=== PATIENT | female | born 1975 | race Caucasian/White ===

== ENCOUNTER → 2017-11-10 14:55 | Outpatient (CLI) | payer OTHER, SELFPAY ==
--- NOTE | 2017-11-10 14:58 | BI_ITS ---
MAMMOGRAPHY - BILATERAL SCREENING REASON FOR EXAM: Female, 42 years old. Routine annual screening examination. PERTINENT HISTORY: Mother with breast cancer. Grandmother with breast cancer. Aunt with breast cancer. TECHNIQUE: Digital bilateral breast yolette (3D mammographic acquisition) in the CC and MLO projections. 2-D mediolateral oblique (MLO) and craniocaudad (CC) views of both breasts were obtained. CAD: Full Field Digital Mammography with Computer Added Detection was performed. COMPARISON: Comparison is made with prior study dated November 06, 2016 and November 01, 2014. FINDINGS: Breast Composition: The breasts are extremely dense, which lowers the sensitivity of mammography. There are no dominant masses or suspicious calcifications. No other significant abnormalities are identified. There has been no significant change since the prior study. BI/SCREENING MAMM (CAD), BILAT IMPRESSION: Stable bilateral screening mammogram. Yearly follow-up mammogram recommended. (A) ASSESSMENT CATEGORY: BIRADS Category 1: Negative. A letter regarding these results will be sent to the patient by the facility within 30 days. Approximately 10% of breast cancers are not detected by mammography. A normal mammogram should not delay biopsy of a clinically suspicious abnormality. [id number] Electronically Signed: Ty Voss MD at 8:33 EDT Tel [phone], Service support ,
== END ==
PROVIDERS: Family Provider Internal Medicine; PCP Internal Medicine; Visit Provider Obstetrics & Gynecology
DX: Z12.31 Encounter for screening mammogram for malignant neoplasm of breast (principal)
CPT/HCPCS: 77063; 77067

== ENCOUNTER → 2018-11-17 14:38 | Outpatient (CLI) | payer OTHER, SELFPAY ==
--- NOTE | 2018-11-17 14:41 | BI_ITS ---
MAMMOGRAPHY - BILATERAL SCREENING 3-D TOMOSYNTHESIS REASON FOR EXAM: Female, 43 years old. Bilateral Screening 3-D tomosynthesis PERTINENT HISTORY: No significant family history. TECHNIQUE: 2-D mammograms and 3-D Tomosynthesis of the breast (s) were performed. CAD was performed. COMPARISON: November 10, 2017 FINDINGS: The breast composition is heterogeneously dense that can obscure small breast masses. Scattered benign calcifications are seen. No dense spiculated masses or suspicious microcalcifications are identified. No architectural distortion is identified. There is no skin thickening or retraction. There has been no significant change since the prior study. BI/SCREENING MAMM (CAD), BILAT IMPRESSION: No mammographic signs of malignancy. Routine yearly mammograms recommended. ASSESSMENT CATEGORY: BIRADS Category 1: Negative. A letter regarding these results will be sent to the patient by the facility within 30 days. FOLLOW UP RECOMMENDATION: Yearly follow up mammogram recommended. (A) Approximately 10% of breast cancers are not detected by mammography. A normal mammogram should not delay biopsy of a clinically suspicious abnormality. Electronically Signed: Dominic Juan MD at 16:52 EDT , Service support ,
== END ==
PROVIDERS: Family Provider Family Medicine; PCP Family Medicine; Referring Provider Obstetrics & Gynecology; Visit Provider Obstetrics & Gynecology
DX: Z12.31 Encounter for screening mammogram for malignant neoplasm of breast (principal)
CPT/HCPCS: 77063; 77067

== ENCOUNTER → 2019-11-19 09:54 | Outpatient (CLI) | payer OTHER, SELFPAY ==
--- NOTE | 2019-11-19 09:59 | BI_ITS ---
MAMMOGRAPHY - BILATERAL SCREENING REASON FOR EXAM: Female, 44 years old. Routine annual screening examination. PERTINENT HISTORY: Mother with breast cancer. TECHNIQUE: Digital bilateral breast maykel (3D mammographic acquisition) in the CC and MLO projections. 2-D mediolateral oblique (MLO) and craniocaudad (CC) views of both breasts were obtained. CAD: Full Field Digital Mammography with Computer Added Detection was performed. COMPARISON: Comparison is made with prior examination dated November 17, 2018 and November 10, 2017. FINDINGS: Breast Composition: The breasts are extremely dense, which lowers the sensitivity of mammography. There are no dominant masses or suspicious calcifications. No other significant abnormalities are identified. There has been no significant change since the prior study. BI/SCREEN MAMM (CAD) W/MAYKEL BILAT IMPRESSION: Stable bilateral screening mammogram. Yearly follow-up mammogram recommended. (A) ASSESSMENT CATEGORY: BIRADS Category 1: Negative. A letter regarding these results will be sent to the patient by the facility within 30 days. Approximately 10% of breast cancers are not detected by mammography. A normal mammogram should not delay biopsy of a clinically suspicious abnormality. [id number] Electronically Signed: Ty Voss, at 13:11 EDT , Service support ,
== END ==
PROVIDERS: PCP Family Medicine; Referring Provider Obstetrics & Gynecology; Visit Provider Obstetrics & Gynecology
DX: Z12.31 Encounter for screening mammogram for malignant neoplasm of breast (principal)
CPT/HCPCS: 77063; 77067

== ENCOUNTER → 2019-12-13 12:29 | Outpatient (CLI) | payer SELFPAY ==
--- NOTE | 2019-12-13 13:02 | MRI_ITS ---
STUDY: BILATERAL BREAST MR WITHOUT AND WITH CONTRAST REASON FOR EXAM: Female, 44 years old. dense breasts, family hx -- tenderness rt breast TECHNIQUE: Multi-sequence multi-echo imaging of both breasts was performed with a dedicated breast coil. T1-weighted and T2-weighted images were performed before the administration of contrast. T1-weighted images were also performed after the administration of IV dotarem 14ml without complications. COMPARISON: FINDINGS: RIGHT BREAST: The breast tissue is markedly dense with marked background enhancement which can lower the sensitivity of breast MRI for detection of small masses or small areas of non-mass enhancement. There are no abnormal enhancing masses or areas of non-mass enhancement in the right breast. LEFT BREAST: The breast tissue is markedly dense with marked background enhancement which can lower the sensitivity of breast MRI for detection of small masses or small areas of non-mass enhancement. There are no abnormal enhancing masses or areas of non-mass enhancement in the left breast. There is borderline enlargement of the axillary lymph nodes, the largest measures 1.5 cm in greatest diameter most likely represent an infectious process. There is no abnormality in the visualized regions of the chest or liver. MRI/Breast Bilateral W/O and W IMPRESSION: Unremarkable breast MR examination with contrast. CATEGORY: BIRADS Category 2: Benign. A letter regarding these results will be sent to the patient by the facility within 30 days. Electronically Signed: Kay Sears, at 13:53 EDT Tel , Service support ,
== END ==
PROVIDERS: PCP Family Medicine; Referring Provider Obstetrics & Gynecology; Visit Provider Obstetrics & Gynecology
DX: R92.2 Inconclusive mammogram (principal); N64.89 Other specified disorders of breast
CPT/HCPCS: 77049; A9575; A4216; C8908

== ENCOUNTER → 2019-12-31 10:24 | Outpatient (CLI) | payer OTHER, SELFPAY ==
[2019-12-31 13:57] LABS: Hematocrit 40.9 % (37-47); Hemoglobin 13.6 g/dL (12.0-15.0); Mean Corp Hgb Conc 33.3 g/dL (32-36); Mean Corpuscular Hgb 30.8 pg (27.0-32.0); Mean Corpuscular Volume 92.5 fL (81-99); Mean Platelet Vol. 9.7 fl (6.2-12.0); Platelet Count 359 K/mm3 (150-450); RBC Distribution Width CV 12.1 % (11.6-14.6); RBC Distribution Width SD 40.8 fl (35.1-43.9); Red Blood Count 4.42 M/mm3 (4.2-5.4); White Blood Count 6.7 K/mm3 (4.4-11.0)
[2019-12-31 14:08] LABS: ALB/GLOB Ratio 1.1 RATIO (0.9-2.4); AST(SGOT) 22 U/L (15-37); Alanine Aminotransfer ALT/SGPT 38 U/L (13-56); Alkaline Phosphatase 52 U/L (45-117); Anion Gap 3 (5-15); BUN 19 mg/dL (7-18); BUN/Creat Ratio 22.6 RATIO (10-20); Calcium,Total 9.4 mg/dL (8.5-10.1); Chloride 106 mmol/L (98-107); Cholesterol 244 mg/dL (200); Creatinine, Serum 0.84 mg/dL (0.55-1.02); EST Glomerular Filtration Rate 78 mL/min (>60); Est Glom Filt Rate - Afr Amer 94 mL/min (>60); Globulin 3.6 g/dL (2.2-4.2); Glucose 103 mg/dL (74-106); Potassium 4.3 mmol/L (3.5-5.1); Protein, Total 7.6 g/dL (6.4-8.2); Sodium Level 137 mmol/L (136-145)
[2019-12-31 14:40] LABS: Hemoglobin A1c 5.4 % (3.8-5.6)
== END ==
PROVIDERS: PCP Family Medicine; Visit Provider Obstetrics & Gynecology
DX: Z13.220 Encounter for screening for lipoid disorders (principal); Z13.1 Encounter for screening for diabetes mellitus; R23.2 Flushing; R22.30 Localized swelling, mass and lump, unspecified upper limb
CPT/HCPCS: 36415; 80053; 82465; 83036; 85027

== ENCOUNTER → 2020-02-11 08:53 | Outpatient (CLI) | payer OTHER, SELFPAY ==
[2020-02-11 12:47] LABS: Insulin 7.5 mU/L (2.6-37.6)
[2020-02-11 12:50] LABS: Cholesterol 230 mg/dL (200); Estradiol 121.5 pg/mL; Follicle Stimulating Hormone 2.2 mIU/mL; High Density Lipoprotein 60 mg/dL; T4 Free Direct 0.95 ng/dL (0.76-1.46); Thyroid Stim Hormone (TSH) 1.51 uIU/mL (0.358-3.74); Triglycerides 143 mg/dL; Very Low Density Lipoprotein 29 mg/dL (5-40)
== END ==
PROVIDERS: PCP Family Medicine; Visit Provider Family Medicine
DX: R63.5 Abnormal weight gain (principal); R23.2 Flushing; E78.5 Hyperlipidemia, unspecified; R73.01 Impaired fasting glucose
CPT/HCPCS: 36415; 80061; 82670; 83001; 83525; 84439; 84443

== ENCOUNTER → 2020-03-20 14:39 | Outpatient (CLI) | payer OTHER, SELFPAY ==
[2020-03-20 17:36] LABS: Anion Gap 6 (5-15); BUN 18 mg/dL (7-18); BUN/Creat Ratio 22.1 RATIO (10-20); Calcium,Total 9.5 mg/dL (8.5-10.1); Chloride 108 mmol/L (98-107); Creatinine, Serum 0.82 mg/dL (0.55-1.02); EST Glomerular Filtration Rate 81 mL/min (>60); Est Glom Filt Rate - Afr Amer 98 mL/min (>60); Glucose 127 mg/dL (74-106); Potassium 3.6 mmol/L (3.5-5.1); Sodium Level 138 mmol/L (136-145)
== END ==
PROVIDERS: PCP Family Medicine; Visit Provider Family Medicine
DX: Z51.81 Encounter for therapeutic drug level monitoring (principal)
CPT/HCPCS: 36415; 80048

== ENCOUNTER → 2020-04-14 13:21 | Outpatient (CLI) | payer OTHER, SELFPAY | PROVIDERS: PCP Family Medicine; Referring Provider Family Medicine; Visit Provider Family Medicine | DX: G47.10 Hypersomnia, unspecified (principal); R06.83 Snoring | CPT/HCPCS: 95806 ==

== ENCOUNTER → 2020-05-31 08:52 | Outpatient (CLI) | payer OTHER, SELFPAY ==
[2020-05-31 09:45] LABS: CRP < 2.90 mg/L (0.0-3.0)
[2020-05-31 10:17] LABS: Erythrocyte Sedimentation Rate 3 mm/hr (0-20)
== END ==
PROVIDERS: PCP Family Medicine; Visit Provider Otolaryngology
DX: R51.9 Headache, unspecified (principal)
CPT/HCPCS: 36415; 85652; 86140

== ENCOUNTER → 2020-06-09 12:36 | Outpatient (CLI) | payer OTHER, SELFPAY ==
--- NOTE | 2020-06-09 13:00 | MRI_ITS ---
STUDY: MRI BRAIN WITH AND WITHOUT CONTRAST REASON FOR EXAM: Female, 45 years old. LEFT facial and ear pain, trigeminal neuralgia TECHNIQUE: Standardized multiplanar fat and water weighted pulse sequences were obtained. 13ml Dotarem via IV was administered for the contrast portion of the examination. COMPARISON: None. FINDINGS: Normal size of the ventricles and extra-axial spaces for the patient''s age. Normal white matter tracts of the supratentorial brain. There is no evidence for recent intracranial ischemia or other cause of cytotoxic edema on diffusion weighted imaging (DWI). Normal bilateral basal ganglia. Normal thalami. There is no extra-axial fluid accumulation. Normal flow voids within the major intracranial circulation suggesting patency by spin echo criteria. Normal venous enhancement. There is no enhancing intra-axial or extra-axial abnormality. Normal sella turcica, pituitary gland, infundibular stalk, optic chiasm and hypothalamus. Normal tectal plate and pineal gland. Normal midbrain, dion and medulla. Normal cerebellum. Normal basal cisterns. Normal bilateral temporal bones. Normal bilateral internal auditory canals. No demonstrated orbital abnormality, within the constraints of a routine brain study. Normal visualized paranasal sinuses. Normal calvarium and skull base. Normal visualized soft tissue structures. Normal visualized upper cervical spine. MRI/Brain W/WO Contrast IMPRESSION: Normal unenhanced and enhanced MRI of the brain. Electronically Signed: Moody Babcock MD at 16:18 EST Tel , Service support ,
== END ==
PROVIDERS: PCP Family Medicine; Referring Provider Otolaryngology; Visit Provider Otolaryngology
DX: R51.9 Headache, unspecified (principal)
CPT/HCPCS: 70553; A9575

== ENCOUNTER → 2020-06-27 14:03 | Outpatient (CLI) | payer OTHER, SELFPAY ==
[2020-06-27 16:08] LABS: Absolute Lymphocyte Count 2.18 X10^3/uL (0.83-4.51); Absolute Neutrophil Count 5.6 X10^3/uL (2.0-7.7); Basophil# 0.03 X10^3/uL; Basophil% 0.3 % (0-1); Eosinophil# 0.07 X10^3/uL; Eosinophils% 0.8 % (0-5); Hematocrit 41.4 % (37-47); Hemoglobin 13.8 g/dL (12.0-15.0); Lymphocyte # 2.18 X10^3/ul (4.0); Lymphocyte % 25.4 % (19-41); Mean Corp Hgb Conc 33.3 g/dL (32-36); Mean Corpuscular Hgb 30.6 pg (27.0-32.0); Mean Corpuscular Volume 91.8 fL (81-99); Mean Platelet Vol. 9.6 fl (6.2-12.0); Monocyte# 0.73 X10^3/uL; Monocyte% 8.5 % (0-10); NRBC Flagged by Analyzer 0 % (0-5); Neutrophil # 5.55 X10^3/uL (2.7-7.7); Neutrophil % 64.7 % (47-70); Platelet Count 383 K/mm3 (150-450); RBC Distribution Width CV 12.4 % (11.6-14.6); RBC Distribution Width SD 41.8 fl (35.1-43.9); Red Blood Count 4.51 M/mm3 (4.2-5.4); White Blood Count 8.6 K/mm3 (4.4-11.0)
[2020-06-27 16:31] LABS: ALB/GLOB Ratio 1.1 RATIO (0.9-2.4); AST(SGOT) 29 U/L (15-37); Alanine Aminotransfer ALT/SGPT 54 U/L (13-56); Albumin, Serum 4.2 g/dL (3.2-5.0); Alkaline Phosphatase 70 U/L (45-117); BUN 22 mg/dL (7-18); BUN/Creat Ratio 28.5 RATIO (10-20); Calcium,Total 9.3 mg/dL (8.5-10.1); Chloride 105 mmol/L (98-107); Creatinine, Serum 0.77 mg/dL (0.55-1.02); EST Glomerular Filtration Rate 86 mL/min (>60); Est Glom Filt Rate - Afr Amer 104 mL/min (>60); Globulin 3.8 g/dL (2.2-4.2); Glucose 70 mg/dL (74-106); Potassium 3.2 mmol/L (3.5-5.1); Sodium Level 138 mmol/L (136-145)
[2020-06-27 16:32] LABS: Anion Gap 5 (5-15); Rheumatoid Factor < 10.0 IU/mL (<15)
[2020-06-28 08:44] LABS: Hepatitis B Surface Antibody Reactive; Hepatitis B Surface Antigen Non-Reactive (Nonreactive); Hepatitis C Antibody Non-Reactive (Nonreactive)
[2020-06-29 16:13] LABS: ANTINUCLEAR ANTIBODIES DIRECT Negative (Negative)
[2020-06-30 09:13] LABS: CCP IgG Antibodies 7 units (0-19); Hepatitis B Core AB IgM Negative (Negative)
== END ==
PROVIDERS: PCP Family Medicine; Referring Provider Internal Medicine Rheumatology; Visit Provider Internal Medicine Rheumatology
DX: M06.4 Inflammatory polyarthropathy (principal); G50.1 Atypical facial pain; R51.9 Headache, unspecified; F41.9 Anxiety disorder, unspecified
CPT/HCPCS: 36415; 80053; 85025; 86038; 86200; 86431; 86705; 86706; 86803; 87340

== ENCOUNTER → 2020-07-18 10:20 | Outpatient (CLI) | payer OTHER, SELFPAY ==
[2020-07-18 12:25] LABS: Anion Gap 6 (5-15); BUN 20 mg/dL (7-18); BUN/Creat Ratio 25.5 RATIO (10-20); Calcium,Total 8.7 mg/dL (8.5-10.1); Chloride 102 mmol/L (98-107); Creatinine, Serum 0.78 mg/dL (0.55-1.02); EST Glomerular Filtration Rate 84 mL/min (>60); Est Glom Filt Rate - Afr Amer 102 mL/min (>60); Glucose 101 mg/dL (74-106); Potassium 3.5 mmol/L (3.5-5.1); Sodium Level 136 mmol/L (136-145)
== END ==
PROVIDERS: PCP Family Medicine; Visit Provider Family Medicine
DX: E87.6 Hypokalemia (principal)
CPT/HCPCS: 36415; 80048

== ENCOUNTER → 2020-09-21 14:31 | Outpatient (CLI) | payer OTHER, SELFPAY ==
[2020-09-21 17:32] LABS: Absolute Lymphocyte Count 1.11 X10^3/uL (0.83-4.51); Absolute Neutrophil Count 2.1 X10^3/uL (2.0-7.7); Basophil# 0.03 X10^3/uL; Basophil% 0.8 % (0-1); Eosinophil# 0.04 X10^3/uL; Hematocrit 40.5 % (37-47); Hemoglobin 13.6 g/dL (12.0-15.0); Lymphocyte # 1.11 X10^3/ul (4.0); Lymphocyte % 28.2 % (19-41); Mean Corp Hgb Conc 33.6 g/dL (32-36); Mean Corpuscular Volume 89.4 fL (81-99); Mean Platelet Vol. 9.7 fl (6.2-12.0); Monocyte# 0.63 X10^3/uL; NRBC Flagged by Analyzer 0 % (0-5); Neutrophil # 2.12 X10^3/uL (2.7-7.7); Neutrophil % 53.7 % (47-70); Platelet Count 317 K/mm3 (150-450); Red Blood Count 4.53 M/mm3 (4.2-5.4); White Blood Count 3.9 K/mm3 (4.4-11.0)
[2020-09-21 17:49] LABS: ALB/GLOB Ratio 1.1 RATIO (0.9-2.4); AST(SGOT) 33 U/L (15-37); Alanine Aminotransfer ALT/SGPT 61 U/L (13-56); Alkaline Phosphatase 75 U/L (45-117); Anion Gap 6 (5-15); BUN 15 mg/dL (7-18); BUN/Creat Ratio 17.5 RATIO (10-20); Chloride 103 mmol/L (98-107); Creatinine, Serum 0.86 mg/dL (0.55-1.02); EST Glomerular Filtration Rate 76 mL/min (>60); Est Glom Filt Rate - Afr Amer 92 mL/min (>60); Globulin 3.6 g/dL (2.2-4.2); Glucose 105 mg/dL (74-106); Potassium 3.1 mmol/L (3.5-5.1); Protein, Total 7.6 g/dL (6.4-8.2); Sodium Level 137 mmol/L (136-145)
== END ==
LOC: LAB 14:34 → MTLAB 14:34
PROVIDERS: PCP Family Medicine; Referring Provider Family Medicine; Visit Provider Family Medicine
DX: E87.6 Hypokalemia (principal); M06.4 Inflammatory polyarthropathy; G50.1 Atypical facial pain; R51.9 Headache, unspecified; F41.9 Anxiety disorder, unspecified; Z79.899 Other long term (current) drug therapy
CPT/HCPCS: 36415; 80053; 85025

== ENCOUNTER → 2020-09-28 09:10 | Outpatient (CLI) | payer OTHER, SELFPAY ==
[2020-09-28 08:17] VITALS: BMI 26.4
--- NOTE | 2020-09-28 09:14 | RAD_ITS ---
STUDY: X-RAY - CERVICAL SPINE REASON FOR EXAM: Female, 45 years old. Cervicalgia TECHNIQUE: 3 view(s) of the cervical spine were obtained. COMPARISON: None FINDINGS: Normal anterior atlantoaxial articulation. Normal odontoid process. Normal cervical lordosis. Normal vertebral bodies and endplates. Normal disc space heights. Normal visualized intervertebral neuroforamina. The soft tissue structures are unremarkable. RAD/Cerv Spine 2 or 3 Views IMPRESSION: Normal x-ray examination of the visualized cervical spine. Electronically Signed: Ty Voss MD at 10:11 EST , Service support ,
== END ==
PROVIDERS: PCP Family Medicine; Visit Provider Psychiatry & Neurology Neurology
DX: M54.2 Cervicalgia (principal)
CPT/HCPCS: 72040

== ENCOUNTER → 2020-11-07 07:03 | Outpatient (CLI) | payer OTHER, SELFPAY ==
[2020-09-28 08:17] VITALS: BMI 26.4
--- NOTE | 2020-11-07 07:07 | BI_ITS ---
MAMMOGRAPHY - BILATERAL SCREENING REASON FOR EXAM: Female, 45 years old. Routine annual screening examination. PERTINENT HISTORY: Mother with breast cancer. Grandmother with breast cancer. Chronic inversion of both nipples. TECHNIQUE: Digital bilateral breast maykel (3D mammographic acquisition) in the CC and MLO projections. 2-D mediolateral oblique (MLO) and craniocaudad (CC) views of both breasts were obtained. CAD: Full Field Digital Mammography with Computer Added Detection was performed. COMPARISON: Comparison is made with prior examination dated 11/19/2019 and 11/17/2018. FINDINGS: Breast Composition: The breasts are extremely dense, which lowers the sensitivity of mammography. There are no dominant masses or suspicious calcifications. No other significant abnormalities are identified. There has been no significant change since the prior study. BI/SCRN MAMM (CAD)W/MAYKEL BILAT IMPRESSION: Stable bilateral screening mammogram. Yearly follow-up mammogram recommended. (A) ASSESSMENT CATEGORY: BIRADS Category 1: Negative. A letter regarding these results will be sent to the patient by the facility within 30 days. Approximately 10% of breast cancers are not detected by mammography. A normal mammogram should not delay biopsy of a clinically suspicious abnormality. [id number] Electronically Signed: Ty Voss MD at 9:15 EDT , Service support ,
== END ==
PROVIDERS: PCP Family Medicine; Referring Provider Obstetrics & Gynecology; Visit Provider Obstetrics & Gynecology
DX: Z12.31 Encounter for screening mammogram for malignant neoplasm of breast (principal)
CPT/HCPCS: 77063; 77067

== ENCOUNTER 2021-06-19 08:15 | Outpatient (RCR) | payer OTHER, SELFPAY ==
[2020-09-28 08:17] VITALS: BMI 26.4
--- NOTE | 2020-11-02 18:41 | MASS.EVAL_ITS ---
Massage Therapy Evaluation: Initial Evaluation Date: 11/02/2020 SUBJECTIVE: Dinorah is a 45 year old female who was referred to the [facility] facility for a massotherapy evaluation by Dr. Mina with the diagnosis of impingement syndrome of left shoulder and cervicalgia. She presents today with the symptoms of pain, stiffness and tension in the neck, head, mid back, and low back. Dinorah reports having a past medical history of chronic neck and back pain and complains of five or more headaches a week and radiating pain in her neck and left arm and hand. She reports having minimal improvement with exercise and stretching over the last five months. Dinorah is currently receiving physical therapy for these conditions. OBJECTIVE: Upon observation Dinorah has some posture issues with her head and shoulders forward from the neutral position in sitting and standing. After examination and palpation, I found Dinorah to have high muscle tension with tenderness and myofascial restrictions in her sub occipitals, levator scapulae, trapezius, rhomboids, scalenes, and thoracic paraspinals. Left side worse compared to the right side. Her QL?s, lumbar paraspinals, piriformis, ITB?s, glute medius and minimus all were very tight with fascial restrictions, tender points and trigger points. The first treatment consisted of a one hour massage to her upper body with myofascial release, muscle stripping, trigger point compression techniques, and cervical manual traction. ASSESSMENT: I feel that Dinorah is a good candidate for massotherapy at this time. She had a favorable response to the first treatment with reduction in her muscle aches, pain and tension. She also had improvement in her cervical flexibility and low back flexibility. PLAN: The plan of care was reviewed with the patient. The patient is to be seen on an as needed basis with the recommendation of one- two times per week for two three weeks per the doctor?s order for a one hour treatment.
--- NOTE | 2021-07-17 13:05 | DS.PCM_ITS ---
Massage Therapy Discharge Summary: Discharge Date 07/17/21 Dinorah was seen for a massotherapy evaluation on November 02, 2020, with the diagnosis of cervicalgia and shoulder impingement. The patient was treated with 7 sessions of massage and seemed to respond well. At this time I am discharging the patient from our care at the [facility].
== END 2021-06-19 19:00 | disposition home or self-care (01) ==
LOC: MASS 08:15
PROVIDERS: PCP Family Medicine; Referring Provider Orthopaedic Surgery; Visit Provider Orthopaedic Surgery
DX: M75.42 Impingement syndrome of left shoulder (principal); M54.2 Cervicalgia
CPT/HCPCS: 97124

== ENCOUNTER 2021-11-08 07:03 | Outpatient (CLI) | payer OTHER, SELFPAY ==
--- NOTE | 2021-11-08 07:05 | BI_ITS ---
MAMMOGRAPHY - BILATERAL SCREENING REASON FOR EXAM: Female, 46 years old. Routine annual screening examination. PERTINENT HISTORY: Mother with breast cancer. Grandmother with breast cancer. TECHNIQUE: Digital bilateral breast maykel (3D mammographic acquisition) in the CC and MLO projections. 2-D mediolateral oblique (MLO) and craniocaudad (CC) views of both breasts were obtained. CAD: Full Field Digital Mammography with Computer Added Detection was performed. COMPARISON: Comparison is made with prior examination dated 11/07/2020 and 11/19/2019. FINDINGS: Breast Composition: The breasts are extremely dense, which lowers the sensitivity of mammography. There are no dominant masses or suspicious calcifications. No other significant abnormalities are identified. There has been no significant change since the prior study. BI/SCRN MAMM (CAD)W/MAYKEL BILAT IMPRESSION: Stable bilateral screening mammogram. Yearly follow-up mammogram recommended. (A) ASSESSMENT CATEGORY: BIRADS Category 1: Negative. A letter regarding these results will be sent to the patient by the facility within 30 days. Approximately 10% of breast cancers are not detected by mammography. A normal mammogram should not delay biopsy of a clinically suspicious abnormality. [id number] Electronically Signed: Ty Voss MD at 8:23 EDT ,
== END 2021-11-08 23:59 | disposition home or self-care (01) ==
LOC: OPBI 07:03
PROVIDERS: PCP Family Medicine; Visit Provider Obstetrics & Gynecology
DX: Z12.31 Encounter for screening mammogram for malignant neoplasm of breast (principal)
CPT/HCPCS: 77063; 77067

== ENCOUNTER → 2022-05-17 | Outpatient (CLI) | payer OTHER, SELFPAY ==
[2022-05-17 15:52] LABS: Vitamin D,25 Hydroxy 29.4 ng/mL
[2022-05-20 09:17] LABS: PTHIN 24.2 pg/mL (18.4-80.1)
[2022-05-20 16:51] LABS: Vitamin D 1,25-Dihydroxy 59.3 pg/mL (24.8-81.5)
== END | disposition home or self-care (01) ==
LOC: BFHLAB 11:55
PROVIDERS: PCP Family Medicine; Visit Provider Family Medicine
DX: E83.52 Hypercalcemia (principal)
CPT/HCPCS: 36415; 82306; 82330; 82652; 83970

== ENCOUNTER → 2022-09-12 | Outpatient (CLI) | payer OTHER, SELFPAY ==
[2022-09-12 12:13] LABS: Erythrocyte Sedimentation Rate 6 mm/hr (0-30)
[2022-09-12 12:52] LABS: CRP < 2.90 mg/L (0.0-3.0); Rheumatoid Factor < 10.0 IU/mL (<15)
[2022-09-13 17:19] LABS: CCP IgG Antibodies 5 units (0-19)
[2022-09-13 19:16] LABS: ANTINUCLEAR ANTIBODIES DIRECT Negative (Negative)
== END | disposition home or self-care (01) ==
LOC: BFHLAB 09:30
PROVIDERS: PCP Family Medicine; Visit Provider Family Medicine
DX: M25.50 Pain in unspecified joint (principal)
CPT/HCPCS: 36415; 85652; 86038; 86140; 86200; 86225; 86235; 86431

== ENCOUNTER → 2023-01-07 | Outpatient (CLI) | payer OTHER, SELFPAY ==
--- NOTE | 2023-01-07 07:47 | BI_ITS ---
MAMMOGRAPHY - BILATERAL SCREENING REASON FOR EXAM: Female, 47 years old. Routine annual screening examination. PERTINENT HISTORY: Mother with breast cancer. Grandmother with breast cancer. TECHNIQUE: Digital bilateral breast maykel (3D mammographic acquisition) in the CC and MLO projections. 2-D mediolateral oblique (MLO) and craniocaudad (CC) views of both breasts were obtained. CAD: Full Field Digital Mammography with Computer Added Detection was performed. COMPARISON: Comparison is made with prior study November 08, 2021 and November 07, 2020. FINDINGS: Breast Composition: The breasts are extremely dense, which lowers the sensitivity of mammography. There are no dominant masses or suspicious calcifications. No other significant abnormalities are identified. There has been no significant change since the prior study. BI/SCRN MAMM (CAD)W/MAYKEL BILAT IMPRESSION: Stable bilateral screening mammogram. Yearly follow-up mammogram recommended. (A) ASSESSMENT CATEGORY: BIRADS Category 1: Negative. A letter regarding these results will be sent to the patient by the facility within 30 days. Approximately 10% of breast cancers are not detected by mammography. A normal mammogram should not delay biopsy of a clinically suspicious abnormality. [id number] Electronically Signed: Ty Voss MD at 8:48 EDT ,
[2023-01-07 11:10] LABS: Glucose 75GTT - Fasting 105 mg/dL (70-99)
[2023-01-07 11:12] LABS: Glucose 75GTT - 30 minutes 205 mg/dL (100-160)
[2023-01-07 11:17] LABS: T3 Total - Triiodothyronine 1.48 ng/mL (0.6-1.81)
[2023-01-07 11:18] LABS: Insulin 75GTT - 30 MIN 100.2 mU/L (Not Estab.)
[2023-01-07 11:27] LABS: CRP < 2.90 mg/L (0.0-3.0); Prolactin 6.5 ng/mL; T4 Free Direct 0.97 ng/dL (0.76-1.46); Thyroid Stim Hormone (TSH) 1.86 uIU/mL (0.358-3.74)
[2023-01-07 11:30] LABS: Insulin 75GTT - Fasting 8.6 mU/L (2.6-37.6)
[2023-01-07 11:37] LABS: Glucose 75GTT - 60 minutes 186 mg/dL (100-160)
[2023-01-07 11:41] LABS: Prolactin 5.2 ng/mL
[2023-01-07 11:43] LABS: Insulin 75GTT - 60 min 148.9 mU/L (Not Estab)
[2023-01-07 11:48] LABS: Prolactin 5.1 ng/mL
[2023-01-07 12:57] LABS: Insulin 75GTT - 120 min 64.1 mU/L (Not Estab.)
[2023-01-07 12:59] LABS: Glucose 75GTT - 120 minutes 88 mg/dL (70-140)
== END | disposition home or self-care (01) ==
PROVIDERS: PCP Family Medicine; Referring Provider Obstetrics & Gynecology; Visit Provider Obstetrics & Gynecology
DX: Z12.31 Encounter for screening mammogram for malignant neoplasm of breast (principal); E22.1 Hyperprolactinemia; R63.5 Abnormal weight gain; E03.9 Hypothyroidism, unspecified; R51.9 Headache, unspecified; Z82.49 Family history of ischemic heart disease and other diseases of the circulatory system
CPT/HCPCS: 36415; 77063; 77067; 82533; 82951; 82952; 83525; 84146; 84439; 84443; 84480; 84481; 86140

== ENCOUNTER → 2023-06-06 | Outpatient (CLI) | payer OTHER, SELFPAY ==
[2023-06-06 17:51] LABS: Absolute Lymphocyte Count 2.08 X10^3/uL (0.83-4.51); Absolute Neutrophil Count 3.8 X10^3/uL (2.0-7.7); Basophil# 0.04 X10^3/uL; Basophil% 0.6 % (0-1); Eosinophil# 0.05 X10^3/uL; Eosinophils% 0.8 % (0-5); Hemoglobin 13.4 g/dL (12.0-15.0); Lymphocyte # 2.08 X10^3/ul (0.83-4.51); Mean Corp Hgb Conc 32.7 g/dL (32-36); Mean Corpuscular Hgb 29.6 pg (27.0-32.0); Mean Corpuscular Volume 90.5 fL (81-99); Mean Platelet Vol. 9.5 fl (6.2-12.0); Monocyte% 7.7 % (0-10); NRBC Flagged by Analyzer 0 % (0-5); Neutrophil # 3.83 X10^3/uL (2.7-7.7); Neutrophil % 58.7 % (47-70); Platelet Count 424 K/mm3 (150-450); RBC Distribution Width CV 12.1 % (11.6-14.6); RBC Distribution Width SD 40.1 fl (35.1-43.9); Red Blood Count 4.53 M/mm3 (4.2-5.4); White Blood Count 6.5 K/mm3 (4.4-11.0)
[2023-06-06 18:08] LABS: ALB/GLOB Ratio 1.1 RATIO (0.9-2.4); AST(SGOT) 29 U/L (15-37); Alanine Aminotransfer ALT/SGPT 56 U/L (13-56); Albumin, Serum 4.1 g/dL (3.2-5.0); Alkaline Phosphatase 77 U/L (45-117); Anion Gap 8 (5-15); BUN 12 mg/dL (7-18); BUN/Creat Ratio 13.2 RATIO (10-20); Calcium,Total 9.7 mg/dL (8.5-10.1); Chloride 100 mmol/L (98-107); Cholesterol 254 mg/dL (200); Creatinine, Serum 0.91 mg/dL (0.55-1.02); EST Glomerular Filtration Rate 70 mL/min (>60); Est Glom Filt Rate - Afr Amer 85 mL/min (>60); Globulin 3.8 g/dL (2.2-4.2); Glucose 109 mg/dL (74-106); High Density Lipoprotein 59 mg/dL; Protein, Total 7.9 g/dL (6.4-8.2); Sodium Level 138 mmol/L (136-145); Triglycerides 170 mg/dL; Very Low Density Lipoprotein 34 mg/dL (5-40)
== END | disposition home or self-care (01) ==
LOC: BFHLAB 14:51
PROVIDERS: PCP Nurse Practitioner Family; Referring Provider Nurse Practitioner Family; Visit Provider Nurse Practitioner Family
DX: Z00.01 Encounter for general adult medical examination with abnormal findings (principal)
CPT/HCPCS: 36415; 80053; 80061; 85025

== ENCOUNTER → 2024-02-13 | Outpatient (CLI) | payer OTHER, SELFPAY ==
[2024-02-13 08:35] LABS: Cholesterol 229 mg/dL (200); Estradiol 184.6 pg/mL; Follicle Stimulating Hormone 15.1 mIU/mL; Glucose 122 mg/dL (74-106); High Density Lipoprotein 65 mg/dL; Triglycerides 96 mg/dL; Very Low Density Lipoprotein 19 mg/dL (5-40)
[2024-02-20 09:10] LABS: DHEA Sulfate 61.6 ug/dL (41.2-243.7); Testosterone, % Free 1.77 % (0.50-2.80); Testosterone, Free 0.12 ng/dL (0.10-0.85); Testosterone, Total 7 ng/dL (4-50)
== END | disposition home or self-care (01) ==
LOC: LAB 07:38
PROVIDERS: PCP Family Medicine; Referring Provider Obstetrics & Gynecology; Visit Provider Obstetrics & Gynecology
DX: N95.1 Menopausal and female climacteric states (principal); E28.9 Ovarian dysfunction, unspecified; E78.00 Pure hypercholesterolemia, unspecified; Z13.228 Encounter for screening for other metabolic disorders
CPT/HCPCS: 36415; 80061; 82627; 82670; 82947; 83001; 83525; 84402; 84403; 82626

== ENCOUNTER → 2024-02-18 | Outpatient (CLI) | payer OTHER, SELFPAY ==
--- NOTE | 2024-02-18 07:33 | BI_ITS ---
MAMMOGRAPHY - BILATERAL SCREENING REASON FOR EXAM: Female, 49 years old. Routine annual screening examination. PERTINENT HISTORY: Mother with breast cancer. Grandmother with breast cancer. Bilateral breast reduction surgery. TECHNIQUE: Digital bilateral breast maykel (3D mammographic acquisition) in the CC and MLO projections. 2-D mediolateral oblique (MLO) and craniocaudad (CC) views of both breasts were obtained. CAD: Full Field Digital Mammography with Computer Added Detection was performed. COMPARISON: Comparison is made with prior study dated January 07, 2023 and November 08, 2021. FINDINGS: Breast Composition: The breasts are extremely dense, which lowers the sensitivity of mammography. There are no dominant masses or suspicious calcifications. No other significant abnormalities are identified. There has been no significant change since the prior study. BI/SCRN MAMM (CAD)W/MAYKEL BILAT IMPRESSION: Stable bilateral screening mammogram. Yearly follow-up mammogram recommended. (A) ASSESSMENT CATEGORY: BIRADS Category 1: Negative. A letter regarding these results will be sent to the patient by the facility within 30 days. Approximately 10% of breast cancers are not detected by mammography. A normal mammogram should not delay biopsy of a clinically suspicious abnormality. [id number] Electronically Signed: Ty Voss MD at 8:18 EDT ,
== END | disposition home or self-care (01) ==
PROVIDERS: PCP Family Medicine; Referring Provider Obstetrics & Gynecology; Visit Provider Obstetrics & Gynecology
DX: Z12.31 Encounter for screening mammogram for malignant neoplasm of breast (principal); Z80.3 Family history of malignant neoplasm of breast
CPT/HCPCS: 77063; 77067

== ENCOUNTER → 2024-06-30 | Outpatient (CLI) | payer OTHER, SELFPAY ==
--- NOTE | 2024-06-30 11:14 | RAD_ITS ---
STUDY: X-RAY - LEFT HAND REASON FOR EXAM: Female, 49 years old. POST FALL 2 MONTHS AGO TECHNIQUE: 3 view(s) of the hand. COMPARISON: None. FINDINGS: Normal radiocarpal articulation. Normal distal radioulnar joint. Normal visualized carpal bones. Normal carpal articulations Normal carpometacarpal articulation of the thumb. Normal second through fifth carpometacarpal joints. Normal metacarpi. Normal metacarpophalangeal joint of the thumb. Normal interphalangeal joint of the thumb. Normal proximal and distal phalanges of the thumb. Normal metacarpophalangeal joints of the second through fifth fingers. Normal proximal and distal interphalangeal joints of the second through fifth fingers. Normal phalanges of the second through fifth fingers. The soft tissue structures are unremarkable. There is no acute fracture. RAD/Hand Min 3 Views IMPRESSION: Normal x-ray examination of the hand. Electronically Signed: Issac Bartlett MD at 8:34 EST ,
[2024-06-30 15:22] LABS: Absolute Lymphocyte Count 1.83 X10^3/uL (0.83-4.51); Absolute Neutrophil Count 4.5 X10^3/uL (2.0-7.7); Basophil# 0.05 X10^3/uL; Basophil% 0.7 % (0-1); Eosinophil# 0.09 X10^3/uL; Eosinophils% 1.3 % (0-5); Hematocrit 41.3 % (37-47); Hemoglobin 13.7 g/dL (12.0-15.0); Lymphocyte # 1.83 X10^3/ul (0.83-4.51); Lymphocyte % 25.8 % (19-41); Mean Corp Hgb Conc 33.2 g/dL (32-36); Mean Corpuscular Hgb 29.8 pg (27.0-32.0); Mean Platelet Vol. 9.8 fl (6.2-12.0); Monocyte# 0.64 X10^3/uL; NRBC Flagged by Analyzer 0 % (0-5); Neutrophil # 4.46 X10^3/uL (2.7-7.7); Neutrophil % 62.8 % (47-70); Platelet Count 443 K/mm3 (150-450); RBC Distribution Width CV 12.5 % (11.6-14.6); RBC Distribution Width SD 40.8 fl (35.1-43.9); Red Blood Count 4.59 M/mm3 (4.2-5.4); White Blood Count 7.1 K/mm3 (4.4-11.0)
[2024-06-30 15:51] LABS: ALB/GLOB Ratio 1.1 RATIO (0.9-2.4); AST(SGOT) 46 U/L (15-37); Alanine Aminotransfer ALT/SGPT 81 U/L (13-56); Alkaline Phosphatase 81 U/L (45-117); Anion Gap 9 (5-15); BUN 12 mg/dL (7-18); BUN/Creat Ratio 17.2 RATIO (10-20); Chloride 101 mmol/L (98-107); EST Glomerular Filtration Rate 95 mL/min (>60); Est Glom Filt Rate - Afr Amer 115 mL/min (>60); Globulin 3.8 g/dL (2.2-4.2); Glucose 108 mg/dL (74-106); Potassium 3.9 mmol/L (3.5-5.1); Protein, Total 7.8 g/dL (6.4-8.2); Sodium Level 136 mmol/L (136-145)
== END | disposition home or self-care (01) ==
LOC: MTRAD 11:03
PROVIDERS: PCP Family Medicine; Referring Provider Nurse Practitioner Family; Visit Provider Nurse Practitioner Family
DX: Z00.01 Encounter for general adult medical examination with abnormal findings (principal); M79.642 Pain in left hand
CPT/HCPCS: 36415; 73130; 80053; 85025

== ENCOUNTER → 2024-08-18 | Outpatient (CLI) | payer OTHER, SELFPAY ==
[2024-08-18 12:24] LABS: Hematocrit 38.7 % (37-47); Hemoglobin 12.8 g/dL (12.0-15.0); Mean Corp Hgb Conc 33.1 g/dL (32-36); Mean Corpuscular Hgb 29.6 pg (27.0-32.0); Mean Corpuscular Volume 89.4 fL (81-99); Mean Platelet Vol. 9.1 fl (6.2-12.0); Platelet Count 401 K/mm3 (150-450); RBC Distribution Width SD 38.7 fl (35.1-43.9); Red Blood Count 4.33 M/mm3 (4.2-5.4); White Blood Count 5.8 K/mm3 (4.4-11.0)
[2024-08-18 15:37] LABS: ALB/GLOB Ratio 1.2 RATIO (0.9-2.4); AST(SGOT) 22 U/L (15-37); Alanine Aminotransfer ALT/SGPT 37 U/L (13-56); Alkaline Phosphatase 60 U/L (45-117); Anion Gap 7 (5-15); BUN 11 mg/dL (7-18); BUN/Creat Ratio 13.3 RATIO (10-20); Calcium,Total 9.4 mg/dL (8.5-10.1); Chloride 100 mmol/L (98-107); Cholesterol 218 mg/dL (200); Creatinine, Serum 0.83 mg/dL (0.55-1.02); EST Glomerular Filtration Rate 78 mL/min (>60); Est Glom Filt Rate - Afr Amer 94 mL/min (>60); Globulin 3.4 g/dL (2.2-4.2); Glucose 115 mg/dL (74-106); High Density Lipoprotein 65 mg/dL; Potassium 3.7 mmol/L (3.5-5.1); Protein, Total 7.4 g/dL (6.4-8.2); Sodium Level 134 mmol/L (136-145); Triglycerides 120 mg/dL; Very Low Density Lipoprotein 24 mg/dL (5-40)
[2024-08-18 18:53] LABS: Hemoglobin A1c 5.8 % (3.8-5.6)
[2024-08-18 19:15] LABS: Estradiol 110.1 pg/mL
[2024-08-19 13:07] LABS: CRP, High Sensitivity 1.78 mg/L (0.00-3.00)
[2024-08-20 18:07] LABS: Testosterone, % Free 1.75 % (0.50-2.80); Testosterone, Free <.05 ng/dL (0.10-0.85); Testosterone, Total < 3 ng/dL (4-50)
== END | disposition home or self-care (01) ==
LOC: MTLAB 10:28
PROVIDERS: PCP Family Medicine; Referring Provider Obstetrics & Gynecology; Visit Provider Obstetrics & Gynecology
DX: Z13.228 Encounter for screening for other metabolic disorders (principal); Z13.1 Encounter for screening for diabetes mellitus; Z13.220 Encounter for screening for lipoid disorders; Z82.49 Family history of ischemic heart disease and other diseases of the circulatory system; N95.1 Menopausal and female climacteric states
CPT/HCPCS: 36415; 80053; 80061; 82533; 82670; 83036; 84402; 84403; 85027; 86141

== ENCOUNTER → 2024-10-12 | Outpatient (CLI) | payer OTHER, SELFPAY ==
--- NOTE | 2024-10-12 11:15 | MRI_ITS ---
PROCEDURE: BRAIN W/WO CONTRAST (MRIBRWW), 10/12/2024 REASON FOR EXAM: PHANTOSMIA COMPARISON: 08/09/2019; only the images are available for review, the report is not available at the time of dictation. TECHNIQUE: Multisequence multiplanar MRI brain was performed with and without intravenous contrast. Contrast: 13 mL Clariscan. FINDINGS: Cerebrum: Unremarkable. Cerebellum: Unremarkable. Brainstem: Unremarkable. Ventricles/extra-axial spaces: Unremarkable. Major flow voids: Grossly unremarkable within limits of nondedicated technique. Paranasal sinuses: Unremarkable. Scalp/calvarium: Unremarkable. Orbits: Grossly unremarkable within limits of nondedicated technique. Other: No abnormal enhancement. Unremarkable MR appearance of the olfactory grooves/bulbs. MRI/Brain W/WO Contrast IMPRESSION: 1. No acute abnormality or findings which might explain the patient's symptoms. 2. Additional description as above. Reading Location: [id number]
== END | disposition home or self-care (01) ==
LOC: MRI 11:11
PROVIDERS: PCP Family Medicine; Visit Provider Otolaryngology
DX: R43.1 Parosmia (principal)
CPT/HCPCS: 70553; A9575

== ENCOUNTER → 2024-12-03 | Outpatient (CLI) | payer OTHER, SELFPAY ==
[2024-12-03 08:19] LABS: Absolute Lymphocyte Count 1.87 X10^3/uL (0.83-4.51); Absolute Neutrophil Count 3.6 X10^3/uL (2.0-7.7); Basophil# 0.05 X10^3/uL; Basophil% 0.8 % (0-1); Eosinophils% 1.6 % (0-5); Hematocrit 35.8 % (37-47); Hemoglobin 12.2 g/dL (12.0-15.0); Lymphocyte # 1.87 X10^3/ul (0.83-4.51); Lymphocyte % 30.1 % (19-41); Mean Corp Hgb Conc 34.1 g/dL (32-36); Mean Corpuscular Hgb 30.7 pg (27.0-32.0); Mean Corpuscular Volume 89.9 fL (81-99); Mean Platelet Vol. 9.1 fl (6.2-12.0); Monocyte# 0.57 X10^3/uL; Monocyte% 9.2 % (0-10); NRBC Flagged by Analyzer 0 % (0-5); Neutrophil # 3.59 X10^3/uL (2.7-7.7); Neutrophil % 57.8 % (47-70); Platelet Count 353 K/mm3 (150-450); RBC Distribution Width CV 12.3 % (11.6-14.6); RBC Distribution Width SD 40.3 fl (35.1-43.9); Red Blood Count 3.98 M/mm3 (4.2-5.4); White Blood Count 6.2 K/mm3 (4.4-11.0)
[2024-12-03 08:48] LABS: Estradiol 62.7 pg/mL; Ferritin 44 ng/mL (22-378); Follicle Stimulating Hormone 2.7 mIU/mL; Free T3 3.4 pg/mL (2.18-3.98); Vitamin B12 691 pg/mL (180-914); Vitamin D,25 Hydroxy 39.2 ng/mL (30-100)
[2024-12-03 08:59] LABS: ALB/GLOB Ratio 1.6 RATIO (0.9-2.4); AST(SGOT) 19 U/L (<=31); Alanine Aminotransfer ALT/SGPT 22 U/L (<=34); Albumin, Serum 4.1 g/dL (3.5-5.0); Alkaline Phosphatase 54 U/L (35-104); Anion Gap 9 (5-15); BUN 24 mg/dL (4-19); BUN/Creat Ratio 29.6 RATIO (10-20); Calcium,Total 9.1 mg/dL (7.6-11.0); Chloride 106 mmol/L (98-108); Creatinine, Serum 0.81 mg/dL (0.70-1.20); EST Glomerular Filtration Rate 89 (>60); Globulin 2.5 g/dL (2.2-4.2); Glucose 125 mg/dL (70-99); Protein, Total 6.6 g/dL (5.9-8.4); Sodium Level 139 mmol/L (133-145); Total Bilirubin < 0.15 mg/dL (0.00-1.30)
== END | disposition home or self-care (01) ==
LOC: LAB 07:41
PROVIDERS: PCP Family Medicine
DX: N95.1 Menopausal and female climacteric states (principal); R68.82 Decreased libido; E07.9 Disorder of thyroid, unspecified; R53.83 Other fatigue; Z13.21 Encounter for screening for nutritional disorder
CPT/HCPCS: 36415; 80053; 82306; 82607; 82670; 82728; 83001; 84270; 84402; 84403; 84439; 84443; 84481; 85025; 86376

== ENCOUNTER → 2025-02-21 | Outpatient (CLI) | payer OTHER, SELFPAY ==
--- NOTE | 2025-02-21 13:06 | US_ITS ---
PROCEDURE: BREAST LIMITED UNILATERAL 02/21/2025 REASON FOR EXAM: F, Age recent left breast lump. Not present at this time., LUMP IN ARMPIT COMPARISON: Prior mammogram done earlier in the day.. TECHNIQUE: BREAST LIMITED UNILATERAL. The axillary region of the left breast was examined with ultrasound. FINDINGS: Glandular tissue is seen in the area of interest. Incidental note is made of a 4 mm x 3 mm x 3 mm cyst at the 2 o'clock position of the breast at 5 cm from the nipple. US/Breast Limited Unilateral IMPRESSION: Incidental note is made of a 4 mm x 3 mm x 3 mm cyst at the 2 o'clock position of the breast at 5 cm from the nipple. BI-RADS 2: BENIGN RECOMMENDATION: Routine annual follow-up in 1 Year Reading Location: [id number]
--- NOTE | 2025-02-21 13:06 | BI_ITS ---
EXAM: DIAG MAMM W/CAD, BILAT 02/21/2025 CLINICAL HISTORY: F, Age 50 y/o , LUMP IN ARMPIT. History of mother with breast cancer and grandmother with breast cancer. Status post bilateral breast reductions. TECHNIQUE: DIAG MAMM W/CAD, BILAT. COMPARISON: Prior exam(s) dated February 18, 2024.. FINDINGS: TISSUE DENSITY: The breasts are extremely dense, which lowers the sensitivity of mammography. Bilateral Breast Mammographic Findings: No significant masses, calcifications or other abnormalities are identified. No suspicious masses, areas of developing architectural distortion, or suspicious calcifications. There has been no significant interval change. BI/DIAG MAMM W/CAD, BILAT IMPRESSION: With the patient's history of left lateral breast tenderness, targeted sonograp hic correlation recommend. OVERALL FINAL ASSESSMENT BI-RADS 0: INCOMPLETE - NEED ADDITIONAL IMAGING EVALUATION. RECOMMENDATION: Ultrasound Recommended A letter with findings and recommendations will be mailed to the patient. Reading Location: [facility]
== END | disposition home or self-care (01) ==
LOC: OPBI 13:03
PROVIDERS: PCP Family Medicine; Referring Provider Obstetrics & Gynecology; Visit Provider Obstetrics & Gynecology
DX: R22.30 Localized swelling, mass and lump, unspecified upper limb (principal)
CPT/HCPCS: 76642; 77062; 77066; G0279

== ENCOUNTER → 2025-02-23 | Outpatient (CLI) | payer OTHER, SELFPAY ==
--- OUTSIDE RECORDS SUMMARY | 2025-02-23 07:54 | XMS RPT_ITS | CCD ---
Author Organization [facility] Care Team Providers Care Commercial Hvac Technician Name Role Phone Unavailable Primary Care Provider UnavailSiddhartha Serrano DO Primary Care Provider ANALILIA GUTIERRES Referring Unavailable SIDDHARTHA PEDROZA Primary Care Unavailable SIDDHARTHA WARREN Referring UnavailSIDDHARTHA Duncan Primary Care Unavailable Siddhartha Pedroza DO Primary Care Provider SIDDHARTHA WARREN Admitting SIDDHARTHA Black Attending Dr. Siddhartha Aragon Primary Care Provider Dr. Siddhartha Pedroza Referring Provider MARK Neville Attending Provider [phone] Siddhartha Pedroza DO Primary Care Provider Dr. Siddhartha Pedroza DO Primary Care Provider Emery ADVERTISING ACCOUNT MANAGER-CAnalisa Attending Provider Emery ADVERTISING ACCOUNT MANAGER-CAnalisa Referring Provider Dr. Charmaine Gibbons MD Attending Provider Dr. Charmaine Gibbons MD Referring Provider Dr. Randy Oglesby MD Attending Provider Dr. Siddhartha Pedroza DO Primary Care Provider BEBETO MANSFIELD Attending Provider BEBETO MANSFIELD Referring Provider Randy Oglesby Attending Unavailable Siddhartha Pedroza Primary Care Unavailable Analisa Land Referring Unavailable Siddhartha Pedroza Primary Care Unavailable Analisa Land Attending Unavailable Charmaine Gibbons Attending Unavailable Charmaine Gibbons Referring Unavailable Siddhartha Pedroza Primary Care Unavailable Charmaine Gibbons Attending Unavailable Charmaine Gibbons Referring Unavailable Siddhartha Pedroza Primary Care Unavailable EFE ROLDAN Attending Unavailable EFE ROLDAN Referring Unavailable Siddhartha Pedroza Primary Care Unavailable Allergies Allergy Classification Reported Allergen(s) Allergy Type Date of Onset Reaction(s) Facility (3 sources) Penicillins; Translations: [PENICILLINS] Drug Allergy 11-01-2021 [facility] (5 sources) Penicillins Drug Allergy 11-01-2021 [facility] (5 sources) Penicillins Allergy to substance 03-26-2022 [facility] (1 source) Penicillins Drug allergy (disorder) 03-26-2022 [facility] Repository Medications Current Medications Medication Drug Class(es) Dates Sig (Normalized) Sig (Original) baclofen 10 mg oral tablet (6 sources) gamma-Aminobutyri c Acid-ergic Agonist Start: 09-29-19 21 take 1 tablet by mouth three times daily Baclofen 10 mg tablet Active 10 mg PO THREE TIMES A DAY September 28, 2020 1:00am dexamethasone 6 mg oral tablet (5 sources) Corticosteroid Start: 03-26-20 22 take 1 tablet by mouth once daily Dexamethasone (Decadron) 6 mg tablet Active 6 mg PO DAILY March 26, 2022 12:00am doxycycline hyclate 100 mg oral tablet (6 sources) Tetracycline-clas s Drug Start: 09-29-19 21 take 1 tablet by mouth once daily Doxycycline Hyclate 100 mg tablet Active 100 mg PO DAILY September 28, 2020 1:00am flurbiprofen 100 mg oral tablet (6 sources) Nonsteroidal Anti-inflammatory Drug Start: 09-29-19 21 take 1 tablet by mouth three times daily as needed for pain Flurbiprofen 100 mg tablet Active 100 mg PO THREE TIMES A DAY as needed for pain September 28, 2020 1:00am hydroCHLOROthiazide 25 mg oral tablet (12 sources) Thiazide Diuretic Start: 09-28-19 21 take 1 tablet by mouth once daily Hydrochlorothiazide 25 mg tablet Active 25 mg PO DAILY September 27, 2020 1:00am Comment on above: Take 25 mg by mouth once daily. 24 hr venlafaxine 37.5 mg extended release oral capsule (18 sources) Serotonin and Norepinephrine Reuptake Inhibitor Start: 09-29-19 take 1 capsule by mouth once daily Venlafaxine 37.5 mg capsule,extended release 24hr Active 37.5 mg PO DAILY September 28, 2020 1:00am Start: 09-27-2020 End: 09-28-2020 take 1 capsule by mouth once daily Venlafaxine (Effexor Xr) 150 mg capsule,extended release 24hr Discontinued 50 mg PO DAILY September 27, 2020 1:00am September 28, 2020 9:15am take 37.5 mg by mout h once daily venlafaxine XR (EFFEXOR XR) 37.5 mg tr24 Take 37.5 mg by mouth once daily. 0 Active Comment on above: Take 37.5 mg by mout h once daily. Completed/Discontinued Medications Medication Drug Class(es) Dates Sig (Normalized) Sig (Original) acetaminophen 500 mg oral tablet (4 sources) Start: 04-22-2022 take 2 tablets by mouth every six hours as needed acetaminophen (TYLENOL EXTRA STRENGTH) 500 mg tablet Take 2 tablets by mouth every 6 hours as needed for pain. Two (2) X 500 mg tablets = 1,000 mg 30 tablet 1 04/22/2022 Active Comment on above: Take 2 tablets by [facility] every 6 hours as needed for pain. Two (2) X 500 mg tablets = 1,000 mg docusate sodium 100 mg oral capsule (4 sources) Start: 04-22-2022 take 1 capsule by mouth every twelve hours as needed docusate sodium (COLACE) 100 mg capsule Take 1 capsule by mouth twice daily as needed for constipation. 20 capsule 0 04/22/2022 Active Comment on above: Take 1 capsule by mo [facility] twice daily as needed for constipation. ondansetron 4 mg oral tablet (4 sources) Serotonin-3 Receptor Antagonist Start: 04-22-2022 take 1 tablet by mouth every eight hours as needed ondansetron (ZOFRAN) 4 mg tablet Take 1 tablet by mouth every 8 hours as needed for nausea/vomiting. 20 tablet 0 04/22/2022 Active Comment on above: Take 1 tablet by [facility] every 8 hours as needed for nausea/vomiting. OXcarbazepine 300 mg oral tablet (6 sources) Anti-epileptic Agent Start: 09-27-2020 End: 09-28-2020 take 2 tablets by mouth once daily Oxcarbazepine 300 mg tablet Discontinued 600 mg PO DAILY September 27, 2020 1:00am September 28, 2020 9:15am Start: 09-27-2020 End: 09-28-2020 take 600 mg by mouth once daily Oxcarbazepine Discontinued 600 MG PO DAILY September 27, 2020 12:00am September 28, 2020 8:15am oxyCODONE hydrochloride 5 mg oral tablet (4 sources) Opioid Agonist Start: 04-22-2022 take 1 tablet by mouth every eight hours as needed for pain oxyCODONE IR (ROXICODONE) 5 mg immediate release tablet Indications: Post-op pain Take 1 tablet by mouth every 8 hours as needed for pain. 28 tablet 0 04/22/2022 Active Comment on above: Take 1 tablet by shira th every 8 hours as needed for pain. Problems Active Problems Problem Classification Problem Date Documented Date Episodic/Chronic Allergic reactions (1 source) Dermatitis, unspecified; Translations: [Dermatitis] Onset: 04-22-2022 Episodic Anxiety disorders (11 sources) Anxiety disorder; Translations: [Anxiety disorder, unspecified] Onset: 04-10-2022 04-10-2022 Chronic Headache; including migraine (6 sources) Headache; Translations: [Headache] 09-27-2020 Episodic Menopausal disorders (7 sources) Menopausal flushing; Translations: [Menopausal and female climacteric states] Onset: 04-10-2022 Chronic Other nervous system disorders (1 source) Other acute postprocedural pain; Translations: [Post-op pain] Onset: 04-22-2022 Episodic Other skin disorders (1 source) Localized swelling, mass and lump, unspecified upper limb; Translations: [Localized swelling, mass and lump, unspecified upper limb] Onset: 02-21-2025 Episodic Rheumatoid arthritis and related disease (11 sources) Inflammatory polyarthropathy; Translations: [Inflammatory polyarthropathy] Onset: 04-10-2022 04-10-2022 Chronic Spondylosis; intervertebral disc disorders; other back problems (2 sources) Cervicalgia; Translations: [Pain in thoracic spine] Onset: 04-22-2022 Episodic Viral infection (6 sources) Disease caused by 2019-nCoV; Translations: [COVID-19] Episodic Past or Other Problems Problem Classification Problem Date Documented Da te Episodic/Chronic Nonmalignant breast conditions (9 sources) Hypertrophy of breast; Translations: [Hypertrophy of breast] Onset: 04-10-2022 Episodic Other nervous system disorders (1 source) Parosmia; Translations: [Parosmia] Onset: 10-20-2024 Episodic Other screening for suspected conditions (not mental disorders or infectious disease) (1 source) Encounter for screening for other metabolic disorders; Translations: [Encounter for screening for other metabolic disorders] Onset: 09-06-2024 Episodic Residual codes; unclassified (6 sources) Edema of lower extremity; Translations: [Localized edema] Onset: 04-10-2022 Episodic Results Test Name Value Interpretation Reference Range Facility Breast Limited Unilateralon 02-21-2025 Breast Limited Unilateral [facility] Services [address] [place] [address] Breast Limited Unilateral MR#: [id number] Acct: [id number] Name: DINORAH SIMPSON Rep #: [id number] : 1975 F 50 From: Ty gandhi MD PCP: Dr. Siddhartha Pedroza, Status: REG CLI Study: Breast Limited Unilateral Date of Exam: Exam# [id number] Ordering Dr: Charmaine Gibbons MD PROCEDURE: BREAST LIMITED UNILATERAL 02/21/2025 REASON FOR EXAM: F, Age recent left breast lump. Not present at this time., LUMP IN ARMPIT COMPARISON: Prior mammogram done earlier in the day.. TECHNIQUE: BREAST LIMITED UNILATERAL. The axillary region of the left breast was examined with ultrasound. FINDINGS: Glandular tissue is seen in the area of interest. Incidental note is made of a 4 mm x 3 mm x 3 mm cyst at the 2 o'clock position of the breast at 5 cm from the nipple. US/Breast Limited Unilateral IMPRESSION: Incidental note is made of a 4 mm x 3 mm x 3 mm cyst at the 2 o'clock position of the breast at 5 cm from the nipple. BI-RADS 2: BENIGN RECOMMENDATION: Routine annual follow-up in 1 Year Reading Location: [id number] CC: Dr. Siddhartha Pedroza DO; Dr. Charmaine Montaño MD Ambulatory Nurse: Signed Normal [facility] DIAG MAMM W/CAD, BILATon DIAG MAMM W/CAD, BILAT [facility] Imaging Services [address] [place] [address] DIAG MAMM W/CAD, BILAT MR#: [id number] Acct: [id number] Name: DINORAH SIMPSON Rep #: [id number] : 1975 F 50 From: Ty gandhi MD PCP: Dr. Siddhartha Pedroza DO Status: REG CLI Study: DIAG MAMM W/CAD, BILAT Date of Exam: 02/21/25 Exam# [id number] Ordering Dr: Charmaine Gibbons MD EXAM: DIAG MAMM W/CAD, BILAT 02/21/2025 CLINICAL HISTORY: F, Age 50 y/o , LUMP IN ARMPIT. History of mother with breast cancer and grandmother with breast cancer. Status post bilateral breast reductions. TECHNIQUE: DIAG MAMM W/CAD, BILAT. COMPARISON: Prior exam(s) dated February 18, 2024.. FINDINGS: TISSUE DENSITY: The breasts are extremely dense, which lowers the sensitivity of mammography. Bilateral Breast Mammographic Findings: No significant masses, calcifications or other abnormalities are identified. No suspicious masses, areas of developing architectural distortion, or suspicious calcifications. There has been no significant interval change. BI/DIAG MAMM W/CAD, BILAT IMPRESSION: With the patient's history of left lateral breast tenderness, targeted sonographic correlation recommend. OVERALL FINAL ASSESSMENT BI-RADS 0: INCOMPLETE - NEED ADDITIONAL IMAGING EVALUATION. RECOMMENDATION: Ultrasound Recommended A letter with findings and recommendations will be mailed to the patient. Reading Location: [id number] CC: Dr. Siddhartha Pedroza DO; Dr. Charmaine Montaño MD Ambulatory Nurse: Signed Normal [facility] Sex Hormone-binding Globulin on 12-16-2024 SHBG 45.1 nmol/L Normal 24.6-122.0 [facility] Comment on above: Result Comment: Perf ormed at: [facility] [id number] [employer] Milk Receiver: Simon Ferrer PhD, Phone: [phone] Performed at: - [facility] [id number] [employer] Receiver: Analilia Vaughan MD, Phone: [phone] Performed By: #### L 501.95185, L500.4050, L3100.5060, L503.0106, L506.0400, L3300.1750, L100.0100, L3100.5125, L506.1001, L3100.5310, L503.6550, L501.9520, L3300.6900 #### [facility] [address] [place], [place], [id number] Testosterone, Total / Freeon 12-16-2024 TESTOSTER,FREE 0.10 ng/dL Normal 0.10-0.85 [facility] Comment on above: Order Comment: N Performed By: #### L 501.57494, L500.4050, L3100.5060, L503.0106, L506.0400, L3300.1750, L100.0100, L3100.5125, L506.1001, L3100.5310, L503.6550, L501.9520, L3300.6900 #### [facility] [address] [place], [place], [id number] TESTOSTER,TOTAL 5 ng/dL Normal 4-50 [facility] Comment on above: Order Comment: N Performed By: #### L 501.51311, L500.4050, L3100.5060, L503.0106, L506.0400, L3300.1750, L100.0100, L3100.5125, L506.1001, L3100.5310, L503.6550, L501.9520, L3300.6900 #### [facility] [address] [place], [place], [id number] TESTOSTERONE,%F 1.92 Normal 0.50-2.80 [facility] Comment on above: Order Comment: N Performed By: #### L 501.94743, L500.4050, L3100.5060, L503.0106, L506.0400, L3300.1750, L100.0100, L3100.5125, L506.1001, L3100.5310, L503.6550, L501.9520, L3300.6900 #### [facility] [address] [place], [place], [id number] Thyroid Peroxidase ABon 11-26 THYR PEROX AB < 9 Normal 0-34 [facility] Comment on above: Performed By: #### L 501.20822, L500.4050, L3100.5060, L503.0106, L506.0400, L3300.1750, L100.0100, L3100.5125, L506.1001, L3100.5310, L503.6550, L501.9520, L3300.6900 #### [facility] [address] [place], [place], [id number] Absolute lymphocyte counton 12-03-2024 Lymphocytes Auto (Unsp spec) [#/Vol] 1.87 10*3/uL 0.83-4.51 [facility] Absolute neutrophil counton 12-03-2024 Neutrophils (Bld) [#/Vol] 3.6 10*3/uL 2.0-7.7 [facility] Anion gap in Serum or Plasma on 12-03-2024 Anion gap [Moles/Vol] 9 mmol/L 5-15 [facility] Automated lymphocyte count a s percentage of total leukocyteson 12-03-2024 Lymphocytes/100 WBC Auto (Unsp spec) 30.1 % 19-41 [facility] BUN/creatinine ratioon 12-03 Urea nitrogen/Creatinine [Mass ratio] 29.6 mg/mg High 10-20 [facility] Basophil percentageon 2024 Basophils/100 WBC (Bld) 0.8 % 0-1 [facility] Bilirubin, totalon 12-03- Bilirubin [Mass/Vol] mg/dL 0.00-1.30 [facility] CBC W/Diff, Automatedon Absolute Lymph 1.87 X10 3/uL Normal 0.83-4.51 [facility] Comment on above: Performed By: #### L 501.70166, L500.4050, L3100.5060, L503.0106, L506.0400, L3300.1750, L100.0100, L3100.5125, L506.1001, L3100.5310, L503.6550, L501.9520, L3300.6900 #### [facility] [address] [place], [address] Absolute Neut 3.6 X10 3/uL Normal 2.0-7.7 [facility] Comment on above: Performed By: #### L 501.17052, L500.4050, L3100.5060, L503.0106, L506.0400, L3300.1750, L100.0100, L3100.5125, L506.1001, L3100.5310, L503.6550, L501.9520, L3300.6900 #### [facility] [address] [place], [address] Basophils/100 WBC (Bld) 0.8 % Normal 0-1 [facility] Comment on above: Performed By: #### L 501.46806, L500.4050, L3100.5060, L503.0106, L506.0400, L3300.1750, L100.0100, L3100.5125, L506.1001, L3100.5310, L503.6550, L501.9520, L3300.6900 #### [facility] [address] [place], [address] Eosinophils/100 WBC (Bld) 1.6 % Normal 0-5 [facility] Comment on above: Performed By: #### L 501.77129, L500.4050, L3100.5060, L503.0106, L506.0400, L3300.1750, L100.0100, L3100.5125, L506.1001, L3100.5310, L503.6550, L501.9520, L3300.6900 #### [facility] [address] [place], [place], [phone] ([phone]) Erythrocyte distribution width (RBC) [Ratio] 12.3 % Normal 11.6-14.6 [facility] Comment on above: Performed By: #### L 501.77798, L500.4050, L3100.5060, L503.0106, L506.0400, L3300.1750, L100.0100, L3100.5125, L506.1001, L3100.5310, L503.6550, L501.9520, L3300.6900 #### [facility] [address] [place], [place], [phone] ([phone]) Hematocrit (Bld) [Volume fraction] 35.8 % Low 37-47 [facility] Comment on above: Performed By: #### L 501.47791, L500.4050, L3100.5060, L503.0106, L506.0400, L3300.1750, L100.0100, L3100.5125, L506.1001, L3100.5310, L503.6550, L501.9520, L3300.6900 #### [facility] [address] [place], [place], [phone] ([phone]) Hemoglobin (Bld) [Mass/Vol] 12.2 g/dL Normal 12.0-15.0 [facility] Comment on above: Performed By: #### L 501.95005, L500.4050, L3100.5060, L503.0106, L506.0400, L3300.1750, L100.0100, L3100.5125, L506.1001, L3100.5310, L503.6550, L501.9520, L3300.6900 #### [facility] [address] [place], [address] IG% 0.500 Normal 0.0-0.9 [facility] Comment on above: Result Comment: IG% - Immature Granulocytes (promyelocytes, myelocytes and metamyelocytes) > 1% indicates that a LEFT SHIFT is Present. Performed By: #### L 501.59954, L500.4050, L3100.5060, L503.0106, L506.0400, L3300.1750, L100.0100, L3100.5125, L506.1001, L3100.5310, L503.6550, L501.9520, L3300.6900 #### [facility] [address] [place], [address] Lymphocytes/100 WBC (Bld) 30.1 % Normal 19-41 [facility] Comment on above: Performed By: #### L 501.55203, L500.4050, L3100.5060, L503.0106, L506.0400, L3300.1750, L100.0100, L3100.5125, L506.1001, L3100.5310, L503.6550, L501.9520, L3300.6900 #### [facility] [address] [place], [address] MCH (RBC) [Entitic mass] 30.7 pg Normal 27.0-32.0 [facility] Comment on above: Performed By: #### L 501.89734, L500.4050, L3100.5060, L503.0106, L506.0400, L3300.1750, L100.0100, L3100.5125, L506.1001, L3100.5310, L503.6550, L501.9520, L3300.6900 #### [facility] [address] [place], [address] MCHC (RBC) [Mass/Vol] 34.1 g/dL Normal 32-36 [facility] Comment on above: Performed By: #### L 501.80594, L500.4050, L3100.5060, L503.0106, L506.0400, L3300.1750, L100.0100, L3100.5125, L506.1001, L3100.5310, L503.6550, L501.9520, L3300.6900 #### [facility] [address] [place], [address] MCV (RBC) [Entitic vol] 89.9 fL Normal 81-99 [facility] Comment on above: Performed By: #### L 501.23731, L500.4050, L3100.5060, L503.0106, L506.0400, L3300.1750, L100.0100, L3100.5125, L506.1001, L3100.5310, L503.6550, L501.9520, L3300.6900 #### [facility] [address] [place], [address] Monocytes/100 WBC (Bld) 9.2 % Normal 0-10 [facility] Comment on above: Performed By: #### L 501.50616, L500.4050, L3100.5060, L503.0106, L506.0400, L3300.1750, L100.0100, L3100.5125, L506.1001, L3100.5310, L503.6550, L501.9520, L3300.6900 #### [facility] [address] [place], [address] Neutrophils/100 WBC (Bld) 57.8 % Normal 47-70 [facility] Comment on above: Performed By: #### L 501.25765, L500.4050, L3100.5060, L503.0106, L506.0400, L3300.1750, L100.0100, L3100.5125, L506.1001, L3100.5310, L503.6550, L501.9520, L3300.6900 #### [facility] [address] [place], [address] Nucleated RBC (Bld) [#/Vol] 0 10*3/uL Normal 0-5 [facility] Comment on above: Performed By: #### L 501.21715, L500.4050, L3100.5060, L503.0106, L506.0400, L3300.1750, L100.0100, L3100.5125, L506.1001, L3100.5310, L503.6550, L501.9520, L3300.6900 #### [facility] [address] [place], [address] Platelet mean volume (Bld) [Entitic vol] 9.1 fL Normal 6.2-12.0 [facility] Comment on above: Performed By: #### L 501.23031, L500.4050, L3100.5060, L503.0106, L506.0400, L3300.1750, L100.0100, L3100.5125, L506.1001, L3100.5310, L503.6550, L501.9520, L3300.6900 #### [facility] [address] [place], [address] Platelets (Bld) [#/Vol] 353 10*3/uL Normal 150-450 [facility] Comment on above: Performed By: #### L 501.14296, L500.4050, L3100.5060, L503.0106, L506.0400, L3300.1750, L100.0100, L3100.5125, L506.1001, L3100.5310, L503.6550, L501.9520, L3300.6900 #### [facility] [address] [place], [address] RBC (Bld) [#/Vol] 3.98 10*6/uL Low 4.2-5.4 [facility] Comment on above: Performed By: #### L 501.95940, L500.4050, L3100.5060, L503.0106, L506.0400, L3300.1750, L100.0100, L3100.5125, L506.1001, L3100.5310, L503.6550, L501.9520, L3300.6900 #### [facility] [address] [place], [address] RDW SD 40.3 fl Normal 35.1-43.9 [facility] Comment on above: Performed By: #### L 501.78360, L500.4050, L3100.5060, L503.0106, L506.0400, L3300.1750, L100.0100, L3100.5125, L506.1001, L3100.5310, L503.6550, L501.9520, L3300.6900 #### [facility] [address] [facility] [address] [place], [place], [phone] ([phone]) WBC (Bld) [#/Vol] 6.2 10*3/uL Normal 4.4-11.0 [facility] Comment on above: Performed By: #### L 501.31393, L500.4050, L3100.5060, L503.0106, L506.0400, L3300.1750, L100.0100, L3100.5125, L506.1001, L3100.5310, L503.6550, L501.9520, L3300.6900 #### [facility] [address] [place], [address] Carbon dioxide, total [Moles /volume] in Central venous bloodon 12-03-2024 CO2 [Moles/Vol] 24.0 mmol/L 21.0-32.0 [facility] Chloride assayon 12-03-2024 Chloride [Moles/Vol] 106 mmol/L 98-108 [facility] Comprehensive Metabolic Prof ilon 12-03-2024 Albumin [Mass/Vol] 4.1 g/dL Normal 3.5-5.0 [facility] Comment on above: Performed By: #### L 501.34802, L500.4050, L3100.5060, L503.0106, L506.0400, L3300.1750, L100.0100, L3100.5125, L506.1001, L3100.5310, L503.6550, L501.9520, L3300.6900 #### [facility] [address] [place], [place], [phone] ([phone] Albumin/Globulin [Mass ratio] 1.6 {ratio} Normal 0.9-2.4 [facility] Comment on above: Performed By: #### L 501.13259, L500.4050, L3100.5060, L503.0106, L506.0400, L3300.1750, L100.0100, L3100.5125, L506.1001, L3100.5310, L503.6550, L501.9520, L3300.6900 #### [facility] [address] [place], [place], [id number] ALK PHOS 54 U/L Normal 35-104 [facility] Comment on above: Performed By: #### L 501.44787, L500.4050, L3100.5060, L503.0106, L506.0400, L3300.1750, L100.0100, L3100.5125, L506.1001, L3100.5310, L503.6550, L501.9520, L3300.6900 #### [facility] [address] [place], [place], [id number] ALT [Catalytic activity/Vol] 22 U/L Normal <=34 [facility] Comment on above: Performed By: #### L 501.92857, L500.4050, L3100.5060, L503.0106, L506.0400, L3300.1750, L100.0100, L3100.5125, L506.1001, L3100.5310, L503.6550, L501.9520, L3300.6900 #### [facility] [address] [place], [place], [id number] AST [Catalytic activity/Vol] 19 U/L Normal <=31 [facility] Comment on above: Performed By: #### L 501.29328, L500.4050, L3100.5060, L503.0106, L506.0400, L3300.1750, L100.0100, L3100.5125, L506.1001, L3100.5310, L503.6550, L501.9520, L3300.6900 #### [facility] [address] [place], [place], [id number] BUN/CRE 29.6 RATIO High 10-20 [facility] Comment on above: Performed By: #### L 501.22245, L500.4050, L3100.5060, L503.0106, L506.0400, L3300.1750, L100.0100, L3100.5125, L506.1001, L3100.5310, L503.6550, L501.9520, L3300.6900 #### [facility] [address] [place], [place], [id number] Calcium [Mass/Vol] 9.1 mg/dL Normal 7.6-11.0 [facility] Comment on above: Performed By: #### L 501.98724, L500.4050, L3100.5060, L503.0106, L506.0400, L3300.1750, L100.0100, L3100.5125, L506.1001, L3100.5310, L503.6550, L501.9520, L3300.6900 #### [facility] [address] [place], [address] Chloride [Moles/Vol] 106 mmol/L Normal 98-108 [facility] Comment on above: Performed By: #### L 501.19657, L500.4050, L3100.5060, L503.0106, L506.0400, L3300.1750, L100.0100, L3100.5125, L506.1001, L3100.5310, L503.6550, L501.9520, L3300.6900 #### [facility] Laboratory [address] [place], [place], [phone] (330) CO2 [Moles/Vol] 24.0 mmol/L Normal 21.0-32.0 [facility] Comment on above: Performed By: #### L 501.00033, L500.4050, L3100.5060, L503.0106, L506.0400, L3300.1750, L100.0100, L3100.5125, L506.1001, L3100.5310, L503.6550, L501.9520, L3300.6900 #### [facility] [address] [place], [place], [id number] Creatinine [Mass/Vol] 0.81 mg/dL Normal 0.70-1.20 [facility] Comment on above: Performed By: #### L 501.96710, L500.4050, L3100.5060, L503.0106, L506.0400, L3300.1750, L100.0100, L3100.5125, L506.1001, L3100.5310, L503.6550, L501.9520, L3300.6900 #### [facility] [address] [place], [address] GAP 9 Normal 5-15 [facility] Comment on above: Performed By: #### L 501.76283, L500.4050, L3100.5060, L503.0106, L506.0400, L3300.1750, L100.0100, L3100.5125, L506.1001, L3100.5310, L503.6550, L501.9520, L3300.6900 #### [facility] [address] [place], [place], [id number] (510) GFR/1.73 sq M.predicted among non-blacks MDRD (S/P/Bld) [Vol rate/Area] 89 mL/min/{1.73_m2} Normal >60 [facility] Comment on above: Result Comment: mL/m in/1.73m2 CKD-EPI Creatinine Equation (2020) Performed By: #### L 501.84412, L500.4050, L3100.5060, L503.0106, L506.0400, L3300.1750, L100.0100, L3100.5125, L506.1001, L3100.5310, L503.6550, L501.9520, L3300.6900 #### [facility] [address] [place], [place], [id number] (560) Globulin (S) [Mass/Vol] 2.5 g/dL Normal 2.2-4.2 [facility] Comment on above: Performed By: #### L 501.56763, L500.4050, L3100.5060, L503.0106, L506.0400, L3300.1750, L100.0100, L3100.5125, L506.1001, L3100.5310, L503.6550, L501.9520, L3300.6900 #### [facility] [address] [place], [place], [phone] (821) Glucose [Mass/Vol] 125 mg/dL High 70-99 [facility] Comment on above: Performed By: #### L 501.10644, L500.4050, L3100.5060, L503.0106, L506.0400, L3300.1750, L100.0100, L3100.5125, L506.1001, L3100.5310, L503.6550, L501.9520, L3300.6900 #### [facility] [address] [place], [address] Potassium [Moles/Vol] 4.0 mmol/L Normal 3.3-5.1 [facility] Comment on above: Performed By: #### L 501.53733, L500.4050, L3100.5060, L503.0106, L506.0400, L3300.1750, L100.0100, L3100.5125, L506.1001, L3100.5310, L503.6550, L501.9520, L3300.6900 #### [facility] [address] [place], [address] Sodium [Moles/Vol] 139 mmol/L Normal 133-145 [facility] Comment on above: Performed By: #### L 501.99858, L500.4050, L3100.5060, L503.0106, L506.0400, L3300.1750, L100.0100, L3100.5125, L506.1001, L3100.5310, L503.6550, L501.9520, L3300.6900 #### [facility] [address] [place], [address] T BILI < 0.15 Normal 0.00-1.30 [facility] Comment on above: Performed By: #### L 501.81224, L500.4050, L3100.5060, L503.0106, L506.0400, L3300.1750, L100.0100, L3100.5125, L506.1001, L3100.5310, L503.6550, L501.9520, L3300.6900 #### [facility] [address] [place], [address] T PROT 6.6 g/dL Normal 5.9-8.4 [facility] Comment on above: Performed By: #### L 501.09350, L500.4050, L3100.5060, L503.0106, L506.0400, L3300.1750, L100.0100, L3100.5125, L506.1001, L3100.5310, L503.6550, L501.9520, L3300.6900 #### [facility] [address] [place], [place], [id number] Urea nitrogen [Mass/Vol] 24 mg/dL High 4-19 [facility] Comment on above: Performed By: #### L 501.32824, L500.4050, L3100.5060, L503.0106, L506.0400, L3300.1750, L100.0100, L3100.5125, L506.1001, L3100.5310, L503.6550, L501.9520, L3300.6900 #### [facility] [address] [place], [place], [id number] Eosinophil percentageon 05-0 Eosinophils/100 WBC (Bld) 1.6 % 0-5 [facility] Erythrocyte distribution wid th ratioon 12-03-2024 Erythrocyte distribution width (RBC) [Ratio] 12.3 % 11.6-14.6 [facility] Erythrocyte distribution wid th standard deviationon 12-03-2024 Erythrocyte distribution width (RBC) [Ratio] 40.3 fl 35.1-43.9 [facility] Estradiolon 12-03-2024 ESTRADIOL 62.7 pg/mL Normal [facility] Comment on above: Result Comment: FEMA LES ADULT FEMALE: Premenopausal: 15-350 pg/mL(E2 levels vary widely through the menstrual cycle) Postmenopausal: <10 pg/mL GASTON STAGES MEAN AGE REFERENCE RANGES Stage I(>14 days and prepubertal) 7.1 years Undetectable-20 pg/mLL Stage II 10.5 years Undetectable-24 pg/mL Stage III 11.6 years Undetectable-60 pg/mL Stage IV 12.3 years 15-85 pg/mL Stage V 14.5 years 15-350 pg/mL Puberty onset (transition from Gaston stage I to Gaston stage II) occurs for girls at a median age of 10.5 (/- 2) years. There is evidence that it may occur up to 1 year earlier in obese girls and in girls. Progression through Gaston stages is variable. Gaston stage V (adult) should be reached by age 18. Performed By: #### L 501.48627, L500.4050, L3100.5060, L503.0106, L506.0400, L3300.1750, L100.0100, L3100.5125, L506.1001, L3100.5310, L503.6550, L501.9520, L3300.6900 #### [facility] [address] [place], [place], [id number] Ferritinon 12-03-2024 Ferritin [Mass/Vol] 44 ng/mL Normal 22-378 [facility] Comment on above: Performed By: #### L 501.84898, L500.4050, L3100.5060, L503.0106, L506.0400, L3300.1750, L100.0100, L3100.5125, L506.1001, L3100.5310, L503.6550, L501.9520, L3300.6900 #### [facility] [address] [place], [place], [address] Follicle Stimulating Hormone on 12-03-2024 FSH 2.7 mIU/mL Normal [facility] Comment on above: Result Comment: FEMA LE: Follicular: 1.4 - 18.1 mIU/mL Midcycle: 3.4 - 33.4 mIU/mL Luteal: 1.5 - 9.1 mIU/mL Post Menopause: 23.0 - 116.3 mIU/mL MALE: 1.4 - 18.1 mIU/mL NORMAL REFERENCE RANGES FEMALE FOLLICULAR 2.3 - 12.6 mIU/mL MID-CYCLE PEAK 5.2 - 17.5 mIU/mL LUTEAL 1.7 - 12.9 mIU/mL POST-MENOPAUSAL ON MHT 5.9 - 72.8 mIU/mL NOT ON MHT 12.7 - 132.2 mlU/mL MALE 0.7 - 10.8 mIU/mL Performed By: #### L 501.74259, L500.4050, L3100.5060, L503.0106, L506.0400, L3300.1750, L100.0100, L3100.5125, L506.1001, L3100.5310, L503.6550, L501.9520, L3300.6900 #### [facility] [address] [place], [place], [id number] Free T3on 12-03-2024 Free T3 [Mass/Vol] 3.4 pg/mL Normal 2.18-3.98 [facility] Comment on above: Order Comment: N Performed By: #### L 501.76816, L500.4050, L3100.5060, L503.0106, L506.0400, L3300.1750, L100.0100, L3100.5125, L506.1001, L3100.5310, L503.6550, L501.9520, L3300.6900 #### [facility] [address] [place], [address] Free T3 [Mass/Vol] 3.4 pg/mL 2.18-3.98 [facility] Glomerular filtration rate ( GFR) estimation/1.73 sq m using serum, plasma, or whole bon 12-03-2024 GFR/1.73 sq M.predicted among non-blacks MDRD (S/P/Bld) [Vol rate/Area] 89 mL/min/{1.73_m2} >60 [facility] Comment on above: mL/min/1.73m2 CKD-EP I Creatinine Equation (2020) Hematocrit Auto (Bld) [Volum e fraction]on 12-03-2024 Hematocrit (Bld) [Volume fraction] 35.8 % Low 37-47 [facility] Hemoglobin measurementon Hemoglobin (Bld) [Mass/Vol] 12.2 g/dL 12.0-15.0 [facility] Immature granulocytes/100 WB C Auto (Bld)on 12-03-2024 Immature granulocytes/100 WBC (Bld) 0.500 % 0.0-0.9 [facility] Comment on above: IG% - Immature Granu locytes (promyelocytes, myelocytes and metamyelocytes) > 1% indicates that a LEFT SHIFT is Present. Laboratory - Chemistry and C hemistry - challengeon 12-03-2024 AST [Catalytic activity/Vol] 19 U/L <32 [facility] MCV (mean corpuscular volume ) determinationon 12-03-2024 MCV (RBC) [Entitic vol] 89.9 fL 81-99 [facility] Mean corpuscular hemoglobin (MCH) determinationon 12-03-2024 MCH (RBC) [Entitic mass] 30.7 pg 27.0-32.0 [facility] Mean corpuscular hemoglobin concentration (MCHC) determinationon 12-03-2024 MCHC (RBC) [Mass/Vol] 34.1 g/dL 32-36 [facility] Mean platelet volume determi nationon 12-03-2024 Platelet mean volume (Bld) [Entitic vol] 9.1 fL 6.2-12.0 [facility] Monocyte percentageon 2024 Monocytes/100 WBC (Bld) 9.2 % 0-10 [facility] Neutrophil percentageon 05- Neutrophils/100 WBC (Bld) 57.8 % 47-70 [facility] Nucleated red blood cell per centageon 12-03-2024 Nucleated RBC/100 WBC (Bld) [Ratio] 0 % 0-5 [facility] Platelet counton 12-03-2024 Platelets (Bld) [#/Vol] 353 10*3/uL 150-450 [facility] Potassium measurement (mass/ volume)on 12-03-2024 Potassium (Unsp spec) [Mass/Vol] 4.0 mmol/L 3.3-5.1 [facility] RBC Auto (Bld) [#/Vol]on RBC (Bld) [#/Vol] 3.98 10*6/uL Low 4.2-5.4 [facility] Serum creatinine measurement (mass/volume)on 12-03-2024 Creatinine [Mass/Vol] 0.81 mg/dL 0.70-1.20 [facility] Serum globulin measurementon 12-03-2024 Globulin (S) [Mass/Vol] 2.5 g/dL 2.2-4.2 [facility] Serum glucose measurement (m ass/volume)on 12-03-2024 Glucose [Mass/Vol] 125 mg/dL High 70-99 [facility] Serum or plasma alanine [place] otransferase (ALT) measurementon 12-03-2024 ALT [Catalytic activity/Vol] 22 U/L <35 [facility] Serum or plasma albumin laura urement (mass/volume)on 12-03-2024 Albumin [Mass/Vol] 4.1 g/dL 3.5-5.0 [facility] Serum or plasma albumin/glob ulin mass ratioon 12-03-2024 Albumin/Globulin [Mass ratio] 1.6 {ratio} 0.9-2.4 [facility] Serum or plasma alkaline rosa sphatase measurementon 12-03-2024 ALP [Catalytic activity/Vol] 54 U/L 35-104 [facility] Serum or plasma calcium laura urement (mass/volume)on 12-03-2024 Calcium [Mass/Vol] 9.1 mg/dL 7.6-11.0 [facility] Serum or plasma estradiol me asurement after follitropin dose (mass/volume)on 12-03-2024 E2 post dose follitropin [Mass/Vol] 62.7 pg/mL [facility] Comment on above: FEMALES ADULT FEMALE : Premenopausal: 15-350 pg/mL(E2 levels vary widely through the menstrual cycle) Postmenopausal: <10 pg/mL GASTON STAGES MEAN AGE REFERENCE RANGES Stage I(>14 days and prepubertal) 7.1 years Undetectable-20 pg/mLL Stage II 10.5 years Undetectable-24 pg/mL Stage III 11.6 years Undetectable-60 pg/mL Stage IV 12.3 years 15-85 pg/mL Stage V 14.5 years 15-350 pg/mL Puberty onset (transition from Gaston stage I to Gaston stage II) occurs for girls at a median age of 10.5 (/- 2) years. There is evidence that it may occur up to 1 year earlier in obese girls and in girls.Progression through Gaston stages is variable. Gaston stage V (adult) should be reached by age 18. Serum or plasma ferritin al surement (mass/volume)on 12-03-2024 Ferritin [Mass/Vol] 44 ng/mL 22-378 [facility] Serum or plasma urea nitroge n measurement (mass/volume)on 12-03-2024 Urea nitrogen [Mass/Vol] 24 mg/dL High 4-19 [facility] Sodium levelon 12-03-2024 Sodium [Moles/Vol] 139 mmol/L 133-145 [facility] T4 Free Directon 12-03-2024 T4 FREE DIRECT 1.00 ng/dL Normal 0.76-1.46 [facility] Comment on above: Order Comment: ALBIN Soler ADD T4F TO LABS DONE ON 12-03-24 N Performed By: #### L 501.16481, L500.4050, L3100.5060, L503.0106, L506.0400, L3300.1750, L100.0100, L3100.5125, L506.1001, L3100.5310, L503.6550, L501.9520, L3300.6900 #### [facility] [address] [place], [address] T4 freeon 12-03-2024 Free T4 [Mass/Vol] 1.00 ng/dL 0.76-1.46 [facility] TSH DL <= 0.005 mIU/L Qnon 0 12-03-2024 TSH Qn 1.540 uIU/mL 0.300-4.200 [facility] Thyroid Stim Hormone (TSH)on 12-03-2024 TSH 1.540 uIU/mL Normal 0.300-4.200 [facility] Comment on above: Performed By: #### L 501.04731, L500.4050, L3100.5060, L503.0106, L506.0400, L3300.1750, L100.0100, L3100.5125, L506.1001, L3100.5310, L503.6550, L501.9520, L3300.6900 #### [facility] [address] [place], [address] Total proteinon 12-03-2024 Protein [Mass/Vol] 6.6 g/dL 5.9-8.4 [facility] Vitamin B12on 12-03-2024 Cobalamin (Vitamin B12) [Mass/Vol] 691 pg/mL Normal 180-914 [facility] Comment on above: Performed By: #### L 501.39495, L500.4050, L3100.5060, L503.0106, L506.0400, L3300.1750, L100.0100, L3100.5125, L506.1001, L3100.5310, L503.6550, L501.9520, L3300.6900 #### [facility] [address] [place], [place], [id number] Vitamin B12 ser/plason 12-03 Cobalamin (Vitamin B12) [Mass/Vol] 691 pg/mL 180-914 [facility] Vitamin D,25 Hydroxyon 12-03 Vitamin D 25-OH 39.2 ng/mL Normal 30-100 [facility] Comment on above: Result Comment: Latisha min D Status Deficiency: <20 ng/mL (50nmol/L) Insufficiency: 20-30 ng/mL (50-75 nmol/L) Sufficiency: 30-100 ng/mL (75-250 nmol/L) Toxicity: >100 ng/mL (>250 nmol/L) Performed By: #### L 501.77960, L500.4050, L3100.5060, L503.0106, L506.0400, L3300.1750, L100.0100, L3100.5125, L506.1001, L3100.5310, L503.6550, L501.9520, L3300.6900 #### [facility] [address] [place], [address] White blood cell (WBC) count on 12-03-2024 WBC (Bld) [#/Vol] 6.2 10*3/uL 4.4-11.0 [facility] Brain W/WO Contraston 2024 Brain W/WO Contrast [facility] Imaging Services [address] [place] [address] Brain W/WO Contrast MR#: [id number] Acct: [id number] Name: DINORAH SIMPSON Rep #: [id number] : 1975 F 49 From: Siddhartha Martin MD PCP: Dr. Siddhartha Pedroza DO Status: REG CLI Study: Brain W/WO Contrast Date of Exam: 10/12/24 Exam# [id number] Ordering Dr: Randy Oglesby MD PROCEDURE: BRAIN W/WO CONTRAST (MRIBRWW), 10/12/2024 REASON FOR EXAM: PHANTOSMIA COMPARISON: 08/09/2019; only the images are available for review, the report is not available at the time of dictation. TECHNIQUE: Multisequence multiplanar MRI brain was performed with and without intravenous contrast. Contrast: 13 mL Clariscan. FINDINGS: Cerebrum: Unremarkable. Cerebellum: Unremarkable. Brainstem: Unremarkable. Ventricles/extra-axial spaces: Unremarkable. Major flow voids: Grossly unremarkable within limits of nondedicated technique. Paranasal sinuses: Unremarkable. Scalp/calvarium: Unremarkable. Orbits: Grossly unremarkable within limits of nondedicated technique. Other: No abnormal enhancement. Unremarkable MR appearance of the olfactory grooves/bulbs. MRI/Brain W/WO Contrast IMPRESSION: 1. No acute abnormality or findings which might explain the patient's symptoms. 2. Additional description as above. Reading Location: [facility] CC: Dr. Randy Oglesby MD; Dr. Siddhartha Pedroza DO Ambulatory Nurse: Signed Normal [facility] Magnetic resonance imaging r eportOrdered By: Siddhartha Martin on 10-12-2024 Study report [facility] Imaging Services [address] [place] [address] Brain W/WO Contrast MR#: [id number] Acct: [id number] Name: DINORAH SIMPSON Rep #: [id number] : 1975 F 49 From: Mana Martin MD PCP: Dr. Siddhartha Pedroza DO Status: REG CLI Study:Brain W/WO Contrast Date of Exam: 10/12/24 Exam# [id number] Ordering Dr: Ellen Oglesby MD PROCEDURE: BRAIN W/WO CONTRAST (MRIBRWW), 10/12/2024 REASON FOR EXAM: PHANTOSMIA COMPARISON: 08/09/2019; only the images are available for review, the report is not available at the time of dictation. TECHNIQUE: Multisequence multiplanar MRI brain was performed with and without intravenous contrast. Contrast: 13 mL Clariscan. FINDINGS: Cerebrum: Unremarkable. Cerebellum: Unremarkable. Brainstem: Unremarkable. Ventricles/extra-axial spaces: Unremarkable. Major flow voids: Grossly unremarkable within limits of nondedicated technique. Paranasal sinuses: Unremarkable. Scalp/calvarium: Unremarkable. Orbits: Grossly unremarkable within limits of nondedicated technique. Other: No abnormal enhancement. Unremarkable MR appearance of the olfactory grooves/bulbs. MRI/Brain W/WO Contrast IMPRESSION: 1. No acute abnormality or findings which might explain the patient's symptoms. 2. Additional description as above. Reading Location: [facility] CC: Dr. Randy Oglesby MD; Dr. Siddhartha Pedroza DO ~ Ambulatory Nurse: Signed [facility] Testosterone, Total / Freeon 08-20-2024 TESTOSTER,FREE <.05 Abnormal 0.10-0.85 [facility] Comment on above: Order Comment: N Performed By: #### L 501.07994, L500.4050, L3100.5060, L503.0106, L506.0400, L3300.1750, L100.0100, L3100.5125, L506.1001, L3100.5310, L503.6550, L501.9520, L3300.6900 #### [facility] [address] [place], [place], [id number] TESTOSTER,TOTAL < 3 Low 4-50 [facility] Comment on above: Order Comment: N Performed By: #### L 501.63376, L500.4050, L3100.5060, L503.0106, L506.0400, L3300.1750, L100.0100, L3100.5125, L506.1001, L3100.5310, L503.6550, L501.9520, L3300.6900 #### [facility] [address], [place], [phone] ([phone] TESTOSTERONE,%F 1.75 Normal 0.50-2.80 [facility] Comment on above: Order Comment: N Result Comment: Perf ormed at: [address] [id number] [employer] Receiver: Simon Ferrer PhD, Phone: [phone] Performed at: [address] [id number] [employer]: Analilia Vaughan MD, Phone: [phone] Performed By: #### L 501.45962, L500.4050, L3100.5060, L503.0106, L506.0400, L3300.1750, L100.0100, L3100.5125, L506.1001, L3100.5310, L503.6550, L501.9520, L3300.6900 #### [facility] [address] [place], [place], [id number] CRP, High Sensitivity [id number] on 08-19-2024 CRP, HIGH SENS 1.78 mg/L Normal 0.00-3.00 [facility] Comment on above: Result Comment: Rela tive Risk for Future Cardiovascular Event Low <1.00 Average 1.00 - 3.00 High >3.00 Performed at: [address] [id number] [employer]: Simon Ferrer PhD, Phone: [phone] Performed By: #### L 501.65406, L500.4050, L3100.5060, L503.0106, L506.0400, L3300.1750, L100.0100, L3100.5125, L506.1001, L3100.5310, L503.6550, L501.9520, L3300.6900 #### [facility] [place], [address] Albumin to globulin ratioOrd ered By: Charmaine Montaño on 08-18-2024 Albumin/Globulin [Mass ratio] 1.2 {ratio} 0.9-2.4 [facility] Bilirubin, totalOrdered By: Charmaine Montaño on 08-18-2024 Bilirubin [Mass/Vol] 0.40 mg/dL 0.20-1.00 [facility] Comment on above: For patients on eltr ombopag therapy, use of Dimension [place] TBIL is not recommended. Blood urea nitrogen (BUN)/cr eatinine ratioOrdered By: Charmaine Montaño on 08-18-2024 Urea nitrogen/Creatinine [Mass ratio] 13.3 mg/mg 10-20 [facility] C-reactive protein measureme nt by high sensitivity methodOrdered By: Charmaine Montaño on 08-18-2024 C-Reactive Protein High Sensitivity 1.78 mg/L 0.00-3.00 [facility] Comment on above: Relative Risk for Fu ture Cardiovascular Event Low <1.00 Average 1.00 - 3.00 High >3.00Performed at: [facility] [place] [id number] Director: Simon Ferrer PhD, Phone: [phone] C-reactive protein measurement by high sensitivity method 1.78 mg/L 0.00-3.00 [facility] Comment on above: Relative Risk for Fu ture Cardiovascular Event Low <1.00 Average 1.00 - 3.00 High >3.00Performed at: [id number] [place], [place] [id number] Director: Simon Ferrer PhD, Phone: [phone] CBC-Complete Blood Cnt No Di ffon 08-18-2024 Erythrocyte distribution width (RBC) [Ratio] 12.0 % Normal 11.6-14.6 [facility] Comment on above: Performed By: #### L 501.48989, L500.4050, L3100.5060, L503.0106, L506.0400, L3300.1750, L100.0100, L3100.5125, L506.1001, L3100.5310, L503.6550, L501.9520, L3300.6900 #### [facility] [address] [place], [address] Hematocrit (Bld) [Volume fraction] 38.7 % Normal 37-47 [facility] Comment on above: Performed By: #### L 501.43138, L500.4050, L3100.5060, L503.0106, L506.0400, L3300.1750, L100.0100, L3100.5125, L506.1001, L3100.5310, L503.6550, L501.9520, L3300.6900 #### [facility] [address] [place], [place], [phone] (436) Hemoglobin (Bld) [Mass/Vol] 12.8 g/dL Normal 12.0-15.0 [facility] Comment on above: Performed By: #### L 501.19272, L500.4050, L3100.5060, L503.0106, L506.0400, L3300.1750, L100.0100, L3100.5125, L506.1001, L3100.5310, L503.6550, L501.9520, L3300.6900 #### [facility] [address] [place], [address] MCH (RBC) [Entitic mass] 29.6 pg Normal 27.0-32.0 [facility] Comment on above: Performed By: #### L 501.15603, L500.4050, L3100.5060, L503.0106, L506.0400, L3300.1750, L100.0100, L3100.5125, L506.1001, L3100.5310, L503.6550, L501.9520, L3300.6900 #### [facility] [address] [place], [address] MCHC (RBC) [Mass/Vol] 33.1 g/dL Normal 32-36 [facility] Comment on above: Performed By: #### L 501.86389, L500.4050, L3100.5060, L503.0106, L506.0400, L3300.1750, L100.0100, L3100.5125, L506.1001, L3100.5310, L503.6550, L501.9520, L3300.6900 #### [facility] [address] [place], [address] MCV (RBC) [Entitic vol] 89.4 fL Normal 81-99 [facility] Comment on above: Performed By: #### L 501.37141, L500.4050, L3100.5060, L503.0106, L506.0400, L3300.1750, L100.0100, L3100.5125, L506.1001, L3100.5310, L503.6550, L501.9520, L3300.6900 #### [facility] [address] [place], [address] Platelet mean volume (Bld) [Entitic vol] 9.1 fL Normal 6.2-12.0 [facility] Comment on above: Performed By: #### L 501.45817, L500.4050, L3100.5060, L503.0106, L506.0400, L3300.1750, L100.0100, L3100.5125, L506.1001, L3100.5310, L503.6550, L501.9520, L3300.6900 #### [facility] [address] [place], [address] Platelets (Bld) [#/Vol] 401 10*3/uL Normal 150-450 [facility] Comment on above: Performed By: #### L 501.83047, L500.4050, L3100.5060, L503.0106, L506.0400, L3300.1750, L100.0100, L3100.5125, L506.1001, L3100.5310, L503.6550, L501.9520, L3300.6900 #### [facility] [address] [place], [address] RBC (Bld) [#/Vol] 4.33 10*6/uL Normal 4.2-5.4 [facility] Comment on above: Performed By: #### L 501.27236, L500.4050, L3100.5060, L503.0106, L506.0400, L3300.1750, L100.0100, L3100.5125, L506.1001, L3100.5310, L503.6550, L501.9520, L3300.6900 #### [facility] [address] [place], [address] RDW SD 38.7 fl Normal 35.1-43.9 [facility] Comment on above: Performed By: #### L 501.43356, L500.4050, L3100.5060, L503.0106, L506.0400, L3300.1750, L100.0100, L3100.5125, L506.1001, L3100.5310, L503.6550, L501.9520, L3300.6900 #### [facility] [address] [place], [address] WBC (Bld) [#/Vol] 5.8 10*3/uL Normal 4.4-11.0 [facility] Comment on above: Performed By: #### L 501.64666, L500.4050, L3100.5060, L503.0106, L506.0400, L3300.1750, L100.0100, L3100.5125, L506.1001, L3100.5310, L503.6550, L501.9520, L3300.6900 #### [facility] [address] [place], [place], [id number] ([id number]) CORTISOL SERUMon 08-18-2024 CORTISOL 7.30 ug/dL Normal 3.44-22.45 [facility] Comment on above: Result Comment: Adul t (AM) 5.27 - 22.45 ug/dL Adult (PM) 3.44 - 16.76 ug/dL Performed By: #### L 501.93527, L500.4050, L3100.5060, L503.0106, L506.0400, L3300.1750, L100.0100, L3100.5125, L506.1001, L3100.5310, L503.6550, L501.9520, L3300.6900 #### [facility] [address] [place], [place], [id number] Carbon dioxide measurementOr dered By: Summer Danyel on 08-18-2024 CO2 [Moles/Vol] 27.0 mmol/L 21.0-32.0 [facility] Chloride measurementOrdered By: Summer Danyel on 08-18-2024 Chloride [Moles/Vol] 100 mmol/L 98-107 [facility] Comprehensive Metabolic Prof ilon 08-18-2024 Albumin [Mass/Vol] 4.0 g/dL Normal 3.2-5.0 [facility] Comment on above: Performed By: #### L 501.40410, L500.4050, L3100.5060, L503.0106, L506.0400, L3300.1750, L100.0100, L3100.5125, L506.1001, L3100.5310, L503.6550, L501.9520, L3300.6900 #### [facility] [address] [place], [place], [id number] Albumin/Globulin [Mass ratio] 1.2 {ratio} Normal 0.9-2.4 [facility] Comment on above: Performed By: #### L 501.25511, L500.4050, L3100.5060, L503.0106, L506.0400, L3300.1750, L100.0100, L3100.5125, L506.1001, L3100.5310, L503.6550, L501.9520, L3300.6900 #### [facility] [address] [place], [place], [phone] ALK P 60 U/L Normal 45-117 [facility] Comment on above: Performed By: #### L 501.01899, L500.4050, L3100.5060, L503.0106, L506.0400, L3300.1750, L100.0100, L3100.5125, L506.1001, L3100.5310, L503.6550, L501.9520, L3300.6900 #### [facility] [address] [place], [place], [id number] ALT [Catalytic activity/Vol] 37 U/L Normal 13-56 [facility] Comment on above: Performed By: #### L 501.52635, L500.4050, L3100.5060, L503.0106, L506.0400, L3300.1750, L100.0100, L3100.5125, L506.1001, L3100.5310, L503.6550, L501.9520, L3300.6900 #### [facility] [address] [place], [address] AST [Catalytic activity/Vol] 22 U/L Normal 15-37 [facility] Comment on above: Performed By: #### L 501.16690, L500.4050, L3100.5060, L503.0106, L506.0400, L3300.1750, L100.0100, L3100.5125, L506.1001, L3100.5310, L503.6550, L501.9520, L3300.6900 #### [facility] [address] [place], [place], [phone] (591) Bilirubin [Mass/Vol] 0.40 mg/dL Normal 0.20-1.00 [facility] Comment on above: Result Comment: For patients on eltrombopag therapy, use of Dimension [place] TBIL is not recommended. Performed By: #### L 501.27002, L500.4050, L3100.5060, L503.0106, L506.0400, L3300.1750, L100.0100, L3100.5125, L506.1001, L3100.5310, L503.6550, L501.9520, L3300.6900 #### [facility] [address] [place], [address] (418) BUN/CRE 13.3 RATIO Normal 10-20 [facility] Comment on above: Performed By: #### L 501.82585, L500.4050, L3100.5060, L503.0106, L506.0400, L3300.1750, L100.0100, L3100.5125, L506.1001, L3100.5310, L503.6550, L501.9520, L3300.6900 #### [facility] [address] [place], [place], [phone] (411) CA,Total 9.4 mg/dL Normal 8.5-10.1 [facility] Comment on above: Performed By: #### L 501.22180, L500.4050, L3100.5060, L503.0106, L506.0400, L3300.1750, L100.0100, L3100.5125, L506.1001, L3100.5310, L503.6550, L501.9520, L3300.6900 #### [facility] [address] [place], [address] (401) Chloride [Moles/Vol] 100 mmol/L Normal 98-107 [facility] Comment on above: Performed By: #### L 501.74647, L500.4050, L3100.5060, L503.0106, L506.0400, L3300.1750, L100.0100, L3100.5125, L506.1001, L3100.5310, L503.6550, L501.9520, L3300.6900 #### [facility] [address] [place], [address] CO2 [Moles/Vol] 27.0 mmol/L Normal 21.0-32.0 [facility] Comment on above: Performed By: #### L 501.52079, L500.4050, L3100.5060, L503.0106, L506.0400, L3300.1750, L100.0100, L3100.5125, L506.1001, L3100.5310, L503.6550, L501.9520, L3300.6900 #### [facility] [address] [place], [place], [phone] (091) Creatinine [Mass/Vol] 0.83 mg/dL Normal 0.55-1.02 [facility] Comment on above: Result Comment: The validity of the calculated GFR GFRAA in patients over 70 years has not been determined. Clinical correlation is essential. Performed By: #### L 501.82724, L500.4050, L3100.5060, L503.0106, L506.0400, L3300.1750, L100.0100, L3100.5125, L506.1001, L3100.5310, L503.6550, L501.9520, L3300.6900 #### [facility] [address] [place], [address] EST GFR - AA 94 mL/min Normal >60 [facility] Comment on above: Result Comment: Afri can French GFR Calc Performed By: #### L 501.19150, L500.4050, L3100.5060, L503.0106, L506.0400, L3300.1750, L100.0100, L3100.5125, L506.1001, L3100.5310, L503.6550, L501.9520, L3300.6900 #### [facility] [address] [place], [place], [id number] GAP 7 Normal 5-15 [facility] Comment on above: Performed By: #### L 501.92555, L500.4050, L3100.5060, L503.0106, L506.0400, L3300.1750, L100.0100, L3100.5125, L506.1001, L3100.5310, L503.6550, L501.9520, L3300.6900 #### [facility] [address] [place], [address] GFR/1.73 sq M.predicted among non-blacks MDRD (S/P/Bld) [Vol rate/Area] 78 mL/min/{1.73_m2} Normal >60 [facility] Comment on above: Result Comment: Non- GFR Calc Performed By: #### L 501.32586, L500.4050, L3100.5060, L503.0106, L506.0400, L3300.1750, L100.0100, L3100.5125, L506.1001, L3100.5310, L503.6550, L501.9520, L3300.6900 #### [facility] [address] [place], [place], [id number] Globulin (S) [Mass/Vol] 3.4 g/dL Normal 2.2-4.2 [facility] Comment on above: Performed By: #### L 501.69106, L500.4050, L3100.5060, L503.0106, L506.0400, L3300.1750, L100.0100, L3100.5125, L506.1001, L3100.5310, L503.6550, L501.9520, L3300.6900 #### [facility] [address] [place], [address] Glucose [Mass/Vol] 115 mg/dL High 74-106 [facility] Comment on above: Result Comment: Fast ing Glucose result from 100 to 125 mg/dL suggests IMPAIRED HOMEOSTASIS per A.D.A. criteria. Performed By: #### L 501.16690, L500.4050, L3100.5060, L503.0106, L506.0400, L3300.1750, L100.0100, L3100.5125, L506.1001, L3100.5310, L503.6550, L501.9520, L3300.6900 #### [facility] [address] [place], [address] Potassium [Moles/Vol] 3.7 mmol/L Normal 3.5-5.1 [facility] Comment on above: Performed By: #### L 501.51959, L500.4050, L3100.5060, L503.0106, L506.0400, L3300.1750, L100.0100, L3100.5125, L506.1001, L3100.5310, L503.6550, L501.9520, L3300.6900 #### [facility] [address] [place], [address] Sodium [Moles/Vol] 134 mmol/L Low 136-145 [facility] Comment on above: Performed By: #### L 501.80261, L500.4050, L3100.5060, L503.0106, L506.0400, L3300.1750, L100.0100, L3100.5125, L506.1001, L3100.5310, L503.6550, L501.9520, L3300.6900 #### [facility] [address] [place], [address] T PROT 7.4 g/dL Normal 6.4-8.2 [facility] Comment on above: Performed By: #### L 501.29306, L500.4050, L3100.5060, L503.0106, L506.0400, L3300.1750, L100.0100, L3100.5125, L506.1001, L3100.5310, L503.6550, L501.9520, L3300.6900 #### [facility] [address] [place], [address] Urea nitrogen [Mass/Vol] 11 mg/dL Normal 7-18 [facility] Comment on above: Performed By: #### L 501.51003, L500.4050, L3100.5060, L503.0106, L506.0400, L3300.1750, L100.0100, L3100.5125, L506.1001, L3100.5310, L503.6550, L501.9520, L3300.6900 #### [facility] [address] [place], [address] Cortisol [Mass/Vol]Ordered B y: Charmaine Montaño on 08-18-2024 Cortisol 7.30 ug/dL 3.44-22.45 [facility] Comment on above: Adult (AM) 5.27 - 22 .45 ug/dL Adult (PM) 3.44 - 16.76 ug/dL Erythrocyte distribution wid th ratioOrdered By: Summer Danyel on 08-18-2024 Erythrocyte distribution width (RBC) [Ratio] 12.0 % 11.6-14.6 [facility] Erythrocyte distribution wid th standard deviationOrdered By: Summer Danyel on 08-18-2024 Erythrocyte distribution width (RBC) [Entitic vol] 38.7 fL 35.1-43.9 [facility] Erythrocyte distribution width (RBC) [Ratio] 38.7 fl 35.1-43.9 [facility] Estimated glomerular filtrat ion rate (GFR) AmericanOrdered By: Summer Danyel on 08-18-2024 Estimated GFR (MDRD) Amer 94 mL/min >60 [facility] Comment on above: GFR Calc Estradiolon 08-18-2024 ESTRADIOL 110.1 pg/mL Normal [facility] Comment on above: Result Comment: NORM AL REFERENCE RANGES FEMALE FOLLICULAR 21.4 - 164.8 pg/mL MID-CYCLE PEAK 49.9 - 367.2 pg/mL LUTEAL 40.2 - 259.0 pg/mL POST-MENOPAUSAL ON MHT <11.0 - 462.1 pg/mL NOT ON MHT <11.0 - 58.3 pg/mL MALE <11.0 - 52.5 pg/mL NOTE: [employer] HAS CONFIRMED THE DRUG FULVETRANT (FASLODEX) MAY CAUSE FALSELY ELEVATED ESTRADIOL RESULTS WHEN USING THIS TEST METHOD. IF PATIENT IS TAKING FULVESTRANT AN ALTERNATIVE METHOD SHOULD BE USED TO DETERMINE ESTRADIOL CONCENTRATION. Performed By: #### L 501.70843, L500.4050, L3100.5060, L503.0106, L506.0400, L3300.1750, L100.0100, L3100.5125, L506.1001, L3100.5310, L503.6550, L501.9520, L3300.6900 #### [facility] [address] [place], [place], [phone] Estradiol measurementOrdered By: Charmaine Montaño on 08-18-2024 Estradiol (E2) Level 110.1 pg/mL [facility] Comment on above: NORMAL REFERENCE RAN GES FEMALE FOLLICULAR 21.4 - 164.8 pg/mL MID-CYCLE PEAK 49.9 - 367.2 pg/mL LUTEAL 40.2 - 259.0 pg/mL POST-MENOPAUSAL ON MHT <11.0 - 462.1 pg/mL NOT ON MHT <11.0 - 58.3 pg/mL MALE <11.0 - 52.5 pg/mL NOTE:[employer] HAS CONFIRMED THE DRUG FULVETRANT (FASLODEX) MAY CAUSE FALSELY ELEVATED ESTRADIOL RESULTS WHEN USING THIS TEST METHOD. IF PATIENT IS TAKING FULVESTRANT AN ALTERNATIVE METHOD SHOULD BE USED TO DETERMINE ESTRADIOL CONCENTRATION. Free testosterone percentage Ordered By: Charmaine Montaño on 08-18-2024 Testosterone Free/Testosterone.total [Mass fraction] 1.75 % 0.50-2.80 [facility] Comment on above: Performed at: CB - [facility] [id number] [place], [place] [id number] Director: Simon Ferrer PhD, Phone: [phone] at: - [facility] [address] [id number] Director: Analilia Vaughan MD, Phone: [phone] Glomerular filtration rate ( GFR) estimationOrdered By: Charmaine Montaño on 08-18-2024 Estimated GFR (MDRD) Non-Af Amer 78 mL/min >60 [facility] Comment on above: Non- GFR Calc GFR/1.73 sq M.predicted among non-blacks MDRD (S/P/Bld) [Vol rate/Area] 78 mL/min/{1.73_m2} >60 [facility] Comment on above: Non- GFR Calc Glucose measurementOrdered B y: Charmaine Montaño on 08-18-2024 Glucose [Mass/Vol] 115 mg/dL High 74-106 [facility] Comment on above: Fasting Glucose resu lt from 100 to 125 mg/dL suggests IMPAIRED HOMEOSTASIS per A.D.A. criteria. Hematocrit Auto (Bld) [Volum e fraction]Ordered By: Charmaine Montaño on 08-18-2024 Hematocrit (Bld) [Volume fraction] 38.7 % 37-47 [facility] Hemoglobin A1con 08-18-2024 HbA1c (Bld) [Mass fraction] 5.8 % High 3.8-5.6 [facility] Comment on above: Result Comment: Norm al < 5.7 % Prediabetic 5.7 - 6.4 % Diabetic >or= 6.5 % Please note range changes. Performed By: #### L 501.16404, L500.4050, L3100.5060, L503.0106, L506.0400, L3300.1750, L100.0100, L3100.5125, L506.1001, L3100.5310, L503.6550, L501.9520, L3300.6900 #### [facility] [address] [place], [address] Hemoglobin A1c percentageOrd ered By: Charmaine Montaño on 08-18-2024 HbA1c (Bld) [Mass fraction] 5.8 % High 3.8-5.6 [facility] Comment on above: Normal < 5.7 % Predi abetic 5.7 - 6.4 % Diabetic >or= 6.5 % Please note range changes. Hemoglobin measurementOrdere d By: Charmaine Montaño on 08-18-2024 Hemoglobin (Bld) [Mass/Vol] 12.8 g/dL 12.0-15.0 [facility] High density lipoprotein (HD L) measurementOrdered By: Charmaine Montaño on 08-18-2024 Cholesterol in HDL [Mass/Vol] 65 mg/dL >40 [facility] Comment on above: The drugs N-Acetylcy steine and Metamizole may falsely depress this assay. Reference Range HDL <40 mg/dL Low HDL Cholesterol HDL >or= 60 mg/dL High HDL Cholesterol Laboratory - Chemistry and C hemistry - challengeOrdered By: Charmaine Montaño on 08-18-2024 AST [Catalytic activity/Vol] 22 U/L 15-37 [facility] Lipid Profileon 08-18-2024 Cholesterol [Mass/Vol] 218 mg/dL High 200 [facility] Comment on above: Result Comment: <200 mg/dL Desirable 200-240 mg/dL Borderline >240 mg/dL High Risk Performed By: #### L 501.39910, L500.4050, L3100.5060, L503.0106, L506.0400, L3300.1750, L100.0100, L3100.5125, L506.1001, L3100.5310, L503.6550, L501.9520, L3300.6900 #### [facility] [address] [place], [place], [phone] Cholesterol in HDL [Mass/Vol] 65 mg/dL Normal [facility] Comment on above: Result Comment: The drugs N-Acetylcysteine and Metamizole may falsely depress this assay. Reference Range HDL <40 mg/dL Low HDL Cholesterol HDL >or= 60 mg/dL High HDL Cholesterol Performed By: #### L 501.70370, L500.4050, L3100.5060, L503.0106, L506.0400, L3300.1750, L100.0100, L3100.5125, L506.1001, L3100.5310, L503.6550, L501.9520, L3300.6900 #### [facility] [address] [place], [place], [phone] (203) Cholesterol in LDL [Mass/Vol] 129 mg/dL Normal 0-130 [facility] Comment on above: Performed By: #### L 501.28890, L500.4050, L3100.5060, L503.0106, L506.0400, L3300.1750, L100.0100, L3100.5125, L506.1001, L3100.5310, L503.6550, L501.9520, L3300.6900 #### [facility] [address] [place], [place], [phone] (739) Cholesterol in VLDL [Mass/Vol] 24 mg/dL Normal 5-40 [facility] Comment on above: Performed By: #### L 501.86907, L500.4050, L3100.5060, L503.0106, L506.0400, L3300.1750, L100.0100, L3100.5125, L506.1001, L3100.5310, L503.6550, L501.9520, L3300.6900 #### [facility] [address] [place], [address] Triglyceride [Mass/Vol] 120 mg/dL Normal [facility] Comment on above: Result Comment: The drugs N-Acetylcysteine and Metamizole may falsely depress this assay. Serum Triglycerides Reference Interval Normal <150 mg/dL Borderline high 150 - 199 mg/dL High 200 - 499 mg/dL Very High > or = 500 mg/dL Performed By: #### L 501.43734, L500.4050, L3100.5060, L503.0106, L506.0400, L3300.1750, L100.0100, L3100.5125, L506.1001, L3100.5310, L503.6550, L501.9520, L3300.6900 #### [facility] [place], [address] Low density lipoprotein (LDL ) cholesterol measurementOrdered By: Charmaine Montaño on 08-18-2024 Cholesterol in LDL [Mass/Vol] 129 mg/dL 0-130 [facility] MCV (mean corpuscular volume ) determinationOrdered By: Charmaine Montaño on 08-18-2024 MCV (RBC) [Entitic vol] 89.4 fL 81-99 [facility] Mean corpuscular hemoglobin (MCH) determinationOrdered By: Summer Danyel 08-18-2024 MCH (RBC) [Entitic mass] 29.6 pg 27.0-32.0 [facility] Mean corpuscular hemoglobin concentration (MCHC) determinationOrdered By: Summer Danyel 08-18-2024 MCHC (RBC) [Mass/Vol] 33.1 g/dL 32-36 [facility] Mean platelet volume determi nationOrdered By: Charmaine Montaño 08-18-2024 Platelet mean volume (Bld) [Entitic vol] 9.1 fL 6.2-12.0 [facility] Platelet countOrdered By: Rox Montaño on 08-18-2024 Platelets (Bld) [#/Vol] 401 10*3/uL 150-450 [facility] Potassium measurementOrdered By: Charmaine Montaño 08-18-2024 Potassium [Moles/Vol] 3.7 mmol/L 3.5-5.1 [facility] RBC Auto (Bld) [#/Vol]Ordere d By: Charmaine Montaño 08-18-2024 RBC (Bld) [#/Vol] 4.33 10*6/uL 4.2-5.4 [facility] Serum anion gap measurementO rdered By: Charmaine Montaño 08-18-2024 Anion gap [Moles/Vol] 7 mmol/L 5-15 [facility] Serum globulin measurementOr dered By: Charmaine Montaño 08-18-2024 Globulin (S) [Mass/Vol] 3.4 g/dL 2.2-4.2 [facility] Serum or plasma alanine [place] otransferase (ALT) measurementOrdered By: Charmaine Montaño on 08-18-2024 ALT [Catalytic activity/Vol] 37 U/L 13-56 [facility] Serum or plasma albumin laura urement (mass/volume)Ordered By: Summer Danyel 08-18-2024 Albumin [Mass/Vol] 4.0 g/dL 3.2-5.0 [facility] Serum or plasma alkaline [place] sphatase measurementOrdered By: Summer Danyel 08-18-2024 ALP [Catalytic activity/Vol] 60 U/L 45-117 [facility] Serum or plasma calcium laura urement (mass/volume)Ordered By: Charamine Montaño 08-18-2024 Calcium [Mass/Vol] 9.4 mg/dL 8.5-10.1 [facility] Serum or plasma cholesterol measurement (mass/volume)Ordered By: Charmaine Montaño 08-18-2024 Cholesterol [Mass/Vol] 218 mg/dL High <200 [facility] Comment on above: <200 mg/dL Desirable 200-240 mg/dL Borderline >240 mg/dL High Risk Serum or plasma cortisol al surement (mass/volume)Ordered By: Charmaine Montaño 08-18-2024 Cortisol [Mass/Vol] 7.30 ug/dL 3.44-22.45 [facility] Comment on above: Adult (AM) 5.27 - 22 .45 ug/dL Adult (PM) 3.44 - 16.76 ug/dL Serum or plasma creatinine m easurement (mass/volume)Ordered By: Charmaine Montaño 08-18-2024 Creatinine [Mass/Vol] 0.83 mg/dL 0.55-1.02 [facility] Comment on above: The validity of the calculated GFR & GFRAA in patients over 70 years has not been determined. Clinical correlation is essential. Serum or plasma free testost erone measurement (mass/volume)Ordered By: Charmaine Montaño 08-18-2024 Testosterone Free [Mass/Vol] <.05 ng/dL Low 0.10-0.85 [facility] Serum or plasma urea nitroge n measurement (mass/volume)Ordered By: Charmaine Montaño 08-18-2024 Urea nitrogen [Mass/Vol] 11 mg/dL 7-18 [facility] Sodium levelOrdered By: Trevor Montaño on 08-18-2024 Sodium [Moles/Vol] 134 mmol/L Low 136-145 [facility] Testosterone Free [Mass/Vol] Ordered By: Charmaine Montaño on 08-18-2024 Free Testosterone <.05 ng/dL Low 0.10-0.85 [facility] Testosterone Free/Testostero ne.total [Mass fraction]Ordered By: Charmaine Danyel on 08-18-2024 Percent Free Testosterone 1.75 % 0.50-2.80 [facility] Comment on above: Performed at: [address] [id number] Director: Simon Ferrer PhD, Phone: [phone] at: [facility] [address] [id number] Director: Analilia Vaughan MD, Phone: [phone] Testosterone, totalOrdered B y: Charmaine Grayon on 08-18-2024 Testosterone [Mass/Vol] ng/dL Low 4-50 [facility] Total proteinOrdered By: Oumar néstor Grayon on 08-18-2024 Protein [Mass/Vol] 7.4 g/dL 6.4-8.2 [facility] Triglycerides measurementOrd ered By: Charmaine Grayon on 08-18-2024 Triglyceride [Mass/Vol] 120 mg/dL <199 [facility] Comment on above: The drugs N-Acetylcy steine and Metamizole may falsely depress this assay.Serum Triglycerides Reference Interval Normal <150 mg/dL Borderline high 150 - 199 mg/dL High 200 - 499 mg/dL Very High > or = 500 mg/dL Very low density lipoprotein (VLDL) cholesterol measurementOrdered By: Charmaine Danyel on 08-18-2024 Very low density lipoprotein (VLDL) cholesterol measurement 24 mg/dL 5-40 [facility] VLDL Cholesterol 24 mg/dL 5-40 [facility] White blood cell (WBC) count Ordered By: Charmaine Montaño on 08-18-2024 WBC (Bld) [#/Vol] 5.8 10*3/uL 4.4-11.0 [facility] Absolute neutrophil countOrd ered By: [facility] on 06-30-2024 Neutrophils (Bld) [#/Vol] 4.5 10*3/uL 2.0-7.7 [facility] Albumin to globulin ratioOrd ered By: Analisa Emery on 06-30-2024 Albumin/Globulin [Mass ratio] 1.1 {ratio} 0.9-2.4 [facility] Basophil percentageOrdered B y: [facility] on 06-30-2024 Basophils/100 WBC (Bld) 0.7 % 0-1 [facility] Bilirubin, totalOrdered By: [facility] on 06-30-2024 Bilirubin [Mass/Vol] 0.40 mg/dL 0.20-1.00 [facility] Comment on above: For patients on eltr ombopag therapy, use of Dimension [place] TBIL is not recommended. Blood urea nitrogen (BUN)/cr eatinine ratioOrdered By: [facility] on 06-30-2024 Urea nitrogen/Creatinine [Mass ratio] 17.2 mg/mg 10-20 [facility] CBC W/Diff, Automatedon 120 Absolute Lymph 1.83 X10 3/uL Normal 0.83-4.51 [facility] Comment on above: Performed By: #### L 501.38479, L500.4050, L3100.5060, L503.0106, L506.0400, L3300.1750, L100.0100, L3100.5125, L506.1001, L3100.5310, L503.6550, L501.9520, L3300.6900 #### [facility] [address] [place], [place], [id number] Absolute Neut 4.5 X10 3/uL Normal 2.0-7.7 [facility] Comment on above: Performed By: #### L 501.58409, L500.4050, L3100.5060, L503.0106, L506.0400, L3300.1750, L100.0100, L3100.5125, L506.1001, L3100.5310, L503.6550, L501.9520, L3300.6900 #### [facility] [address] [place], [address] Basophils/100 WBC (Bld) 0.7 % Normal 0-1 [facility] Comment on above: Performed By: #### L 501.10823, L500.4050, L3100.5060, L503.0106, L506.0400, L3300.1750, L100.0100, L3100.5125, L506.1001, L3100.5310, L503.6550, L501.9520, L3300.6900 #### [facility] [address] [place], [address] Eosinophils/100 WBC (Bld) 1.3 % Normal 0-5 [facility] Comment on above: Performed By: #### L 501.03343, L500.4050, L3100.5060, L503.0106, L506.0400, L3300.1750, L100.0100, L3100.5125, L506.1001, L3100.5310, L503.6550, L501.9520, L3300.6900 #### [facility] [address] [place], [address] Erythrocyte distribution width (RBC) [Ratio] 12.5 % Normal 11.6-14.6 [facility] Comment on above: Performed By: #### L 501.98799, L500.4050, L3100.5060, L503.0106, L506.0400, L3300.1750, L100.0100, L3100.5125, L506.1001, L3100.5310, L503.6550, L501.9520, L3300.6900 #### [facility] [address] [place], [address] Hematocrit (Bld) [Volume fraction] 41.3 % Normal 37-47 [facility] Comment on above: Performed By: #### L 501.63274, L500.4050, L3100.5060, L503.0106, L506.0400, L3300.1750, L100.0100, L3100.5125, L506.1001, L3100.5310, L503.6550, L501.9520, L3300.6900 #### [facility] [address] [place], [address] Hemoglobin (Bld) [Mass/Vol] 13.7 g/dL Normal 12.0-15.0 [facility] Comment on above: Performed By: #### L 501.99385, L500.4050, L3100.5060, L503.0106, L506.0400, L3300.1750, L100.0100, L3100.5125, L506.1001, L3100.5310, L503.6550, L501.9520, L3300.6900 #### [facility] [address] [place], [address] IG% 0.400 Normal 0.0-0.9 [facility] Comment on above: Result Comment: IG% - Immature Granulocytes (promyelocytes, myelocytes and metamyelocytes) > 1% indicates that a LEFT SHIFT is Present. Performed By: #### L 501.90031, L500.4050, L3100.5060, L503.0106, L506.0400, L3300.1750, L100.0100, L3100.5125, L506.1001, L3100.5310, L503.6550, L501.9520, L3300.6900 #### [facility] [address] [place], [address] Lymphocytes/100 WBC (Bld) 25.8 % Normal 19-41 [facility] Comment on above: Performed By: #### L 501.54825, L500.4050, L3100.5060, L503.0106, L506.0400, L3300.1750, L100.0100, L3100.5125, L506.1001, L3100.5310, L503.6550, L501.9520, L3300.6900 #### [facility] [address] [place], [address] MCH (RBC) [Entitic mass] 29.8 pg Normal 27.0-32.0 [facility] Comment on above: Performed By: #### L 501.97107, L500.4050, L3100.5060, L503.0106, L506.0400, L3300.1750, L100.0100, L3100.5125, L506.1001, L3100.5310, L503.6550, L501.9520, L3300.6900 #### [facility] [address] [place], [address] MCHC (RBC) [Mass/Vol] 33.2 g/dL Normal 32-36 [facility] Comment on above: Performed By: #### L 501.84200, L500.4050, L3100.5060, L503.0106, L506.0400, L3300.1750, L100.0100, L3100.5125, L506.1001, L3100.5310, L503.6550, L501.9520, L3300.6900 #### [facility] [address] [place], [address] MCV (RBC) [Entitic vol] 90.0 fL Normal 81-99 [facility] Comment on above: Performed By: #### L 501.83538, L500.4050, L3100.5060, L503.0106, L506.0400, L3300.1750, L100.0100, L3100.5125, L506.1001, L3100.5310, L503.6550, L501.9520, L3300.6900 #### [facility] [address] [place], [address] Monocytes/100 WBC (Bld) 9.0 % Normal 0-10 [facility] Comment on above: Performed By: #### L 501.33831, L500.4050, L3100.5060, L503.0106, L506.0400, L3300.1750, L100.0100, L3100.5125, L506.1001, L3100.5310, L503.6550, L501.9520, L3300.6900 #### [facility] [address] [place], [address] Neutrophils/100 WBC (Bld) 62.8 % Normal 47-70 [facility] Comment on above: Performed By: #### L 501.70610, L500.4050, L3100.5060, L503.0106, L506.0400, L3300.1750, L100.0100, L3100.5125, L506.1001, L3100.5310, L503.6550, L501.9520, L3300.6900 #### [facility] [address] [place], [address] (493) Nucleated RBC (Bld) [#/Vol] 0 10*3/uL Normal 0-5 [facility] Comment on above: Performed By: #### L 501.85340, L500.4050, L3100.5060, L503.0106, L506.0400, L3300.1750, L100.0100, L3100.5125, L506.1001, L3100.5310, L503.6550, L501.9520, L3300.6900 #### [facility] [address] [place], [place], [id number] Platelet mean volume (Bld) [Entitic vol] 9.8 fL Normal 6.2-12.0 [facility] Comment on above: Performed By: #### L 501.42204, L500.4050, L3100.5060, L503.0106, L506.0400, L3300.1750, L100.0100, L3100.5125, L506.1001, L3100.5310, L503.6550, L501.9520, L3300.6900 #### [facility] [address] [place], [place], [phone]) Platelets (Bld) [#/Vol] 443 10*3/uL Normal 150-450 [facility] Comment on above: Performed By: #### L 501.88225, L500.4050, L3100.5060, L503.0106, L506.0400, L3300.1750, L100.0100, L3100.5125, L506.1001, L3100.5310, L503.6550, L501.9520, L3300.6900 #### [facility] [address] [place], [address] (207) RBC (Bld) [#/Vol] 4.59 10*6/uL Normal 4.2-5.4 [facility] Comment on above: Performed By: #### L 501.62748, L500.4050, L3100.5060, L503.0106, L506.0400, L3300.1750, L100.0100, L3100.5125, L506.1001, L3100.5310, L503.6550, L501.9520, L3300.6900 #### [facility] [address] [place], [place], [phone]) RDW SD 40.8 fl Normal 35.1-43.9 [facility] Comment on above: Performed By: #### L 501.03948, L500.4050, L3100.5060, L503.0106, L506.0400, L3300.1750, L100.0100, L3100.5125, L506.1001, L3100.5310, L503.6550, L501.9520, L3300.6900 #### [facility] [address] [place], [address] WBC (Bld) [#/Vol] 7.1 10*3/uL Normal 4.4-11.0 [facility] Comment on above: Performed By: #### L 501.62437, L500.4050, L3100.5060, L503.0106, L506.0400, L3300.1750, L100.0100, L3100.5125, L506.1001, L3100.5310, L503.6550, L501.9520, L3300.6900 #### [facility] [address] [place], [address] Carbon dioxide measurementOr dered By: Analisa Land on 06-30-2024 CO2 [Moles/Vol] 26.0 mmol/L 21.0-32.0 [facility] Chloride measurementOrdered By: Analisa Land on 06-30-2024 Chloride [Moles/Vol] 101 mmol/L 98-107 [facility] Comprehensive Metabolic Prof ilon 06-30-2024 Albumin [Mass/Vol] 4.0 g/dL Normal 3.2-5.0 [facility] Comment on above: Performed By: #### L 501.47453, L500.4050, L3100.5060, L503.0106, L506.0400, L3300.1750, L100.0100, L3100.5125, L506.1001, L3100.5310, L503.6550, L501.9520, L3300.6900 #### [facility] [address] [place], [address] Albumin/Globulin [Mass ratio] 1.1 {ratio} Normal 0.9-2.4 [facility] Comment on above: Performed By: #### L 501.92354, L500.4050, L3100.5060, L503.0106, L506.0400, L3300.1750, L100.0100, L3100.5125, L506.1001, L3100.5310, L503.6550, L501.9520, L3300.6900 #### [facility] [address] [place], [address] ALK P 81 U/L Normal 45-117 [facility] Comment on above: Performed By: #### L 501.49530, L500.4050, L3100.5060, L503.0106, L506.0400, L3300.1750, L100.0100, L3100.5125, L506.1001, L3100.5310, L503.6550, L501.9520, L3300.6900 #### [facility] [address] [place], [address] ALT [Catalytic activity/Vol] 81 U/L High 13-56 [facility] Comment on above: Performed By: #### L 501.57693, L500.4050, L3100.5060, L503.0106, L506.0400, L3300.1750, L100.0100, L3100.5125, L506.1001, L3100.5310, L503.6550, L501.9520, L3300.6900 #### [facility] [address] [place], [place], [phone] AST [Catalytic activity/Vol] 46 U/L High 15-37 [facility] Comment on above: Performed By: #### L 501.97261, L500.4050, L3100.5060, L503.0106, L506.0400, L3300.1750, L100.0100, L3100.5125, L506.1001, L3100.5310, L503.6550, L501.9520, L3300.6900 #### [facility] [address] [place], [place], [phone] Bilirubin [Mass/Vol] 0.40 mg/dL Normal 0.20-1.00 [facility] Comment on above: Result Comment: For patients on eltrombopag therapy, use of Dimension [place] TBIL is not recommended. Performed By: #### L 501.98914, L500.4050, L3100.5060, L503.0106, L506.0400, L3300.1750, L100.0100, L3100.5125, L506.1001, L3100.5310, L503.6550, L501.9520, L3300.6900 #### [facility] [address] [place], [place], [phone]) BUN/CRE 17.2 RATIO Normal 10-20 [facility] Comment on above: Performed By: #### L 501.25711, L500.4050, L3100.5060, L503.0106, L506.0400, L3300.1750, L100.0100, L3100.5125, L506.1001, L3100.5310, L503.6550, L501.9520, L3300.6900 #### [facility] [address] [place], [place], [phone] ([phone]) CA,Total 10.0 mg/dL Normal 8.5-10.1 [facility] Comment on above: Performed By: #### L 501.96399, L500.4050, L3100.5060, L503.0106, L506.0400, L3300.1750, L100.0100, L3100.5125, L506.1001, L3100.5310, L503.6550, L501.9520, L3300.6900 #### [facility] [address] [place], [place], [phone] ([phone]) Chloride [Moles/Vol] 101 mmol/L Normal 98-107 [facility] Comment on above: Performed By: #### L 501.34247, L500.4050, L3100.5060, L503.0106, L506.0400, L3300.1750, L100.0100, L3100.5125, L506.1001, L3100.5310, L503.6550, L501.9520, L3300.6900 #### [facility] [address] [place], [address] CO2 [Moles/Vol] 26.0 mmol/L Normal 21.0-32.0 [facility] Comment on above: Performed By: #### L 501.10929, L500.4050, L3100.5060, L503.0106, L506.0400, L3300.1750, L100.0100, L3100.5125, L506.1001, L3100.5310, L503.6550, L501.9520, L3300.6900 #### [facility] [address] [place], [place], [phone] (498) Creatinine [Mass/Vol] 0.70 mg/dL Normal 0.55-1.02 [facility] Comment on above: Result Comment: The validity of the calculated GFR GFRAA in patients over 70 years has not been determined. Clinical correlation is essential. Performed By: #### L 501.73494, L500.4050, L3100.5060, L503.0106, L506.0400, L3300.1750, L100.0100, L3100.5125, L506.1001, L3100.5310, L503.6550, L501.9520, L3300.6900 #### [facility] [address] [place], [place], [phone] EST GFR - AA 115 mL/min Normal >60 [facility] Comment on above: Result Comment: Afri can French GFR Calc Performed By: #### L 501.69095, L500.4050, L3100.5060, L503.0106, L506.0400, L3300.1750, L100.0100, L3100.5125, L506.1001, L3100.5310, L503.6550, L501.9520, L3300.6900 #### [facility] [address] [place], [address] GAP 9 Normal 5-15 [facility] Comment on above: Performed By: #### L 501.18823, L500.4050, L3100.5060, L503.0106, L506.0400, L3300.1750, L100.0100, L3100.5125, L506.1001, L3100.5310, L503.6550, L501.9520, L3300.6900 #### [facility] [address] [place], [address] (308) GFR/1.73 sq M.predicted among non-blacks MDRD (S/P/Bld) [Vol rate/Area] 95 mL/min/{1.73_m2} Normal >60 [facility] Comment on above: Result Comment: Non- GFR Calc Performed By: #### L 501.74425, L500.4050, L3100.5060, L503.0106, L506.0400, L3300.1750, L100.0100, L3100.5125, L506.1001, L3100.5310, L503.6550, L501.9520, L3300.6900 #### [facility] [address] [place], [address] (289) Globulin (S) [Mass/Vol] 3.8 g/dL Normal 2.2-4.2 [facility] Comment on above: Performed By: #### L 501.95332, L500.4050, L3100.5060, L503.0106, L506.0400, L3300.1750, L100.0100, L3100.5125, L506.1001, L3100.5310, L503.6550, L501.9520, L3300.6900 #### [facility] [address] [place], [address] Glucose [Mass/Vol] 108 mg/dL High 74-106 [facility] Comment on above: Result Comment: Fast ing Glucose result from 100 to 125 mg/dL suggests IMPAIRED HOMEOSTASIS per A.D.A. criteria. Performed By: #### L 501.06710, L500.4050, L3100.5060, L503.0106, L506.0400, L3300.1750, L100.0100, L3100.5125, L506.1001, L3100.5310, L503.6550, L501.9520, L3300.6900 #### [facility] [address] [place], [address] Potassium [Moles/Vol] 3.9 mmol/L Normal 3.5-5.1 [facility] Comment on above: Performed By: #### L 501.96488, L500.4050, L3100.5060, L503.0106, L506.0400, L3300.1750, L100.0100, L3100.5125, L506.1001, L3100.5310, L503.6550, L501.9520, L3300.6900 #### [facility] [address] [place], [address] Sodium [Moles/Vol] 136 mmol/L Normal 136-145 [facility] Comment on above: Performed By: #### L 501.10309, L500.4050, L3100.5060, L503.0106, L506.0400, L3300.1750, L100.0100, L3100.5125, L506.1001, L3100.5310, L503.6550, L501.9520, L3300.6900 #### [facility] [address] [place], [address] T PROT 7.8 g/dL Normal 6.4-8.2 [facility] Comment on above: Performed By: #### L 501.07663, L500.4050, L3100.5060, L503.0106, L506.0400, L3300.1750, L100.0100, L3100.5125, L506.1001, L3100.5310, L503.6550, L501.9520, L3300.6900 #### [facility] [address] [place], [place], [phone] Urea nitrogen [Mass/Vol] 12 mg/dL Normal 7-18 [facility] Comment on above: Performed By: #### L 501.69789, L500.4050, L3100.5060, L503.0106, L506.0400, L3300.1750, L100.0100, L3100.5125, L506.1001, L3100.5310, L503.6550, L501.9520, L3300.6900 #### [facility] [address] [place], [place], [phone] Eosinophil percentageOrdered By: Analisa Land on 06-30-2024 Eosinophils/100 WBC (Bld) 1.3 % 0-5 [facility] Erythrocyte distribution wid th ratioOrdered By: Analisa Land on 06-30-2024 Erythrocyte distribution width (RBC) [Ratio] 12.5 % 11.6-14.6 [facility] Erythrocyte distribution wid th standard deviationOrdered By: [facility] Health[facility] on 06-30-2024 Erythrocyte distribution width (RBC) [Entitic vol] 40.8 fL 35.1-43.9 [facility] Estimated glomerular filtrat ion rate (GFR) AmericanOrdered By: Analisaramo Land on 06-30-2024 Estimated GFR (MDRD) Amer 115 mL/min >60 [facility] Comment on above: GFR Calc Glomerular filtration rate ( GFR) estimationOrdered By: Analisaramo Land on 06-30-2024 Estimated GFR (MDRD) Non-Af Amer 95 mL/min >60 [facility] Comment on above: Non- GFR Calc Glucose measurementOrdered B y: Analisa Land on 06-30-2024 Glucose [Mass/Vol] 108 mg/dL High 74-106 [facility] Comment on above: Fasting Glucose resu lt from 100 to 125 mg/dL suggests IMPAIRED HOMEOSTASIS per A.D.A. criteria. Hand Min 3 Viewson 4 Hand Min 3 Views [facility] Services [address] [place] [address] Hand Min 3 Views MR#: [id number] Acct: [id number] Name: DINORAH SIMPSON Rep #: [id number] : 1975 F 49 From: Issac Bartlett MD PCP: Dr. Siddhartha Pedroza DO Status: REG CLI Study: Hand Min 3 Views Date of Exam: 06/30/24 Exam# [id number] Ordering Dr: Analisa Land [id number] STUDY: X-RAY - LEFT HAND REASON FOR EXAM: Female, 49 years old. POST FALL 2 MONTHS AGO TECHNIQUE: 3 view(s) of the hand. COMPARISON: None. FINDINGS: Normal radiocarpal articulation. Normal distal radioulnar joint. Normal visualized carpal bones. Normal carpal articulations Normal carpometacarpal articulation of the thumb. Normal second through fifth carpometacarpal joints. Normal metacarpi. Normal metacarpophalangeal joint of the thumb. Normal interphalangeal joint of the thumb. Normal proximal and distal phalanges of the thumb. Normal metacarpophalangeal joints of the second through fifth fingers. Normal proximal and distal interphalangeal joints of the second through fifth fingers. Normal phalanges of the second through fifth fingers. The soft tissue structures are unremarkable. There is no acute fracture. RAD/Hand Min 3 Views IMPRESSION: Normal x-ray examination of the hand. Electronically Signed: Issac Bartlett MD at 8:34 EST , CC: KARINE Land; Dr. Siddhartha Pedroza DO Ambulatory Nurse: Signed Normal [facility] Hematocrit Auto (Bld) [Volum e fraction]Ordered By: Analisa Land on 06-30-2024 Hematocrit (Bld) [Volume fraction] 41.3 % 37-47 [facility] Hemoglobin measurementOrdere d By: Analisa Land on 06-30-2024 Hemoglobin (Bld) [Mass/Vol] 13.7 g/dL 12.0-15.0 [facility] Immature granulocytes/100 WB C Auto (Bld)Ordered By: Analisa Land on 06-30-2024 Immature granulocytes/100 WBC (Bld) 0.400 % 0.0-0.9 [facility] Comment on above: IG% - Immature Granu locytes (promyelocytes, myelocytes and metamyelocytes) > 1% indicates that a LEFT SHIFT is Present. Laboratory - Chemistry and C hemistry - challengeOrdered By: Analisa Land on 06-30-2024 AST [Catalytic activity/Vol] 46 U/L High 15-37 [facility] Lymphocytes Auto (Unsp spec) [#/Vol]Ordered By: Analisa Land on 06-30-2024 Lymphocytes (Bld) [#/Vol] 1.83 10*3/uL 0.83-4.51 [facility] Lymphocytes/100 WBC Auto (Un sp spec)Ordered By: Analisa Land on 06-30-2024 Lymphocytes/100 WBC (Bld) 25.8 % 19-41 [facility] MCV (mean corpuscular volume ) determinationOrdered By: Analisa Land on 06-30-2024 MCV (RBC) [Entitic vol] 90.0 fL 81-99 [facility] Mean corpuscular hemoglobin (MCH) determinationOrdered By: Analisa Land on 06-30-2024 MCH (RBC) [Entitic mass] 29.8 pg 27.0-32.0 [facility] Mean corpuscular hemoglobin concentration (MCHC) determinationOrdered By: Analisaramo Land on 06-30-2024 MCHC (RBC) [Mass/Vol] 33.2 g/dL 32-36 [facility] Mean platelet volume determi nationOrdered By: Analisa Land on 06-30-2024 Platelet mean volume (Bld) [Entitic vol] 9.8 fL 6.2-12.0 [facility] Monocyte percentageOrdered B y: Analisa Land on 06-30-2024 Monocytes/100 WBC (Bld) 9.0 % 0-10 [facility] Neutrophil percentageOrdered By: Analisa Land on 06-30-2024 Neutrophils/100 WBC (Bld) 62.8 % 47-70 [facility] Nucleated red blood cell per centageOrdered By: Analisa Land on 06-30-2024 Nucleated RBC/100 WBC (Bld) [Ratio] 0 % 0-5 [facility] Platelet countOrdered By: Ra rodrigo Land on 06-30-2024 Platelets (Bld) [#/Vol] 443 10*3/uL 150-450 [facility] Potassium measurementOrdered By: Analisa Land on 06-30-2024 Potassium [Moles/Vol] 3.9 mmol/L 3.5-5.1 [facility] RBC Auto (Bld) [#/Vol]Ordere d By: Analisa Land on 06-30-2024 RBC (Bld) [#/Vol] 4.59 10*6/uL 4.2-5.4 [facility] Serum anion gap measurementO rdered By: Analisa Land on 06-30-2024 Anion gap [Moles/Vol] 9 mmol/L 5-15 [facility] Serum globulin measurementOr dered By: Analisa Land on 06-30-2024 Globulin (S) [Mass/Vol] 3.8 g/dL 2.2-4.2 [facility] Serum or plasma alanine [place] otransferase (ALT) measurementOrdered By: Analisa Land 06-30-2024 ALT [Catalytic activity/Vol] 81 U/L High 13-56 [facility] Serum or plasma albumin laura urement (mass/volume)Ordered By: Analisa Land on 06-30-2024 Albumin [Mass/Vol] 4.0 g/dL 3.2-5.0 [facility] Serum or plasma alkaline [place] sphatase measurementOrdered By: Analisa Land 06-30-2024 ALP [Catalytic activity/Vol] 81 U/L 45-117 [facility] Serum or plasma calcium laura urement (mass/volume)Ordered By: Analisa Land 06-30-2024 Calcium [Mass/Vol] 10.0 mg/dL 8.5-10.1 [facility] Serum or plasma creatinine m easurement (mass/volume)Ordered By: Analisa Land on 06-30-2024 Creatinine [Mass/Vol] 0.70 mg/dL 0.55-1.02 [facility] Comment on above: The validity of the calculated GFR & GFRAA in patients over 70 years has not been determined. Clinical correlation is essential. Serum or plasma urea nitroge n measurement (mass/volume)Ordered By: Analisa Emery on 06-30-2024 Urea nitrogen [Mass/Vol] 12 mg/dL 7-18 [facility] Sodium levelOrdered By: Lilliana su Emery on 06-30-2024 Sodium [Moles/Vol] 136 mmol/L 136-145 [facility] Total proteinOrdered By: Andi ramo Eemry on 06-30-2024 Protein [Mass/Vol] 7.8 g/dL 6.4-8.2 [facility] White blood cell (WBC) count Ordered By: Analisa Emery on 06-30-2024 WBC (Bld) [#/Vol] 7.1 10*3/uL 4.4-11.0 [facility] Absolute lymphocyte countOrd ered By: Analisa Kellygar on 06-06-2023 Lymphocytes Auto (Unsp spec) [#/Vol] 2.08 10*3/uL 0.83-4.51 [facility] Basophil percentageOrdered B y: Analisa Land on 06-06-2023 Basophils/100 WBC (Bld) 0.6 % 0-1 [facility] Bilirubin [Mass/Vol] 0.30 mg/dL 0.20-1.00 [facility] Comment on above: For patients on eltr ombopag therapy, use of Dimension [place] TBIL is not recommended. Chloride [Moles/Vol] 100 mmol/L 98-107 [facility] Cholesterol [Mass/Vol] 254 mg/dL <200 [facility] Comment on above: <200 mg/dL Desirable 200-240 mg/dL Borderline >240 mg/dL High Risk Eosinophils/100 WBC (Bld) 0.8 % 0-5 [facility] Glucose [Mass/Vol] 109 mg/dL 74-106 [facility] Comment on above: Fasting Glucose resu lt from 100 to 125 mg/dL suggests IMPAIRED HOMEOSTASIS per A.D.A. criteria. Neutrophils (Bld) [#/Vol] 3.8 10*3/uL 2.0-7.7 [facility] Neutrophils/100 WBC (Bld) 58.7 % 47-70 [facility] Potassium [Moles/Vol] 4.0 mmol/L 3.5-5.1 [facility] Protein [Mass/Vol] 7.9 g/dL 6.4-8.2 [facility] Sodium [Moles/Vol] 138 mmol/L 136-145 [facility] Triglyceride [Mass/Vol] 170 mg/dL <199 [facility] Comment on above: The drugs N-Acetylcy steine and Metamizole may falsely depress this assay.Serum Triglycerides Reference Interval Normal <150 mg/dL Borderline high 150 - 199 mg/dL High 200 - 499 mg/dL Very High > or = 500 mg/dL WBC (Bld) [#/Vol] 6.5 10*3/uL 4.4-11.0 [facility] Blood erythrocytes count (nu mber/volume)Ordered By: Analisa Land on 06-06-2023 RBC (Bld) [#/Vol] 4.53 10*6/uL 4.2-5.4 [facility] Blood hemoglobin measurement (mass/volume)Ordered By: Analisa Land on 06-06-2023 Hemoglobin (Bld) [Mass/Vol] 13.4 g/dL 12.0-15.0 [facility] Blood lymphocytes/100 leukoc ytesOrdered By: Analisa Land on 06-06-2023 Lymphocytes/100 WBC (Bld) 32.0 % 19-41 [facility] Blood monocytes/100 leukocyt esOrdered By: Analisa Land on 06-06-2023 Monocytes/100 WBC (Bld) 7.7 % 0-10 [facility] Blood platelet mean volumeOr dered By: Analisa Land on 06-06-2023 Platelet mean volume (Bld) [Entitic vol] 9.5 fL 6.2-12.0 [facility] Determination of erythrocyte mean corpuscular volume (MCV)Ordered By: Analisa Land on 06-06-2023 MCV (RBC) [Entitic vol] 90.5 fL 81-99 [facility] Hematocrit Auto (Bld) [Volum e fraction]Ordered By: Analisa Land on 06-06-2023 Hematocrit (Bld) [Volume fraction] 41.0 % 37-47 [facility] - Chemistry and C hemistry - challengeOrdered By: Analisa Land on 06-06-2023 ALP [Catalytic activity/Vol] 77 U/L 45-117 [facility] ALT [Catalytic activity/Vol] 56 U/L 13-56 [facility] CO2 [Moles/Vol] 30.0 mmol/L 21.0-32.0 [facility] Globulin (S) [Mass/Vol] 3.8 g/dL 2.2-4.2 [facility] Urea nitrogen/Creatinine [Mass ratio] 13.2 mg/mg 10-20 [facility] - Hematology and Cell countsOrdered By: Analisa Land on 06-06-2023 Erythrocyte distribution width (RBC) [Entitic vol] 40.1 fL 35.1-43.9 [facility] Erythrocyte distribution width (RBC) [Ratio] 12.1 % 11.6-14.6 [facility] Immature granulocytes/100 WBC (Bld) 0.200 % 0.0-0.9 [facility] Comment on above: IG% - Immature Granu locytes (promyelocytes, myelocytes and metamyelocytes) > 1% indicates that a LEFT SHIFT is Present. MCH (RBC) [Entitic mass] 29.6 pg 27.0-32.0 [facility] Nucleated RBC/100 WBC (Bld) [Ratio] 0 % 0-5 [facility] MCHC Auto (RBC) [Mass/Vol]Or dered By: Analisa Land on 06-06-2023 MCHC (RBC) [Mass/Vol] 32.7 g/dL 32-36 [facility] No Panel InformationOrdered By: Analisa Land on 06-06-2023 Estimated GFR (MDRD) Amer 85 mL/min >60 [facility] Comment on above: GFR Calc Estimated GFR (MDRD) Non-Af Amer 70 mL/min >60 [facility] Comment on above: Non- GFR Calc Platelets bldOrdered By: Andi Land on 06-06-2023 Platelets (Bld) [#/Vol] 424 10*3/uL 150-450 [facility] Serum or plasma albumin laura urement (mass/volume)Ordered By: Analisa Land on 06-06-2023 Albumin [Mass/Vol] 4.1 g/dL 3.2-5.0 [facility] Serum or plasma albumin/glob ulin mass ratioOrdered By: Analisa Land on 06-06-2023 Albumin/Globulin [Mass ratio] 1.1 {ratio} 0.9-2.4 [facility] Serum or plasma calcium laura urement (mass/volume)Ordered By: Analisa Land on 06-06-2023 Calcium [Mass/Vol] 9.7 mg/dL 8.5-10.1 [facility] Serum or plasma cholesterol in HDL measurement (mass/volume)Ordered By: Analisa Land on 06-06-2023 Cholesterol in HDL [Mass/Vol] 59 mg/dL >40 [facility] Comment on above: The drugs N-Acetylcy steine and Metamizole may falsely depress this assay. Reference Range HDL <40 mg/dL Low HDL Cholesterol HDL >or= 60 mg/dL High HDL Cholesterol Serum or plasma cholesterol in VLDL measurement (mass/volume)Ordered By: Analisa Land on 06-06-2023 Cholesterol in VLDL [Mass/Vol] 34 mg/dL 5-40 [facility] Serum or plasma creatinine m easurement (mass/volume)Ordered By: Analisa Land on 06-06-2023 Creatinine [Mass/Vol] 0.91 mg/dL 0.55-1.02 [facility] Comment on above: The validity of the calculated GFR & GFRAA in patients over 70 years has not been determined. Clinical correlation is essential. Serum or plasma low density lipoprotein (LDL) cholesterol measurement (mass/volume)Ordered By: Analisa Land on 06-06-2023 Cholesterol in LDL [Mass/Vol] 161 mg/dL 0-130 [facility] Serum or plasma urea nitroge n measurement (mass/volume)Ordered By: nAalisa Land 06-06-2023 Urea nitrogen [Mass/Vol] 12 mg/dL 7-18 [facility] Thin prep Papanicolaou smear with manual screeningOrdered By: Analisa Land on 06-06-2023 Thin prep Papanicolaou smear with manual screening 29 U/L 15-37 [facility] Thin prep Papanicolaou smear with manual screening 8 5-15 [facility] Basophil percentageOrdered B y: Dr. Pedroza on 09-12-2022 Basophil percentage Not Reportable [facility] Erythrocyte sedimentation ra teOrdered By: Dr. Pedroza on 09-12-2022 ESR (Bld) [Velocity] 6 mm/h 0-30 [facility] No Panel InformationOrdered By: Dr. Pedroza on 09-12-2022 Anti-Nuclear Antibody Screen Negative Negative [facility] Comment on above: Performed at: [facility] [address] Director: Simon Ferrer PhD, Phone: [phone] Centromere B Antibody Not Reportable [facility] DOUGH SHEETER Antibody Not Reportable [facility] Serum DNA double strand anti body assay (units/volume)Ordered By: Dr. Pedroza on 09-12-2022 DNA double strand Ab Qn (S) Not Reportable [facility] Serum Cristela-1 antibody assay (u nits/volume)Ordered By: Dr. Pedroza on 09-12-2022 Cristela-1 extractable nuclear Ab Qn (S) Not Reportable [facility] Serum Scl-70 extractable nuc lear antibody assay (units/volume)Ordered By: Dr. Pedroza on 09-12-2022 SCL-70 extractable nuclear Ab Qn (S) Not Reportable [facility] Serum Mi extractable nucl ear antibody detectionOrdered By: Dr. Pedroza on 09-12-2022 Mi extractable nuclear Ab Ql (S) Not Reportable [facility] Serum cyclic citrullinated p eptide IgG antibody assay (units/volume)Ordered By: Dr. Pedroza on 09-12-2022 Cyclic citrullinated peptide IgG Qn 5 units 0-19 [facility] Comment on above: Negative <20 Weak po sitive 20 - 39 Moderate positive 40 - 59 Strong positive >59Performed at: [id number] [address] Director: Simon Ferrer PhD, Phone: [phone] Serum or plasma C reactive p rotein measurement (mass/volume)Ordered By: Dr. Pedroza on 09-12-2022 CRP [Mass/Vol] mg/L 0.0-3.0 [facility] Comment on above: C-Reactive Protein ( CRP) provides useful information for thediagnosis, therapy and monitoring of inflammatory processesand associated diseases. For the evaluation of Relative Riskfor Cardiovascular Disease, a High Sensitivity CRP (HSCRP)should be ordered. Serum rheumatoid factor dete ctionOrdered By: Dr. Pedroza on 09-12-2022 Rheumatoid factor Ql (S) < 10.0 IU/mL <15 [facility] No Panel Informationon 05-17 Ionized Calcium 5.4 mg/dL 4.5-5.6 [facility] Work Phone: Comment on above: Performed at: [employer] [address] [id number] Director: Simon Ferrer PhD, Phone: [phone] Parathyroid Hormone (Intact) 24.2 pg/mL 18.4-80.1 [facility] Work Phone: Vitamin D 25-Hydroxy 29.4 ng/mL [facility] Work Phone: Comment on above: Vitamin D 25(OH) Sta tus Range Deficiency <20 ng/mL (50nmol/L) Insufficiency 20 - 30 ng/mL (50 - 75 nmol/L) Sufficiency 30 - 100 ng/mL (75 - 250 nmol/L) Toxicity >100 ng/mL (>250 nmol/L) Serum or plasma calcitriol m easurement (mass/volume)on 05-17-2022 1,25-dihydroxyvitamin D3 [Mass/Vol] 59.3 pg/mL 24.8-81.5 [facility] Work Phone: Comment on above: Performed at: [facility] [address] [id number] Director: Analilia Vaughan MD, Phone: [phone] ANES POSTPROC EVALon 022 ANES POSTPROC EVAL HNO ID: [id number] Author: Bishop Frankel DO Service: Anesthesiology Author Type: Anesthesiologist Type: Anesthesia Postprocedure Evaluation Filed: 04/22/2022 3:37 PM Note Text: POST ANESTHESIA EVALUATION NOTE : 1975 Procedure Summary Date: 04/22/22 Room / Location: OR05 / SP OR Anesthesia Start: 813 Anesthesia Stop: 1258 Procedure: REDUCTION BREAST BILATERAL (Bilateral: Breast) Diagnosis: Cervicalgia Pain in thoracic spine Mastodynia Dermatitis Hypertrophy of breast (Cervicalgia [M54.2]) (Pain in thoracic spine [M54.6]) (Mastodynia [N64.4]) (Dermatitis [L30.9]) (Hypertrophy of breast [N62]) Surgeons: Siddhartha Warren DO Responsible Provider: Mynor Marroquin MD Anesthesia Type: general ASA Status: 2 Anesthesia Type: general Airway Type: ETT Last Vitals Vitals Value Taken Time BP 109/59 04/22/22 1330 Temp 36.5 ?C (97.7 ?F) 04/22/22 1255 HR SpO2 121 04/22/22 1331 Resp 20 04/22/22 1331 SpO2 95 % 04/22/22 1331 Vitals shown include unvalidated device data. Post Anesthesia Patient Status Patient Evaluation: bedside. Neurological Status: aware and responsive. Pulmonary Status: breathing comfortably on room air Airway Control: returned to baseline unsupported. Cardiovascular Status: stable. Pain Management: clinically adequate Postoperative Hydration: acceptable. Intraoperative Events: no significant anesthesia events Post Operative Nausea/Vomiting Status: no significant post operative nausea or vomiting Anesthetic Observations: Recommendation: continue current plan of care. Anesthesia Observations No Documentation SIGNATURE: Bishop Frankel DO PATIENT NAME: Dinorah Simpson DATE: April 22, 2022 TIME: 3:37 PM CSN: [id number] [facility] ANES PRE-OPon 04-22-2022 ANES PRE-OP HNO ID: [id number] Author: Mynor Marroquin MD Service: Anesthesiology Author Type: Physician Type: Anesthesia Preprocedure Evaluation Filed: 04/22/2022 7:02 AM Note Text: ANESTHESIOLOGY DAY OF SURGERY NOTE : 1975 Procedure Information Date/Time: 04/22/22 0800 Procedure: REDUCTION BREAST BILATERAL (Bilateral: Breast) Location: SP OR05 / SP OR Surgeons: Siddhartha Warren, Estimated body mass index is 27.4 kg/m? as calculated from the following: Height as of 04/10/22: 154.9 cm (5' 1). Weight as of 04/10/22: 65.8 kg (145 lb). Most recent hematocrit and potassium results: Hematocrit 39.5 04/18/2022 Potassium 3.7 04/18/2022 Relevant Problems Other (+) Inflammatory polyarthropathy (HCC) Muscular cervicalgia. UZAIR Patient denies any other cardiac, pulmonary, neuro problems. Denies XAVIER and GERD. I - PHYSICAL EVALUATION AIRWAY Patient intubated: No. Tracheostomy tube not present Mallampati: I. TM distance: >3 FB. Neck ROM: full ROM without neurological symptoms. Mouth opening: adequate. Short neck: no. Thick neck: no DENTAL Dental findings: teeth intact. Additional exam findings: no II - ANESTHESIA PLAN ASA Score: 2 Anesthetic Plan: general Airway type: ETT The patient is not a current smoker. NPO Status: adequate Monitoring plan: standard ASA. Postoperative analgesic plan: parenteral or oral opioids and multimodal analgesia. Informed Consent Anesthetic risks, benefits, alternatives, personnel and consent discussed: yes. Patient / Responsible [employer] agrees to proceed: yes Patient / Surrogate agrees to blood products: Yes Potential Anesthesia issues that may suggest increased risk of complications or contraindication to planned procedure: none. No vitals data found for the desired time range. No current facility-administered medications on file as of 04/22/2022. Outpatient Medications as of 04/22/2022 Medication Sig - hydroCHLOROthiazide (HYDRODIURIL, ESIDRIX) 25 mg tablet Take 25 mg by mouth once daily. - venlafaxine XR (EFFEXOR XR) 37.5 mg tr24 Take 37.5 mg by mouth once daily. I have interviewed and examined the patient. I have reviewed the medical record and/or the pre-anesthesia evaluation, pertinent labs, and test results. This contains updated information obtained within 48 hours of Surgery/Procedure. SIGNATURE: Rosy Rodriguez DO PATIENT NAME: Dinorah Simpson DATE: April 22, 2022 TIME: 6:49 AM CSN: [id number] [facility] BRIEF OP NOTon 09-26-2022 BRIEF OP NOT HNO ID: [id number] Author: Adama Dunn MD Service: Plastic Surgery Author Type: Resident Type: Brief Op Note Filed: 04/22/2022 12:58 PM Note Text: PLASTIC SURGERY - BRIEF OP NOTE Patient Name: Dinorah Simpson Log ID: [id number] Surgery Date: 04/22/2022 Surgeon(s) and Plastic Installer(s): Surgeon(s) and Role: * Siddhartha Warren DO - Primary * Adama Dunn MD - Assisting Procedure(s) (LRB): Procedure(s): REDUCTION BREAST BILATERAL Incision/Procedure Start Time: 8:50 AM Incision Close/Procedure End Time: 12:36 PM Anesthesia: General Findings: Bilateral inferior reduction; right: 524g and left: 500g Estimated Blood Loss: 40cc Drains: None Specimens: ID Type Source Tests Collected by Time Destination A : Lateral Tissue BREAST REDUCTION MAMMOPLASTY RIGHT SURGICAL PATHOLOGY Gennaro Kelvin, DO 04/22/2022 8:38 AM B : Central Tissue BREAST REDUCTION MAMMOPLASTY RIGHT SURGICAL PATHOLOGY Gennaro Kelvin, DO 04/22/2022 8:38 AM C : Medial Tissue BREAST REDUCTION MAMMOPLASTY RIGHT SURGICAL PATHOLOGY Siddhartha Viera Kelvin, DO 04/22/2022 8:38 AM D : Lateral Tissue BREAST REDUCTION MAMMOPLASTY LEFT SURGICAL PATHOLOGY Siddhartha Sandovalroel, DO 04/22/2022 8:39 AM E : Cental Tissue BREAST REDUCTION MAMMOPLASTY LEFT SURGICAL PATHOLOGY Siddhartha Viera Kelvin, DO 04/22/2022 8:39 AM F : Medial Tissue BREAST REDUCTION MAMMOPLASTY LEFT SURGICAL PATHOLOGY Siddhartha Viera Kelvin, DO 04/22/2022 8:39 AM Complications: None Preop Diagnosis Code(s): Cervicalgia [M54.2] Pain in thoracic spine [M54.6] Mastodynia [N64.4] Dermatitis [L30.9] Hypertrophy of breast [N62] Postop Diagnosis: Same Post-op Plan: Home Adama Dunn MD Plastic Surgery Personal: [phone] [employer]-Weekends and after 5pm: April 22, 2022 [facility] HISTORY PHYSICALon HISTORY PHYSICAL HNO ID: [id number] Author: Adalberto Daigle PA-C Service: Plastic Surgery Author Type: Physician Plastic Installer Type: HANDP Filed: 04/22/2022 7:33 AM Note Text: UPDATED HISTORY AND PHYSICAL EXAMINATION SERVICE DATE: 04/22/2022 SERVICE TIME: 7:25 AM SERVICE: Plastic Surgery PHYSICAL EXAM MUST BE COMPLETED ON ADMISSION The History and Physical (completed in the past 30 days) has been reviewed and the patient has been examined. The contents accurately reflect the patient's condition with the following additions or revisions since the HANDP was completed. Patient denies any changes to health since last examination. She does not have any concerns or complaints at this time. Patient DENIES CHEST PAIN, PALPITATIONS, FATIGUE, DIZZINESS Shortness of breath, COUGHING, WHEEZING ABDOMINAL PAIN, N/V/D Medication reconciliation list reviewed in [facility]. Past medical history, past surgical history, social history and family history reviewed and updated in [facility]. ALLERGIES Allergies: Penicillins Rash SEE [facility] FOR VITALS BP 136/82 Pulse 86 Temp 36.5 ?C (97.7 ?F) (Temporal) Ht 154.9 cm (5' 0.98) Wt 65.8 kg (145 lb) SpO2 98% BMI 27.41 kg/m? Examination indicates no changes. On examination today: Lungs: Clear to auscultation bilaterally. Heart: RRR, Normal S1/S2, No murmurs, rubs, gallops or thrills appreciated. Abdomen: BS+ in all quadrants, abdomen is soft, non tender, and without guarding. Assessment: Cervicalgia Pain in thoracic spine Mastodynia Dermatitis Hypertrophy of breast Plan: REDUCTION BREAST BILATERAL This HANDP can be found in the Electronic Medical Record dated on 04/10/2022 by Analilia Gutierres PA-C. SIGNATURE: Adalberto Daigle PA-C PATIENT NAME: Dinorah Simpson DATE: 04/22/2022 TIME: 7:25 AM Normal [facility] OPERATIVE NOon 04-22-2022 OPERATIVE NO HNO ID: [id number] Author: Siddhartha Warren DO Service: Plastic Surgery Author Type: Physician Type: Operative Report Filed: 04/29/2022 1:35 PM Note Text: [facility] - Operative Report DINORAH SIMPSON : 1975 AGE: 47. SEX: F PATIENT TYPE: A HOSP SVC: PLAS LOCATION: [facility] ATTENDING PHYSICIAN: DEISY NUMBER: [id number] DATE OF SURGERY/PROCEDURE: 04/22/2022 INCISION/PROCEDURE START TIME: 8:50 AM INCISION CLOSE/PROCEDURE END TIME: 12:36 PM PREOPERATIVE DIAGNOSIS: 1. Bilateral mammary hyperplasia. 2. Cervical thoracic sprain strain. 3. Mastodynia of the breasts. 4. Dermatitis of the breast. POSTOPERATIVE DIAGNOSIS: 1. Bilateral mammary hyperplasia. 2. Cervical thoracic sprain strain. 3. Mastodynia of the breasts. 4. Dermatitis of the breast. SURGEON: Siddhartha Warren DO TESTING LEAD: Adama Dunn, resident. SURGERY/PROCEDURE: 1. Reduction mammoplasty, right breast resection 524 g. 2. Reduction mammoplasty, left breast resection 500 g. ANESTHESIA: General. DESCRIPTION OF PROCEDURE: The patient was seen preoperatively in the holding area and marked in a sitting position. IV antibiotic given prophylactic. Patient was brought to the operating room, placed in supine position. General anesthesia was induced. A Daigle catheter was inserted and sequential stockings were applied. The patient was prepped and draped in a sterile manner. Attention was focused to the left breast. A 42-mm cookie cutter was used to make a circumferential siddhartha around the left nipple-areolar complex. All anticipated incisions were scored with 15 blade. De-epithelialization of the inferior pedicle with electrocautery was performed. The inferior pedicle was then dissected from the medial and lateral breast segments and medial and lateral resection was performed. The inferior pedicle was then dissected from the superior central segment. Superior central resection was performed. The pockets were irrigated with sterile saline, reinspected for hemostasis. Flaps were brought together in the inverted-T fashion with 3-0 Monocryl followed by gladis medial, lateral, and vertical. The patient was placed in a sitting position and the site for the nipple-areolar complex was marked with a 42-mm cookie cutter. This was excised. Again, in the supine position, the nipple-areolar complex was sutured in all 4 quadrants with 4-0 Prolene. Excellent capillary refill was noted. Lattimore were sequentially removed and replaced with 3-0 Monocryl in a subcutaneous subdermal plane medial, lateral, and vertical and running subcuticular 4-0 Monocryl medial, lateral, and vertical. The 4-0 Monocryl was placed in all 4 quadrants on the nipple areola, followed by running subcuticular 4-0 Monocryl. Total resection of left breast was 500 g. Attention was focused to the right breast. The same procedure was carried out symmetrically and identically for a total resection of 524 g. Excellent capillary refill was noted on the right nipple-areolar complex. The same closure was performed with a total resection of 524 g. Both breasts were cleansed and dried, skin prep and Steri-Strips applied followed by fluffy dressing and surgical bra. The patient was transferred to PACU in satisfactory condition. Siddhartha Warren DO MF:[id number] /[id number] [facility] SURGICAL PATHOLOGYon 022 CASE REPORT [facility] Comment on above: Order Comment: Speci men Type: TISSUE SPECIMEN Ordering Facility: [facility] Address: [address] [place], [place] [id number] Result Comment: Surg ica Pathology Report Case: [id number] Authorizing Provider: Siddhartha Warren DO Collected: 04/22/2022 08:38 AM Ordering Location: [facility] Received: 04/22/2022 02:24 PM Surgical Services Pathologist: Swapna Tenorio MD Specimens: A) - BREAST REDUCTION MAMMOPLASTY RIGHT, Lateral B) - BREAST REDUCTION MAMMOPLASTY RIGHT, Central C) - BREAST REDUCTION MAMMOPLASTY RIGHT, Medial D) - BREAST REDUCTION MAMMOPLASTY LEFT, Lateral E) - BREAST REDUCTION MAMMOPLASTY LEFT, Cental F) - BREAST REDUCTION MAMMOPLASTY LEFT, Medial Performed By: #### S #### [facility] CLIA [id number] [address] [place] [address] [place] [address] [place] CLINICAL HISTORY Normal [facility] Comment on above: Order Comment: Speci men Type: TISSUE SPECIMEN Ordering Facility: [facility] Address: [address] [place], [place] [address] Result Comment: Pre- op diagnosis: Cervicalgia [M54.2] Pain in thoracic spine [M54.6] Mastodynia [N64.4] Dermatitis [L30.9] Hypertrophy of breast [N62] Performed By: #### S #### [facility] CLIA [id number] [address] [place] [address] STATES OF [facility] FINAL DIAGNOSIS Normal [facility] Comment on above: Order Comment: Speci men Type: TISSUE SPECIMEN Ordering Facility: [facility] Address: [address] [place] [address] Result Comment: A - C. Right breast, lateral, central and medial, reduction mammoplasty: - Fibrocystic changes including microcysts, fibrosis, apocrine metaplasia, sclerosing adenosis and usual ductal hyperplasia with associated microcalcifications. - Segments of benign cutaneous tissue. D - F. Left breast, lateral, central and medial, reduction mammoplasty: - Fibrocystic changes including microcysts, fibrosis, sclerosing adenosis and usual ductal hyperplasia with associated microcalcifications. - Segments of benign cutaneous tissue. CNB/KM 04/23/22 Performed By: #### S #### [facility] CLIA [id number] [address] [place] [address] OF [place] FINAL PERFORMING LAB [facility] Comment on above: Order Comment: Speci men Type: TISSUE SPECIMEN Ordering Facility: [facility] Address: [address] [place] [address] Result Comment: Diag nostic interpretation performed at [facility], [address] [place] [address] CLIA# [id number] Museum Exhibit Technician: Manav Daly M.D. Performed By: #### S #### [facility] CLIA [id number] [address] [place] [address] [place] GROSS DESCRIPTION Normal [facility] Comment on above: Order Comment: Speci men Type: TISSUE SPECIMEN Ordering Facility: [facility] Address: [address] [place] [address] Result Comment: A. B REAST REDUCTION MAMMOPLASTY RIGHT Received in formalin, labeled lateral, is a 210.5 g, 14.5 x 10 x 3 cm aggregate of unoriented yellow-pink, lobulated, fibrofatty breast tissue segments with attached and separately submitted segments of meyers wrinkled skin. The skin surfaces are grossly unremarkable. Sectioning reveals approximately 40% fatty breast tissue with approximately 60% dense white-pink fibrous tissue. No lesions are identified. Rn Case Management sections to include skin are submitted in A1-A2. B. BREAST REDUCTION MAMMOPLASTY RIGHT Received in formalin, labeled central, is a 179 g, 15 x 10 x 4 cm aggregate of unoriented yellow-pink, lobulated, fibrofatty breast tissue segments with attached and separately submitted segments of meyers wrinkled skin. The skin surfaces are grossly unremarkable. Sectioning reveals approximately 50% fatty breast tissue with approximately 50% dense white-pink fibrous tissue. No lesions are identified. Rn Case Management sections to include skin are submitted in B1-B2. C. BREAST REDUCTION MAMMOPLASTY RIGHT Received in formalin, labeled medial, is a 121.6 g, 10 x 10 x 2.5 cm aggregate of unoriented yellow-pink, lobulated, fibrofatty breast tissue segments with attached and separately submitted segments of meyers wrinkled skin. The skin surfaces are grossly unremarkable. Sectioning reveals approximately 60% fatty breast tissue with approximately 40% dense white-pink fibrous tissue. No lesions are identified. Rn Case Management sections to include skin are submitted in C1-C2. D. BREAST REDUCTION MAMMOPLASTY LEFT Received in formalin, labeled lateral, is a 184 g, 12.5 x 11.3 x 3 cm aggregate of unoriented yellow-pink, lobulated, fibrofatty breast tissue segments with attached and separately submitted segments of meyers wrinkled skin. The skin surfaces are grossly unremarkable. Sectioning reveals approximately 60% fatty breast tissue with approximately 40% dense white-pink fibrous tissue. No lesions are identified. Rn Case Management sections to include skin are submitted in D1-D2. E. BREAST REDUCTION MAMMOPLASTY LEFT Received in formalin, labeled central, is a 199.9 g, 12 x 10.5 x 4.2 cm aggregate of unoriented yellow-pink, lobulated, fibrofatty breast tissue segments with attached and separately submitted segments of meyers wrinkled skin. The skin surfaces are grossly unremarkable. Sectioning reveals approximately 40% fatty breast tissue with approximately 60% dense white-pink fibrous tissue. No lesions are identified. Rn Case Management sections to include skin are submitted in E1-E2. F. BREAST REDUCTION MAMMOPLASTY LEFT Received in formalin, labeled medial, is a 102.8 g, 11 x 8 x 3.8 cm aggregate of unoriented yellow-pink, lobulated, fibrofatty breast tissue segments with attached and separately submitted segments of meyers wrinkled skin. The skin surfaces are grossly unremarkable. Sectioning reveals approximately 60% fatty breast tissue with approximately 40% dense white-pink fibrous tissue. No lesions are identified. Rn Case Management sections to include skin are submitted in F1-F2. RJ April 22, 2022 5:15 PM Gross examination performed at [facility], [address] [place] [address] Performed By: #### S #### [facility] CLIA [id number] [address] [place], [place] [address] [address] [place] Basic metabolic 2000 panelon 04-18-2022 Anion gap [Moles/Vol] 10 mmol/L Normal 9-18 [facility] Comment on above: Order Comment: Speci men Type: BLOOD SPECIMEN Ordering Facility: [facility] Address: [address] [place] [address] Performed By: #### 2 4321-2 #### [facility] CLIA [id number] [address] [place] [address] [place] Calcium [Mass/Vol] 10.4 mg/dL High 8.5-10.2 [facility] Comment on above: Order Comment: Speci men Type: BLOOD SPECIMEN Ordering Facility: [facility] Address: [address] [place] [address] Performed By: #### 2 4321-2 #### [facility] CLIA [id number] [address] [place] [address] [place] Chloride [Moles/Vol] 101 mmol/L Normal 97-105 [facility] Comment on above: Order Comment: Speci men Type: BLOOD SPECIMEN Ordering Facility: [facility] Address: [address] [place] [address] Performed By: #### 2 4321-2 #### [facility] CLIA [id number] [address] [place] [address] [place] CO2 [Moles/Vol] 28 mmol/L Normal 22-30 [facility] Comment on above: Order Comment: Speci men Type: BLOOD SPECIMEN Ordering Facility: [facility] Address: [address] [place] [address] Performed By: #### 2 4321-2 #### [facility] CLIA [id number] [address] [place] [address] [place] Creatinine [Mass/Vol] 0.81 mg/dL Normal 0.58-0.96 [facility] Comment on above: Order Comment: Speci men Type: BLOOD SPECIMEN Ordering Facility: [facility] Address: [address] [place] [address] Performed By: #### 2 4321-2 #### [id number] [address] [place] [address] [place] ESTIMATED GLOMERULAR FILTRATION RATE 90 mL/min/1.73m??? Normal >=60 [facility] Comment on above: Order Comment: Speci men Type: BLOOD SPECIMEN Ordering Facility: [facility] Address: [address] [place] [address] Result Comment: Roxanne mated Glomerular Filtration Rate (eGFR) is calculated using the 2020 CKD-EPI creatinine equation. This equation utilizes serum creatinine, sex, and age as parameters. The creatinine assay has traceable calibration to isotope dilution-mass spectrometry. Refer to KDIGO guidelines for clinical interpretation. In patients with unstable renal function, e.g. those with acute kidney injury, the eGFR may not accurately reflect actual GFR. Performed By: #### 2 4321-2 #### [facility] CLIA [id number] [address] [place] [address] [place] Glucose [Mass/Vol] 124 mg/dL High 74-99 [facility] Comment on above: Order Comment: Speci men Type: BLOOD SPECIMEN Ordering Facility: [facility] Address: [address] [place] [id number] Result Comment: The [place] Diabetes [employer] (ADA) provides guidance for cutoff values for fasting glucose and random glucose. The ADA defines fasting as no caloric intake for at least 8 hours. Fasting plasma glucose results between 100 to 125 mg/dL indicate increased risk for diabetes (prediabetes). Fasting plasma glucose results greater than or equal to 126 mg/dL meet the criteria for diagnosis of diabetes. In the absence of unequivocal hyperglycemia, results should be confirmed by repeat testing. In a patient with classic symptoms of hyperglycemia or hyperglycemic crisis, random plasma glucose results greater than or equal to 200 mg/dL meet the criteria for diagnosis of diabetes. Reference: Standards of Medical Care in Diabetes 2016, [employer]. Diabetes Care. 2016.39(Suppl 1). Performed By: #### 2 4321-2 #### [facility] [id number] [address] [place] [address] [place] Potassium [Moles/Vol] 3.7 mmol/L Normal 3.7-5.1 [facility] Comment on above: Order Comment: Alisa mclain Type: BLOOD SPECIMEN Ordering Facility: [facility] Address: [address] [place], [place] [id number] Performed By: #### 2 4321-2 #### [facility] [id number] [address] [place] [address] [place] Sodium [Moles/Vol] 139 mmol/L Normal 136-144 [facility] Comment on above: Order Comment: Alisa mclain Type: BLOOD SPECIMEN Ordering Facility: [facility] Address: [address] [place] [id number] Performed By: #### 2 4321-2 #### [facility] [id number] [address] [place] [address] [place] Urea nitrogen [Mass/Vol] 17 mg/dL Normal 7-21 [facility] Comment on above: Order Comment: Alisa mclain Type: BLOOD SPECIMEN Ordering Facility: [facility] Address: [address] [address] Performed By: #### 2 4321-2 #### [facility] CLIA [id number] [address] [place] [address] [place] CBC W Auto Differential pane l (Bld)on 04-18-2022 Basophils (Bld) [#/Vol] 0.06 10*3/uL Normal <0.11 [facility] Comment on above: Order Comment: Speci men Type: BLOOD SPECIMEN Ordering Facility: [facility] Address: [address] [place] [address] Performed By: #### 5 7021-8 #### [facility] CLIA [id number] [address] [place] [address] [place] Basophils/100 WBC (Bld) 0.7 % Normal [facility] Comment on above: Order Comment: Speci men Type: BLOOD SPECIMEN Ordering Facility: [facility] Address: [address] [place] [address] Performed By: #### 5 7021-8 #### [facility] CLIA [id number] [address] [place] [address] [place] Differential cell count method Nom (Bld) Auto Normal [facility] Comment on above: Order Comment: Speci men Type: BLOOD SPECIMEN Ordering Facility: [facility] Address: [address] [place], [place] [id number] Performed By: #### 5 7021-8 #### [facility] CLIA [id number] [address] [place] [address] [place] Eosinophils (Bld) [#/Vol] 0.06 10*3/uL Normal <0.46 [facility] Comment on above: Order Comment: Speci men Type: BLOOD SPECIMEN Ordering Facility: [facility] Address: [address] [place], [place] [address] Performed By: #### 5 7021-8 #### [facility] CLIA [id number] [address] [place] [address] [place] Eosinophils/100 WBC (Bld) 0.7 % Normal [facility] Comment on above: Order Comment: Speci men Type: BLOOD SPECIMEN Ordering Facility: [facility] Address: [address] [place] [address] Performed By: #### 5 7021-8 #### [facility] CLIA [id number] [address] [place] [address] [place] Erythrocyte distribution width (RBC) [Ratio] 12.6 % Normal 11.5-15.0 [facility] Comment on above: Order Comment: Speci men Type: BLOOD SPECIMEN Ordering Facility: [facility] Address: [address] [place] [address] Performed By: #### 5 7021-8 #### [facility] CLIA [id number] [address] [place] [address] [place] Hematocrit (Bld) [Volume fraction] 39.5 % Normal 36.0-46.0 [facility] Comment on above: Order Comment: Speci men Type: BLOOD SPECIMEN Ordering Facility: [facility] Address: [address] [place] [address] Performed By: #### 5 7021-8 #### [facility] CLIA [id number] [address] [place] [address] [place] Hemoglobin (Bld) [Mass/Vol] 13.5 g/dL Normal 11.5-15.5 [facility] Comment on above: Order Comment: Speci men Type: BLOOD SPECIMEN Ordering Facility: [facility] Address: [address] [place] [address] Performed By: #### 5 7021-8 #### [facility] CLIA [id number] [address] [place] [address] [place] IMMATURE GRAN % 0.2 % Normal [facility] Comment on above: Order Comment: Speci men Type: BLOOD SPECIMEN Ordering Facility: [facility] Address: [address] Performed By: #### 5 7021-8 #### [facility] CLIA [id number] [address] [place] [address] [place] IMMATURE GRAN ABS <0.03 Normal <0.10 [facility] Comment on above: Order Comment: Speci men Type: BLOOD SPECIMEN Ordering Facility: [facility] Address: [address] [place], [place] [id number] Performed By: #### 5 7021-8 #### [facility] CLIA [id number] [address] [place] [address] [place] Lymphocytes (Bld) [#/Vol] 1.86 10*3/uL Normal 1.00-4.00 [facility] Comment on above: Order Comment: Speci men Type: BLOOD SPECIMEN Ordering Facility: [facility] Address: [address] [place] [address] Performed By: #### 5 7021-8 #### [facility] CLIA [id number] [address] [place] [address] [place] Lymphocytes/100 WBC (Bld) 20.6 % Normal [facility] Comment on above: Order Comment: Speci men Type: BLOOD SPECIMEN Ordering Facility: [facility] Address: [address] Performed By: #### 5 7021-8 #### [facility] CLIA [id number] [address] [place] [address] [place] MCH (RBC) [Entitic mass] 31.0 pg Normal 26.0-34.0 [facility] Comment on above: Order Comment: Speci men Type: BLOOD SPECIMEN Ordering Facility: [facility] Address: [address] [place], [place] [address] Performed By: #### 5 7021-8 #### [facility] CLIA [id number] [address] [place] [address] [place] MCHC (RBC) [Mass/Vol] 34.2 g/dL Normal 30.5-36.0 [facility] Comment on above: Order Comment: Speci men Type: BLOOD SPECIMEN Ordering Facility: [facility] Address: [address] [place], [place] [id number] Performed By: #### 5 7021-8 #### [facility] CLIA [id number] [address] [place] [address] [place] MCV (RBC) [Entitic vol] 90.8 fL Normal 80.0-100.0 [facility] Comment on above: Order Comment: Speci men Type: BLOOD SPECIMEN Ordering Facility: [facility] Address: [address] [place], [place] [id number] Performed By: #### 5 7021-8 #### [facility] CLIA [id number] [address] [place] [address] [place] Monocytes (Bld) [#/Vol] 0.75 10*3/uL Normal <0.87 [facility] Comment on above: Order Comment: Speci men Type: BLOOD SPECIMEN Ordering Facility: [facility] Address: [address] [place], [place] [id number] Performed By: #### 5 7021-8 #### [facility] CLIA [id number] [address] [place] [address] [place] Monocytes/100 WBC (Bld) 8.3 % Normal [facility] Comment on above: Order Comment: Speci men Type: BLOOD SPECIMEN Ordering Facility: [facility] Address: [address] [place], [place] [id number] Performed By: #### 5 7021-8 #### [facility] CLIA [id number] [address] [place] [address] [place] Neutrophils (Bld) [#/Vol] 6.26 10*3/uL Normal 1.45-7.50 [facility] Comment on above: Order Comment: Speci men Type: BLOOD SPECIMEN Ordering Facility: [facility] Address: [address] [place] [address] Performed By: #### 5 7021-8 #### [facility] CLIA [id number] [address] [place] [address] [place] Neutrophils/100 WBC (Bld) 69.5 % Normal [facility] Comment on above: Order Comment: Speci men Type: BLOOD SPECIMEN Ordering Facility: [facility] Address: [address] [place] [address] Performed By: #### 5 7021-8 #### [facility] CLIA [id number] [address] [place] [address] [place] Nucleated RBC (Bld) [#/Vol] 10*3/uL Normal <0.01 [facility] Comment on above: Order Comment: Speci men Type: BLOOD SPECIMEN Ordering Facility: [facility] Address: [address] [place] [address] Performed By: #### 5 7021-8 #### [facility] CLIA [id number] [address] [place] [address] [place] Nucleated RBC/100 WBC (Bld) [Ratio] 0.0 /100 WBC Normal [facility] Comment on above: Order Comment: Speci men Type: BLOOD SPECIMEN Ordering Facility: [facility] Address: [address] [place] [address] Performed By: #### 5 7021-8 #### [facility] CLIA [id number] [address] [place] [address] [place] Platelet mean volume (Bld) [Entitic vol] 9.2 fL Normal 9.0-12.7 [facility] Comment on above: Order Comment: Speci men Type: BLOOD SPECIMEN Ordering Facility: [facility] Address: [address] [place] [address] Performed By: #### 5 7021-8 #### [facility] CLIA [id number] [address] [place] [address] [place] Platelets (Bld) [#/Vol] 417 10*3/uL High 150-400 [facility] Comment on above: Order Comment: Speci men Type: BLOOD SPECIMEN Ordering Facility: [facility] Address: [address] [place] [address] Performed By: #### 5 7021-8 #### [facility] CLIA [id number] [address] [place] [address] [place] RBC (Bld) [#/Vol] 4.35 10*6/uL Normal 3.90-5.20 [facility] Comment on above: Order Comment: Speci men Type: BLOOD SPECIMEN Ordering Facility: [facility] Address: [address] [place] [address] Performed By: #### 5 7021-8 #### [facility] CLIA [id number] [address] [place] [address] [place] WBC (Bld) [#/Vol] 9.01 10*3/uL Normal 3.70-11.00 [facility] Comment on above: Order Comment: Speci men Type: BLOOD SPECIMEN Ordering Facility: [facility] Address: [address] [place] [address] Performed By: #### 5 7021-8 #### [facility] CLIA [id number] [address] [place] [address] [place] HISTORY PHYSICALon 2 HISTORY PHYSICAL HNO ID: [id number] Author: Analilia Gutierres PA-C Service: ? Author Type: Physician Plastic Installer Type: HANDP Filed: 04/10/2022 8:54 AM Note Text: PREANESTHESIA CONSULT CLINIC TELEHEALTH VISIT Patient has been identified by name and date of : Yes This is a virtual visit using [employer] video visit. It require patient-provider interaction for the medical decision making as documented below. Reason for contact: PACC visit Accompanied by: Self Scheduled Surgery: REDUCTION BREAST BILATERAL 04/22/2022 Subjective CHIEF COMPLAINT: Patient presents with: Pre-Op Exam HPI: This is a 47 year old female who presents with breast hypertrophy. She has had upper back, neck and shoulder pain for the past 5 years. The pain worsens after sitting for prolonged periods. She also notes indentations in both shoulder from her bra straps as well as occasional skin irritation under both breasts. There is no problem list on file for this patient. PAST MEDICAL HISTORY Diagnosis Date Breast hypertrophy Hot flashes due to menopause Menorrhagia Traumatic amputation of finger PAST SURGICAL HISTORY Procedure Laterality Date SECTION HX 2002 FINGER SURGERY HX 1998 amputation middle right finger HYSTERECTOMY 2010 LASIK Bilateral 2000 FAMILY HISTORY Problem Relation Age of Onset Heart disease Mother Diabetes Mother Hypertension Mother Heart disease Father Stroke Father Hyperlipidemia Father Hypertension Father Cancer Father bladder Social History Tobacco Use Smoking status: Never Smokeless tobacco: Never Substance Use Topics Alcohol use: Yes Alcohol/week: 1.0 standard drink Types: 1 Cans of beer per week Drug use: Not Currently ALLERGIES Allergen Reactions Penicillins Rash MEDICATIONS: Current Outpatient Medications Medication Sig hydroCHLOROthiazide (HYDRODIURIL, ESIDRIX) 25 mg tablet Take 25 mg by mouth once daily. venlafaxine XR (EFFEXOR XR) 37.5 mg tr24 Take 37.5 mg by mouth once daily. No current facility-administered medications for this visit. COVID VACCINATION STATUS: Fully vaccinated REVIEW OF SYSTEMS: Pain Assessment: General: No weight loss, malaise or fevers. Neuro: No history of TIA's, stroke, GIN CLERK tumor, impaired sensorium, hemiplegia, paraplegia or quadraplegia. No neurological symptoms or problems. Respiratory: No history of current cough or dyspnea, or pneumonia in the past 6 weeks. No history of respiratory/pulmonary symptoms or problems. Cardiovascular: No history of HTN requiring medication, no history of angina, CHF, OH, cardiac surgery or stents. Denies rest pain, gangrene or revascularization/ampu tation for PVD. No history of cardiovascular symptoms or problems. +occasional ankle edema managed with HCTZ GI: No history of GI symptoms or problems. No history of esophageal varices, recent ascites, or ETOH greater than 2 drinks per day. : No history of dysuria, frequency or incontinence,, stones or chronic kidney disease DIRECTOR OF PURCHASING: Negative for abnormal vaginal bleeding, abnormal vaginal discharge. : N/A, No LMP recorded. Patient has had a hysterectomy. Endocrine: No history of diabetes. Has not taken steroids within the past 30 days. No history of endocrinological symptoms or problems. Hematology: No history of bleeding or clotting disorder. Pt is not taking anti-coagulation or platelet medications. +h/o anemia with Oncology: No history of CA metastasis, chemo within 30 days, or radiotherapy within 90 days. Has not lost 10% of body wt in 6 months. No history of oncological symptoms or problems. Psych: No history of psychiatric symptoms or problems. Musculoskeletal: Negative for joint pain or swelling, back pain or muscle pain. Skin: Negative for lesions, rash and itching. Objective PHYSICAL EXAM: Ht 5' 1 (1.55m) Wt 145 lb (65.8kg) BMI 27.41 kg/(m2). VIDEO EXAM: (if completed, performed via video enabled technology) GENERAL: alert and appropriate, in no distress, well-hydrated, well nourished, and happy, smiling, interactive SKIN: no rash noted HEAD: normocephalic, no abnormality or lesion noted EYES: no injection and visual acuity is grossly normal EARS: hearing grossly normal NOSE: external nose normal without rhinorrhea OROPHARYNX: moist mucus membranes NECK: full ROM, no cervical LNs noted RESPIRATORY: breathing non-labored CHEST: equal chest rise with normal respiratory effort HEART: regular rhythm per patient counting method EXTREMITIES: no patient reported lower extremity edema NEUROLOGIC: no obvious deficit Diagnostic tests reviewed for today's visit: Lab Value Units Date High Low HB No results within date range. HCT No results within date range. WBC No results within date range. PLT No results within date range. NA No results within date range. K No results within date range. GLUC No results within date range. BUN No results within date range. CRE (more content not included)... Normal [facility] Laboratory - Microbiology an d Antimicrobial susceptibilityon 03-26-2022 SARS-CoV-2 (COVID-19) RNA YAZ+probe Ql (Unsp spec) Detected [facility] Work Phone: No Panel Informationon 03-26 Influenza Types A,B Rapid (Clinic) Not detected [facility] Work Phone: Vital Signs Date Time Vital Sign Value Performing Clinician Eri yip 07-10-2022 09:16-0500 Body weight 65.77 kg Sandra Castaneda DO Work Phone: [facility] 05-09-2022 13:50-0400 Body weight 65.77 kg Siddhartha Warren DO Work Phone: [facility] 04-30-2022 13:14-0400 Body weight 65.77 kg Siddhartha Loriroel DO Work Phone: [facility] 04-10-2022 07:48-0400 Body height 154.9 cm [facility] 04-10-2022 07:48-0400 Body weight 65.77 kg [facility] 03-26-2022 11:13-0400 Body temperature 98.5 [degF] Dr. Siddhartha Pedroza Work Phone: [facility] Work Phone: 03-26-2022 11:13-0400 Diastolic blood pressure 68 mm[Hg] Dr. Siddhartha Pedroza Work Phone: [facility] Work Phone: 03-26-2022 11:13-0400 Heart rate 138 /min Dr. Siddhartha Pedroza Work Phone: [facility] Work Phone: 03-26-2022 11:13-0400 Respiratory rate 17 /min Dr. Siddhartha Pedroza Work Phone: [facility] Work Phone: 03-26-2022 11:13-0400 SaO2% (BldA) [Mass fraction] 97 % Dr. Siddhartha Pedroza Work Phone: [facility] Work Phone: 03-26-2022 11:13-0400 Systolic blood pressure 118 mm[Hg] Dr. Siddhartha Pedroza Work Phone: [facility] Work Phone: 11-01-2021 09:30-0400 Body height 154.9 cm Siddhartha Warren DO Work Phone: [facility] 11-01-2021 09:30-0400 Body weight 65.77 kg Siddhartha Warren DO Work Phone: [facility] Encounters Encounter Date Encounter Type Care Provider Facility Start: 02-21-2025 ambulatory Charmaine Montaño [facility] ility:[facility] Start: 12-03-2024 End: 12-03-[address] Siddhartha Pedroza DO Work Phone: [facility] Work Phone: Start: 12-03-2024 End: 12-03-[address] Siddhartha Pedroza DO Work Phone: -Laboratory Work Phone: Start: 12-03-2024 End: 12-03-2024 ambulatory EFE ROLDAN Facility:[facility] Start: 10-12-2024 End: 10-12-[address] Siddhartha Pedroza DO Work Phone: [facility] Work Phone: Start: 10-12-2024 End: 10-12-[address] Randy Oglesby MD -[facility] Work Phone: Start: 10-12-2024 End: 10-12-2024 ambulatory Randy Oglesby Facility:[facility] Start: 08-18-2024 End: 08-18-[address] Charmaine Montaño MD -Laboratory, [place] Work Phone: Start: 08-18-2024 End: 08-18-2024 ambulatory Charmaine Montaño Facility:[facility] Start: 08-02-2024 Encounter for genera l adult medical examination with abnormal findings Analisa Emery [facility] Start: 06-30-2024 End: 06-30-2024 Patient encounter procedure Analisa Land ADVERTISING ACCOUNT MANAGER-C -Radiology, [place] Work Phone: Start: 06-30-2024 End: 06-30-2024 ambulatory Analisa Land Facility:[facility] Start: 06-06-2023 End: 06-06-2023 ambulatory [facility] Work Phone: Start: 06-06-2023 End: 06-06-2023 Patient encounter procedure [facility] [place] [employer] [facility] Start: 10-31-2022 End: 10-31-2022 Office outpatient visit 15 minutes Siddhartha Warren DO Work Phone: Siddhartha Warren [employer] Comment on above: History of bilateral breast reduction surgery (Primary Dx) Start: 09-12-2022 End: 09-12-2022 ambulatory [facility] Work Phone: Start: 09-12-2022 End: 09-12-2022 Patient encounter procedure [facility], [place] [employer] [facility] Start: 07-10-2022 End: 07-10-2022 Postop follow up visit related to original px Sandra Don Dharmeshheather DO Work Phone: Siddhartha Warren [employer] Comment on above: S/P bilateral breast reduction (Primary Dx) Start: 05-17-2022 End: 05-17-[address] Siddhartha Pedroza Work Phone: [facility] Work Phone: Start: 05-17-2022 End: 05-17-[address] Siddhartha Pedroza Work Phone: [facility], [place] [facility] Start: 05-09-2022 End: 05-09-2022 Postop follow up visit related to original px Siddhartha Warren DO Work Phone: Siddhartha Warren DO [employer] Comment on above: S/P bilateral breast reduction (Primary Dx) Start: 04-30-2022 End: 04-30-2022 Postop follow up visit related to original px Siddhartha Warren DO Work Phone: Siddhartha Naik Comment on above: S/P bilateral breast reduction (Primary Dx) Start: 04-22-2022 End: 04-22-2022 ambulatory SIDDHARTHA WARREN Facility:[facility] Start: 04-18-2022 End: 04-18-2022 ambulatory [facility] Facility:[facility] Start: 04-18-2022 Encounter for other preprocedural examination ANALILIA GUTIERRES [facility] Start: 04-10-2022 End: 04-10-2022 ambulatory SIDDHARTHA WARREN Facility:[facility] Start: 04-10-2022 End: 04-10-2022 [place] [id number] [facility] Start: 04-10-2022 End: 04-10-2022 ambulatory [facility] Comment on above: Preoperative examina tion (Primary Dx); Breast hypertrophy; Lower extremity edema; Hot flashes due to menopause Start: 04-10-2022 End: 04-10-2022 Preprocedural examination done [facility] Start: 03-26-2022 End: 03-26-[address] Siddhartha Pedroza Work Phone: [facility] Start: 11-08-2021 End: 11-08-2021 Patient encounter procedure [facility] Start: 11-01-2021 End: 11-01-2021 Office outpatient new 45 minutes Siddhartha Warren DO Work Phone: Siddhartha Naik Comment on above: Breast hypertrophy ( Primary Dx) Procedures Date Procedure Procedure Detail Performing Clinician Start: 12-03-[address]24 Fol[address]le [address] hormone measurement Dr. Siddhartha Pedroza DO Work Phone: Comment on above: FEMALE:Follicular: 1 .4 - 18.1 mIU/mLMidcycle: 3.4 - 33.4 mIU/mLLuteal: 1.5 - 9.1 mIU/mLPost Menopause: 23.0 - 116.3 mIU/mLMALE: 1.4 - 18.1 mIU/mL NORMAL REFERENCE RANGES FEMALE FOLLICULAR 2.3 - 12.6 mIU/mL MID-CYCLE PEAK 5.2 - 17.5 mIU/mL LUTEAL 1.7 - 12.9 mIU/mL POST-MENOPAUSAL ON MHT 5.9 - 72.8 mIU/mL NOT ON MHT 12.7 - 132.2 mlU/mL MALE 0.7 - 10.8 mIU/mL Start: 12-03-2024 Vitamin D, 25-hydrox y measurement Dr. Siddhartha Pedroza DO Work Phone: Comment on above: Vitamin D StatusDefi ciency: <20 ng/mL (50nmol/L)Insufficiency: 20-30 ng/mL (50-75 nmol/L)Sufficiency: 30-100 ng/mL (75-250 nmol/L)Toxicity: >100 ng/mL (>250 nmol/L) Start: 10-12-2024 MRI of brain with contrast Dr. Siddhartha Pedroza DO Work Phone: Start: 08-18-2024 Estradiol measurement Dwayne Pedroza DO Work Phone: Comment on above: NORMAL REFERENCE RAN GES FEMALE FOLLICULAR 21.4 - 164.8 pg/mL MID-CYCLE PEAK 49.9 - 367.2 pg/mL LUTEAL 40.2 - 259.0 pg/mL POST-MENOPAUSAL ON MHT <11.0 - 462.1 pg/mL NOT ON MHT <11.0 - 58.3 pg/mL MALE <11.0 - 52.5 pg/mL NOTE:[employer] HAS CONFIRMED THE DRUG FULVETRANT (FASLODEX) MAY CAUSE FALSELY ELEVATED ESTRADIOL RESULTS WHEN USING THIS TEST METHOD. IF PATIENT IS TAKING FULVESTRANT AN ALTERNATIVE METHOD SHOULD BE USED TO DETERMINE ESTRADIOL CONCENTRATION. Start: 08-18-2024 Measurement of renal function Dr. Siddhartha Pedroza DO Work Phone: Comment on above: GFR Calc Start: 06-30-2024 Plain x-ray of hand Dr. Siddhartha Pedroza DO Work Phone: Start: 11-08-2021 Screening mammography History of reduction of breast S/P bilateral breast reduction Siddhartha Warren DO Work Phone: History of reduction of breast S/P bilateral breast reduction Siddhartha Warren DO Work Phone: History of reduction of breast S/P bilateral breast reduction Sandra Castaneda DO Work Phone: History of reduction of breast History of bilateral breast reduction surgery Siddhartha Warren DO Work Phone: Plan of Treatment Date Care Activity Detail Author Start: 04-18-2025 DIABETES SCREEN DIABETES SCREEN [facility] Start: 07-28-2022 DEPRESSION ASSESSMENT DEPRESSION ASS ESSMENT [facility] Start: 04-10-2022 End: 06-10-2022 Basic metabolic 2000 panel - Serum or Plasma BASIC METABOLIC PNL Lab Routine Preoperative examination Expected: 04/10/2022, Expires: 06/10/2022 [facility] Work Phone: Comment on above: Expected: 04/10/2022 , Expires: 06/10/2022 Start: 04-10-2022 End: 06-10-2022 CBC W Auto Differential panel - Blood CBC + DIFF Lab Routine Preoperative examination Expected: 04/10/2022, Expires: 06/10/2022 [facility] Work Phone: Comment on above: Expected: 04/10/2022 , Expires: 06/10/2022 Start: 03-28-2022 Influenza vaccination [facility] Start: 09-17-2021 COVID-19 VACCINE (3 - Booster for Pfizer series) COVID-19 VACCINE (3 - Booster for Pfizer series) [facility] Start: 07-28-2021 DEPRESSION ASSESSMENT DEPRESSION ASS ESSMENT [facility] Start: 06-12-2021 COVID-19 VACCINE (3 - Booster for Pfizer series) COVID-19 VACCINE (3 - Booster for Pfizer series) [facility] Start: 01-11-2020 COLOGUARD (FIT-DNA) COLOGUARD (FIT-D NA) [facility] Start: 01-11-2020 Colonoscopy COLONOSCOPY [facility] Start: 01-11-2020 COLORECTAL CANCER SCREENING COLORECTAL CANCER SCREENING [facility] Start: 01-11-[address] COLONOGRAPHY [facility] Start: 01-11-2020 DIABETES SCREEN DIABETES SCREEN [facility] Start: 01-11-2020 FECAL OCCULT BLOOD FECAL OCCULT BLOO D [facility] Start: 01-11-2020 LIPID SCREEN LIPID SCREEN [facility] Start: 01-11-2020 SIGMOIDOSCOPY SIGMOIDOSCOPY [facility] Start: 2015 Mammography MAMMOGRAM [facility] Start: 2005 HPV TESTING HPV TESTING [facility] Start: 01-11-1996 PAP TESTING PAP TESTING [facility] Start: 1994 Urine microalbumin profile DTAP,TDAP,TD (1 - Tdap) [facility] Start: 1993 HEPATITIS C SCREENING HEPATITIS C SC REENING [facility] Start: 1993 HIV SCREENING HIV SCREENING [facility] Start: 1987 Adult depression screening assessment DEPRESSION SCREENING [facility] Start: 01-11-1980 COVID-19 VACCINE (1) COVID-19 VACCIN E (1) [facility] Start: 1975 HEPATITIS B (1 of 3 - 3-dose series) HEPATITIS B (1 of 3 - 3-dose series) [facility] Serum testosterone measurement [facility] Sex hormone binding globulin [Moles/volume] in Serum or Plasma [facility] Testosterone Free [Mass/volume] in Serum or Plasma [facility] Testosterone measurement [facility] Thyroperoxidase Ab [Units/volume] in Serum or Plasma [facility] Payers Date Payer Category Payer Unknown [id number] 2024 Self-pay [id number] 2021 Private Health Insurance [id number] 2021 Private Health Insurance [employer]ET[employer] A ETNA CHOICE POS II [id number] 2021-Present [phone] [address] [place] [address] POS [id number] Unknown [id number] 62 Unknown [id number] 62 Unknown [id number] 62 Unknown [id number] 62 Unknown [id number] 62 Social History Date Type Detail Facility Start: 09-28-2020 End: 03-26-2022 Tobacco smoking status [facility] Tobacco smoking consumption unknown [facility] Start: 1975 Sex Assigned At Not on file [facility] Start: 1975 Sex Assigned At Female [facility] Start: 03-21-2022 End: 03-26-2022 Tobacco smoking status [facility] Never smoked tobacco [facility] Start: 03-21-2022 Tobacco use and exposure Smokeless tobacco non-user [facility] Start: 04-10-2022 End: 07-10-2022 Alcohol intake Current drinker of alcohol (finding) [facility] Start: 04-10-2022 End: 07-10-2022 Alcohol intake [facility] Start: 03-31-2022 End: 04-22-2022 Exposure to SARS-CoV-2 (event) Not sure [facility] Work Phone: Start: 10-20-2024 Sex Female (finding) [facility] Clinical Notes 11-01-2021 to 10-31-2022 Siddhartha Warren, DO - 10/31/2022 10:21 AM Noah Castaneda, DO - 07/10/2022 9:31 AM Evens Warren, DO - 05/09/2022 2:02 PM EDTMchente Warren, DO - 04/30/2022 1:20 PM EDT Note Date & Type Note Facility 10-31-2022 History of Present illness Narrative [facility] Siddhartha PardoEcho DO [place], ARTHUR, [facility]* Name: Dinorah Simpson She is 7 months postop reduction mammoplasty and she has a wonderful result she is very pleased with her size and how her neck and back fill. She does have a little discomfort in the lateral incisions mourn the right than on the left but they're healing nicely. We discussed this can be persistent for 12-18 months and sometimes thereafter with changes in the weather. She has a partial finger amputation and she stated the same thing occurs. I will see her at 1 year postoperative in March. Any concerns or questions prior to next appointment, patient is to call office or return sooner. Siddhartha Edvin DO [place] October 31, 2022 This note was generated with voice recognition software and may contain errors, including spelling, grammar, syntax and misrecognition of what was dictated, that are not fully corrected. documented in this encounter [facility] 07-10-2022 History of Present illness Narrative [facility] Name: Dinorah Simpson SUBJECTIVE: Patient doing well. Feels good. Has some tenderness right lateral breast when sleeping on side. No other issues. OBJECTIVE: GEN: Alert, oriented, NAD CV: RR CHEST: Unlabored breathing EXT: No edema NEURO: CN II-XII grossly intact BREASTS: Bilateral breasts soft, healing well, symmetric, left inferior lateral breast slightly flattened likely 2/2 swelling ASSESSMENT / PLAN: 47F s/p bilateral reduction mammoplasty 04.22.[address] Warren. - Massage left breast - Discussed swelling and nerve changes can last 6-12 months - Regular activity as tolerated - OK to wear underwire - Follow-up in [address] Warren Any concerns or questions prior to next appointment, patient is to call office or return sooner. Sandra Castaneda DO FACOS July 10, 2022 This note was generated with voice recognition software and may contain errors, including spelling, grammar, syntax and misrecognition of what was dictated, that are not fully corrected. documented in this encounter [facility] 05-09-2022 History of Present illness Narrative [facility] Siddhartha Jim DO Warren FACOS, AARON* Name: Dinorah Simpson She is 2 weeks post reduction mammoplasty. All her sutures are removed and Steri-Strips reapplied. She has an excellent result she is very pleased with her size. I told her that we will not know what Hoang size she will be wearing for approximately retiform months post surgery. Edema still has to resolve. We have instructed her on scar cream to begin next week and in 2 weeks she may begin progressive exercises. I will reevaluate her in 4-6 weeks. Any concerns or questions prior to next appointment, patient is to call office or return sooner. Siddhartha Warren DO May 09, 2022 This note was generated with voice recognition software and may contain errors, including spelling, grammar, syntax and misrecognition of what was dictated, that are not fully corrected. documented in this encounter [facility] 04-30-2022 History of Present illness Narrative [facility] Siddhartha Hernán DO Kelvin, ARTHUR, [facility]* Name: Dinorah Simpson We are removing some of her sutures and reapplying Steri-Strips. We will remove her remaining sutures next week. Nipple areolar complexes are intact bilateral with excellent capillary refill. She is comfortable in her surgical bra. Any concerns or questions prior to next appointment, patient is to call office or return sooner. Siddhartha Warren DO April 30, 2022 This note was generated with voice recognition software and may contain errors, including spelling, grammar, syntax and misrecognition of what was dictated, that are not fully corrected. 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 Staffing Resident: Rosy Rodriguez DO Performed by: resident Indications and Patient Condition Indications for airway management: anesthesia Preoxygenated: yes anesthesia circuit Method: sleep Cricoid Pressure: Yes Difficult Mask: No Final Airway Details Final airway type: endotracheal airway Final Endotracheal Airway: ETT Cuffed: yes Successful intubation technique: direct laryngoscopy Endotracheal tube insertion site: oral Blade: Hailey Blade size: #3.5 ETT size (mm): 7.0 Measured from: lips Measurement (cm): 23 Placement verified by: capnometry Cormack-Lehane Classification: grade IIb - view of arytenoids or posterior of glottis only Number of attempts at approach: 1 Airway not difficult SIGNATURE: Rosy Rodriguez DO PATIENT NAME: Dinorah Simpson DATE: April 22, 2022 TIME: 8:33 AM CSN: [id number] [facility] 04-10-2022 Instructions Analilia Gutierres PA-C - 04/10/2022 8:05 AM EDT PATIENT PREOPERATIVE INSTRUCTIONS Siddhartha Warren* has scheduled you for your procedure at this surgery center: [facility]: [phone] -- [place] [address]. Please read below carefully for your personalized instructions. Dietary Restrictions: - No solid food after midnight. - You may have 12 ounces of clear liquids (water, clear juices such as apple juice or gatorade, carbonated beverages, clear tea, black coffee, jello) until 2 hours before scheduled arrival at facility. Medications: Unless instructed differently below, stay on all of your medications until your surgery. Approved medications to take the morning of surgery with a sip of water: Effexor If you start any new medications after today's visit, please contact the surgeon's office. Blood Thinning Medications: - Stop NSAIDS (Ibuprofen, Advil, Aleve, Motrin, Celebrex, Mobic, etc.) 7 days before surgery, as directed by your surgeon. - Stop Aspirin 7 days before surgery, as directed by your surgeon. - Stop Vitamin E, ALL multi-vitamins, herbals and dietary supplements 7 days before surgery. - You may take Tylenol (Acetaminophen) or any of your pain medications that do not contain aspirin or NSAIDS as needed. Important Reminders: - Candy, mints, and tobacco products are NOT permitted the morning of surgery. - Hearing aids, dentures and glasses may be worn the morning of surgery. - NO jewelry, body piercings, makeup, hairpins or contacts are to be worn the day of surgery. If you develop symptoms such as a fever, cold, or flu, or have other changes to your health within TWO DAYS of scheduled surgery or the morning of surgery, please contact the surgery center above. Personal Belongings: -Please have photo ID and insurance cards. -If you do not have a copy of advance directives on file with us, please bring a copy with you on the day of surgery. - Leave ALL valuables and money at home or with family members. For Outpatient Procedures: - YOU MUST HAVE A RESPONSIBLE BEHAVIORAL HEALTH THERAPIST TAKE YOU HOME. A PHYSICIAN PRIMARY CARE SPORTS MEDICINE OR PRODUCTION CLOTH CUTTER CANNOT BE MADE A RESPONSIBLE BEHAVIORAL HEALTH THERAPIST. - We recommend that a responsible person stays with you overnight to take care of you. - You cannot stay in a hotel alone after outpatient surgery. You will not be permitted to have your surgery, if you do not have someone to take care of you. Arrival Time for Surgery: - The Surgery Center or hospital where you are having surgery will call the afternoon before surgery (or Friday for Friday surgery) with a scheduled arrival time. - If you have not heard by 4 pm, please contact the surgery center above. Please be aware that emergency situations arise, which may delay or change your surgical time. If this happens, we will notify you as soon as possible and regret any inconvenience. If you already have an Advance Directive, please fax a copy to [phone] or email to for it to be added to your chart. If you do not have an Advance Directive, you can find the appropriate form and more information at [email or web address]. We recommend that you complete the Advance Directive form found on the website and bring it with you the day of your surgery. It can be witnessed and scanned into your chart that day. Analilia Gutierres PA-C documented in this encounter [facility] 04-10-2022 History and physical note PREANESTHESIA CONSULT CLINIC TELEHEALTH VISIT Patient has been identified by name and date of : Yes This is a virtual visit using [employer] video visit. It require patient-provider interaction for the medical decision making as documented below. Reason for contact: PACC visit Accompanied by: Self Scheduled Surgery: REDUCTION BREAST BILATERAL 04/22/2022 Subjective CHIEF COMPLAINT: Patient presents with: Pre-Op Exam HPI: This is a 47 year old female who presents with breast hypertrophy. She has had upper back, neck and shoulder pain for the past 5 years. The pain worsens after sitting for prolonged periods. She also notes indentations in both shoulder from her bra straps as well as occasional skin irritation under both breasts. There is no problem list on file for this patient. PAST MEDICAL HISTORY Diagnosis Date Breast hypertrophy Hot flashes due to menopause Menorrhagia Traumatic amputation of finger PAST SURGICAL HISTORY Procedure Laterality Date SECTION HX 2002 FINGER SURGERY HX 1998 amputation middle right finger HYSTERECTOMY 2010 LASIK Bilateral 2000 FAMILY HISTORY Problem Relation Age of Onset Heart disease Mother Diabetes Mother Hypertension Mother Heart disease Father Stroke Father Hyperlipidemia Father Hypertension Father Cancer Father bladder Social History Tobacco Use Smoking status: Never Smokeless tobacco: Never Substance Use Topics Alcohol use: Yes Alcohol/week: 1.0 standard drink Types: 1 Cans of beer per week Drug use: Not Currently ALLERGIES Allergen Reactions Penicillins Rash MEDICATIONS: Current Outpatient Medications Medication Sig hydroCHLOROthiazide (HYDRODIURIL, ESIDRIX) 25 mg tablet Take 25 mg by mouth once daily. venlafaxine XR (EFFEXOR XR) 37.5 mg tr24 Take 37.5 mg by mouth once daily. No current facility-administered medications for this visit. COVID VACCINATION STATUS: Fully vaccinated REVIEW OF SYSTEMS: Pain Assessment: General: No weight loss, malaise or fevers. Neuro: No history of TIA's, stroke, GIN CLERK tumor, impaired sensorium, hemiplegia, paraplegia or quadraplegia. No neurological symptoms or problems. Respiratory: No history of current cough or dyspnea, or pneumonia in the past 6 weeks. No history of respiratory/pulmonary symptoms or problems. Cardiovascular: No history of HTN requiring medication, no history of angina, CHF, OH, cardiac surgery or stents. Denies rest pain, gangrene or revascularization/amputation for PVD. No history of cardiovascular symptoms or problems. +occasional ankle edema managed with HCTZ GI: No history of GI symptoms or problems. No history of esophageal varices, recent ascites, or ETOH greater than 2 drinks per day. : No history of dysuria, frequency or incontinence,, stones or chronic kidney disease DIRECTOR OF PURCHASING: Negative for abnormal vaginal bleeding, abnormal vaginal discharge. : N/A, No LMP recorded. Patient has had a hysterectomy. Endocrine: No history of diabetes. Has not taken steroids within the past 30 days. No history of endocrinological symptoms or problems. Hematology: No history of bleeding or clotting disorder. Pt is not taking anti-coagulation or platelet medications. +h/o anemia with Oncology: No history of CA metastasis, chemo within 30 days, or radiotherapy within 90 days. Has not lost 10% of body wt in 6 months. No history of oncological symptoms or problems. Psych: No history of psychiatric symptoms or problems. Musculoskeletal: Negative for joint pain or swelling, back pain or muscle pain. Skin: Negative for lesions, rash and itching. Objective PHYSICAL EXAM: Ht 5' 1 (1.55m) Wt 145 lb (65.8kg) BMI 27.41 kg/(m^2). VIDEO EXAM: (if completed, performed via video enabled technology) GENERAL: alert and appropriate, in no distress, well-hydrated, well nourished, and happy, smiling, interactive SKIN: no rash noted HEAD: normocephalic, no abnormality or lesion noted EYES: no injection and visual acuity is grossly normal EARS: hearing grossly normal NOSE: external nose normal without rhinorrhea OROPHARYNX: moist mucus membranes NECK: full ROM, no cervical LNs noted RESPIRATORY: breathing non-labored CHEST: equal chest rise with normal respiratory effort HEART: regular rhythm per patient counting method EXTREMITIES: no patient reported lower extremity edema NEUROLOGIC: no obvious deficit Diagnostic tests reviewed for today's visit: Lab Value Units Date High Low HB No results within date range. HCT No results within date range. WBC No results within date range. PLT No results within date range. NA No results within date range. K No results within date range. GLUC No results within date range. BUN No results within date range. CREAT No results within date range. PTSEC No results within date range. INR No results within date range. APTT No results within date range. ALT No results within date range. AST No results within date range. TBILI No results within date range. TSH No results within date range. Lab Value Units Date High Low HCGQT No results within date range. UHCG No results within date range. HCG, BODY* No results within date range. Lab Value Units Date High Low ABORHD No results within date range. ABSCREEN No results within date range. No results found for: HBA1C No new labs or tests Impression/Recommendations ASSESSMENT: Breast hypertrophy Assessment: scheduled for REDUCTION BREAST BILATERAL 04/22/2022 Hot flashes due to menopause Assessment: managed with Effexor Lower extremity edema Assessment: occasional ankle edema managed with HCTZ- denies edema currently METS: Do heavy work around the house, such as scrubbing floors, lifting or moving heavy furniture (8.00 METs) Patient denies any chest pain or undue shortness of breath with the above physical activity. ASA Class: 2 ANESTHESIA FINDINGS: Intubation History: No history of difficult intubation Significant Anesthesia Considerations: tachycardia with C section Airway Exam: General: Normal appearance Mallampati Score is CLASS II ULBT: Class II - Lower incisors can bite the upper lip below the mary line Neck: Normal appearance and function, Distance from hyoid to mentum during neck extension is at least 3 finger breaths Mouth: Normal tongue size and Mouth opening greater than 2 finger breaths Dentition: Intact, Caps/crowns, and Bridge Airway History: No history of difficult intubation STOP BANG Score: Criteria: Snoring Score = 1 PLAN: This patient is optimally prepared for surgery pending LABS. CONSULTS: Patient does not require consults for optimization at this time. The Following Tests/Procedures Have Been Initiated: Orders Placed This Encounter CBC with Differential Standing Status: Future Standing Expiration Date: 06/10/2022 Basic Metabolic Panel Standing Status: Future Standing Expiration Date: 06/10/2022 , EKG not indicated per PACC protocol Planned Anesthetic: Per anesthesia choice Instructions Given to Patient: Patient given verbal instructions and voices comprehension and compliance. Copy sent electronically via My Chart, email, or mobile device. I spent more than 21-40 minutes [id number] with the patient and over half the time was devoted to counseling and/or coordination of care. This is a virtual visit. It required patient-provider interaction for the medical decision making as documented above. SIGNATURE: Analilia Gutierres PA-C PATIENT NAME: Dinorah Simpson DATE: April 10, 2022 TIME: 7:52 AM PAGER/CONTACT #: documented in this encounter [facility] 04-09-2022 Note HNO ID: [id number] Author: Siddhartha Warren DO Service: ? Author Type: Physician Type: Progress Notes Filed: 04/09/2022 3:34 PM Note Text: [facility] Siddhartha Warren DO, ARTHUR, FAACS* Name: Dinorah Simpson She is scheduled for a bilateral reduction mammoplasty at the end of the month. Insurances requiring 510 g per side, this is going to put her in the B cup/C cup range. She is fine with a B cup if necessary. We reviewed the procedure and I have answered her and her 's questions to their satisfaction. Are going to proceed with surgery as scheduled. Any concerns or questions prior to next appointment, patient is to call office or return sooner. Siddhartha Warren DO April 09, 2022 This note was generated with voice recognition software and may contain errors, including spelling, grammar, syntax and misrecognition of what was dictated, that are not fully corrected. [facility] 11-01-2021 Note HNO ID: [id number] Author: Siddhartha Warren DO Service: ? Author Type: Physician Type: Progress Notes Filed: 11/01/2021 10:11 AM Note Text: [facility] Siddhartha Warren DO, FACOS, FAACS* Name: Dinorah Simpson I see her consultation for bilateral reduction mammoplasty. She is 2 para 2. She is wearing a double D cup bra on her right breast is larger than the left. Journal notch to nipple distance on the right is 29 cm on the left 28 cm. She has neck and back pain. Her bra straps are resulting and grooving of her shoulders. Like to be in the C cup range. I anticipate removal of at least 350 g per side. It could be more. I will send a letter to her insurance company. She would not mind being in the larger B small C cup range. I have today, in the presence of my nurse, discussed with the patient the procedure of breast reduction. We have talked about the nature of incisions and subsequent scars. I have shown the patient pictures of people who have had similar procedures including the types of scars and where they occur. People vary according to the nature of the scar that they form. Some people form thicker, hypertrophic or keloid scars, but this is beyond the control of the patient or me. If the scars are too thick, we have talked about intervention in order to attempt to make these smoother and softer. The operation was discussed in detail including the time of the operating taking 3 to 3 1/2 hrs. and the recuperation being 2 to 2 1/2 weeks. Potential risks and possible complications were discussed. The most serious complication is partial or complete skin loss of the nipple/areola complex or inverted ?T? incision area of the breast. This is more common in diabetic patients and smokers, who share the problem of diminished circulation. If this were to occur, the patient would require further reconstruction. Bleeding or hematoma formation requiring drainage may occur and the patient may have drains post operatively. Infection is rare and all my patients receive antibiotics. Decreased nipple or skin sensation can occur but usually returns to normal in about 3 to 6 months, but can be permanent. Areas of firmness or fat necrosis may require biopsy or excision. Asymmetry is usually present before surgery and may be there afterwards. Depending on the size of the breasts, the patient may require a free nipple graft. The ability to breast-feed depends upon whether the procedure is done on a pedicle or free nipple graft technique and we have discussed these techniques in detail. Free nipple grafts can result in scarring irregularity as well as pigment loss. Anesthesia risks include OH, pulmonary emboli (blood clots), or even . We discussed the nature of the operation, realistic expectations, potential risks, and possible complications. The patient reviewed the photographs of people who had similar procedures. I would be very happy to introduce the patient to people who have had similar such procedures. The patient was invited to return or call with any further questions before making a decision for surgery. IT HAS BEEN EXPLAINED IN DETAIL NOT TO TAKE ASPIRIN, ASPIRIN-CONTAINING PRODUCTS AND VITAMIN E FOR TWO TO THREE WEEKS PRIOR TO ELECTIVE SURGERY THESE INCREASE THE RISK OF BLEEDING AND HEMATOMA FORMATION. THE PATIENT WAS INFORMED THAT SMOKERS HAVE A GREATER RISK OF SKIN LOSS, SCARRING AND WOUND HEALING COMPLICATIONS. THE PATIENT WAS GIVEN NO GUARANTEE OF RESULTS. If we have to return to surgery to correct any problems, I have discussed in detail with the patient that if this return to the O.R. is not covered by insurance, I do not charge the patient, however, there will be a charge for the O.R. and anesthesia, over which I have no control. MAF/nn (Dictated, but not read.) Any concerns or questions prior to next appointment, patient is to call office or return sooner. Siddhartha Warren DO November 01, 2021 This note was generated with voice recognition software and may contain errors, including spelling, grammar, syntax and misrecognition of what was dictated, that are not fully corrected. [facility] 11-01-2021 Nurse Note [facility] SIDDHARTHA WARREN DO FACOS CONSULT H+P Name: Dinorah Simpson INTERVAL HPI & PERTINENT ROS: Today presents 46 year old female for breast reduction consult. Pt has ALLERGIES Allergen Reactions Penicillins Rash denies latex, lidocaine, betadine allergies. PMH No past medical history on file.. PSH PAST SURGICAL HISTORY Procedure Laterality Date SECTION HX FINGER SURGERY HX . Denies NELY. Pt medications include HCTZ and effexor. Pt denies smoking/marijuana/vaping/CBD. Incisions, scarring and risks, signs and symptoms of infection, and potential complications discussed with patient. Pt given list of medications/supplements to d/c 2 weeks before and 2 weeks after the surgical intervention. Pt verbalizes understanding. OTC: Instructed to d/c vitamins and supplements, ASA and NSAID's, and to only use tylenol for pain. PHYSICAL EXAM: GEN: Alert, oriented, NAD LUNGS: Unlabored breathing PERTINENT: Pt is a current 36 DDD cup size and her ideal cup size would be a full B or small C cup. Pt has breast hypertrophy. Pt has neck and back pain and shoulder grooving from her bra straps d/t the weight of her breasts. Pt's BSA is 1.667 and schnur scale shows that 338 grams per side will need to be taken off. Pt is [id number] and did breast feed. Pt has + family hx of breast CA. MAF will write a letter to her insurance company and request approval for the surgery. Compression Garments: surgical bra ASSESSMENT and PLAN of CARE: Dr. Warren has addressed the risks, benefits, complications and alternatives to the surgical interventions. Pt verbalizes understanding of the instructions. Photos obtained. Medical clearance not indicated, mammogram indicated, may need a more current one depending on when she schedules sx. Pt denies history of cancer. Pt will sit with the alumni relations officer to discuss pricing and scheduling. Pt will undergo bilateral reduction mammoplasty under general anesthesia as outpatient. PAT and MARCELLO discussed. All questions answered to patient's satisfaction. Rahat Steinberg RN November 01, 2021 documented in this encounter [facility] 11-01-2021 History of Present illness Narrative [facility] Siddhartha Warren DO, FACOS, FAACS* Name: Dinorah Simpson I see her consultation for bilateral reduction mammoplasty. She is 2 para 2. She is wearing a double D cup bra on her right breast is larger than the left. Journal notch to nipple distance on the right is 29 cm on the left 28 cm. She has neck and back pain. Her bra straps are resulting and grooving of her shoulders. Like to be in the C cup range. I anticipate removal of at least 350 g per side. It could be more. I will send a letter to her insurance company. She would not mind being in the larger B small C cup range. I have today, in the presence of my nurse, discussed with the patient the procedure of breast reduction. We have talked about the nature of incisions and subsequent scars. I have shown the patient pictures of people who have had similar procedures including the types of scars and where they occur. People vary according to the nature of the scar that they form. Some people form thicker, hypertrophic or keloid scars, but this is beyond the control of the patient or me. If the scars are too thick, we have talked about intervention in order to attempt to make these smoother and softer. The operation was discussed in detail including the time of the operating taking 3 to 3 1/2 hrs. and the recuperation being 2 to 2 1/2 weeks. Potential risks and possible complications were discussed. The most serious complication is partial or complete skin loss of the nipple/areola complex or inverted T incision area of the breast. This is more common in diabetic patients and smokers, who share the problem of diminished circulation. If this were to occur, the patient would require further reconstruction. Bleeding or hematoma formation requiring drainage may occur and the patient may have drains post operatively. Infection is rare and all my patients receive antibiotics. Decreased nipple or skin sensation can occur but usually returns to normal in about 3 to 6 months, but can be permanent. Areas of firmness or fat necrosis may require biopsy or excision. Asymmetry is usually present before surgery and may be there afterwards. Depending on the size of the breasts, the patient may require a free nipple graft. The ability to breast-feed depends upon whether the procedure is done on a pedicle or free nipple graft technique and we have discussed these techniques in detail. Free nipple grafts can result in scarring irregularity as well as pigment loss. Anesthesia risks include OH, pulmonary emboli (blood clots), or even . We discussed the nature of the operation, realistic expectations, potential risks, and possible complications. The patient reviewed the photographs of people who had similar procedures. I would be very happy to introduce the patient to people who have had similar such procedures. The patient was invited to return or call with any further questions before making a decision for surgery. IT HAS BEEN EXPLAINED IN DETAIL NOT TO TAKE ASPIRIN, ASPIRIN-CONTAINING PRODUCTS AND VITAMIN E FOR TWO TO THREE WEEKS PRIOR TO ELECTIVE SURGERY THESE INCREASE THE RISK OF BLEEDING AND HEMATOMA FORMATION. THE PATIENT WAS INFORMED THAT SMOKERS HAVE A GREATER RISK OF SKIN LOSS, SCARRING AND WOUND HEALING COMPLICATIONS. THE PATIENT WAS GIVEN NO GUARANTEE OF RESULTS. If we have to return to surgery to correct any problems, I have discussed in detail with the patient that if this return to the O.R. is not covered by insurance, I do not charge the patient, however, there will be a charge for the O.R. and anesthesia, over which I have no control. MAF/nn (Dictated, but not read.) Any concerns or questions prior to next appointment, patient is to call office or return sooner. Siddhartha Warren DO November 01, 2021 This note was generated with voice recognition software and may contain errors, including spelling, grammar, syntax and misrecognition of what was dictated, that are not fully corrected. documented in this encounter [facility] Chief complaint+Reason for v isit Narrative Reason for Visit COVID-[address] [place] [address] Work Phone: Evaluation note* Diagnosis Breast hypertrophy- Primary Hypertrophy of breast documented in this encounter [facility]No assessment information availableWDetw[facility] Work Phone: Evaluation note* Diagnosis Preoperative examination- Primary Preoperative examination, unspecified Breast hypertrophy Hypertrophy of breast Lower extremity edema Edema Hot flashes due to menopause Cervicalgia Pain in thoracic spine Mastodynia Dermatitis Contact dermatitis and other eczema, due to unspecified cause Hypertrophy of breast documented in this [facility] [place] [facility]* Diagnosis S/P bilateral breast reduction- Primary Other postprocedural status documented in this encounter [facility]* Diagnosis Onset Date Resolution Status COVID-19 acute [facility] Work Phone: Evaluation note* Diagnosis S/P bilateral breast reduction- Primary Other postprocedural status documented in this encounter [facility]* Diagnosis History of bilateral breast reduction surgery- Primary Other postprocedural status [facility] this [facility]ative[facility]No reason for referral information availableWDetwiler Memorial Hospital Work Phone: Chief Complaint and Reason for Visit Chief Complaint SCREENING Chief Complaint Admit Date LEFT HAND XRAY CMP CBC June 30 11:00am Parosmia October 12, 2024 11: 07am Chief Complaint Admit Date Parosmia October 12, 2024 11: 07am Family History No Family History Records Found Relationship Condition Age at Onset Recorded Date/T erlin father Cardiac disease Unknown Hypertension Unknown Malignant neoplasm of urinary bladder Unk nown High blood cholesterol Unknown Myocardial infarction Unknown mother Hypertension Unknown Diabetes mellitus Unknown Malignant neoplasm of breast Unknown Cardiac disease Unknown Malignant melanoma Unknown grandmother Malignant neoplasm of breast Unknown Parkinson's disease Unknown Summary Purpose Advance Directives No Advanced Directives Records FoundNo Advanced Directives Records FoundNo Advanced Directives Records Found Additional Source Comments Source Comments (unrecognize d section and content) In the event this informatio n is protected by the Federal Confidentiality of Alcohol and Drug Abuse Patient Records regulations: The Federal rules restrict any use of the information to criminally investigate or prosecute any alcohol or drug abuse patient.[facility] the event this information is protected by the Federal Confidentiality of Alcohol and Drug Abuse Patient Records regulations: The Federal rules restrict any use of the information to criminally investigate or prosecute any alcohol or drug abuse patient.[facility] the event this information is protected by the Federal Confidentiality of Alcohol and Drug Abuse Patient Records regulations: The Federal rules restrict any use of the information to criminally investigate or prosecute any alcohol or drug abuse patient.[facility] the event this information is protected by the Federal Confidentiality of Alcohol and Drug Abuse Patient Records regulations: The Federal rules restrict any use of the information to criminally investigate or prosecute any alcohol or drug abuse patient.[facility] the event this information is protected by the Federal Confidentiality of Alcohol and Drug Abuse Patient Records regulations: The Federal rules restrict any use of the information to criminally investigate or prosecute any alcohol or drug abuse patient.[facility] the event this information is protected by the Federal Confidentiality of Alcohol and Drug Abuse Patient Records regulations: The Federal rules restrict any use of the information to criminally investigate or prosecute any alcohol or drug abuse patient.[facility] Reason for Visit (unrecogniz ed section and content) Reason Comments Consult Reason Comments Pre-Op Exam Reason Comments Post Op Goals (unrecognized section and content) Goals may be documented in a n alternate sectionGoals may be documented in an alternate sectionGoals may be documented in an alternate sectionGoals may be documented in an alternate sectionGoals may be documented in an alternate sectionGoals may be documented in an alternate section Care Teams (unrecognized sec tion and content) Commercial Hvac Technician Relationship Specialty Start Date End Date Siddhartha Pedroza DO [address] [place], [place] [id number] PCP - General Family Practice 04/08/22 Commercial Hvac Technician Relationship Specialty Start Date End Date Yovany Siddhartha Pardo DO [address] [place], [place] [id number] PCP - General Family Medicine 04/08/22 Commercial Hvac Technician Relationship Specialty Start Date End Date Siddhartha Pedroza DO [address] [place], [place] [id number] PCP - General Family Medicine 04/08/22 Team Status: Active Member Role Status Dates Dr. Siddhartha Pedroza DO Family Provider Active Dr. Siddhartha Pedroza DO Primary Care Provider Active Team Status: Inactive Member Role Status Dates Dr. Siddhartha Pedroza DO Primary Care Provider, Attendin g Provider Active Commercial Hvac Technician Relationship Specialty Start Date End Date Siddhartha Pedroza DO [address] [place], [place] [id number] PCP - General Family Medicine 04/08/22 Team Status: Active Member Role Status Dates Dr. Siddhartha Pedroza DO Family Provider Active KARINE Grayson Primary Care Provider Active Team Status: Inactive Member Role Status Dates KARINE Grayson Primary Care Provide r, Attending Provider, Referring Provider Active Team Status: Active Member Role Status Dates Dr. Siddhartha Pedroza DO Primary Care Provider Active Team Status: Inactive Member Role Status Dates Dr. Siddhartha Pedroza DO Primary Care Provider Active Start: June 30, 2024 End: June 30, 2024 KARINE Grayson Attending Provider Active St art: June 30, 2024 End: June 30, 2024 KARINE Grayson Referring Provider Active St art: June 30, 2024 End: June 30, 2024 Team Status: Inactive Member Role Status Dates Dr. Siddhartha Pedroza DO Primary Care Provider Active Start: August 18, 2024 End: August 18, 2024 Dr. Charmaine Montaño MD Attending Provider Active Start: August 18, 2024 End: August 18, 2024 Dr. Charmaine Montaño MD Referring Provider Active Start: August 18, 2024 End: August 18, 2024 Team Status: Inactive Member Role Status Dates Dr. Siddhartha Pedroza DO Primary Care Provider Active Start: October 12, 2024 End: October 12, 2024 Dr. Randy Oglesby MD Attending Provider Active Start: October 12, 2024 End: October 12, 2024 Team Status: Inactive Member Role Status Dates SHYLA TATE Attending Provider Active Start: December 03, 2024 End: December 03, 2024 SHYLA TATE Referring Provider Active Start: December 03, 2024 End: December 03, 2024 Dr. Siddhartha Pedroza DO Primary Care Provider Active Start: December 03, 2024 End: December 03, 2024 INFORMATION SOURCE (unrecogn ized section and content) DATE CREATED AUTHOR 04/28/2022 [facility] DATE CREATED AUTHOR AUTHOR'S ORGANIZ ATION 05/01/2022 [facility] DATE CREATED AUTHOR AUTHOR'S ORGANIZ ATION 02/22/2025 [facility] FOR RECORDS PERTAINING TO PATIENTS WHO ARE OR HAVE BEEN ENROLLED IN A CHEMICAL DEPENDENCY/SUBSTANCEABUSE PROGRAM, SOME INFORMATION MAY BE OMITTED. This clinical summary was aggregated from multiple sources. Caution should be exercised in using it in the provision of clinical care. This summary normalizes information from multiple sources, and as a consequence, information in this document may materially change the coding, format and clinical context of patient data. In addition, data may be omitted in some cases. CLINICAL DECISIONS SHOULD BE BASED ON THE PRIMARY CLINICAL RECORDS. [employer] provides no warranty or guarantee of the accuracy or completeness of information in this document.
[2025-02-23 08:24] LABS: Hematocrit 43.2 % (37-47); Hemoglobin 14.9 g/dL (12.0-15.0); Mean Corp Hgb Conc 34.5 g/dL (32-36); Mean Corpuscular Volume 86.6 fL (81-99); Mean Platelet Vol. 9.3 fl (6.2-12.0); Platelet Count 413 K/mm3 (150-450); RBC Distribution Width CV 12.1 % (11.6-14.6); RBC Distribution Width SD 38.5 fl (35.1-43.9); Red Blood Count 4.99 M/mm3 (4.2-5.4); White Blood Count 5.2 K/mm3 (4.4-11.0)
[2025-02-23 09:42] LABS: AST(SGOT) 26 U/L (<=31); Alanine Aminotransfer ALT/SGPT 36 U/L (<=34); Albumin, Serum 5.0 g/dL (3.5-5.0); Alkaline Phosphatase 82 U/L (35-104); Anion Gap 16 (5-15); BUN 21 mg/dL (4-19); BUN/Creat Ratio 19.8 RATIO (10-20); Calcium,Total 10.3 mg/dL (7.6-11.0); Carbon Dioxide 22.2 mmol/L (21.0-32.0); Chloride 100 mmol/L (98-108); Cholesterol 310 mg/dL (<=200); Globulin 3.3 g/dL (2.2-4.2); Glucose 145 mg/dL (70-99); Low Density Lipoprotein Calc. 222 mg/dL; Potassium 3.6 mmol/L (3.3-5.1); Triglycerides 186 mg/dL; Very Low Density Lipoprotein 37 mg/dL (5-40); cholesterol:hdl ratio screen 6.14
[2025-02-27 13:07] LABS: Testosterone, % Free 1.71 % (0.50-2.80); Testosterone, Free 1.64 ng/dL (0.10-0.85)
== END | disposition home or self-care (01) ==
PROVIDERS: PCP Family Medicine; Referring Provider Obstetrics & Gynecology; Visit Provider Obstetrics & Gynecology
DX: N95.1 Menopausal and female climacteric states (principal); R68.82 Decreased libido; R53.83 Other fatigue
CPT/HCPCS: 36415; 80053; 80061; 82670; 83036; 84270; 84402; 84403; 84443; 85027

== ENCOUNTER → 2025-03-01 | Outpatient (CLI) | payer OTHER, SELFPAY | END | disposition home or self-care (01) | PROVIDERS: PCP Family Medicine; Referring Provider Family Medicine; Visit Provider Family Medicine | DX: R73.9 Hyperglycemia, unspecified (principal) | CPT/HCPCS: 36415 ==

== ENCOUNTER → 2025-04-08 | Outpatient (CLI) | payer OTHER, SELFPAY ==
[2025-04-08 10:00] LABS: Follicle Stimulating Hormone 7.2 mIU/mL
[2025-04-13 12:09] LABS: Testosterone, % Free 1.64 % (0.50-2.80); Testosterone, Free 4.69 ng/dL (0.10-0.85)
== END | disposition home or self-care (01) ==
LOC: LAB 07:44
PROVIDERS: PCP Family Medicine
DX: N95.1 Menopausal and female climacteric states (principal)
CPT/HCPCS: 36415; 82670; 83001; 84270; 84402; 84403

== ENCOUNTER → 2025-06-03 | Outpatient (CLI) | payer OTHER, SELFPAY ==
--- OUTSIDE RECORDS SUMMARY | 2025-06-03 07:46 | XMS RPT_ITS | CCD ---
Author Organization [facility] Care Team Providers Care Associate Quality Engineer Name Role Phone Unavailable Primary Care Provider John Paul e Siddhartha Pedroza DO Primary Care Provider ANALILIA GUTIERRES Referring Unavailable SIDDHARTHA PEDROZA Primary Care Unavailable SIDDHARTHA WARREN Referring UnavailSIDDHARTHA Duncan Primary Care Unavailable Siddhartha Pedroza DO Primary Care Provider SIDDHARTHA WARREN Admitting SIDDHARTHA Black Attending Dr. Siddhartha Aragon Primary Care Provider Dr. Siddhartha Pedroza Referring Provider MARK Neville Attending Provider Siddhartha Pedroza DO Primary Care Provider Dr. Siddhartha Pedroza DO Primary Care Provider Emery APRICOT WASHER-CAnalisa Attending Provider Emery APRICOT WASHER-CAnalisa Referring Provider Dr. Charmaine Gibbons MD Attending Provider Dr. Charmaine Gibbons MD Referring Provider Dr. Randy Oglesby MD Attending Provider Dr. Siddhartha Pedroza DO Primary Care Provider BEBETO MANSFIELD Attending Provider [phone] BEBETO MANSFIELD Referring Provider Dr. Siddhartha Pedroza DO Primary Care Provider Archana Montaño MD, Dr. Montano Attending Provider Archana Montaño MD, Dr. Montano Referring Provider BEBETO MANSFIELD Other Provider Yovany CALHOUN, Dr. Magallanes Attending Provider Yovany CALHOUN, Dr. Magallanes Referring Provider Yovany CALHOUN, Dr. Magallanes Primary Care Physician Archana Montaño MD, Dr. Montano Attending Physician BEBETO MANSFIELD Nurse Practitioner [phone] Siddhartha Pedroza DO Attending Physician BEBETO MANSFIELD Attending Physician [phone] BEBETO MANSFIELD Referring Provider Randy Oglesby Attending Unavailable Yovany, Siddhartha Primary Care Unavailable Yovany, Siddhartha Primary Care Unavailable Analisa Land Attending Unavailable Analisa Land Referring Unavailable Charmaine Gibbons Attending Unavailable Charmaine Gibbons Referring Unavailable Yovany, Siddhartha Primary Care Unavailable Charmaine Gibbons Referring Unavailable Yovany, Siddhartha Primary Care Unavailable FINE, LAYN1 Consulting Unavailable Charmaine Gibbons Attending Unavailable Yovany, Siddhartha Primary Care Unavailable Yovany, Siddhartha Attending Unavailable Yovany, Siddhartha Referring Unavailable Yovany, Siddhartha Primary Care Unavailable FINE, LAYN1 Attending Unavailable FINE, LAYN1 Referring Unavailable FINE, LAYN1 Attending Unavailable FINE, LAYN1 Referring Unavailable Yovany, Siddhartha Primary Care Unavailable Charmaine Gibbons Referring Unavailable Yovany, Siddhartha Primary Care Unavailable Charmaine Gibbons Attending Unavailable Allergies Allergy Classification Reported Allergen(s) Allergy Type Date of Onset Reaction(s) Facility (3 sources) Penicillins; Translations: [PENICILLINS] Drug Allergy 11-01-2021 [facility] (5 sources) Penicillins Drug Allergy 11-01-2021 [facility] (9 sources) Penicillins Allergy to substance 03-26-2022 [facility] (1 source) Penicillins Drug allergy (disorder) 03-26-2022 [facility] Medications Current Medications Medication Drug Class(es) Dates Sig (Normalized) Sig (Original) baclofen 10 mg oral tablet (10 sources) gamma-Aminobutyric Acid-ergic Agonist Start: 09-28-2020 take 1 tablet by mouth three times daily dexamethasone 6 mg oral tablet (9 sources) Corticosteroid Start: 03-26-2022 take 1 tablet by mouth once daily doxycycline hyclate 100 mg oral tablet (10 sources) Tetracycline-class Drug Start: 09-28-2020 take 1 tablet by mouth once daily flurbiprofen 100 mg oral tablet (10 sources) Nonsteroidal Anti-inflammatory Drug Start: 09-28-2020 take 1 tablet by mouth three times daily as needed for pain hydroCHLOROthiazide 25 mg oral tablet (16 sources) Thiazide Diuretic Start: 09-27-2020 take 1 tablet by mouth once daily Comment on above: Take 25 mg by mouth once daily. 24 hr venlafaxine 37.5 mg extended release oral capsule (20 sources) Serotonin and Norepinephrine Reuptake Inhibitor Start: 09-28-2020 take 1 capsule by mouth once daily Start: 09-27-2020 End: 09-28-2020 take 1 capsule [...] Comment on above: Take 2 tablets by mo uth every 6 hours as needed for pain. [...] on above: Take 1 capsule by mo uth twice daily as needed for constipation. ondansetron [...] th every 8 hours as needed for nausea/vomiting. OXcarbazepine 300 mg oral tablet (10 sources) Anti-epileptic Agent Start: 09-27-2020 End: 09-28-2020 [...] Translations: [Dermatitis] Onset: 04-22-2022 Episodic Anxiety disorders (15 sources) Anxiety disorder; Translations: [Anxiety disorder, unspecified] Onset: 04-10-2022 04-10-2022 Chronic Diabetes mellitus without complication (1 source) Hyperglycemia, unspecified; Translations: [Hyperglycemia, unspecified] Onset: 03-09-2025 Episodic Headache; including migraine (10 sources) Headache; Translations: [Headache] 09-27-2020 Episodic Menopausal disorders (7 sources) Menopausal flushing; Translations: [Menopausal and female climacteric states] Onset: 04-10-2022 Chronic Other nervous system disorders (1 source) Other acute postprocedural pain; Translations: [Post-op pain] Onset: 04-22-2022 Episodic Other skin disorders (1 source) Localized swelling, mass and lump, unspecified upper limb; Translations: [Localized swelling, mass and lump, unspecified upper limb] Onset: 02-24-2025 Episodic Rheumatoid arthritis and related disease (15 sources) Inflammatory polyarthropathy; Translations: [Inflammatory polyarthropathy] Onset: 04-10-2022 04-10-2022 Chronic Spondylosis; intervertebral disc disorders; other back problems (2 sources) Cervicalgia; Translations: [Pain in thoracic spine] Onset: 04-22-2022 Episodic Viral infection (10 sources) Disease caused by 2019-nCoV; Translations: [COVID-19] [...] Test Name Value Interpretation Reference Range Facility Sex Hormone-binding Globulin on 04-13-2025 SHBG 59.8 nmol/L Normal 17.3-125.0 [facility] Comment on above: Result Comment: Perf ormed at: [facility] [address] [id number] Contracts Law Professor: Simon Ferrer PhD, Phone: [phone] Performed at: [facility] [address] [id number] Contracts Law Professor: Analilia Vaughan MD, Phone: [phone] Performed By: #### L 0677.6354, Z4482.1785, L3067.1650, L3388.2924 #### [facility] [place], [address] Testosterone, Total / Freeon 04-13-2025 TESTOSTER,FREE 4.69 ng/dL Abnormal 0.10-0.85 [facility] Comment on above: Order Comment: N Performed By: #### L 3300.1750, L3100.5125, L3100.5060, L3100.5310 #### [facility] [address] [place], [address] TESTOSTER,TOTAL 286 ng/dL High 4-50 [facility] Comment on above: Order Comment: N Performed By: #### L 3300.1750, L3100.5125, L3100.5060, L3100.5310 #### [facility] [address] [place], [address] TESTOSTERONE,%F 1.64 Normal 0.50-2.80 [facility] Comment on above: Order Comment: N Performed By: #### L 3300.1750, L3100.5125, L3100.5060, L3100.5310 #### [facility] [address] [place], [address] Estradiolon 04-08-2025 ESTRADIOL 80.5 pg/mL Normal [facility] Comment on above: Result Comment: FEMA [...] by age 18. Performed By: #### L 3300.1750, L3100.5125, L3100.5060, L3100.5310 #### [facility] [address] [place], [place], [id number] Follicle Stimulating Hormone on 04-08-2025 FSH 7.2 mIU/mL Normal [facility] Comment on above: Result Comment: FEMA LE: Follicular: 1.4 - 18.1 mIU/mL Midcycle: 3.4 - 33.4 mIU/mL Luteal: 1.5 - 9.1 mIU/mL Post Menopause: 23.0 - 116.3 mIU/mL MALE: 1.4 - 18.1 mIU/mL Performed By: #### L 3300.1750, L3100.5125, L3100.5060, L3100.5310 #### [facility] [address] [place], [address] Free testosterone percentage on 04-08-2025 Testosterone Free/Testosterone.total [Mass fraction] 1.64 % 0.50-2.80 [facility] Serum or plasma estradiol me asurement after follitropin dose (mass/volume)on 04-08-2025 E2 post dose follitropin [Mass/Vol] 80.5 pg/mL [facility] Comment on above: FEMALES ADULT FEMALE [...] reached by age 18. Serum or plasma free testost erone measurement (mass/volume)on 04-08-2025 Testosterone Free [Mass/Vol] 4.69 ng/dL High 0.10-0.85 [facility] Serum or plasma sex hormone binding globulin measurement (moles/volume)on 04-08-2025 Sex hormone binding globulin [Moles/Vol] 59.8 nmol/L 17.3-125.0 [facility] Comment on above: Performed at: [facility] [address] [id number] Director: Simon Ferrer PhD, Phone: [phone] at: [facility] [id number] Director: Analilia Vaughan MD, Phone: [phone] Testosterone, totalon 2024 Testosterone [Mass/Vol] 286 ng/dL High 4-50 [facility] L3410.9992on 03-09-2025 [facility]. COMMENT Normal . [facility] Comment on above: Order Comment: [id number] 0DIABETES AUTOIMMUNE SERUM FRZ Result Comment: Test Ordered: [id number] Diabetes Autoimmune Profile Insulin Antibodies <5.0 uU/mL ES Reference Range: . This test is also known as insulin autoantibody or IAA. This test was developed and its performance characteristics determined by [employer]. It has not been cleared or approved by the Food and Drug Administration. Reference Range: <5.0 Negative > or = 5.0 Positive Anti UZAIR 65 Antibodies <5.0 U/mL ES Reference Range: . Reference Range: <5.0 Negative > or = 5.0 Positive IA-2 Autoantibodies <7.5 U/mL ES Reference Range: . Reference Range: <7.5 Negative > or = 7.5 Positive ZNT8 Antibodies <15 U/mL ES Reference Range: . Reference Range: All Ages: <15 Negative > or =15 Positive Type 1 Diabetes Interpretation Comment ES Reference Range: . Published positivity rates for diabetes autoantibodies in new-onset Type 1 Diabetes patients listed below are based on the combined analysis of UZAIR-65, ICA 512, Insulin Antibodies, and ZNT8 Antibodies. The combined analysis has a 98% autoimmunity detection rate, with 1.8% of Type 1 diabetic individuals remaining as autoantibody-negative. Positivity rate in new-onset Type 1 Diabetes patients: UZAIR-65 Antibodies = 68% positive IA-2/ICA 512 Antibodies = 72% positive Insulin Antibodies = 55% positive ZNT8 Antibodies = 63% positive An increase in the number of positive antibodies is associated with a higher likelihood of Type 1 Diabetes. Less than 3% of Type 2 Diabetics have positive antibodies.(1) Prasanna et al. PNAS. 2007;104(43):96209-91478. Performed at: [facility] [address] [place] [id number] Contracts Law Professor: Jose MCKEON, Phone: [phone] Performed at: [address] [id number] Contracts Law Professor: Simon Ferrer PhD, Phone: [phone] Performed By: #### L 3300.1750, L3100.5125, L3100.5060, L3100.5310 #### [facility] [address] [place], [address] Sex Hormone-binding Globulin on 02-27-2025 SHBG 42.1 nmol/L Normal 17.3-125.0 [facility] Comment on above: Result Comment: Perf ormed at: [address] [id number] Contracts Law Professor: Simon Ferrer PhD, Phone: [phone] Performed at: [address] [id number] Contracts Law Professor: Analilia Vaughan MD, Phone: [phone] Performed By: #### L 3300.1750, L3100.5125, L3100.5060, L3100.5310 #### [facility] [address] [place], [address] Testosterone, Total / Freeon 02-27-2025 TESTOSTER,FREE 1.64 ng/dL Abnormal 0.10-0.85 [facility] Comment on above: Order Comment: N Performed By: #### L 3300.1750, L3100.5125, L3100.5060, L3100.5310 #### [facility] [address] [place], [address] TESTOSTER,TOTAL 96 ng/dL High 4-50 [facility] Comment on above: Order Comment: N Performed By: #### L 3300.1750, L3100.5125, L3100.5060, L3100.5310 #### [facility] [address] [place], [address] TESTOSTERONE,%F 1.71 Normal 0.50-2.80 [facility] Comment on above: Order Comment: N Performed By: #### L 3300.1750, L3100.5125, L3100.5060, L3100.5310 #### [facility] [address] [place], [address] Anion gap in Serum or Plasma Ordered By: Charmaine Montaño on 02-23-2025 Anion gap [Moles/Vol] 16 mmol/L High 5-15 [facility] BUN/creatinine ratioOrdered By: Charmaine Montaño on 02-23-2025 Urea nitrogen/Creatinine [Mass ratio] 19.8 mg/mg 10-20 [facility] Bilirubin, totalOrdered By: Summer Danyel on 02-23-2025 Bilirubin [Mass/Vol] 0.40 mg/dL 0.00-1.30 [facility] CBC-Complete Blood Cnt No Di ffon 02-23-2025 Erythrocyte distribution width (RBC) [Ratio] 12.1 % Normal 11.6-14.6 [facility] Comment on above: Performed By: #### L 500.4050, L500.4100, L501.9520, L3300.1750, L3100.5060, L3100.5310, L100.0500, L501.9985 #### [facility] [address] [place], [address] Hematocrit (Bld) [Volume fraction] 43.2 % Normal 37-47 [facility] Comment on above: Performed By: #### L 500.4050, L500.4100, L501.9520, L3300.1750, L3100.5060, L3100.5310, L100.0500, L501.9985 #### [facility] [address] [place], [address] Hemoglobin (Bld) [Mass/Vol] 14.9 g/dL Normal 12.0-15.0 [facility] Comment on above: Performed By: #### L 500.4050, L500.4100, L501.9520, L3300.1750, L3100.5060, L3100.5310, L100.0500, L501.9985 #### [facility] [address] [place], [address] MCH (RBC) [Entitic mass] 29.9 pg Normal 27.0-32.0 [facility] Comment on above: Performed By: #### L 500.4050, L500.4100, L501.9520, L3300.1750, L3100.5060, L3100.5310, L100.0500, L501.9985 #### [facility] [address] [place], [address] MCHC (RBC) [Mass/Vol] 34.5 g/dL Normal 32-36 [facility] Comment on above: Performed By: #### L 500.4050, L500.4100, L501.9520, L3300.1750, L3100.5060, L3100.5310, L100.0500, L501.9985 #### [facility] [address] [place], [address] MCV (RBC) [Entitic vol] 86.6 fL Normal 81-99 [facility] Comment on above: Performed By: #### L 500.4050, L500.4100, L501.9520, L3300.1750, L3100.5060, L3100.5310, L100.0500, L501.9985 #### [facility] [address] [place], [address] Platelet mean volume (Bld) [Entitic vol] 9.3 fL Normal 6.2-12.0 [facility] Comment on above: Performed By: #### L 500.4050, L500.4100, L501.9520, L3300.1750, L3100.5060, L3100.5310, L100.0500, L501.9985 #### [facility] [address] [place], [address] Platelets (Bld) [#/Vol] 413 10*3/uL Normal 150-450 [facility] Comment on above: Performed By: #### L 500.4050, L500.4100, L501.9520, L3300.1750, L3100.5060, L3100.5310, L100.0500, L501.9985 #### [facility] [address] [place], [address] RBC (Bld) [#/Vol] 4.99 10*6/uL Normal 4.2-5.4 [facility] Comment on above: Performed By: #### L 500.4050, L500.4100, L501.9520, L3300.1750, L3100.5060, L3100.5310, L100.0500, L501.9985 #### [facility] [address] [place], [address] RDW SD 38.5 fl Normal 35.1-43.9 [facility] Comment on above: Performed By: #### L 500.4050, L500.4100, L501.9520, L3300.1750, L3100.5060, L3100.5310, L100.0500, L501.9985 #### [facility] [address] [place], [address] WBC (Bld) [#/Vol] 5.2 10*3/uL Normal 4.4-11.0 [facility] Comment on above: Performed By: #### L 500.4050, L500.4100, L501.9520, L3300.1750, L3100.5060, L3100.5310, L100.0500, L501.9985 #### [facility] [address] [place], [place], [id number] Calculated very low density lipoprotein (VLDL) cholesterol measurementOrdered By: Charmaine Montaño on 02-23-2025 Calculated very low density lipoprotein (VLDL) cholesterol measurement 37 mg/dL 5-40 [facility] Carbon dioxide, total [Moles /volume] in Central venous bloodOrdered By: Charmaine Montaño on 02-23-2025 CO2 [Moles/Vol] 22.2 mmol/L 21.0-32.0 [facility] Chloride assayOrdered By: Rox Montaño on 02-23-2025 Chloride [Moles/Vol] 100 mmol/L 98-108 [facility] Comprehensive Metabolic Prof ilon 02-23-2025 Albumin [Mass/Vol] 5.0 g/dL Normal 3.5-5.0 [facility] Comment on above: Performed By: #### L 500.4050, L500.4100, L501.9520, L3300.1750, L3100.5060, L3100.5310, L100.0500, L501.9985 #### [facility] [address] [place], [place], [address] Albumin/Globulin [Mass ratio] 1.5 {ratio} Normal 0.9-2.4 [facility] Comment on above: Performed By: #### L 500.4050, L500.4100, L501.9520, L3300.1750, L3100.5060, L3100.5310, L100.0500, L501.9985 #### [facility] [address] [place], [address] ALK PHOS 82 U/L Normal 35-104 [facility] Comment on above: Performed By: #### L 500.4050, L500.4100, L501.9520, L3300.1750, L3100.5060, L3100.5310, L100.0500, L501.9985 #### [facility] [address] [place], [address] ALT [Catalytic activity/Vol] 36 U/L High <=34 [facility] Comment on above: Performed By: #### L 500.4050, L500.4100, L501.9520, L3300.1750, L3100.5060, L3100.5310, L100.0500, L501.9985 #### [facility] [address] [place], [address] AST [Catalytic activity/Vol] 26 U/L Normal <=31 [facility] Comment on above: Performed By: #### L 500.4050, L500.4100, L501.9520, L3300.1750, L3100.5060, L3100.5310, L100.0500, L501.9985 #### [facility] [address] [place], [address] Bilirubin [Mass/Vol] 0.40 mg/dL Normal 0.00-1.30 [facility] Comment on above: Performed By: #### L 500.4050, L500.4100, L501.9520, L3300.1750, L3100.5060, L3100.5310, L100.0500, L501.9985 #### [facility] [address] [place], [address] BUN/CRE 19.8 RATIO Normal 10-20 [facility] Comment on above: Performed By: #### L 500.4050, L500.4100, L501.9520, L3300.1750, L3100.5060, L3100.5310, L100.0500, L501.9985 #### [facility] [address] [place], [address] Calcium [Mass/Vol] 10.3 mg/dL Normal 7.6-11.0 [facility] Comment on above: Performed By: #### L 500.4050, L500.4100, L501.9520, L3300.1750, L3100.5060, L3100.5310, L100.0500, L501.9985 #### [facility] [address] [place], [address] Chloride [Moles/Vol] 100 mmol/L Normal 98-108 [facility] Comment on above: Performed By: #### L 500.4050, L500.4100, L501.9520, L3300.1750, L3100.5060, L3100.5310, L100.0500, L501.9985 #### [facility] [address] [place], [address] CO2 [Moles/Vol] 22.2 mmol/L Normal 21.0-32.0 [facility] Comment on above: Performed By: #### L 500.4050, L500.4100, L501.9520, L3300.1750, L3100.5060, L3100.5310, L100.0500, L501.9985 #### [facility] [address] [place], [address] Creatinine [Mass/Vol] 1.08 mg/dL Normal 0.70-1.20 [facility] Comment on above: Performed By: #### L 500.4050, L500.4100, L501.9520, L3300.1750, L3100.5060, L3100.5310, L100.0500, L501.9985 #### [facility] [address] [place], [address] GAP 16 High 5-15 [facility] Comment on above: Performed By: #### L 500.4050, L500.4100, L501.9520, L3300.1750, L3100.5060, L3100.5310, L100.0500, L501.9985 #### [facility] [address] [place], [address] GFR/1.73 sq M.predicted among non-blacks MDRD (S/P/Bld) [Vol rate/Area] 63 mL/min/{1.73_m2} Normal >60 [facility] Comment on above: Result Comment: mL/m in/1.73m2 CKD-EPI Creatinine Equation (2020) Performed By: #### L 500.4050, L500.4100, L501.9520, L3300.1750, L3100.5060, L3100.5310, L100.0500, L501.9985 #### [facility] [address] [place], [address] Globulin (S) [Mass/Vol] 3.3 g/dL Normal 2.2-4.2 [facility] Comment on above: Performed By: #### L 500.4050, L500.4100, L501.9520, L3300.1750, L3100.5060, L3100.5310, L100.0500, L501.9985 #### [facility] [address] [place], [address] Glucose [Mass/Vol] 145 mg/dL High 70-99 [facility] Comment on above: Performed By: #### L 500.4050, L500.4100, L501.9520, L3300.1750, L3100.5060, L3100.5310, L100.0500, L501.9985 #### [facility] [address] [place], [address] Potassium [Moles/Vol] 3.6 mmol/L Normal 3.3-5.1 [facility] Comment on above: Performed By: #### L 500.4050, L500.4100, L501.9520, L3300.1750, L3100.5060, L3100.5310, L100.0500, L501.9985 #### [facility] [address] [place], [address] Sodium [Moles/Vol] 138 mmol/L Normal 133-145 [facility] Comment on above: Performed By: #### L 500.4050, L500.4100, L501.9520, L3300.1750, L3100.5060, L3100.5310, L100.0500, L501.9985 #### [facility] [address] [place], [address] T PROT 8.2 g/dL Normal 5.9-8.4 [facility] Comment on above: Performed By: #### L 500.4050, L500.4100, L501.9520, L3300.1750, L3100.5060, L3100.5310, L100.0500, L501.9985 #### [facility] [address] [place], [address] Urea nitrogen [Mass/Vol] 21 mg/dL High 4-19 [facility] Comment on above: Performed By: #### L 500.4050, L500.4100, L501.9520, L3300.1750, L3100.5060, L3100.5310, L100.0500, L501.9985 #### [facility] [address] [place], [address] Erythrocyte distribution wid th ratioOrdered By: Summer Danyel on 02-23-2025 Erythrocyte distribution width (RBC) [Ratio] 12.1 % 11.6-14.6 [facility] Erythrocyte distribution wid th standard deviationOrdered By: summeron on 02-23-2025 Erythrocyte distribution width (RBC) [Ratio] 38.5 fl 35.1-43.9 [facility] Estradiolon 02-23-2025 ESTRADIOL 70.8 pg/mL Normal [facility] Comment on above: Result Comment: FEMA [...] by age 18. Performed By: #### L 500.4050, L500.4100, L501.9520, L3300.1750, L3100.5060, L3100.5310, L100.0500, L501.9985 #### [facility] [place], [address] Free testosterone percentage Ordered By: Charmaine Montaño on 02-23-2025 Testosterone Free/Testosterone.total [Mass fraction] 1.71 % 0.50-2.80 [facility] Glomerular filtration rate ( GFR) estimation/1.73 sq m using serum, plasma, or whole bOrdered By: Charmaine Montaño on 02-23-2025 GFR/1.73 sq M.predicted among non-blacks MDRD (S/P/Bld) [Vol rate/Area] 63 mL/min/{1.73_m2} >60 [facility] Comment on above: mL/min/1.73m2 CKD-EP I Creatinine Equation (2020) Hematocrit Auto (Bld) [Volum e fraction]Ordered By: Charmaine Montaño on 02-23-2025 Hematocrit (Bld) [Volume fraction] 43.2 % 37-47 [facility] Hemoglobin A1con 02-23-2025 HbA1c (Bld) [Mass fraction] 6.4 % High <=5.6 [facility] Comment on above: Result Comment: Norm al < 5.7 % Prediabetic 5.7 - 6.4 % Diabetic >or= 6.5 % Please note range changes. Performed By: #### L 500.4050, L500.4100, L501.9520, L3300.1750, L3100.5060, L3100.5310, L100.0500, L501.9985 #### [facility] [address] [place], [place], [id number] Hemoglobin A1c percentageOrd ered By: Charmaine Montaño on 02-23-2025 HbA1c (Bld) [Mass fraction] 6.4 % High <5.7 [facility] Comment on above: Normal < 5.7 % Predi abetic 5.7 - 6.4 % Diabetic >or= 6.5 % Please note range changes. Hemoglobin measurementOrdere d By: Charmaine Montaño on 02-23-2025 Hemoglobin (Bld) [Mass/Vol] 14.9 g/dL 12.0-15.0 [facility] LDL calc ser/plasOrdered By: Charmaine Montaño on 02-23-2025 Cholesterol in LDL [Mass/Vol] 222 mg/dL [facility] Comment on above: Ttejiyybqp=542-320 m g/dL & Higher Idkq=324 mg/dL or greaterFriedwald Equation for LDL-C Laboratory - Chemistry and C hemistry - challengeOrdered By: Charmaine Montaño on 02-23-2025 AST [Catalytic activity/Vol] 26 U/L <32 [facility] Lipid Profileon 02-23-2025 CHOL:HDL 6.14 Normal [facility] Comment on above: Performed By: #### L 500.4050, L500.4100, L501.9520, L3300.1750, L3100.5060, L3100.5310, L100.0500, L501.9985 #### [facility] [address] [place], [place], [id number] Cholesterol [Mass/Vol] 310 mg/dL High <=200 [facility] Comment on above: Result Comment: Chol esterol level, Desirable <200 mg/dL Borderline high cholesterol 200-239 mg/dL High cholesterol >=240 mg/dL Recommendations of the NCEP Adult Treatment Panel for the following risk-cutoff thresholds for the [place] population. Performed By: #### L 500.4050, L500.4100, L501.9520, L3300.1750, L3100.5060, L3100.5310, L100.0500, L501.9985 #### [facility] [address] [place], [address] Cholesterol in HDL [Mass/Vol] 51 mg/dL Normal [facility] Comment on above: Result Comment: Aimee onal Cholesterol Education Program (NCEP) guidelines: <40 mg/dL: Low HDL-cholesterol (major risk factor for CHD) >= 60 mg/dL: High HDL-cholesterol (negative risk factor for CHD) HDL-cholesterol is affected by a number of factors, e.g. smoking, exercise, hormones, sex and age. Performed By: #### L 500.4050, L500.4100, L501.9520, L3300.1750, L3100.5060, L3100.5310, L100.0500, L501.9985 #### [facility] [address] [place], [place], [id number] (448) Cholesterol in LDL [Mass/Vol] 222 mg/dL Normal [facility] Comment on above: Result Comment: Bord aqanlv=454-047 mg/dL Higher Zjgt=656 mg/dL or greater Friedwald Equation for LDL-C Performed By: #### L 500.4050, L500.4100, L501.9520, L3300.1750, L3100.5060, L3100.5310, L100.0500, L501.9985 #### [facility] [address] [place], [place], [id number] (269) Cholesterol in VLDL [Mass/Vol] 37 mg/dL Normal 5-40 [facility] Comment on above: Performed By: #### L 500.4050, L500.4100, L501.9520, L3300.1750, L3100.5060, L3100.5310, L100.0500, L501.9985 #### [facility] [address] [place], [place], [id number] Triglyceride [Mass/Vol] 186 mg/dL Normal [facility] Comment on above: Result Comment: The drugs N-Acetylcysteine and Metamizole may falsely depress this assay. Normal range: <150 mg/dL Borderline High: 150-199 mg/dL High: 200-499 mg/dL Very High: >500 mg/dL Performed By: #### L 500.4050, L500.4100, L501.9520, L3300.1750, L3100.5060, L3100.5310, L100.0500, L501.9985 #### [facility] [address] [facility] [place], [place], [id number] MCV (mean corpuscular volume ) determinationOrdered By: Charmaine Montaño on 02-23-2025 MCV (RBC) [Entitic vol] 86.6 fL 81-99 [facility] Mean corpuscular hemoglobin (MCH) determinationOrdered By: Charmaine Montaño on 02-23-2025 MCH (RBC) [Entitic mass] 29.9 pg 27.0-32.0 [facility] Mean corpuscular hemoglobin concentration (MCHC) determinationOrdered By: Charmaine Montaño on 02-23-2025 MCHC (RBC) [Mass/Vol] 34.5 g/dL 32-36 [facility] Mean platelet volume determi nationOrdered By: Charmaine Montaño on 02-23-2025 Platelet mean volume (Bld) [Entitic vol] 9.3 fL 6.2-12.0 [facility] Platelet countOrdered By: Rox Montaño on 02-23-2025 Platelets (Bld) [#/Vol] 413 10*3/uL 150-450 [facility] Potassium measurement (mass/ volume)Ordered By: Charmaine Montaño on 02-23-2025 Potassium (Unsp spec) [Mass/Vol] 3.6 mmol/L 3.3-5.1 [facility] RBC Auto (Bld) [#/Vol]Ordere d By: Charmaine Montaño on 02-23-2025 RBC (Bld) [#/Vol] 4.99 10*6/uL 4.2-5.4 [facility] Screening total cholesterol/ high density lipoprotein (HDL) cholesterol ratioOrdered By: Charmaine Montaño on 02-23-2025 Cholesterol.total/Roula sterol in HDL [Mass ratio] 6.14 {ratio} [facility] Serum creatinine measurement (mass/volume)Ordered By: Charmaine Montaño on 02-23-2025 Creatinine [Mass/Vol] 1.08 mg/dL 0.70-1.20 [facility] Serum globulin measurementOr dered By: Charmaine Montaño on 02-23-2025 Globulin (S) [Mass/Vol] 3.3 g/dL 2.2-4.2 [facility] Serum glucose measurement (m ass/volume)Ordered By: Charmaine Montaño on 02-23-2025 Glucose [Mass/Vol] 145 mg/dL High 70-99 [facility] Serum or plasma alanine [place] otransferase (ALT) measurementOrdered By: Charmaine Montaño 02-23-2025 ALT [Catalytic activity/Vol] 36 U/L High <35 [facility] Serum or plasma albumin laura urement (mass/volume)Ordered By: Charmaine Montaño on 02-23-2025 Albumin [Mass/Vol] 5.0 g/dL 3.5-5.0 [facility] Serum or plasma albumin/glob ulin mass ratioOrdered By: Charmaine Montaño 02-23-2025 Albumin/Globulin [Mass ratio] 1.5 {ratio} 0.9-2.4 [facility] Serum or plasma alkaline rosa sphatase measurementOrdered By: Charmaine Montaño 02-23-2025 ALP [Catalytic activity/Vol] 82 U/L 35-104 [facility] Serum or plasma calcium laura urement (mass/volume)Ordered By: Charmaine Montaño 02-23-2025 Calcium [Mass/Vol] 10.3 mg/dL 7.6-11.0 [facility] Serum or plasma cholesterol in HDL measurement (mass/volume)Ordered By: Charmaine Montaño on 02-23-2025 Cholesterol in HDL [Mass/Vol] 51 mg/dL >40 [facility] Comment on above: National Cholesterol Education Program (NCEP) guidelines:<40 mg/dL: Low HDL-cholesterol (major risk factor for CHD)>= 60 mg/dL: High HDL-cholesterol (negative risk factor for CHD)HDL-cholesterol is affected by a number of factors, e.g. smoking, exercise, hormones, sex and age. Serum or plasma cholesterol measurement (mass/volume)Ordered By: Charmaine Montaño on 02-23-2025 Cholesterol [Mass/Vol] 310 mg/dL High <201 [facility] Comment on above: Cholesterol level, D esirable <200 mg/dLBorderline high cholesterol 200-239 mg/dLHigh cholesterol >=240 mg/dLRecommendations of the NCEP Adult Treatment Panel for the following risk-cutoff thresholds for the [place] population. Serum or plasma estradiol me asurement after follitropin dose (mass/volume)Ordered By: Charmaine Montaño on 02-23-2025 E2 post dose follitropin [Mass/Vol] 70.8 pg/mL [facility] Comment on above: FEMALES ADULT FEMALE [...] reached by age 18. Serum or plasma free testost erone measurement (mass/volume)Ordered By: Charmaine Montaño on 02-23-2025 Testosterone Free [Mass/Vol] 1.64 ng/dL High 0.10-0.85 [facility] Serum or plasma sex hormone binding globulin measurement (moles/volume)Ordered By: Charmaine Montaño on 02-23-2025 Sex hormone binding globulin [Moles/Vol] 42.1 nmol/L 17.3-125.0 [facility] Comment on above: Performed at: [address], [place], [place] [id number] Director: Simon Ferrer PhD, Phone: [phone] at: [address] [id number] Director: Analilia Vaughan MD, Phone: [phone] Serum or plasma urea nitroge n measurement (mass/volume)Ordered By: Charmaine Danyel on 02-23-2025 Urea nitrogen [Mass/Vol] 21 mg/dL High 4-19 [facility] Sodium levelOrdered By: Trevor luca Montaño on 02-23-2025 Sodium [Moles/Vol] 138 mmol/L 133-145 [facility] TSH DL <= 0.005 mIU/L QnOrde red By: Charmaine Danyel on 02-23-2025 TSH Qn 2.590 uIU/mL 0.300-4.200 [facility] Testosterone, totalOrdered B y: Charmaine Danyel on 02-23-2025 Testosterone [Mass/Vol] 96 ng/dL High 4-50 [facility] Thyroid Stim Hormone (TSH)on 02-23-2025 TSH 2.590 uIU/mL Normal 0.300-4.200 [facility] Comment on above: Performed By: #### L 500.4050, L500.4100, L501.9520, L3300.1750, L3100.5060, L3100.5310, L100.0500, L501.9985 #### [facility] [address] [facility] [place], [address] Total proteinOrdered By: Oumar néstor Montaño on 02-23-2025 Protein [Mass/Vol] 8.2 g/dL 5.9-8.4 [facility] Triglycerides measurementOrd ered By: Charmaine Danyel on 02-23-2025 Triglyceride [Mass/Vol] 186 mg/dL <199 [facility] Comment on above: The drugs N-Acetylcy steine and Metamizole may falsely depress this assay. Normal range: <150 mg/dLBorderline High: 150-199 mg/dLHigh: 200-499 mg/dLVery High: >500 mg/dL White blood cell (WBC) count Ordered By: Charmaine Montaño on 02-23-2025 WBC (Bld) [#/Vol] 5.2 10*3/uL 4.4-11.0 [facility] Breast imaging reportOrdered By: Ty Voss on 02-22-2025 Study report [facility] Imaging Services [address] [place] [address] DIAG MAMM W/CAD, BILAT MR#: [id number] Acct: [id number] Name: DINORAH SIMPSON Rep #: [id number] : 1975 F 50 From: Martinez Voss MD PCP: Dr. Siddhartha Pedroza DO Status: REG CLI Study:DIAG MAMM W/CAD, BILAT Date of Exam: 02/21/25 Exam# [id number] Ordering Dr: Charmaine Branham MD EXAM: DIAG MAMM W/CAD, BILAT 02/21/2025 CLINICAL HISTORY: F, Age 50 y/o , LUMP IN [place]. History of mother with breast cancer and grandmother with breast cancer. Status post bilateral breast reductions. TECHNIQUE: DIAG MAMM W/CAD, BILAT. COMPARISON: Prior exam(s) dated February 18, 2024.. FINDINGS: TISSUE DENSITY: The breasts are extremely dense, which lowers the sensitivity ofmammography. Bilateral Breast Mammographic Findings: No significant masses, [...] be mailed to the patient. Reading Location: [id number] CC: Dr. Siddhartha Pedroza DO; Dr. Charmaine Montaño MD ~ General Manager [employer]: Signed [facility] Breast Limited Unilateralon 02-21-2025 Breast Limited Unilateral [facility] Imaging Services [address] [place] [address] Breast Limited Unilateral MR#: [id number] Acct: [id number] Name: DINORAH SIMPSON Rep #: [id number] : 1975 F 50 From: Ty gandhi MD PCP: Dr. Siddhartha Pedroza DO Status: REG CLI Study: Breast Limited Unilateral Date of Exam: Exam# [id number] Ordering Dr: Charmaine Gibbons MD PROCEDURE: BREAST [...] annual follow-up in 1 Year Reading Location: [id number] CC: Dr. Siddhartha Pedroza DO; Dr. Charmaine Montaño MD General Manager [employer]: Signed Normal [facility] DIAG MAMM W/CAD, BILATon DIAG MAMM W/CAD, BILAT [facility] Imaging Services [address] [facility] [address] [place], [place] [id number] DIAG MAMM W/CAD, BILAT MR#: [id number] Acct: [id number] Name: DINORAH SIMPSON Rep #: [id number] : 1975 F 50 From: Ty gandhi MD PCP: Dr. Siddhartha Pedroza DO Status: REG CLI Study: DIAG MAMM W/CAD, BILAT Date of Exam: 02/21/25 Exam# [id number] Ordering Dr: Charmaine Gibbons MD EXAM: DIAG [...] be mailed to the patient. Reading Location: [id number] CC: Dr. Siddhartha Pedroza DO; Dr. Charmaine Montaño MD General Manager [employer]: Signed Normal [facility] Sex Hormone-binding Globulin on 12-16-2024 SHBG 45.1 nmol/L Normal 24.6-122.0 [facility] Comment on above: Result Comment: Perf ormed at: - [facility] [address] [id number] Contracts Law Professor: Simon Ferrer PhD, Phone: [phone] Performed at: - [facility] [id number] Contracts Law Professor: Analilia Vaughan MD, Phone: [phone] Performed By: #### L 1892.1861, Q5540.8284, L3669.7453, L3100.9522 #### [facility] [address] [place], [address] Testosterone, Total / Freeon 12-16-2024 TESTOSTER,FREE 0.10 ng/dL Normal 0.10-0.85 [facility] Comment on above: Order Comment: N Performed By: #### L 3300.1750, L3100.5125, L3100.5060, L3100.5310 #### [facility] [address] [place], [address] TESTOSTER,TOTAL 5 ng/dL Normal 4-50 [facility] Comment on above: Order Comment: N Performed By: #### L 3300.1750, L3100.5125, L3100.5060, L3100.5310 #### [facility] [address] [place], [address] TESTOSTERONE,%F 1.92 Normal 0.50-2.80 [facility] Comment on above: Order Comment: N Performed By: #### L 3300.1750, L3100.5125, L3100.5060, L3100.5310 #### [facility] [address] [place], [address] Thyroid Peroxidase ABon 11-26 THYR PEROX AB < 9 Normal 0-34 [facility] Comment on above: Performed By: #### L 3300.1750, L3100.5125, L3100.5060, L3100.5310 #### [facility] [address] [place], [address] Absolute lymphocyte counton 12-03-2024 Lymphocytes Auto (Unsp spec) [#/Vol] 1.87 10*3/uL 0.83-4.51 [facility] Absolute neutrophil counton 12-03-2024 Neutrophils (Bld) [#/Vol] 3.6 10*3/uL 2.0-7.7 [facility] Anion gap in Serum or Plasma on 12-03-2024 Anion gap [Moles/Vol] 9 mmol/L 5-15 [facility] Automated lymphocyte count a s percentage of total leukocyteson 12-03-2024 Lymphocytes/100 WBC Auto (Unsp spec) 30.1 % 19-41 [facility] BUN/creatinine ratioon 12-03 Urea nitrogen/Creatinine [Mass ratio] 29.6 mg/mg High 10-20 [facility] Basophil percentageon 2024 Basophils/100 WBC (Bld) 0.8 % 0-1 [facility] Bilirubin, totalon Bilirubin [Mass/Vol] mg/dL 0.00-1.30 [facility] CBC W/Diff, Automatedon Absolute Lymph 1.87 X10 3/uL Normal 0.83-4.51 [facility] Comment on above: Performed By: #### L 3300.1750, L3100.5125, L3100.5060, L3100.5310 #### [facility] [address] [place], [address] Absolute Neut 3.6 X10 3/uL Normal 2.0-7.7 [facility] Comment on above: Performed By: #### L 3300.1750, L3100.5125, L3100.5060, L3100.5310 #### [facility] [address] [place], [address] Basophils/100 WBC (Bld) 0.8 % Normal 0-1 [facility] Comment on above: Performed By: #### L 3300.1750, L3100.5125, L3100.5060, L3100.5310 #### [facility] [address] [place], [address] Eosinophils/100 WBC (Bld) 1.6 % Normal 0-5 [facility] Comment on above: Performed By: #### L 3300.1750, L3100.5125, L3100.5060, L3100.5310 #### [facility] [address] [place], [address] Erythrocyte distribution width (RBC) [Ratio] 12.3 % Normal 11.6-14.6 [facility] Comment on above: Performed By: #### L 3300.1750, L3100.5125, L3100.5060, L3100.5310 #### [facility] [address] [place], [address] Hematocrit (Bld) [Volume fraction] 35.8 % Low 37-47 [facility] Comment on above: Performed By: #### L 3300.1750, L3100.5125, L3100.5060, L3100.5310 #### [facility] [address] [place], [address] Hemoglobin (Bld) [Mass/Vol] 12.2 g/dL Normal 12.0-15.0 [facility] Comment on above: Performed By: #### L 3300.1750, L3100.5125, L3100.5060, L3100.5310 #### [facility] [address] [place], [address] IG% 0.500 Normal 0.0-0.9 [facility] Comment on above: Result Comment: IG% - Immature Granulocytes (promyelocytes, myelocytes and metamyelocytes) > 1% indicates that a LEFT SHIFT is Present. Performed By: #### L 3300.1750, L3100.5125, L3100.5060, L3100.5310 #### [facility] [address] [place], [address] Lymphocytes/100 WBC (Bld) 30.1 % Normal 19-41 [facility] Comment on above: Performed By: #### L 3300.1750, L3100.5125, L3100.5060, L3100.5310 #### [facility] [address] [place], [address] MCH (RBC) [Entitic mass] 30.7 pg Normal 27.0-32.0 [facility] Comment on above: Performed By: #### L 3300.1750, L3100.5125, L3100.5060, L3100.5310 #### [facility] [address] [place], [address] MCHC (RBC) [Mass/Vol] 34.1 g/dL Normal 32-36 [facility] Comment on above: Performed By: #### L 3300.1750, L3100.5125, L3100.5060, L3100.5310 #### [facility] [address] [place], [address] MCV (RBC) [Entitic vol] 89.9 fL Normal 81-99 [facility] Comment on above: Performed By: #### L 3300.1750, L3100.5125, L3100.5060, L3100.5310 #### [facility] [address] [place], [address] Monocytes/100 WBC (Bld) 9.2 % Normal 0-10 [facility] Comment on above: Performed By: #### L 3300.1750, L3100.5125, L3100.5060, L3100.5310 #### [facility] [address] [place], [address] Neutrophils/100 WBC (Bld) 57.8 % Normal 47-70 [facility] Comment on above: Performed By: #### L 3300.1750, L3100.5125, L3100.5060, L3100.5310 #### [facility] [address] [place], [address] Nucleated RBC (Bld) [#/Vol] 0 10*3/uL Normal 0-5 [facility] Comment on above: Performed By: #### L 3300.1750, L3100.5125, L3100.5060, L3100.5310 #### [facility] [address] [place], [address] Platelet mean volume (Bld) [Entitic vol] 9.1 fL Normal 6.2-12.0 [facility] Comment on above: Performed By: #### L 3300.1750, L3100.5125, L3100.5060, L3100.5310 #### [facility] [address] [place], [address] Platelets (Bld) [#/Vol] 353 10*3/uL Normal 150-450 [facility] Comment on above: Performed By: #### L 3300.1750, L3100.5125, L3100.5060, L3100.5310 #### [facility] [address] [place], [address] RBC (Bld) [#/Vol] 3.98 10*6/uL Low 4.2-5.4 [facility] Comment on above: Performed By: #### L 3300.1750, L3100.5125, L3100.5060, L3100.5310 #### [facility] [address] [place], [address] RDW SD 40.3 fl Normal 35.1-43.9 [facility] Comment on above: Performed By: #### L 3300.1750, L3100.5125, L3100.5060, L3100.5310 #### [facility] [address] [place], [address] WBC (Bld) [#/Vol] 6.2 10*3/uL Normal 4.4-11.0 [facility] Comment on above: Performed By: #### L 3300.1750, L3100.5125, L3100.5060, L3100.5310 #### [facility] [address] [place], [address] Carbon dioxide, total [Moles /volume] in Central venous bloodon 12-03-2024 CO2 [Moles/Vol] 24.0 mmol/L 21.0-32.0 [facility] Chloride assayon 12-03-2024 Chloride [Moles/Vol] 106 mmol/L 98-108 [facility] Comprehensive Metabolic Prof ilon 12-03-2024 Albumin [Mass/Vol] 4.1 g/dL Normal 3.5-5.0 [facility] Comment on above: Performed By: #### L 3300.1750, L3100.5125, L3100.5060, L3100.5310 #### [facility] [address] [place], [address] Albumin/Globulin [Mass ratio] 1.6 {ratio} Normal 0.9-2.4 [facility] Comment on above: Performed By: #### L 3300.1750, L3100.5125, L3100.5060, L3100.5310 #### [facility] [address] [place], [address] ALK PHOS 54 U/L Normal 35-104 [facility] Comment on above: Performed By: #### L 3300.1750, L3100.5125, L3100.5060, L3100.5310 #### [facility] [address] [place], [address] ALT [Catalytic activity/Vol] 22 U/L Normal <=34 [facility] Comment on above: Performed By: #### L 3300.1750, L3100.5125, L3100.5060, L3100.5310 #### [facility] [address] [place], [address] AST [Catalytic activity/Vol] 19 U/L Normal <=31 [facility] Comment on above: Performed By: #### L 3300.1750, L3100.5125, L3100.5060, L3100.5310 #### [facility] [address] [place], [address] BUN/CRE 29.6 RATIO High 10-20 [facility] Comment on above: Performed By: #### L 3300.1750, L3100.5125, L3100.5060, L3100.5310 #### [facility] [address] [place], [address] Calcium [Mass/Vol] 9.1 mg/dL Normal 7.6-11.0 [facility] Comment on above: Performed By: #### L 3300.1750, L3100.5125, L3100.5060, L3100.5310 #### [facility] [address] [place], [address] Chloride [Moles/Vol] 106 mmol/L Normal 98-108 [facility] Comment on above: Performed By: #### L 3300.1750, L3100.5125, L3100.5060, L3100.5310 #### [facility] [address] [place], [address] CO2 [Moles/Vol] 24.0 mmol/L Normal 21.0-32.0 [facility] Comment on above: Performed By: #### L 3300.1750, L3100.5125, L3100.5060, L3100.5310 #### [facility] [address] [place], [address] Creatinine [Mass/Vol] 0.81 mg/dL Normal 0.70-1.20 [facility] Comment on above: Performed By: #### L 3300.1750, L3100.5125, L3100.5060, L3100.5310 #### [facility] [address] [place], [address] GAP 9 Normal 5-15 [facility] Comment on above: Performed By: #### L 3300.1750, L3100.5125, L3100.5060, L3100.5310 #### [facility] [address] [place], [address] GFR/1.73 sq M.predicted among non-blacks MDRD (S/P/Bld) [Vol rate/Area] 89 mL/min/{1.73_m2} Normal >60 [facility] Comment on above: Result Comment: mL/m in/1.73m2 CKD-EPI Creatinine Equation (2020) Performed By: #### L 3300.1750, L3100.5125, L3100.5060, L3100.5310 #### [facility] [address] [place], [address] Globulin (S) [Mass/Vol] 2.5 g/dL Normal 2.2-4.2 [facility] Comment on above: Performed By: #### L 3300.1750, L3100.5125, L3100.5060, L3100.5310 #### [facility] [address] [place], [address] Glucose [Mass/Vol] 125 mg/dL High 70-99 [facility] Comment on above: Performed By: #### L 3300.1750, L3100.5125, L3100.5060, L3100.5310 #### [facility] [address] [place], [address] Potassium [Moles/Vol] 4.0 mmol/L Normal 3.3-5.1 [facility] Comment on above: Performed By: #### L 3300.1750, L3100.5125, L3100.5060, L3100.5310 #### [facility] [address] [place], [address] Sodium [Moles/Vol] 139 mmol/L Normal 133-145 [facility] Comment on above: Performed By: #### L 3300.1750, L3100.5125, L3100.5060, L3100.5310 #### [facility] [address] [place], [address] T BILI < 0.15 Normal 0.00-1.30 [facility] Comment on above: Performed By: #### L 3300.1750, L3100.5125, L3100.5060, L3100.5310 #### [facility] [address] [place], [address] T PROT 6.6 g/dL Normal 5.9-8.4 [facility] Comment on above: Performed By: #### L 3300.1750, L3100.5125, L3100.5060, L3100.5310 #### [facility] [address] [place], [address] Urea nitrogen [Mass/Vol] 24 mg/dL High 4-19 [facility] Comment on above: Performed By: #### L 3300.1750, L3100.5125, L3100.5060, L3100.5310 #### [facility] [address] [place], [address] Eosinophil percentageon 05-0 Eosinophils/100 WBC (Bld) 1.6 % 0-5 [facility] Erythrocyte distribution wid th ratioon 12-03-2024 Erythrocyte distribution width (RBC) [Ratio] 12.3 % 11.6-14.6 [facility] Erythrocyte distribution wid th standard deviationon 12-03-2024 Erythrocyte distribution width (RBC) [Ratio] 40.3 fl 35.1-43.9 [facility] Estradiolon 12-03-2024 ESTRADIOL 62.7 pg/mL Normal [facility] Comment on above: Result Comment: FEMA [...] by age 18. Performed By: #### L 3300.1750, L3100.5125, L3100.5060, L3100.5310 #### [facility] [address] [place], [address] Ferritinon 12-03-2024 Ferritin [Mass/Vol] 44 ng/mL Normal 22-378 [facility] Comment on above: Performed By: #### L 3300.1750, L3100.5125, L3100.5060, L3100.5310 #### [facility] [address] [place], [place], [address] Follicle Stimulating Hormone on 12-03-2024 FSH 2.7 mIU/mL Normal [facility] Comment on above: Result Comment: FEMA [...] - 10.8 mIU/mL Performed By: #### L 3300.1750, L3100.5125, L3100.5060, L3100.5310 #### [facility] [address] [place], [address] Free T3on 12-03-2024 Free T3 [Mass/Vol] 3.4 pg/mL Normal 2.18-3.98 [facility] Comment on above: Order Comment: N Performed By: #### L 3300.1750, L3100.5125, L3100.5060, L3100.5310 #### [facility] [address] [place], [place], [id number] Free T3 [Mass/Vol] 3.4 pg/mL 2.18-3.98 [facility] Free testosterone percentage on 12-03-2024 Testosterone Free/Testosterone.total [Mass fraction] 1.92 % 0.50-2.80 [facility] Glomerular filtration rate ( GFR) estimation/1.73 sq m using serum, plasma, or whole bon 12-03-2024 GFR/1.73 sq M.predicted among non-blacks MDRD (S/P/Bld) [Vol rate/Area] 89 mL/min/{1.73_m2} >60 [facility] Comment on above: mL/min/1.73m2 CKD-EP I Creatinine Equation (2020) Hematocrit Auto (Bld) [Volum e fraction]on 12-03-2024 Hematocrit (Bld) [Volume fraction] 35.8 % Low 37-47 [facility] Hemoglobin measurementon Hemoglobin (Bld) [Mass/Vol] 12.2 g/dL 12.0-15.0 [facility] Immature granulocytes/100 WB C Auto (Bld)on 12-03-2024 Immature granulocytes/100 WBC (Bld) 0.500 % 0.0-0.9 [facility] Comment on above: IG% - Immature Granu locytes (promyelocytes, myelocytes and metamyelocytes) > 1% indicates that a LEFT SHIFT is Present. Laboratory - Chemistry and C hemistry - challengeon 12-03-2024 AST [Catalytic activity/Vol] 19 U/L <32 [facility] MCV (mean corpuscular volume ) determinationon 12-03-2024 MCV (RBC) [Entitic vol] 89.9 fL 81-99 [facility] Mean corpuscular hemoglobin (MCH) determinationon 12-03-2024 MCH (RBC) [Entitic mass] 30.7 pg 27.0-32.0 [facility] Mean corpuscular hemoglobin concentration (MCHC) determinationon 12-03-2024 MCHC (RBC) [Mass/Vol] 34.1 g/dL 32-36 [facility] Mean platelet volume determi nationon 12-03-2024 Platelet mean volume (Bld) [Entitic vol] 9.1 fL 6.2-12.0 [facility] Monocyte percentageon 2024 Monocytes/100 WBC (Bld) 9.2 % 0-10 [facility] Neutrophil percentageon 05- Neutrophils/100 WBC (Bld) 57.8 % 47-70 [facility] Nucleated red blood cell per centageon 12-03-2024 Nucleated RBC/100 WBC (Bld) [Ratio] 0 % 0-5 [facility] Platelet counton 12-03-2024 Platelets (Bld) [#/Vol] 353 10*3/uL 150-450 [facility] Potassium measurement (mass/ volume)on 12-03-2024 Potassium (Unsp spec) [Mass/Vol] 4.0 mmol/L 3.3-5.1 [facility] RBC Auto (Bld) [#/Vol]on RBC (Bld) [#/Vol] 3.98 10*6/uL Low 4.2-5.4 [facility] Serum creatinine measurement (mass/volume)on 12-03-2024 Creatinine [Mass/Vol] 0.81 mg/dL 0.70-1.20 [facility] Serum globulin measurementon 12-03-2024 Globulin (S) [Mass/Vol] 2.5 g/dL 2.2-4.2 [facility] Serum glucose measurement (m ass/volume)on 12-03-2024 Glucose [Mass/Vol] 125 mg/dL High 70-99 [facility] Serum or plasma alanine [place] otransferase (ALT) measurementon 12-03-2024 ALT [Catalytic activity/Vol] 22 U/L <35 [facility] Serum or plasma albumin laura urement (mass/volume)on 12-03-2024 Albumin [Mass/Vol] 4.1 g/dL 3.5-5.0 [facility] Serum or plasma albumin/glob ulin mass ratioon 12-03-2024 Albumin/Globulin [Mass ratio] 1.6 {ratio} 0.9-2.4 [facility] Serum or plasma alkaline rosa sphatase measurementon 12-03-2024 ALP [Catalytic activity/Vol] 54 U/L 35-104 [facility] Serum or plasma calcium laura urement (mass/volume)on 12-03-2024 Calcium [Mass/Vol] 9.1 mg/dL 7.6-11.0 [facility] Serum or plasma estradiol me asurement after follitropin dose (mass/volume)on 12-03-2024 E2 post dose follitropin [Mass/Vol] 62.7 pg/mL [facility] Comment on above: FEMALES ADULT FEMALE [...] (mass/volume)on 12-03-2024 Ferritin [Mass/Vol] 44 ng/mL 22-378 [facility] Serum or plasma free testost erone measurement (mass/volume)on 12-03-2024 Testosterone Free [Mass/Vol] 0.10 ng/dL 0.10-0.85 [facility] Serum or plasma sex hormone binding globulin measurement (moles/volume)on 12-03-2024 Sex hormone binding globulin [Moles/Vol] 45.1 nmol/L 24.6-122.0 [facility] Comment on above: Performed at: [facility] [address] [id number] Director: Simon Ferrer PhD, Phone: [phone] at: [address] [id number] Director: Analilia Vaughan MD, Phone: [phone] Serum or plasma thyroperoxid ase antibody assay (units/volume)on 12-03-2024 TPO Ab Qn [IU]/mL 0-34 [facility] Serum or plasma urea nitroge n measurement (mass/volume)on 12-03-2024 Urea nitrogen [Mass/Vol] 24 mg/dL High 4-19 [facility] Sodium levelon 12-03-2024 Sodium [Moles/Vol] 139 mmol/L 133-145 [facility] T4 Free Directon 12-03-2024 T4 FREE DIRECT 1.00 ng/dL Normal 0.76-1.46 [facility] Comment on above: Order Comment: N Performed By: #### L 3300.1750, L3100.5125, L3100.5060, L3100.5310 #### [facility] [address] [place], [place], [id number] T4 freeon 12-03-2024 Free T4 [Mass/Vol] 1.00 ng/dL 0.76-1.46 [facility] TSH DL <= 0.005 mIU/L Qnon 0 12-03-2024 TSH Qn 1.540 uIU/mL 0.300-4.200 [facility] Testosterone, totalon 2024 Testosterone [Mass/Vol] 5 ng/dL 4-50 [facility] Thyroid Stim Hormone (TSH)on 12-03-2024 TSH 1.540 uIU/mL Normal 0.300-4.200 [facility] Comment on above: Performed By: #### L 3300.1750, L3100.5125, L3100.5060, L3100.5310 #### [facility] [address] [place], [place], [id number] Total proteinon 12-03-2024 Protein [Mass/Vol] 6.6 g/dL 5.9-8.4 [facility] Vitamin B12on 12-03-2024 Cobalamin (Vitamin B12) [Mass/Vol] 691 pg/mL Normal 180-914 [facility] Comment on above: Performed By: #### L 3300.1750, L3100.5125, L3100.5060, L3100.5310 #### [facility] [address] [place], [address] Vitamin B12 ser/plason 12-03 Cobalamin (Vitamin B12) [Mass/Vol] 691 pg/mL 180-914 [facility] Vitamin D,25 Hydroxyon 12-03 Vitamin D 25-OH 39.2 ng/mL Normal 30-100 [facility] Comment on above: Result Comment: Latisha min D Status Deficiency: <20 ng/mL (50nmol/L) Insufficiency: 20-30 ng/mL (50-75 nmol/L) Sufficiency: 30-100 ng/mL (75-250 nmol/L) Toxicity: >100 ng/mL (>250 nmol/L) Performed By: #### L 3300.1750, L3100.5125, L3100.5060, L3100.5310 #### [facility] [address] [place], [address] White blood cell (WBC) count on 12-03-2024 WBC (Bld) [#/Vol] 6.2 10*3/uL 4.4-11.0 [facility] Brain W/WO Contraston 2024 Brain W/WO Contrast [facility] [address] [place] [address] Brain W/WO Contrast MR#: [id number] Acct: [id number] Name: DINORAH SIMPSON Rep #: [id number] : 1975 F 49 From: Siddhartha Martin MD PCP: Dr. Siddhartha Pedroza, DO Status: REG CLI Study: Brain W/WO Contrast Date of Exam: 10/12/24 Exam# [id number] Ordering Dr: Randy Oglesby MD PROCEDURE: BRAIN [...] 2. Additional description as above. Reading Location: [facility] CC: Dr. Randy Oglesby MD; Dr. Siddhartha Pedroza DO General Manager [employer]: Signed Normal [facility] Magnetic resonance imaging r eportOrdered By: Siddhartha Martin on 10-12-2024 Study report [facility] [address] [place] [address] Brain W/WO Contrast MR#: [id number] Acct: [id number] Name: DINORAH SIMPSON Rep #: [id number] : 1975 F 49 From: Mana Martin MD PCP: Dr. Siddhartha Pedroza DO Status: REG CLI Study:Brain W/WO Contrast Date of Exam: 10/12/24 Exam# [id number] Ordering Dr: Ellen Oglesby MD PROCEDURE: BRAIN [...] 2. Additional description as above. Reading Location: [id number] CC: Dr. Randy Oglesby MD; Dr. Siddhartha Pedroza, DO ~ General Manager [employer]: Signed [facility] Testosterone, Total / Freeon 08-20-2024 TESTOSTER,FREE <.05 Abnormal 0.10-0.85 [facility] Comment on above: Order Comment: N Performed By: #### L 3300.1750, L3100.5125, L3100.5060, L3100.5310 #### [facility] [address] [place], [place], [address] TESTOSTER,TOTAL < 3 Low 4-50 [facility] Comment on above: Order Comment: N Performed By: #### L 3300.1750, L3100.5125, L3100.5060, L3100.5310 #### [facility] [address] [place], [place], [id number] TESTOSTERONE,%F 1.75 Normal 0.50-2.80 [facility] Comment on above: Order Comment: N Result Comment: Perf ormed at: [facility] [id number] Contracts Law Professor: Simon Ferrer PhD, Phone: [phone] Performed at: - [facility] [id number] [employer] Professor: Analilia Vaughan MD, Phone: [phone] Performed By: #### L 3300.1750, L3100.5125, L3100.5060, L3100.5310 #### [facility] [address] [place], [place], [id number] CRP, High Sensitivity [id number] on 08-19-2024 CRP, HIGH SENS 1.78 mg/L Normal 0.00-3.00 [facility] Comment on above: Result Comment: Rela tive Risk for Future Cardiovascular Event Low <1.00 Average 1.00 - 3.00 High >3.00 Performed at: [facility] [id number] Contracts [employer] Professor: Simon Ferrer PhD, Phone: [phone] Performed By: #### L 3300.1750, L3100.5125, L3100.5060, L3100.5310 #### [facility] [address] [place], [address] Albumin to globulin ratioOrd ered By: Charmaine Montaño on 08-18-2024 Albumin/Globulin [Mass ratio] 1.2 {ratio} 0.9-2.4 [facility] Bilirubin, totalOrdered By: Charmaine Montaño on 08-18-2024 Bilirubin [Mass/Vol] 0.40 mg/dL 0.20-1.00 [facility] Comment on above: For patients on eltr ombopag therapy, use of Dimension [place] TBIL is not recommended. Blood urea nitrogen (BUN)/cr eatinine ratioOrdered By: Charmaine Montaño on 08-18-2024 Urea nitrogen/Creatinine [Mass ratio] 13.3 mg/mg 10-20 [facility] C-reactive protein measureme nt by high sensitivity methodOrdered By: Charmaine Montaño on 08-18-2024 C-Reactive Protein High Sensitivity 1.78 mg/L 0.00-3.00 [facility] Comment on above: Relative Risk for Fu ture Cardiovascular Event Low <1.00 Average 1.00 - 3.00 High >3.00Performed at: [employer] [id number] Director: Simon Ferrer PhD, Phone: [phone] C-reactive protein measurement by high sensitivity method 1.78 mg/L 0.00-3.00 [facility] Comment on above: Relative Risk for Fu ture Cardiovascular Event Low <1.00 Average 1.00 - 3.00 High >3.00Performed at: - [facility] [address] [place], [place] [id number] Director: Simon Ferrer PhD, Phone: [phone] CBC-Complete Blood Cnt No Di ffon 08-18-2024 Erythrocyte distribution width (RBC) [Ratio] 12.0 % Normal 11.6-14.6 [facility] Comment on above: Performed By: #### L 3300.1750, L3100.5125, L3100.5060, L3100.5310 #### [facility] [address] [place], [address] Hematocrit (Bld) [Volume fraction] 38.7 % Normal 37-47 [facility] Comment on above: Performed By: #### L 3300.1750, L3100.5125, L3100.5060, L3100.5310 #### [facility] [address] [place], [address] Hemoglobin (Bld) [Mass/Vol] 12.8 g/dL Normal 12.0-15.0 [facility] Comment on above: Performed By: #### L 3300.1750, L3100.5125, L3100.5060, L3100.5310 #### [facility] [address] [place], [address] MCH (RBC) [Entitic mass] 29.6 pg Normal 27.0-32.0 [facility] Comment on above: Performed By: #### L 3300.1750, L3100.5125, L3100.5060, L3100.5310 #### [facility] [address] [place], [address] MCHC (RBC) [Mass/Vol] 33.1 g/dL Normal 32-36 [facility] Comment on above: Performed By: #### L 3300.1750, L3100.5125, L3100.5060, L3100.5310 #### [facility] [address] [place], [address] MCV (RBC) [Entitic vol] 89.4 fL Normal 81-99 [facility] Comment on above: Performed By: #### L 3300.1750, L3100.5125, L3100.5060, L3100.5310 #### [facility] [address] [place], [address] Platelet mean volume (Bld) [Entitic vol] 9.1 fL Normal 6.2-12.0 [facility] Comment on above: Performed By: #### L 3300.1750, L3100.5125, L3100.5060, L3100.5310 #### [facility] [address] [place], [address] Platelets (Bld) [#/Vol] 401 10*3/uL Normal 150-450 [facility] Comment on above: Performed By: #### L 3300.1750, L3100.5125, L3100.5060, L3100.5310 #### [facility] [address] [place], [address] RBC (Bld) [#/Vol] 4.33 10*6/uL Normal 4.2-5.4 [facility] Comment on above: Performed By: #### L 3300.1750, L3100.5125, L3100.5060, L3100.5310 #### [facility] [address] [place], [address] RDW SD 38.7 fl Normal 35.1-43.9 [facility] Comment on above: Performed By: #### L 3300.1750, L3100.5125, L3100.5060, L3100.5310 #### [facility] [address] [place], [address] WBC (Bld) [#/Vol] 5.8 10*3/uL Normal 4.4-11.0 [facility] Comment on above: Performed By: #### L 3300.1750, L3100.5125, L3100.5060, L3100.5310 #### [facility] [address] [place], [address] CORTISOL SERUMon 08-18-2024 CORTISOL 7.30 ug/dL Normal 3.44-22.45 [facility] Comment on above: Result Comment: Adul t (AM) 5.27 - 22.45 ug/dL Adult (PM) 3.44 - 16.76 ug/dL Performed By: #### L 3300.1750, L3100.5125, L3100.5060, L3100.5310 #### [facility] [address] [place], [place], [address] Carbon dioxide measurementOr dered By: Charmaine Montaño on 08-18-2024 CO2 [Moles/Vol] 27.0 mmol/L 21.0-32.0 [facility] Chloride measurementOrdered By: Charmaine Montaño on 08-18-2024 Chloride [Moles/Vol] 100 mmol/L 98-107 [facility] Comprehensive Metabolic Prof ilon 08-18-2024 Albumin [Mass/Vol] 4.0 g/dL Normal 3.2-5.0 [facility] Comment on above: Performed By: #### L 3300.1750, L3100.5125, L3100.5060, L3100.5310 #### [facility] [address] [place], [address] Albumin/Globulin [Mass ratio] 1.2 {ratio} Normal 0.9-2.4 [facility] Comment on above: Performed By: #### L 3300.1750, L3100.5125, L3100.5060, L3100.5310 #### [facility] [address] [place], [address] ALK P 60 U/L Normal 45-117 [facility] Comment on above: Performed By: #### L 3300.1750, L3100.5125, L3100.5060, L3100.5310 #### [facility] [address] [place], [address] ALT [Catalytic activity/Vol] 37 U/L Normal 13-56 [facility] Comment on above: Performed By: #### L 3300.1750, L3100.5125, L3100.5060, L3100.5310 #### [facility] [address] [place], [address] AST [Catalytic activity/Vol] 22 U/L Normal 15-37 [facility] Comment on above: Performed By: #### L 3300.1750, L3100.5125, L3100.5060, L3100.5310 #### [facility] [address] [place], [address] Bilirubin [Mass/Vol] 0.40 mg/dL Normal 0.20-1.00 [facility] Comment on above: Result Comment: For patients on eltrombopag therapy, use of Dimension [place] TBIL is not recommended. Performed By: #### L 3300.1750, L3100.5125, L3100.5060, L3100.5310 #### [facility] [address] [place], [address] BUN/CRE 13.3 RATIO Normal 10-20 [facility] Comment on above: Performed By: #### L 3300.1750, L3100.5125, L3100.5060, L3100.5310 #### [facility] [address] [place], [address] CA,Total 9.4 mg/dL Normal 8.5-10.1 [facility] Comment on above: Performed By: #### L 3300.1750, L3100.5125, L3100.5060, L3100.5310 #### [facility] [address] [place], [address] Chloride [Moles/Vol] 100 mmol/L Normal 98-107 [facility] Comment on above: Performed By: #### L 3300.1750, L3100.5125, L3100.5060, L3100.5310 #### [facility] [address] [place], [address] CO2 [Moles/Vol] 27.0 mmol/L Normal 21.0-32.0 [facility] Comment on above: Performed By: #### L 3300.1750, L3100.5125, L3100.5060, L3100.5310 #### [facility] [address] [place], [address] Creatinine [Mass/Vol] 0.83 mg/dL Normal 0.55-1.02 [facility] Comment on above: Result Comment: The validity of the calculated GFR GFRAA in patients over 70 years has not been determined. Clinical correlation is essential. Performed By: #### L 3300.1750, L3100.5125, L3100.5060, L3100.5310 #### [facility] [address] [place], [address] EST GFR - AA 94 mL/min Normal >60 [facility] Comment on above: Result Comment: Afri can Wallis[place] GFR Calc Performed By: #### L 3300.1750, L3100.5125, L3100.5060, L3100.5310 #### [facility] [address] [place], [address] GAP 7 Normal 5-15 [facility] Comment on above: Performed By: #### L 3300.1750, L3100.5125, L3100.5060, L3100.5310 #### [facility] [address] [place], [address] GFR/1.73 sq M.predicted among non-blacks MDRD (S/P/Bld) [Vol rate/Area] 78 mL/min/{1.73_m2} Normal >60 [facility] Comment on above: Result Comment: Non- GFR Calc Performed By: #### L 3300.1750, L3100.5125, L3100.5060, L3100.5310 #### [facility] [address] [place], [address] Globulin (S) [Mass/Vol] 3.4 g/dL Normal 2.2-4.2 [facility] Comment on above: Performed By: #### L 3300.1750, L3100.5125, L3100.5060, L3100.5310 #### [facility] [address] [place], [address] Glucose [Mass/Vol] 115 mg/dL High 74-106 [facility] Comment on above: Result Comment: Fast ing Glucose result from 100 to 125 mg/dL suggests IMPAIRED HOMEOSTASIS per A.D.A. criteria. Performed By: #### L 3300.1750, L3100.5125, L3100.5060, L3100.5310 #### [facility] [address] [place], [address] Potassium [Moles/Vol] 3.7 mmol/L Normal 3.5-5.1 [facility] Comment on above: Performed By: #### L 3300.1750, L3100.5125, L3100.5060, L3100.5310 #### [facility] [address] [place], [address] Sodium [Moles/Vol] 134 mmol/L Low 136-145 [facility] Comment on above: Performed By: #### L 3300.1750, L3100.5125, L3100.5060, L3100.5310 #### [facility] [address] [place], [address] T PROT 7.4 g/dL Normal 6.4-8.2 [facility] Comment on above: Performed By: #### L 3300.1750, L3100.5125, L3100.5060, L3100.5310 #### [facility] [address] [place], [address] Urea nitrogen [Mass/Vol] 11 mg/dL Normal 7-18 [facility] Comment on above: Performed By: #### L 3300.1750, L3100.5125, L3100.5060, L3100.5310 #### [facility] [address] [place], [address] Cortisol [Mass/Vol]Ordered B y: Charmaine Montaño on 08-18-2024 Cortisol 7.30 ug/dL 3.44-22.45 [facility] Comment on above: Adult (AM) 5.27 - 22 .45 ug/dL Adult (PM) 3.44 - 16.76 ug/dL Erythrocyte distribution wid th ratioOrdered By: [facility] on 08-18-2024 Erythrocyte distribution width (RBC) [Ratio] 12.0 % 11.6-14.6 [facility] Erythrocyte distribution wid th standard deviationOrdered By: [facility] on 08-18-2024 Erythrocyte distribution width (RBC) [Entitic vol] 38.7 fL 35.1-43.9 [facility] Erythrocyte distribution width (RBC) [Ratio] 38.7 fl 35.1-43.9 [facility] Estimated glomerular filtrat ion rate (GFR) AmericanOrdered By: [facility] on 08-18-2024 Estimated GFR (MDRD) Amer 94 mL/min >60 [facility] Comment on above: GFR Calc Estradiolon 08-18-2024 ESTRADIOL 110.1 pg/mL Normal [facility] Comment on above: Result Comment: NORM AL REFERENCE RANGES FEMALE FOLLICULAR 21.4 - 164.8 pg/mL MID-CYCLE PEAK 49.9 - 367.2 pg/mL LUTEAL 40.2 - 259.0 pg/mL POST-MENOPAUSAL ON MHT <11.0 - 462.1 pg/mL NOT ON MHT <11.0 - 58.3 pg/mL MALE <11.0 - 52.5 pg/mL NOTE: [employer] HAS CONFIRMED THE DRUG FULVETRANT (FASLODEX) MAY CAUSE FALSELY ELEVATED ESTRADIOL RESULTS WHEN USING THIS TEST METHOD. IF PATIENT IS TAKING FULVESTRANT AN ALTERNATIVE METHOD SHOULD BE USED TO DETERMINE ESTRADIOL CONCENTRATION. Performed By: #### L 3300.1750, L3100.5125, L3100.5060, L3100.5310 #### [facility] [address] [place], [address] Estradiol measurementOrdered By: Charmaine Montaño on 08-18-2024 Estradiol (E2) Level 110.1 pg/mL [facility] Comment on above: NORMAL REFERENCE RAN GES [...] Testosterone Free/Testosterone.total [Mass fraction] 1.75 % 0.50-2.80 [facility] Comment on above: Performed at: [address] [id number] Director: Simon Ferrer PhD, Phone: [phone] at: - [facility] [id number] Director: Analilia Vaughan MD, Phone: [phone] Glomerular filtration rate ( GFR) estimationOrdered By: Charmaine Montaño on 08-18-2024 Estimated GFR (MDRD) Non-Af Amer 78 mL/min >60 [facility] Comment on above: Non- GFR Calc GFR/1.73 sq M.predicted among non-blacks MDRD (S/P/Bld) [Vol rate/Area] 78 mL/min/{1.73_m2} >60 [facility] Comment on above: Non- GFR Calc Glucose measurementOrdered B y: Charmaine Montaño on 08-18-2024 Glucose [Mass/Vol] 115 mg/dL High 74-106 [facility] Comment on above: Fasting Glucose resu lt from 100 to 125 mg/dL suggests IMPAIRED HOMEOSTASIS per A.D.A. criteria. Hematocrit Auto (Bld) [Volum e fraction]Ordered By: Charmaine Montaño on 08-18-2024 Hematocrit (Bld) [Volume fraction] 38.7 % 37-47 [facility] Hemoglobin A1con 08-18-2024 HbA1c (Bld) [Mass fraction] 5.8 % High 3.8-5.6 [facility] Comment on above: Result Comment: Norm al < 5.7 % Prediabetic 5.7 - 6.4 % Diabetic >or= 6.5 % Please note range changes. Performed By: #### L 3300.1750, L3100.5125, L3100.5060, L3100.5310 #### [facility] [address] [place], [place], [address] Hemoglobin A1c percentageOrd ered By: Charmaine Montaño on 08-18-2024 HbA1c (Bld) [Mass fraction] 5.8 % High 3.8-5.6 [facility] Comment on above: Normal < 5.7 % Predi abetic 5.7 - 6.4 % Diabetic >or= 6.5 % Please note range changes. Hemoglobin measurementOrdere d By: Charmaine Montaño on 08-18-2024 Hemoglobin (Bld) [Mass/Vol] 12.8 g/dL 12.0-15.0 [facility] High density lipoprotein (HD L) measurementOrdered By: Charmaine Montaño on 08-18-2024 Cholesterol in HDL [Mass/Vol] 65 mg/dL >40 [facility] Comment on above: The drugs N-Acetylcy steine and Metamizole may falsely depress this assay. Reference Range HDL <40 mg/dL Low HDL Cholesterol HDL >or= 60 mg/dL High HDL Cholesterol Laboratory - Chemistry and C hemistry - challengeOrdered By: Charmaine Montaño on 08-18-2024 AST [Catalytic activity/Vol] 22 U/L 15-37 [facility] Lipid Profileon 08-18-2024 Cholesterol [Mass/Vol] 218 mg/dL High 200 [facility] Comment on above: Result Comment: <200 mg/dL Desirable 200-240 mg/dL Borderline >240 mg/dL High Risk Performed By: #### L 3300.1750, L3100.5125, L3100.5060, L3100.5310 #### [facility] [address] [place], [address] Cholesterol in HDL [Mass/Vol] 65 mg/dL Normal [facility] Comment on above: Result Comment: The drugs N-Acetylcysteine and Metamizole may falsely depress this assay. Reference Range HDL <40 mg/dL Low HDL Cholesterol HDL >or= 60 mg/dL High HDL Cholesterol Performed By: #### L 3300.1750, L3100.5125, L3100.5060, L3100.5310 #### [facility] [address] [place], [address] Cholesterol in LDL [Mass/Vol] 129 mg/dL Normal 0-130 [facility] Comment on above: Performed By: #### L 3300.1750, L3100.5125, L3100.5060, L3100.5310 #### [facility] [address] [place], [address] Cholesterol in VLDL [Mass/Vol] 24 mg/dL Normal 5-40 [facility] Comment on above: Performed By: #### L 3300.1750, L3100.5125, L3100.5060, L3100.5310 #### [facility] [address] [place], [address] Triglyceride [Mass/Vol] 120 mg/dL Normal [facility] Comment on above: Result Comment: The drugs N-Acetylcysteine and Metamizole may falsely depress this assay. Serum Triglycerides Reference Interval Normal <150 mg/dL Borderline high 150 - 199 mg/dL High 200 - 499 mg/dL Very High > or = 500 mg/dL Performed By: #### L 3300.1750, L3100.5125, L3100.5060, L3100.5310 #### [facility] [place], [address] Low density lipoprotein (LDL ) cholesterol measurementOrdered By: Summer Danyel on 08-18-2024 Cholesterol in LDL [Mass/Vol] 129 mg/dL 0-130 [facility] MCV (mean corpuscular volume ) determinationOrdered By: Summer Danyel on 08-18-2024 MCV (RBC) [Entitic vol] 89.4 fL 81-99 [facility] Mean corpuscular hemoglobin (MCH) determinationOrdered By: Summer Danyel08-18-2024 MCH (RBC) [Entitic mass] 29.6 pg 27.0-32.0 [facility] Mean corpuscular hemoglobin concentration (MCHC) determinationOrdered By: Summer Danyel 08-18-2024 MCHC (RBC) [Mass/Vol] 33.1 g/dL 32-36 [facility] Mean platelet volume determi nationOrdered By: Charmaine Montaño 08-18-2024 Platelet mean volume (Bld) [Entitic vol] 9.1 fL 6.2-12.0 [facility] Platelet countOrdered By: Rox Montaño on 08-18-2024 Platelets (Bld) [#/Vol] 401 10*3/uL 150-450 [facility] Potassium measurementOrdered By: Charmaine Montaño 08-18-2024 Potassium [Moles/Vol] 3.7 mmol/L 3.5-5.1 [facility] RBC Auto (Bld) [#/Vol]Ordere d By: Charmaine Montaño 08-18-2024 RBC (Bld) [#/Vol] 4.33 10*6/uL 4.2-5.4 [facility] Serum anion gap measurementO rdered By: Charmaine Montaño 08-18-2024 Anion gap [Moles/Vol] 7 mmol/L 5-15 [facility] Serum globulin measurementOr dered By: Charmaine Montaño 08-18-2024 Globulin (S) [Mass/Vol] 3.4 g/dL 2.2-4.2 [facility] Serum or plasma alanine [place] otransferase (ALT) measurementOrdered By: Charmaine Montaño on 08-18-2024 ALT [Catalytic activity/Vol] 37 U/L 13-56 [facility] Serum or plasma albumin laura urement (mass/volume)Ordered By: Charmaine Montaño 08-18-2024 Albumin [Mass/Vol] 4.0 g/dL 3.2-5.0 [facility] Serum or plasma alkaline rosa sphatase measurementOrdered By: Charmaine Montaño 08-18-2024 ALP [Catalytic activity/Vol] 60 U/L 45-117 [facility] Serum or plasma calcium laura urement (mass/volume)Ordered By: Charmaine Montaño 08-18-2024 Calcium [Mass/Vol] 9.4 mg/dL 8.5-10.1 [facility] Serum or plasma cholesterol measurement (mass/volume)Ordered By: Charmaine Montaño on 08-18-2024 Cholesterol [Mass/Vol] 218 mg/dL High <200 [facility] Comment on above: <200 mg/dL Desirable 200-240 mg/dL Borderline >240 mg/dL High Risk Serum or plasma cortisol al surement (mass/volume)Ordered By: Charmaine Montaño 08-18-2024 Cortisol [Mass/Vol] 7.30 ug/dL 3.44-22.45 [facility] Comment on above: Adult (AM) 5.27 - 22 .45 ug/dL Adult (PM) 3.44 - 16.76 ug/dL Serum or plasma creatinine m easurement (mass/volume)Ordered By: Charmaine Montaño 08-18-2024 Creatinine [Mass/Vol] 0.83 mg/dL 0.55-1.02 [facility] Comment on above: The validity of the calculated GFR & GFRAA in patients over 70 years has not been determined. Clinical correlation is essential. Serum or plasma free testost erone measurement (mass/volume)Ordered By: Charmaine Montaño 08-18-2024 Testosterone Free [Mass/Vol] <.05 ng/dL Low 0.10-0.85 [facility] Serum or plasma urea nitroge n measurement (mass/volume)Ordered By: Charmaine Montaño 08-18-2024 Urea nitrogen [Mass/Vol] 11 mg/dL 7-18 [facility] Sodium levelOrdered By: [facility] Danyel on 08-18-2024 Sodium [Moles/Vol] 134 mmol/L Low 136-145 [facility] Testosterone Free [Mass/Vol] Ordered By: Charmaine Montaño on 08-18-2024 Free Testosterone <.05 ng/dL Low 0.10-0.85 [facility] Testosterone Free/Testostero ne.total [Mass fraction]Ordered By: Charmaine Montaño on 08-18-2024 Percent Free Testosterone 1.75 % 0.50-2.80 [facility] Comment on above: Performed at: [address] [id number] Director: Simon Ferrer PhD, Phone: [phone] at: [facility] [id number] Director: Analilia Vaughan MD, Phone: [phone] Testosterone, totalOrdered B y: Charmaine Montaño on 08-18-2024 Testosterone [Mass/Vol] ng/dL Low 4-50 [facility] Total proteinOrdered By: Oumar néstor Danyel on 08-18-2024 Protein [Mass/Vol] 7.4 g/dL 6.4-8.2 [facility] Triglycerides measurementOrd ered By: Charmaine Montaño on 08-18-2024 Triglyceride [Mass/Vol] 120 mg/dL <199 [facility] Comment on above: The drugs N-Acetylcy steine and Metamizole may falsely depress this assay.Serum Triglycerides Reference Interval Normal <150 mg/dL Borderline high 150 - 199 mg/dL High 200 - 499 mg/dL Very High > or = 500 mg/dL Very low density lipoprotein (VLDL) cholesterol measurementOrdered By: Charmaine Montaño on 08-18-2024 Very low density lipoprotein (VLDL) cholesterol measurement 24 mg/dL 5-40 [facility] VLDL Cholesterol 24 mg/dL 5-40 [facility] White blood cell (WBC) count Ordered By: Charmaine Montaño on 08-18-2024 WBC (Bld) [#/Vol] 5.8 10*3/uL 4.4-11.0 [facility] Absolute neutrophil countOrd ered By: Analisa Land on 06-30-2024 Neutrophils (Bld) [#/Vol] 4.5 10*3/uL 2.0-7.7 [facility] Albumin to globulin ratioOrd ered By: Analisa Land on 06-30-2024 Albumin/Globulin [Mass ratio] 1.1 {ratio} 0.9-2.4 [facility] Basophil percentageOrdered B y: Analisa Land on 06-30-2024 Basophils/100 WBC (Bld) 0.7 % 0-1 [facility] Bilirubin, totalOrdered By: Analisa Land on 06-30-2024 Bilirubin [Mass/Vol] 0.40 mg/dL 0.20-1.00 [facility] Comment on above: For patients on eltr ombopag therapy, use of Dimension [place] TBIL is not recommended. Blood urea nitrogen (BUN)/cr eatinine ratioOrdered By: Analisa Kellygar on 06-30-2024 Urea nitrogen/Creatinine [Mass ratio] 17.2 mg/mg 10-20 [facility] CBC W/Diff, Automatedon 12-0 Absolute Lymph 1.83 X10 3/uL Normal 0.83-4.51 [facility] Comment on above: Performed By: #### L 3300.1750, L3100.5125, L3100.5060, L3100.5310 #### [facility] [address] [place], [address] Absolute Neut 4.5 X10 3/uL Normal 2.0-7.7 [facility] Comment on above: Performed By: #### L 3300.1750, L3100.5125, L3100.5060, L3100.5310 #### [facility] [address] [place], [address] Basophils/100 WBC (Bld) 0.7 % Normal 0-1 [facility] Comment on above: Performed By: #### L 3300.1750, L3100.5125, L3100.5060, L3100.5310 #### [facility] [address] [place], [address] Eosinophils/100 WBC (Bld) 1.3 % Normal 0-5 [facility] Comment on above: Performed By: #### L 3300.1750, L3100.5125, L3100.5060, L3100.5310 #### [facility] [address] [place], [address] Erythrocyte distribution width (RBC) [Ratio] 12.5 % Normal 11.6-14.6 [facility] Comment on above: Performed By: #### L 3300.1750, L3100.5125, L3100.5060, L3100.5310 #### [facility] [address] [place], [address] Hematocrit (Bld) [Volume fraction] 41.3 % Normal 37-47 [facility] Comment on above: Performed By: #### L 3300.1750, L3100.5125, L3100.5060, L3100.5310 #### [facility] [address] [place], [address] Hemoglobin (Bld) [Mass/Vol] 13.7 g/dL Normal 12.0-15.0 [facility] Comment on above: Performed By: #### L 3300.1750, L3100.5125, L3100.5060, L3100.5310 #### [facility] [address] [place], [address] IG% 0.400 Normal 0.0-0.9 [facility] Comment on above: Result Comment: IG% - Immature Granulocytes (promyelocytes, myelocytes and metamyelocytes) > 1% indicates that a LEFT SHIFT is Present. Performed By: #### L 3300.1750, L3100.5125, L3100.5060, L3100.5310 #### [facility] [address] [place], [address] Lymphocytes/100 WBC (Bld) 25.8 % Normal 19-41 [facility] Comment on above: Performed By: #### L 3300.1750, L3100.5125, L3100.5060, L3100.5310 #### [facility] [address] [place], [address] MCH (RBC) [Entitic mass] 29.8 pg Normal 27.0-32.0 [facility] Comment on above: Performed By: #### L 3300.1750, L3100.5125, L3100.5060, L3100.5310 #### [facility] [address] [place], [address] MCHC (RBC) [Mass/Vol] 33.2 g/dL Normal 32-36 [facility] Comment on above: Performed By: #### L 3300.1750, L3100.5125, L3100.5060, L3100.5310 #### [facility] [address] [place], [address] MCV (RBC) [Entitic vol] 90.0 fL Normal 81-99 [facility] Comment on above: Performed By: #### L 3300.1750, L3100.5125, L3100.5060, L3100.5310 #### [facility] [address] [place], [address] Monocytes/100 WBC (Bld) 9.0 % Normal 0-10 [facility] Comment on above: Performed By: #### L 3300.1750, L3100.5125, L3100.5060, L3100.5310 #### [facility] [address] [place], [address] Neutrophils/100 WBC (Bld) 62.8 % Normal 47-70 [facility] Comment on above: Performed By: #### L 3300.1750, L3100.5125, L3100.5060, L3100.5310 #### [facility] [address] [place], [address] Nucleated RBC (Bld) [#/Vol] 0 10*3/uL Normal 0-5 [facility] Comment on above: Performed By: #### L 3300.1750, L3100.5125, L3100.5060, L3100.5310 #### [facility] [address] [place], [address] Platelet mean volume (Bld) [Entitic vol] 9.8 fL Normal 6.2-12.0 [facility] Comment on above: Performed By: #### L 3300.1750, L3100.5125, L3100.5060, L3100.5310 #### [facility] [address] [place], [address] Platelets (Bld) [#/Vol] 443 10*3/uL Normal 150-450 [facility] Comment on above: Performed By: #### L 3300.1750, L3100.5125, L3100.5060, L3100.5310 #### [facility] [address] [place], [address] RBC (Bld) [#/Vol] 4.59 10*6/uL Normal 4.2-5.4 [facility] Comment on above: Performed By: #### L 3300.1750, L3100.5125, L3100.5060, L3100.5310 #### [facility] [address] [place], [address] RDW SD 40.8 fl Normal 35.1-43.9 [facility] Comment on above: Performed By: #### L 3300.1750, L3100.5125, L3100.5060, L3100.5310 #### [facility] [address] [place], [address] WBC (Bld) [#/Vol] 7.1 10*3/uL Normal 4.4-11.0 [facility] Comment on above: Performed By: #### L 3300.1750, L3100.5125, L3100.5060, L3100.5310 #### [facility] [address] [place], [address] Carbon dioxide measurementOr dered By: Analisa Land on 06-30-2024 CO2 [Moles/Vol] 26.0 mmol/L 21.0-32.0 [facility] Chloride measurementOrdered By: Analisa Land on 06-30-2024 Chloride [Moles/Vol] 101 mmol/L 98-107 [facility] Comprehensive Metabolic Prof ilon 06-30-2024 Albumin [Mass/Vol] 4.0 g/dL Normal 3.2-5.0 [facility] Comment on above: Performed By: #### L 3300.1750, L3100.5125, L3100.5060, L3100.5310 #### [facility] [address] [place], [address] Albumin/Globulin [Mass ratio] 1.1 {ratio} Normal 0.9-2.4 [facility] Comment on above: Performed By: #### L 3300.1750, L3100.5125, L3100.5060, L3100.5310 #### [facility] [address] [place], [address] ALK P 81 U/L Normal 45-117 [facility] Comment on above: Performed By: #### L 3300.1750, L3100.5125, L3100.5060, L3100.5310 #### [facility] [address] [place], [address] ALT [Catalytic activity/Vol] 81 U/L High 13-56 [facility] Comment on above: Performed By: #### L 3300.1750, L3100.5125, L3100.5060, L3100.5310 #### [facility] [address] [place], [address] AST [Catalytic activity/Vol] 46 U/L High 15-37 [facility] Comment on above: Performed By: #### L 3300.1750, L3100.5125, L3100.5060, L3100.5310 #### [facility] [address] [place], [address] Bilirubin [Mass/Vol] 0.40 mg/dL Normal 0.20-1.00 [facility] Comment on above: Result Comment: For patients on eltrombopag therapy, use of Dimension [place] TBIL is not recommended. Performed By: #### L 3300.1750, L3100.5125, L3100.5060, L3100.5310 #### [facility] [address] [place], [address] BUN/CRE 17.2 RATIO Normal 10-20 [facility] Comment on above: Performed By: #### L 3300.1750, L3100.5125, L3100.5060, L3100.5310 #### [facility] [address] [place], [address] CA,Total 10.0 mg/dL Normal 8.5-10.1 [facility] Comment on above: Performed By: #### L 3300.1750, L3100.5125, L3100.5060, L3100.5310 #### [facility] [address] [place], [address] Chloride [Moles/Vol] 101 mmol/L Normal 98-107 [facility] Comment on above: Performed By: #### L 3300.1750, L3100.5125, L3100.5060, L3100.5310 #### [facility] [address] [place], [address] CO2 [Moles/Vol] 26.0 mmol/L Normal 21.0-32.0 [facility] Comment on above: Performed By: #### L 3300.1750, L3100.5125, L3100.5060, L3100.5310 #### [facility] [address] [place], [address] Creatinine [Mass/Vol] 0.70 mg/dL Normal 0.55-1.02 [facility] Comment on above: Result Comment: The validity of the calculated GFR GFRAA in patients over 70 years has not been determined. Clinical correlation is essential. Performed By: #### L 3300.1750, L3100.5125, L3100.5060, L3100.5310 #### [facility] [address] [place], [address] EST GFR - AA 115 mL/min Normal >60 [facility] Comment on above: Result Comment: Afri can [place] GFR Calc Performed By: #### L 3300.1750, L3100.5125, L3100.5060, L3100.5310 #### [facility] [address] [place], [address] GAP 9 Normal 5-15 [facility] Comment on above: Performed By: #### L 3300.1750, L3100.5125, L3100.5060, L3100.5310 #### [facility] [address] [place], [address] GFR/1.73 sq M.predicted among non-blacks MDRD (S/P/Bld) [Vol rate/Area] 95 mL/min/{1.73_m2} Normal >60 [facility] Comment on above: Result Comment: Non- GFR Calc Performed By: #### L 3300.1750, L3100.5125, L3100.5060, L3100.5310 #### [facility] [address] [place], [address] Globulin (S) [Mass/Vol] 3.8 g/dL Normal 2.2-4.2 [facility] Comment on above: Performed By: #### L 3300.1750, L3100.5125, L3100.5060, L3100.5310 #### [facility] [address] [place], [address] Glucose [Mass/Vol] 108 mg/dL High 74-106 [facility] Comment on above: Result Comment: Fast ing Glucose result from 100 to 125 mg/dL suggests IMPAIRED HOMEOSTASIS per A.D.A. criteria. Performed By: #### L 3300.1750, L3100.5125, L3100.5060, L3100.5310 #### [facility] [address] [place], [address] Potassium [Moles/Vol] 3.9 mmol/L Normal 3.5-5.1 [facility] Comment on above: Performed By: #### L 3300.1750, L3100.5125, L3100.5060, L3100.5310 #### [facility] [address] [place], [address] Sodium [Moles/Vol] 136 mmol/L Normal 136-145 [facility] Comment on above: Performed By: #### L 3300.1750, L3100.5125, L3100.5060, L3100.5310 #### [facility] [address] [place], [address] T PROT 7.8 g/dL Normal 6.4-8.2 [facility] Comment on above: Performed By: #### L 3300.1750, L3100.5125, L3100.5060, L3100.5310 #### [facility] [address] [place], [address] Urea nitrogen [Mass/Vol] 12 mg/dL Normal 7-18 [facility] Comment on above: Performed By: #### L 3300.1750, L3100.5125, L3100.5060, L3100.5310 #### [facility] [address] [place], [address] Eosinophil percentageOrdered By: Analisa Land on 06-30-2024 Eosinophils/100 WBC (Bld) 1.3 % 0-5 [facility] Erythrocyte distribution wid th ratioOrdered By: Analisa Land on 06-30-2024 Erythrocyte distribution width (RBC) [Ratio] 12.5 % 11.6-14.6 [facility] Erythrocyte distribution wid th standard deviationOrdered By: Analisa Land on 06-30-2024 Erythrocyte distribution width (RBC) [Entitic vol] 40.8 fL 35.1-43.9 [facility] Estimated glomerular filtrat ion rate (GFR) AmericanOrdered By: Analisa Land on 06-30-2024 Estimated GFR (MDRD) Amer 115 mL/min >60 [facility] Comment on above: GFR Calc Glomerular filtration rate ( GFR) estimationOrdered By: Analisa Land on 06-30-2024 Estimated GFR (MDRD) Non-Af Amer 95 mL/min >60 [facility] Comment on above: Non- GFR Calc Glucose measurementOrdered B y: Analisa Land on 06-30-2024 Glucose [Mass/Vol] 108 mg/dL High 74-106 [facility] Comment on above: Fasting Glucose resu lt from 100 to 125 mg/dL suggests IMPAIRED HOMEOSTASIS per A.D.A. criteria. Hand Min 3 Viewson 4 Hand Min 3 Views [facility] Imaging Services [address] [place] [address] Hand Min 3 Views MR#: [id number] Acct: [id number] Name: DINORAH SIMPSON Rep #: [id number] : 1975 F 49 From: Issac Bartlett MD PCP: Dr. Siddhartha Pedroza, DO Status: REG CLI Study: Hand Min 3 Views Date of Exam: 06/30/24 Exam# [id number] Ordering Dr: Analisa Land APRICOT W[employer]ER-C [id number] STUDY: X-RAY - LEFT HAND REASON FOR [...] Signed: Issac Bartlett MD at 8:34 EST Reading Location ID and State: [address] [place] [address] , Service support , CC: KARINE Land; Dr. Siddhartha Pedroza, General Manager [employer]: Signed Normal [facility] Hematocrit Auto (Bld) [Volum e fraction]Ordered By: Analisa Land on 06-30-2024 Hematocrit (Bld) [Volume fraction] 41.3 % 37-47 [facility] Hemoglobin measurementOrdere d By: Analisa Land on 06-30-2024 Hemoglobin (Bld) [Mass/Vol] 13.7 g/dL 12.0-15.0 [facility] Immature granulocytes/100 WB C Auto (Bld)Ordered By: Analisa Land on 06-30-2024 Immature granulocytes/100 WBC (Bld) 0.400 % 0.0-0.9 [facility] Comment on above: IG% - Immature Granu locytes (promyelocytes, myelocytes and metamyelocytes) > 1% indicates that a LEFT SHIFT is Present. Laboratory - Chemistry and C hemistry - challengeOrdered By: Analisa Land on 06-30-2024 AST [Catalytic activity/Vol] 46 U/L High 15-37 [facility] Lymphocytes Auto (Unsp spec) [#/Vol]Ordered By: Analisa Land on 06-30-2024 Lymphocytes (Bld) [#/Vol] 1.83 10*3/uL 0.83-4.51 [facility] Lymphocytes/100 WBC Auto (Un sp spec)Ordered By: Analisa Land on 06-30-2024 Lymphocytes/100 WBC (Bld) 25.8 % 19-41 [facility] MCV (mean corpuscular volume ) determinationOrdered By: Analisa Land on 06-30-2024 MCV (RBC) [Entitic vol] 90.0 fL 81-99 [facility] Mean corpuscular hemoglobin (MCH) determinationOrdered By: Analisa Land on 06-30-2024 MCH (RBC) [Entitic mass] 29.8 pg 27.0-32.0 [facility] Mean corpuscular hemoglobin concentration (MCHC) determinationOrdered By: Analisa Land on 06-30-2024 MCHC (RBC) [Mass/Vol] 33.2 g/dL 32-36 [facility] Mean platelet volume determi nationOrdered By: Analisa Land on 06-30-2024 Platelet mean volume (Bld) [Entitic vol] 9.8 fL 6.2-12.0 [facility] Monocyte percentageOrdered B y: Analisa Land on 06-30-2024 Monocytes/100 WBC (Bld) 9.0 % 0-10 [facility] Neutrophil percentageOrdered By: Analisa Land on 06-30-2024 Neutrophils/100 WBC (Bld) 62.8 % 47-70 [facility] Nucleated red blood cell per centageOrdered By: Analisa Land on 06-30-2024 Nucleated RBC/100 WBC (Bld) [Ratio] 0 % 0-5 [facility] Platelet countOrdered By: Ra rodrigo Land on 06-30-2024 Platelets (Bld) [#/Vol] 443 10*3/uL 150-450 [facility] Potassium measurementOrdered By: Analisa Land on 06-30-2024 Potassium [Moles/Vol] 3.9 mmol/L 3.5-5.1 [facility] RBC Auto (Bld) [#/Vol]Ordere d By: Analisa Land on 06-30-2024 RBC (Bld) [#/Vol] 4.59 10*6/uL 4.2-5.4 [facility] Serum anion gap measurementO rdered By: Analisa Land on 06-30-2024 Anion gap [Moles/Vol] 9 mmol/L 5-15 [facility] Serum globulin measurementOr dered By: Analisa Land on 06-30-2024 Globulin (S) [Mass/Vol] 3.8 g/dL 2.2-4.2 [facility] Serum or plasma alanine [place] otransferase (ALT) measurementOrdered By: Analisa Land on 06-30-2024 ALT [Catalytic activity/Vol] 81 U/L High 13-56 [facility] Serum or plasma albumin laura urement (mass/volume)Ordered By: Analisa Land on 06-30-2024 Albumin [Mass/Vol] 4.0 g/dL 3.2-5.0 [facility] Serum or plasma alkaline [place] sphatase measurementOrdered By: Analisa Land on 06-30-2024 ALP [Catalytic activity/Vol] 81 U/L 45-117 [facility] Serum or plasma calcium laura urement (mass/volume)Ordered By: Analisa Land 06-30-2024 Calcium [Mass/Vol] 10.0 mg/dL 8.5-10.1 [facility] Serum or plasma creatinine m easurement (mass/volume)Ordered By: Analisa Land 06-30-2024 Creatinine [Mass/Vol] 0.70 mg/dL 0.55-1.02 [facility] Comment on above: The validity of the calculated GFR & GFRAA in patients over 70 years has not been determined. Clinical correlation is essential. Serum or plasma urea nitroge n measurement (mass/volume)Ordered By: Analisa Land on 06-30-2024 Urea nitrogen [Mass/Vol] 12 mg/dL 7-18 [facility] Sodium levelOrdered By: Lilliana Land on 06-30-2024 Sodium [Moles/Vol] 136 mmol/L 136-145 [facility] Total proteinOrdered By: Andi Land on 06-30-2024 Protein [Mass/Vol] 7.8 g/dL 6.4-8.2 [facility] White blood cell (WBC) count Ordered By: Analisa Land on 06-30-2024 WBC (Bld) [#/Vol] 7.1 10*3/uL 4.4-11.0 [facility] Absolute lymphocyte countOrd ered By: Analisa Land on 06-06-2023 Lymphocytes Auto (Unsp spec) [#/Vol] 2.08 10*3/uL 0.83-4.51 [facility] Basophil percentageOrdered B y: Analisa Land on 06-06-2023 Basophils/100 WBC (Bld) 0.6 % 0-1 [facility] Bilirubin [Mass/Vol] 0.30 mg/dL 0.20-1.00 [facility] Comment on above: For patients on eltr ombopag therapy, use of Dimension [place] TBIL is not recommended. Chloride [Moles/Vol] 100 mmol/L 98-107 [facility] Cholesterol [Mass/Vol] 254 mg/dL <200 [facility] Comment on above: <200 mg/dL Desirable 200-240 mg/dL Borderline >240 mg/dL High Risk Eosinophils/100 WBC (Bld) 0.8 % 0-5 [facility] Glucose [Mass/Vol] 109 mg/dL 74-106 [facility] Comment on above: Fasting Glucose resu lt from 100 to 125 mg/dL suggests IMPAIRED HOMEOSTASIS per A.D.A. criteria. Neutrophils (Bld) [#/Vol] 3.8 10*3/uL 2.0-7.7 [facility] Neutrophils/100 WBC (Bld) 58.7 % 47-70 [facility] Potassium [Moles/Vol] 4.0 mmol/L 3.5-5.1 [facility] Protein [Mass/Vol] 7.9 g/dL 6.4-8.2 [facility] Sodium [Moles/Vol] 138 mmol/L 136-145 [facility] Triglyceride [Mass/Vol] 170 mg/dL <199 [facility] Comment on above: The drugs N-Acetylcy steine and Metamizole may falsely depress this assay.Serum Triglycerides Reference Interval Normal <150 mg/dL Borderline high 150 - 199 mg/dL High 200 - 499 mg/dL Very High > or = 500 mg/dL WBC (Bld) [#/Vol] 6.5 10*3/uL 4.4-11.0 [facility] Blood erythrocytes count (nu mber/volume)Ordered By: Analisa Land on 06-06-2023 RBC (Bld) [#/Vol] 4.53 10*6/uL 4.2-5.4 [facility] Blood hemoglobin measurement (mass/volume)Ordered By: Analisa Land on 06-06-2023 Hemoglobin (Bld) [Mass/Vol] 13.4 g/dL 12.0-15.0 [facility] Blood lymphocytes/100 leukoc ytesOrdered By: Analisaramo Land on 06-06-2023 Lymphocytes/100 WBC (Bld) 32.0 % 19-41 [facility] Blood monocytes/100 leukocyt esOrdered By: Carney Emery on 06-06-2023 Monocytes/100 WBC (Bld) 7.7 % 0-10 [facility] Blood platelet mean volumeOr dered By: Analisa Land on 06-06-2023 Platelet mean volume (Bld) [Entitic vol] 9.5 fL 6.2-12.0 [facility] Determination of erythrocyte mean corpuscular volume (MCV)Ordered By: Analisaramo Land on 06-06-2023 MCV (RBC) [Entitic vol] 90.5 fL 81-99 [facility] Hematocrit Auto (Bld) [Volum e fraction]Ordered By: Analisaramo Land on 06-06-2023 Hematocrit (Bld) [Volume fraction] 41.0 % 37-47 [facility] - Chemistry and C hemistry - challengeOrdered By: Carney Emery on 06-06-2023 ALP [Catalytic activity/Vol] 77 U/L 45-117 [facility] ALT [Catalytic activity/Vol] 56 U/L 13-56 [facility] CO2 [Moles/Vol] 30.0 mmol/L 21.0-32.0 [facility] Globulin (S) [Mass/Vol] 3.8 g/dL 2.2-4.2 [facility] Urea nitrogen/Creatinine [Mass ratio] 13.2 mg/mg 10-20 [facility] - Hematology and Cell countsOrdered By: Analisa Land on 06-06-2023 Erythrocyte distribution width (RBC) [Entitic vol] 40.1 fL 35.1-43.9 [facility] Erythrocyte distribution width (RBC) [Ratio] 12.1 % 11.6-14.6 [facility] Immature granulocytes/100 WBC (Bld) 0.200 % 0.0-0.9 [facility] Comment on above: IG% - Immature Granu locytes (promyelocytes, myelocytes and metamyelocytes) > 1% indicates that a LEFT SHIFT is Present. MCH (RBC) [Entitic mass] 29.6 pg 27.0-32.0 [facility] Nucleated RBC/100 WBC (Bld) [Ratio] 0 % 0-5 [facility] MCHC Auto (RBC) [Mass/Vol]Or dered By: Analisa Land on 06-06-2023 MCHC (RBC) [Mass/Vol] 32.7 g/dL 32-36 [facility] No Panel InformationOrdered By: Analisa Land on 06-06-2023 Estimated GFR (MDRD) Amer 85 mL/min >60 [facility] Comment on above: GFR Calc Estimated GFR (MDRD) Non-Af Amer 70 mL/min >60 [facility] Comment on above: Non- GFR Calc Platelets bldOrdered By: Andi Land on 06-06-2023 Platelets (Bld) [#/Vol] 424 10*3/uL 150-450 [facility] Serum or plasma albumin luara urement (mass/volume)Ordered By: Analisa Land on 06-06-2023 Albumin [Mass/Vol] 4.1 g/dL 3.2-5.0 [facility] Serum or plasma albumin/glob ulin mass ratioOrdered By: Analisa Land on 06-06-2023 Albumin/Globulin [Mass ratio] 1.1 {ratio} 0.9-2.4 [facility] Serum or plasma calcium laura urement (mass/volume)Ordered By: Analisa Land on 06-06-2023 Calcium [Mass/Vol] 9.7 mg/dL 8.5-10.1 [facility] Serum or plasma cholesterol in HDL measurement (mass/volume)Ordered By: Analisa Land on 06-06-2023 Cholesterol in HDL [Mass/Vol] 59 mg/dL >40 [facility] Comment on above: The drugs N-Acetylcy steine and Metamizole may falsely depress this assay. Reference Range HDL <40 mg/dL Low HDL Cholesterol HDL >or= 60 mg/dL High HDL Cholesterol Serum or plasma cholesterol in VLDL measurement (mass/volume)Ordered By: Analisa Land on 06-06-2023 Cholesterol in VLDL [Mass/Vol] 34 mg/dL 5-40 [facility] Serum or plasma creatinine m easurement (mass/volume)Ordered By: Analisa Land on 06-06-2023 Creatinine [Mass/Vol] 0.91 mg/dL 0.55-1.02 [facility] Comment on above: The validity of the calculated GFR & GFRAA in patients over 70 years has not been determined. Clinical correlation is essential. Serum or plasma low density lipoprotein (LDL) cholesterol measurement (mass/volume)Ordered By: Analisa Land on 06-06-2023 Cholesterol in LDL [Mass/Vol] 161 mg/dL 0-130 [facility] Serum or plasma urea nitroge n measurement (mass/volume)Ordered By: Analisaramo Land on 06-06-2023 Urea nitrogen [Mass/Vol] 12 mg/dL 7-18 [facility] Thin prep Papanicolaou smear with manual screeningOrdered By: Carney Emery on 06-06-2023 Thin prep Papanicolaou smear with manual screening 29 U/L 15-37 [facility] Thin prep Papanicolaou smear with manual screening 8 5-15 [facility] Basophil percentageOrdered B y: Dr. Pedroza on 09-12-2022 Basophil percentage Not Reportable [facility] Erythrocyte sedimentation ra teOrdered By: Dr. Pedroza on 09-12-2022 ESR (Bld) [Velocity] 6 mm/h 0-30 [facility] No Panel InformationOrdered By: Dr. Pedroza on 09-12-2022 Anti-Nuclear Antibody Screen Negative Negative [facility] Comment on above: Performed at: 65 [address] [id number] Director: Simon Ferrer PhD, Phone: [phone] Centromere B Antibody Not Reportable [facility] LANDMAN Antibody Not Reportable [facility] Serum DNA double strand anti body assay (units/volume)Ordered By: Dr. Pedroza on 09-12-2022 DNA double strand Ab Qn (S) Not Reportable [facility] Serum Cristela-1 antibody assay (u nits/volume)Ordered By: Dr. Pedroza on 09-12-2022 Cristela-1 extractable nuclear Ab Qn (S) Not Reportable [facility] Serum Scl-70 extractable nuc lear antibody assay (units/volume)Ordered By: Dr. Pedroza on 09-12-2022 SCL-70 extractable nuclear Ab Qn (S) Not Reportable [facility] Serum Mi extractable nucl ear antibody detectionOrdered By: Dr. Pedroza on 09-12-2022 Mi extractable nuclear Ab Ql (S) Not Reportable [facility] Serum cyclic citrullinated p eptide IgG antibody assay (units/volume)Ordered By: Dr. Pedroza on 09-12-2022 Cyclic citrullinated peptide IgG Qn 5 units 0-19 [facility] Comment on above: Negative <20 Weak po sitive 20 - 39 Moderate positive 40 - 59 Strong positive >59Performed at: [place] [id number] Director: Simon Ferrer PhD, Phone: [phone] Serum or plasma C reactive p rotein measurement (mass/volume)Ordered By: Dr. Pedroza on 09-12-2022 CRP [Mass/Vol] mg/L 0.0-3.0 [facility] Comment on above: C-Reactive Protein ( CRP) provides useful information for thediagnosis, therapy and monitoring of inflammatory processesand associated diseases. For the evaluation of Relative Riskfor Cardiovascular Disease, a High Sensitivity CRP (HSCRP)should be ordered. Serum rheumatoid factor dete ctionOrdered By: Dr. Pedroza on 09-12-2022 Rheumatoid factor Ql (S) < 10.0 IU/mL <15 [facility] No Panel Informationon 05-17 Ionized Calcium 5.4 mg/dL 4.5-5.6 [facility] Work Phone: Comment on above: Performed at: [facility] [id number] [place], [place] [id number] Director: Simon Ferrer PhD, Phone: [phone] Parathyroid Hormone (Intact) 24.2 pg/mL 18.4-80.1 [facility] Work Phone: Vitamin D 25-Hydroxy 29.4 ng/mL [facility] Work Phone: Comment on above: Vitamin D 25(OH) Sta tus Range Deficiency <20 ng/mL (50nmol/L) Insufficiency 20 - 30 ng/mL (50 - 75 nmol/L) Sufficiency 30 - 100 ng/mL (75 - 250 nmol/L) Toxicity >100 ng/mL (>250 nmol/L) Serum or plasma calcitriol m easurement (mass/volume)on 05-17-2022 1,25-dihydroxyvitamin D3 [Mass/Vol] 59.3 pg/mL 24.8-81.5 [facility] Work Phone: Comment on above: Performed at: [facility] [address] [id number] Director: Analilia Vaughan MD, Phone: [phone] ANES POSTPROC EVALon 022 ANES POSTPROC EVAL HNO ID: [id number] Author: Bishop Frankel DO Service: Anesthesiology Author Type: Anesthesiologist Type: Anesthesia Postprocedure Evaluation Filed: 04/22/2022 3:37 PM Note Text: POST ANESTHESIA EVALUATION NOTE : 1975 Procedure Summary Date: 04/22/22 Room / Location: OR05 / SP OR Anesthesia Start: 813 Anesthesia Stop: 1257 Procedure: REDUCTION BREAST BILATERAL (Bilateral: Breast) Diagnosis: [...] April 22, 2022 TIME: 3:37 PM CSN: [id number] [facility] ANES PRE-OPon 04-22-2022 ANES PRE-OP HNO ID: [id number] Author: Mynor Marroquin MD Service: Anesthesiology Author Type: Physician Type: Anesthesia Preprocedure Evaluation Filed: 04/22/2022 7:02 AM Note Text: ANESTHESIOLOGY DAY OF SURGERY NOTE : 1975 Procedure Information Date/Time: 04/22/22 0800 Procedure: REDUCTION BREAST BILATERAL (Bilateral: Breast) Location: OR / SP OR Surgeons: Siddhartha Warren DO Estimated body mass index is 27.4 kg/m? [...] and consent discussed: yes. Patient / Responsible Republican agrees to proceed: yes Patient / Surrogate [...] April 22, 2022 TIME: 6:49 AM CSN: [id number] [facility] BRIEF OP NOTon 04-22-2022 BRIEF OP NOT HNO ID: [id number] Author: Adama Dunn MD Service: Plastic Surgery Author Type: Resident Type: Brief Op Note Filed: 04/22/2022 12:58 PM Note Text: PLASTIC SURGERY - BRIEF OP NOTE Patient Name: Dinorah iSmpson Log ID: [id number] Surgery Date: 04/22/2022 Surgeon(s) and Continuous Pickling Line Pickler(s): Surgeon(s) and Role: * Siddhartha Warren DO [...] BREAST REDUCTION MAMMOPLASTY RIGHT SURGICAL PATHOLOGY Siddhartha Warren, DO 04/22/2022 8:38 AM B : Central Tissue BREAST REDUCTION MAMMOPLASTY RIGHT SURGICAL PATHOLOGY Siddhartha Warren, DO 04/22/2022 8:38 AM C : Medial Tissue BREAST REDUCTION MAMMOPLASTY RIGHT SURGICAL PATHOLOGY Siddhartha Warren, DO 04/22/2022 8:38 AM D : Lateral Tissue BREAST REDUCTION MAMMOPLASTY LEFT SURGICAL PATHOLOGY Siddhartha Warren, DO 04/22/2022 8:39 AM E : Cental Tissue BREAST REDUCTION MAMMOPLASTY LEFT SURGICAL PATHOLOGY Siddhartha Warren, DO 04/22/2022 8:39 AM F : Medial Tissue BREAST REDUCTION MAMMOPLASTY LEFT SURGICAL PATHOLOGY Siddhartha Warren, DO 04/22/2022 8:39 AM Complications: None Preop Diagnosis Code(s): Cervicalgia [M54.2] Pain in thoracic spine [M54.6] Mastodynia [N64.4] Dermatitis [L30.9] Hypertrophy of breast [N62] Postop Diagnosis: Same Post-op Plan: Home Adama Dunn MD Plastic Surgery Personal: [phone] [employer]ator-Weekends and after 5pm: [id number] April 22, 2022 [facility] HISTORY PHYSICALon HISTORY PHYSICAL HNO ID: [id number] Author: Adalberto Daigle PA-C Service: Plastic Surgery Author Type: Physician Continuous Pickling Line Pickler Type: HANDP Filed: 04/22/2022 7:33 AM Note [...] PAIN, N/V/D Medication reconciliation list reviewed in [facility]. Past medical history, past surgical history, social history and family history reviewed and updated in [facility]. ALLERGIES Allergies: Penicillins Rash SEE [facility] FOR VITALS BP 136/82 Pulse 86 Temp [...] Simpson DATE: 04/22/2022 TIME: 7:25 AM Normal [facility] OPERATIVE NOon 04-22-2022 OPERATIVE NO HNO ID: [id number] Author: Siddhartha Warren DO Service: Plastic Surgery Author Type: Physician Type: Operative Report Filed: 04/29/2022 1:35 PM Note Text: [facility] - Operative Report DINORAH SIMPSON : 1975 AGE: 47. SEX: F PATIENT TYPE: A HOSP SVC: PLAS LOCATION: [facility] ATTENDING PHYSICIAN: DEISY NUMBER: [id number] DATE OF SURGERY/PROCEDURE: 04/22/2022 INCISION/PROCEDURE START TIME: 8:50 AM INCISION CLOSE/PROCEDURE END TIME: 12:36 PM PREOPERATIVE DIAGNOSIS: 1. Bilateral mammary hyperplasia. 2. Cervical thoracic sprain strain. 3. Mastodynia of the breasts. 4. Dermatitis of the breast. POSTOPERATIVE DIAGNOSIS: 1. Bilateral mammary hyperplasia. 2. Cervical thoracic sprain strain. 3. Mastodynia of the breasts. 4. Dermatitis of the breast. SURGEON: Siddhartha Warren DO SR. DIRECTOR: Adama Dunn, resident. SURGERY/PROCEDURE: 1. Reduction mammoplasty, [...] 4-0 Prolene. Excellent capillary refill was noted. Nixa were sequentially removed and replaced with 3-0 [...] PACU in satisfactory condition. Siddhartha Warren DO MF:[id number] /[id number] [facility] SURGICAL PATHOLOGYon 022 CASE REPORT Normal [facility] Comment on above: Order Comment: Speci men Type: TISSUE SPECIMEN Ordering Facility: [facility] Address: [address] [place] [address] Result Comment: Surg ica Pathology Report Case: [id number] Authorizing Provider: Siddhartha Warren DO Collected: 04/22/2022 08:38 AM Ordering Location: [facility] Received: 04/22/2022 02:24 PM Surgical Services Pathologist: Swapna Tenorio MD Specimens: A) - BREAST REDUCTION MAMMOPLASTY RIGHT, Lateral B) - BREAST REDUCTION MAMMOPLASTY RIGHT, Central C) - BREAST REDUCTION MAMMOPLASTY RIGHT, Medial D) - BREAST REDUCTION MAMMOPLASTY LEFT, Lateral E) - BREAST REDUCTION MAMMOPLASTY LEFT, Cental F) - BREAST REDUCTION MAMMOPLASTY LEFT, Medial Performed By: #### S #### [facility] CLIA [id number] [address] [place] [address] OF [facility] CLINICAL HISTORY Normal [facility] Comment on above: Order Comment: Speci men Type: TISSUE SPECIMEN Ordering Facility: [facility] Address: [address] [place] [address] Result Comment: Pre- op diagnosis: Cervicalgia [M54.2] Pain in thoracic spine [M54.6] Mastodynia [N64.4] Dermatitis [L30.9] Hypertrophy of breast [N62] Performed By: #### S #### [facility] CLIA [id number] [address] [place] [address] OF [facility] FINAL DIAGNOSIS Normal [facility] Comment on above: Order Comment: Speci [facility] Type: TISSUE SPECIMEN Ordering Facility: [facility] Address: [address] [place] [address] Result Comment: A - C. Right breast, [...] CNB/KM 04/23/22 Performed By: #### S #### [facility] CLIA [id number] [address] [place] [address] [place] FINAL PERFORMING LAB Normal [facility] Comment on above: Order Comment: Speci men Type: TISSUE SPECIMEN Ordering Facility: [facility] Address: [address] [place] [address] Result Comment: Diag nostic interpretation performed at [facility], [address] [place] [address] CLIA# [id number] Family Practice Nurse Practitioner: Manav Daly M.D. Performed By: #### S #### [facility] CLIA [id number] [address] [place] [address] GROSS DESCRIPTION Normal [facility] Comment on above: Order Comment: Speci men Type: TISSUE SPECIMEN Ordering Facility: [facility] Address: [address] [place] [address] Result Comment: A. B REAST REDUCTION MAMMOPLASTY [...] white-pink fibrous tissue. No lesions are identified. Water Commissioner sections to include skin are submitted in [...] white-pink fibrous tissue. No lesions are identified. Water Commissioner sections to include skin are submitted in [...] white-pink fibrous tissue. No lesions are identified. Water Commissioner sections to include skin are submitted in [...] white-pink fibrous tissue. No lesions are identified. Water Commissioner sections to include skin are submitted in [...] white-pink fibrous tissue. No lesions are identified. Water Commissioner sections to include skin are submitted in [...] white-pink fibrous tissue. No lesions are identified. Water Commissioner sections to include skin are submitted in F1-F2. RJ April 22, 2022 5:15 PM Gross examination performed at [facility], [address] [place] [address] Performed By: #### S #### [facility] CLIA [id number] [address] [place] [address] [place] [address] [place] Basic metabolic 2000 panelon 04-18-2022 Anion gap [Moles/Vol] 10 mmol/L Normal 9-18 [facility] Comment on above: Order Comment: Speci men Type: BLOOD SPECIMEN Ordering Facility: [facility] Address: [address] [place] [address] Performed By: #### 2 4321-2 #### [facility] CLIA [id number] [address] [place] [address] [place] Calcium [Mass/Vol] 10.4 mg/dL High 8.5-10.2 [facility] Comment on above: Order Comment: Speci men Type: BLOOD SPECIMEN Ordering Facility: [facility] Address: [address] [place] [address] Performed By: #### 2 4321-2 #### [facility] CLIA [id number] [address] [place] [address] [place] Chloride [Moles/Vol] 101 mmol/L Normal 97-105 [facility] Comment on above: Order Comment: Speci men Type: BLOOD SPECIMEN Ordering Facility: [facility] Address: [address] [place] [address] Performed By: #### 2 4321-2 #### [facility] CLIA [id number] [address] [place] [address] [place] CO2 [Moles/Vol] 28 mmol/L Normal 22-30 [facility] Comment on above: Order Comment: Speci men Type: BLOOD SPECIMEN Ordering Facility: [facility] Address: [address] [place] [address] Performed By: #### 2 4321-2 #### [facility] CLIA [id number] [address] [place] [address] [place] Creatinine [Mass/Vol] 0.81 mg/dL Normal 0.58-0.96 [facility] Comment on above: Order Comment: Speci men Type: BLOOD SPECIMEN Ordering Facility: [facility] Address: [address] [place], [place] [address] Performed By: #### 2 4321-2 #### [facility] CLIA [id number] [address] [place] [address] [place] ESTIMATED GLOMERULAR FILTRATION RATE 90 mL/min/1.73m??? Normal >=60 [facility] Comment on above: Order Comment: Alisa mclain Type: BLOOD SPECIMEN Ordering Facility: [facility] Address: [address] [place] [address] Result Comment: Roxanne mated Glomerular Filtration Rate [...] GFR. Performed By: #### 2 4321-2 #### [facility] [id number] [address] [place] [address] [place] Glucose [Mass/Vol] 124 mg/dL High 74-99 [facility] Comment on above: Order Comment: Alisa mclain Type: BLOOD SPECIMEN Ordering Facility: [facility] Address: [address] [place] [address] Result Comment: The [place] Diabetes Association (ADA) provides guidance for cutoff [...] Standards of Medical Care in Diabetes 2016, [place] [employer] Association. Diabetes Care. 2016.39(Suppl 1). Performed By: #### 2 4321-2 #### [facility] CLIA [id number] [address] [place] [address] [place] Potassium [Moles/Vol] 3.7 mmol/L Normal 3.7-5.1 [facility] Comment on above: Order Comment: Speci men Type: BLOOD SPECIMEN Ordering Facility: [facility] Address: [address] [place] [address] Performed By: #### 2 4321-2 #### [facility] CLIA [id number] [address] [place] [address] [place] Sodium [Moles/Vol] 139 mmol/L Normal 136-144 [facility] Comment on above: Order Comment: Speci men Type: BLOOD SPECIMEN Ordering Facility: [facility] Address: [address] [place] [address] Performed By: #### 2 4321-2 #### [facility] [id number] [address] [place] [address] [place] Urea nitrogen [Mass/Vol] 17 mg/dL Normal 7-21 [facility] Comment on above: Order Comment: Speci men Type: BLOOD SPECIMEN Ordering Facility: [facility] Address: [address] [place] [address] Performed By: #### 2 4321-2 #### [facility] CLIA [id number] [address] [place] [address] [place] CBC W Auto Differential pane l (Bld)on 04-18-2022 Basophils (Bld) [#/Vol] 0.06 10*3/uL Normal <0.11 [facility] Comment on above: Order Comment: Speci men Type: BLOOD SPECIMEN Ordering Facility: [facility] Address: [address] [place] [address] Performed By: #### 5 7021-8 #### [facility] CLIA [id number] [address] [place] [address] [place] Basophils/100 WBC (Bld) 0.7 % Normal [facility] Comment on above: Order Comment: Speci men Type: BLOOD SPECIMEN Ordering Facility: [facility] Address: [address] [place] [address] Performed By: #### 5 7021-8 #### [facility] CLIA [id number] [address] [place] [address] [place] Differential cell count method Nom (Bld) Auto Normal [facility] Comment on above: Order Comment: Speci men Type: BLOOD SPECIMEN Ordering Facility: [facility] Address: [address] [place] [address] Performed By: #### 5 7021-8 #### [facility] CLIA [id number] [address] [place] [address] [place] Eosinophils (Bld) [#/Vol] 0.06 10*3/uL Normal <0.46 [facility] Comment on above: Order Comment: Speci men Type: BLOOD SPECIMEN Ordering Facility: [facility] Address: [address] [place] [address] Performed By: #### 5 7021-8 #### [facility] CLIA [id number] [address] [place] [address] [place] Eosinophils/100 WBC (Bld) 0.7 % Normal [facility] Comment on above: Order Comment: Speci men Type: BLOOD SPECIMEN Ordering Facility: [facility] Address: [address] [place] [address] Performed By: #### 5 7021-8 #### [facility] CLIA [id number] [address] [place] [address] [place] Erythrocyte distribution width (RBC) [Ratio] 12.6 % Normal 11.5-15.0 [facility] Comment on above: Order Comment: Speci men Type: BLOOD SPECIMEN Ordering Facility: [facility] Address: [address] [place] [address] Performed By: #### 5 7021-8 #### [facility] CLIA [id number] [address] [place] [address] Hematocrit (Bld) [Volume fraction] 39.5 % Normal 36.0-46.0 [facility] Comment on above: Order Comment: Speci men Type: BLOOD SPECIMEN Ordering Facility: [facility] Address: [address] [place] [address] Performed By: #### 5 7021-8 #### [facility] CLIA [id number] [address] [place] [address] OF [facility] Hemoglobin (Bld) [Mass/Vol] 13.5 g/dL Normal 11.5-15.5 [facility] Comment on above: Order Comment: Speci men Type: BLOOD SPECIMEN Ordering Facility: [facility] Address: [address] [place] [address] Performed By: #### 5 7021-8 #### [facility] [id number] [address] [place] [address] OF [facility] IMMATURE GRAN % 0.2 % Normal [facility] Comment on above: Order Comment: Speci men Type: BLOOD SPECIMEN Ordering Facility: [facility] Address: [address] [place] [address] Performed By: #### 5 7021-8 #### [facility] CLIA [id number] [address] [place] [address] OF [facility] IMMATURE GRAN ABS <0.03 Normal <0.[address] [facility] Comment on above: Order Comment: Speci men Type: BLOOD SPECIMEN Ordering Facility: [facility] Address: [address] [place] [address] Performed By: #### 5 7021-8 #### [facility] CLIA [id number] [address] [place] [address] [place] Lymphocytes (Bld) [#/Vol] 1.86 10*3/uL Normal 1.00-4.00 [facility] Comment on above: Order Comment: Speci men Type: BLOOD SPECIMEN Ordering Facility: [facility] Address: [address] [place] [address] Performed By: #### 5 7021-8 #### [facility] CLIA [id number] [address] [place] [address] [place] Lymphocytes/100 WBC (Bld) 20.6 % Normal [facility] Comment on above: Order Comment: Speci men Type: BLOOD SPECIMEN Ordering Facility: [facility] Address: [address] [place] [address] Performed By: #### 5 7021-8 #### [facility] CLIA [id number] [address] [place] [address] [place] MCH (RBC) [Entitic mass] 31.0 pg Normal 26.0-34.0 [facility] Comment on above: Order Comment: Speci men Type: BLOOD SPECIMEN Ordering Facility: [facility] Address: [address] [place] [address] Performed By: #### 5 7021-8 #### [facility] CLIA [id number] [address] [place] [address] [place] MCHC (RBC) [Mass/Vol] 34.2 g/dL Normal 30.5-36.0 [facility] Comment on above: Order Comment: Speci men Type: BLOOD SPECIMEN Ordering Facility: [facility] Address: [address] [place] [address] Performed By: #### 5 7021-8 #### [facility] CLIA [id number] [address] [place] [address] [place] MCV (RBC) [Entitic vol] 90.8 fL Normal 80.0-100.0 [facility] Comment on above: Order Comment: Speci men Type: BLOOD SPECIMEN Ordering Facility: [facility] Address: [address] [place], [place] [address] Performed By: #### 5 7021-8 #### [facility] CLIA [id number] [address] [place] [address] [place] Monocytes (Bld) [#/Vol] 0.75 10*3/uL Normal <0.87 [facility] Comment on above: Order Comment: Speci men Type: BLOOD SPECIMEN Ordering Facility: [facility] Address: [address] [place] [address] Performed By: #### 5 7021-8 #### [facility] CLIA [id number] [address] [place] [address] [place] Monocytes/100 WBC (Bld) 8.3 % Normal [facility] Comment on above: Order Comment: Speci men Type: BLOOD SPECIMEN Ordering Facility: [facility] Address: [address] [place], [place] [address] Performed By: #### 5 7021-8 #### [facility] CLIA [id number] [address] [place] [address] [place] Neutrophils (Bld) [#/Vol] 6.26 10*3/uL Normal 1.45-7.50 [facility] Comment on above: Order Comment: Speci men Type: BLOOD SPECIMEN Ordering Facility: [facility] Address: [address] [place], [place] [address] Performed By: #### 5 7021-8 #### [facility] CLIA [id number] [address] [place] [address] [place] Neutrophils/100 WBC (Bld) 69.5 % Normal [facility] Comment on above: Order Comment: Speci men Type: BLOOD SPECIMEN Ordering Facility: [facility] Address: [address] [place], [place] [address] Performed By: #### 5 7021-8 #### [facility] CLIA [id number] [address] [place] [address] [place] Nucleated RBC (Bld) [#/Vol] 10*3/uL Normal <0.01 [facility] Comment on above: Order Comment: Speci men Type: BLOOD SPECIMEN Ordering Facility: [facility] Address: [address] [place], [place] [address] Performed By: #### 5 7021-8 #### [facility] CLIA [id number] [address] [place] [address] [place] Nucleated RBC/100 WBC (Bld) [Ratio] 0.0 /100 WBC Normal [facility] Comment on above: Order Comment: Speci men Type: BLOOD SPECIMEN Ordering Facility: [facility] Address: [address] [place], [place] [address] Performed By: #### 5 7021-8 #### [facility] CLIA [id number] [address] [place] [address] [place] Platelet mean volume (Bld) [Entitic vol] 9.2 fL Normal 9.0-12.7 [facility] Comment on above: Order Comment: Speci men Type: BLOOD SPECIMEN Ordering Facility: [facility] Address: [address] [place], [place] [address] Performed By: #### 5 7021-8 #### [facility] CLIA [id number] [address] [place] [address] [place] Platelets (Bld) [#/Vol] 417 10*3/uL High 150-400 [facility] Comment on above: Order Comment: Speci men Type: BLOOD SPECIMEN Ordering Facility: [facility] Address: [address] [place], [place] [address] Performed By: #### 5 7021-8 #### [facility] CLIA [id number] [address] [place] [address] [place] RBC (Bld) [#/Vol] 4.35 10*6/uL Normal 3.90-5.20 [facility] Comment on above: Order Comment: Speci men Type: BLOOD SPECIMEN Ordering Facility: [facility] Address: [address] [place] [address] Performed By: #### 5 7021-8 #### [facility] CLIA [id number] [address] [place] [address] [place] WBC (Bld) [#/Vol] 9.01 10*3/uL Normal 3.70-11.00 [facility] Comment on above: Order Comment: Speci men Type: BLOOD SPECIMEN Ordering Facility: [facility] Address: [address] [place] [address] Performed By: #### 5 7021-8 #### [facility] CLIA [id number] [address] [place] [address] [place] HISTORY PHYSICALon HISTORY PHYSICAL HNO ID: [id number] Author: Analilia Gutierres PA-C Service: ? Author Type: Physician Continuous Pickling Line Pickler Type: HANDP Filed: 04/10/2022 8:54 AM Note Text: PREANESTHESIA CONSULT CLINIC TELEHEALTH VISIT Patient has been identified by name and date of : Yes This is a virtual visit using [employer] video visit. It require patient-provider interaction for [...] middle right finger HYSTERECTOMY 2010 LASIK Bilateral 2001 FAMILY HISTORY Problem Relation Age of Onset [...] fevers. 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 No neurological symptoms or problems. Respiratory: No history of current cough or dyspnea, or pneumonia in the past 6 weeks. No history of respiratory/pulmonary symptoms or problems. Cardiovascular: No history of HTN requiring medication, no history of angina, CHF, AL, cardiac surgery or stents. Denies rest pain, gangrene or revascularization/ampu tation for PVD. No history of cardiovascular symptoms or problems. +occasional ankle edema managed with HCTZ GI: No history of GI symptoms or problems. No history of esophageal varices, recent ascites, or ETOH greater than 2 drinks per day. 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 CRE (more content not included)... Normal [facility] - Microbiology an d Antimicrobial susceptibilityon 03-26-2022 SARS-CoV-2 (COVID-19) RNA YAZ+probe Ql (Unsp spec) Detected [facility] Work Phone: No Panel Informationon 03-26 Influenza Types A,B Rapid (Clinic) Not detected [facility] Work Phone: Vital Signs Date Time Vital Sign Value Performing Clinician Eri yip 07-10-2022 09:16-0500 Body weight 65.77 kg Sandra Castaneda DO Work Phone: [facility] 05-09-2022 13:50-0400 Body weight 65.77 kg Siddhartha Warren DO Work Phone: [facility] 04-30-2022 13:14-0400 Body weight 65.77 kg Siddhartha Warren DO Work Phone: [facility] 04-10-2022 07:48-0400 Body height 154.9 cm [facility] 04-10-2022 07:48-0400 Body weight 65.77 kg [facility] 03-26-2022 11:13-0400 Body temperature 98.5 [degF] Dr. Siddhartha Pedroza Work Phone: [facility] Work Phone: 03-26-2022 11:13-0400 Diastolic blood pressure 68 mm[Hg] Dr. Siddhartha Pedroza Work Phone: [facility] Work Phone: 03-26-2022 11:13-0400 Heart rate 138 /min Dr. Siddhartha Pedroza Work Phone: [facility] Work Phone: 03-26-2022 11:13-0400 Respiratory rate 17 /min Dr. Siddhartha Pedroza Work Phone: [facility] Work Phone: 03-26-2022 11:13-0400 SaO2% (BldA) [Mass fraction] 97 % Dr. Siddhartha Pedroza Work Phone: [facility] Work Phone: 03-26-2022 11:13-0400 Systolic blood pressure 118 mm[Hg] Dr. Siddhartha Pedroza Work Phone: [facility] Work Phone: 11-01-2021 09:30-0400 Body height 154.9 cm Siddhartha Warren DO Work Phone: [facility] 11-01-2021 09:30-0400 Body weight 65.77 kg Siddhartha Warren DO Work Phone: [facility] Encounters Encounter Date Encounter Type Care Provider Facility Start: 04-08-2025 End: 04-08-[address] Siddhartha Pedroza DO Work Phone: -Laboratory Start: 04-08-2025 End: 04-08-[address] Siddhartha Pedroza DO Work Phone: -Laboratory Work Phone: Start: 04-08-2025 End: 04-08-2025 ambulatory Siddhartha Yovany Facility:[facility] Start: 03-01-2025 End: 03-01-2025 ambulatory BEBETO MANSFIELD Work Phone: -Laboratory Start: 03-01-2025 End: 03-01-[address] Siddhartha Pedroza DO -Laboratory Work Phone: Start: 03-01-2025 End: 03-01-2025 ambulatory Siddhartha Yovany Facility:[facility] Start: 02-23-2025 End: 02-23-2025 ambulatory BEBETO MANSFIELD Work Phone: -Laboratory Start: 02-23-2025 End: 02-23-[address] Charmaine Montaño MD -Laboratory Work Phone: Start: 02-23-2025 End: 02-23-2025 ambulatory Charmaine Magaña Danyel Facility:[facility] Start: 02-21-2025 End: 02-21-2025 ambulatory BEBETO MANSFIELD Work Phone: -Outpatient Breast Imaging Start: 02-21-2025 End: 02-21-[address] Charmaine Montaño MD -Outpatient Breast Imaging Work Phone: Start: 02-21-2025 End: 02-21-2025 ambulatory Charmaine Montaño Facility:[facility] Start: 12-03-2024 End: 12-03-[address] Siddhartha Pedroza DO Work Phone: [facility] Work Phone: Start: 12-03-2024 End: 12-03-[address] Siddhartha Pedroza DO Work Phone: -Laboratory Work Phone: Start: 12-03-2024 End: 12-03-2024 ambulatory LAYN1 FINE Facility:[facility] Start: 10-12-2024 End: 10-12-[address] Siddhartha Pedroza DO Work Phone: [facility] Work Phone: Start: 10-12-2024 End: 10-12-[address] Randy Oglesby MD -MRI - [facility] Work Phone: Start: 10-12-2024 End: 10-12-2024 ambulatory Randy Oglesby Facility:[facility] Start: 08-18-2024 End: 08-18-[address] Charmaine Montaño MD -Laboratory, [facility] Work Phone: Start: 08-18-2024 End: 08-18-2024 ambulatory Charmaine Montaño Facility:[facility] Start: 08-02-2024 Encounter for genera l adult medical examination with abnormal findings Analisa Land [facility] Start: 06-30-2024 End: 06-30-2024 Patient encounter procedure Analisa Land APRICOT WASHER-C -Radiology, [facility] Work Phone: Start: 06-30-2024 End: 06-30-2024 ambulatory Siddhartha Pedroza Facility:[facility] Start: 06-06-2023 End: 06-06-2023 ambulatory [facility] Work Phone: Start: 06-06-2023 End: 06-06-2023 [facility] Start: 10-31-2022 End: 10-31-2022 Office outpatient visit 15 minutes Siddhartha Warren DO Work Phone: [employer] Comment on above: History of bilateral breast reduction surgery (Primary Dx) Start: 09-12-2022 End: 09-12-2022 ambulatory [facility] Work Phone: Start: 09-12-2022 End: 09-12-2022 Patient encounter procedure [facility] Start: 07-10-2022 End: 07-10-2022 Postop follow up visit related to original px Sandra Castaneda DO Work Phone: [employer] Comment on above: S/P bilateral breast reduction (Primary Dx) Start: 05-17-2022 End: 05-17-[address] Siddhartha Pedroza Work Phone: [facility] Work Phone: Start: 05-17-2022 End: 05-17-[address] Siddhartha Pedroza Work Phone: [facility], [facility] Start: 05-09-2022 End: 05-09-2022 Postop follow up visit related to original px Siddhartha Warren DO Work Phone: [facility]a [employer] Comment on above: S/P bilateral breast reduction (Primary Dx) Start: 04-30-2022 End: 04-30-2022 Postop follow up visit related to original px Siddhartha Warren DO Work Phone: [employer]a [employer] Comment on above: S/P bilateral breast reduction (Primary Dx) Start: 04-22-2022 End: 04-22-2022 ambulatory SIDDHARTHA WARREN Facility:[facility] Start: 04-18-2022 End: 04-18-2022 ambulatory ANALILIA GUTIERRES Facility:[facility] Start: 04-18-2022 Encounter for other preprocedural examination ANALILIA GUTIERRES [facility] Start: 04-10-2022 End: 04-10-2022 ambulatory SIDDHARTHA WARREN Facility:[facility] Start: 04-10-2022 End: 04-10-2022 Admission to [facility] 1 Virtual [facility] 1 Start: 04-10-2022 End: 04-10-2022 ambulatory [facility] Pre Anesthesia Comment on above: Preoperative examina tion (Primary Dx); Breast hypertrophy; Lower extremity edema; Hot flashes due to menopause Start: 04-10-2022 End: 04-10-2022 Preprocedural examination done [facility] Pre Anesthesia Start: 03-26-2022 End: 03-26-[address] Siddhartha Pedroza Work Phone: [facility] Start: 11-08-2021 End: 11-08-2021 Patient encounter procedure [facility] Start: 11-01-2021 End: 11-01-2021 Office outpatient new 45 minutes GennaroMaximiliano Warren DO Work Phone: Siddhartha Warren [employer] Comment on above: Breast hypertrophy ( Primary Dx) Procedures Date Procedure Procedure Detail Performing Clinician Start: 04-08-[address] stimulating hormone measurement Dr. Siddhartha Pedroza DO Work Phone: Comment on above: FEMALE:Follicular: 1.4 - 18.1 mIU/mLMidc ycle: 3.4 - 33.4 mIU/mLLuteal: 1.5 - 9.1 mIU/mLPost Menopause: 23.0 - 116.3 mIU/mLMALE: 1.4 - 18.1 mIU/mL Start: 03-01-2025 Procedure BEBETO MANSFIELD Work Phone: Comment on above: Test Ordered: [id number] Diabetes Autoimmune ProfileInsulin Antibodies <5.0 uU/mL ES Reference Range: .This test is also known as insulin autoantibody or IAA.This test was developed and its performance characteristicsdetermined by [employer]. It has not been cleared or approvedby the Food and Drug Administration.Reference Range:<5.0 Negative> or = 5.0 PositiveAnti UZAIR 65 Antibodies <5.0 U/mL ES Reference Range: .Reference Range:<5.0 Negative> or = 5.0 PositiveIA-2 Autoantibodies <7.5 U/mL ES Reference Range: .Reference Range:<7.5 Negative> or = 7.5 PositiveZNT8 Antibodies <15 U/mL ES Reference Range: .Reference Range:All Ages:<15 Negative> or =15 PositiveType 1 Diabetes Interpretation Comment ES Reference Range: .Published positivity rates for diabetes autoantibodies innew-onset Type 1 Diabetes patients listed below are basedon the combined analysis of UZAIR-65, ICA 512, InsulinAntibodies, and ZNT8 Antibodies. The combined analysis hasa 98% autoimmunity detection rate, with 1.8% of Type 1diabetic individuals remaining as autoantibody-negative.Positivity rate in new-onset Type 1 Diabetes patients:UZAIR-65 Antibodies = 68% positiveIA-2/ICA 512 Antibodies = 72% positiveInsulin Antibodies = 55% positiveZNT8 Antibodies = 63% positiveAn increase in the number of positive antibodies isassociated with a higher likelihood of Type 1 Diabetes.Less than 3% of Type 2 Diabetics have positiveantibodies.(1)Prasanna et al. PNAS. 2007;104(43):65160-66544.Performed at: [facility] - [facility] [id number] [place], [place] [id number] Director: Jose Berman , Phone: [phone] at: - [facility] [address] [id number] Director: Simon Ferrer PhD, Phone: [phone] Start: 02-21-2025 Bilateral mammography [facility] Work Phone: Start: 02-21-2025 Ultrasonography of breast [facility] Work Phone: Start: 12-03-2024 [address] stimulating hormone measurement Dr. Siddhartha Pedroza DO Work Phone: Comment on above: FEMALE:Follicular: 1.4 - 18.1 mIU/mLMidc ycle: 3.4 - 33.4 mIU/mLLuteal: 1.5 - 9.1 mIU/mLPost Menopause: 23.0 - 116.3 mIU/mLMALE: 1.4 - 18.1 mIU/mL NORMAL REFERENCE RANGES FEMALE FOLLICULAR 2.3 - 12.6 mIU/mL MID-CYCLE PEAK 5.2 - 17.5 mIU/mL LUTEAL 1.7 - 12.9 mIU/mL POST-MENOPAUSAL ON MHT 5.9 - 72.8 mIU/mL NOT ON MHT 12.7 - 132.2 mlU/mL MALE 0.7 - 10.8 mIU/mL Start: 12-03-2024 Vitamin D, 25-hydroxy measurement Dr. Margaret Pedroza DO Work Phone: Comment on above: Vitamin D StatusDeficiency: <20 ng/mL (5 0nmol/L)Insufficiency: 20-30 ng/mL (50-75 nmol/L)Sufficiency: 30-100 ng/mL (75-250 nmol/L)Toxicity: >100 ng/mL (>250 nmol/L) Start: 10-12-2024 MRI of brain with contrast Dr. Siddhartha cedeño DO Work Phone: Start: 08-18-[address] Siddhartha Pedroza DO Work Phone: Comment on above: NORMAL REFERENCE RANGES FEMALE FOLLICULA R 21.4 - 164.8 pg/mL MID-CYCLE PEAK 49.9 [...] 08-18-2024 Measurement of renal function Dr. Siddhartha ray DO Work Phone: Comment on above: GFR Calc Start: 06-30-2024 Plain x-ray of hand Dr. Siddhartha Pedroza DO Work Phone: Start: 11-08-2021 Screening mammography History of reduction of breast S /P bilateral breast reduction Siddhartha Warren DO Work Phone: History of reduction of breast S /P bilateral breast reduction Siddhartha Warren DO Work Phone: History of reduction of breast S /P bilateral breast reduction Sandra Florencia Castaneda DO Work Phone: History of reduction of breast H istory of bilateral breast reduction surgery Siddhartha Warren DO Work Phone: Plan of Treatment Date Care Activity Detail Author Start: 04-18-2025 DIABETES SCREEN DIABETES SCREEN [facility] Start: [facility]-01-2025 [facility] Start: 07-28-2022 DEPRESSION ASSESSMENT DEPRESSION ASS ESSMENT [facility] Start: 04-10-2022 End: 06-10-2022 Basic metabolic 2000 panel - Serum or Plasma BASIC METABOLIC PNL Lab Routine Preoperative examination Expected: 04/10/2022, Expires: 06/10/2022 [facility] Work Phone: Comment on above: Expected: 04/10/2022 , Expires: 06/10/2022 Start: 04-10-2022 End: 06-10-2022 CBC W Auto Differential panel - Blood CBC + DIFF Lab Routine Preoperative examination Expected: 04/10/2022, Expires: 06/10/2022 [facility] Work Phone: Comment on above: Expected: 04/10/2022 , Expires: 06/10/2022 Start: 03-28-2022 Influenza vaccination [facility] Start: 09-17-2021 COVID-19 VACCINE (3 - Booster for Pfizer series) COVID-19 VACCINE (3 - Booster for Pfizer series) [facility] Start: 07-28-2021 [facility]PRESSION [facility]MENT [facility] Start: 06-12-2021 COVID-19 VACCINE (3 - Booster for Pfizer series) COVID-19 VACCINE (3 - Booster for Pfizer series) [facility] Start: 01-11-2020 COLOGUARD (FIT-DNA) COLOGUARD (FIT-D NA) [facility] Start: 01-11-2020 Colonoscopy COLONOSCOPY [facility] Start: 01-11-2020 COLORECTAL CANCER SCREENING COLORECTAL CANCER SCREENING [facility] Start: 01-11-[address] COLONOGRAPHY [facility] Start: 01-11-2020 DIABETES SCREEN DIABETES SCREEN [facility] Start: 01-11-2020 FECAL OCCULT BLOOD FECAL OCCULT BLOO D [facility] Start: 01-11-2020 LIPID SCREEN LIPID SCREEN [facility] Start: 01-11-2020 SIGMOIDOSCOPY SIGMOIDOSCOPY [facility] Start: 2015 Mammography MAMMOGRAM [facility] Start: 2005 HPV TESTING HPV TESTING [facility] Start: 01-11-1996 PAP TESTING PAP TESTING [facility] Start: 1994 Urine microalbumin profile DTAP,TDAP,TD (1 - Tdap) [facility] Start: 1993 HEPATITIS C SCREENING HEPATITIS C DC ZACK [facility] Start: 1993 HIV SCREENING HIV SCREENING [facility] Start: 1987 Adult depression screening assessment DEPRESSION SCREENING [facility] Start: 01-11-1980 COVID-19 VACCINE (1) COVID-19 VACCIN E (1) [facility] Start: 1975 HEPATITIS B (1 of 3 - 3-dose series) HEPATITIS B (1 of 3 - 3-dose series) [facility] Serum testosterone measurement [facility] Serum testosterone measurement [facility] Sex hormone binding globulin [Moles/volume] in Serum or Plasma [facility] Sex hormone binding globulin [Moles/volume] in Serum or Plasma [facility] Testosterone Free [Mass/volume] in Serum or Plasma [facility] Testosterone Free [Mass/volume] in Serum or Plasma [facility] Testosterone measurement [facility] Testosterone measurement [facility] Thyroperoxidase Ab [Units/volume] in Serum or Plasma [facility] Payers Date Payer Category Payer Unknown [id number] 2024 Self-pay [id number] 2021 Private Health Insurance [id number] 2021 Private Health Insurance AETNA A ETNA CHOICE POS II [id number] 2021-Present [phone] [address] [place] [address] POS [id number] Unknown [id number] 62 Unknown [id number] 62 Unknown [id number] 62 Unknown [id number] 62 Unknown [id number] 62 Unknown [id number] 62 Unknown [id number] 62 Unknown [id number] 62 Social History Date Type Detail Facility Start: 09-28-2020 End: 03-26-2022 Tobacco smoking status GAIS Tobacco smoking consumption unknown [facility] Start: 1975 Sex Assigned At Not on file [facility] Start: 1975 Sex Assigned At Female [facility] Start: 03-21-2022 End: 03-26-2022 Tobacco smoking status GAIS Never smoked tobacco [facility] Start: 03-21-2022 Tobacco use and exposure Smokeless tobacco non-user [facility] Start: 04-10-2022 End: 07-10-2022 Alcohol intake Current drinker of alcohol (finding) [facility] Start: 04-10-2022 End: 07-10-2022 Alcohol intake [facility] Start: 03-31-2022 End: 04-22-2022 Exposure to SARS-CoV-2 (event) Not sure [facility] Work Phone: Start: 10-20-2024 Sex Female (finding) [facility] Sex Female [facility] Clinical Notes 11-01-2021 to 02-21-2025 Siddhartha Warren, DO - 10/31/2022 10:21 AM Noah Castaneda, DO - 07/10/2022 9:31 AM Evens Warren, DO - 05/09/2022 2:02 PM EDTMchente Warren, DO - 04/30/2022 1:20 PM EDT Note Date & Type Note Facility 07-28-2025 Radiology Diagnostic study note [facility] Imaging Services [address] [place] [address] Breast Limited Unilateral MR#: [id number] Acct: [id number] Name: DINORAH SIMPSON Rep #: [id number] : 1975 F 50 From: Martinez Voss MD PCP: Dr. Siddhartha Pedroza DO Status: REG CLI Study:Breast Limited Unilateral Date of Exam: 02/21/25 Exam# [id number] Ordering Dr: Charmaine Branhma MD PROCEDURE: BREAST LIMITED UNILATERAL 02/21/2025 REASON [...] annual follow-up in 1 Year Reading Location: [id number] CC: Dr. Siddhartha Pedroza DO; Dr. Charmaine Montaño MD ~ General Manager [employer]: Signed [facility] 10-31-2022 History of Present illness Narrative [facility] Siddhartha Warren DO, FACOS, FAACS* Name: Dinorah Simpson She is 7 months [...] office or return sooner. Siddhartha Warren DO October 31, 2022 This note was generated with voice recognition software and may contain errors, including spelling, grammar, syntax and misrecognition of what was dictated, that are not fully corrected. documented in this encounter [facility] 07-10-2022 History of Present illness Narrative KELVIN [...] not fully corrected. documented in this encounter [facility] 05-09-2022 History of Present illness Narrative [facility] Siddhartha Warren DO, FACOS, FAACS* Name: Dinorah Simpson She is 2 weeks [...] not fully corrected. documented in this encounter [facility] 04-30-2022 History of Present illness Narrative [facility] Siddhartha Warren DO, FACOS, FAACS* Name: Dinorah Simpson We are removing some [...] not fully corrected. 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 Please read below carefully for your personalized [...] Procedures: - YOU MUST HAVE A RESPONSIBLE DEPARTMENT SUPERVISOR TAKE YOU HOME. A PRESSURE STEAMER TENDER OR CIGARETTE MACHINES MECHANIC CANNOT BE MADE A RESPONSIBLE DEPARTMENT SUPERVISOR. - We recommend that a responsible person [...] Advance Directive, please fax a copy to [phone] or email to for it to be [...] Analilia Gutierres PA-C documented in this encounter [facility] 04-10-2022 History and physical note PREANESTHESIA CONSULT CLINIC TELEHEALTH VISIT Patient has been identified by name and date of : Yes This is a virtual visit using [employer] video visit. It require patient-provider interaction for [...] fevers. 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 No neurological symptoms or problems. Respiratory: No history of current cough or dyspnea, or pneumonia in the past 6 weeks. No history of respiratory/pulmonary symptoms or problems. Cardiovascular: No history of HTN requiring medication, no history of angina, CHF, AL, cardiac surgery or stents. Denies rest pain, gangrene or revascularization/amputation for PVD. No history of cardiovascular symptoms or problems. +occasional ankle edema managed with HCTZ GI: No history of GI symptoms or problems. No history of esophageal varices, recent ascites, or ETOH greater than 2 drinks per day. : No history of dysuria, frequency or incontinence,, stones or chronic kidney disease LABOR RELATIONS MANAGER: Negative for abnormal vaginal bleeding, abnormal vaginal [...] device. I spent more than 21-40 minutes [id number] with the patient and over half the time was devoted to counseling and/or coordination of care. This is a virtual visit. It required patient-provider interaction for the medical decision making as documented above. SIGNATURE: Analilia Gutierres PA-C PATIENT NAME: Dinorah Simpson DATE: April 10, 2022 TIME: 7:52 AM PAGER/CONTACT #: documented in this encounter [facility] 04-09-2022 Note HNO ID: [id number] Author: Siddhartha Warren DO Service: ? Author Type: Physician Type: Progress Notes Filed: 04/09/2022 3:34 PM Note Text: [facility] Siddhartha PardoEcho DO Kelvin, ARTHUR, AARON* Name: Dinorah Simpson She is scheduled for [...] was dictated, that are not fully corrected. [facility] 11-01-2021 Note HNO ID: [id number] Author: Siddhartha Warren DO Service: ? Author Type: Physician Type: Progress Notes Filed: 11/01/2021 10:11 AM Note Text: [facility] Siddhartha PardoEcho DO Kelvin, ARTHUR, FAASUKHDEEP* Name: Dinorah Simpson I see her consultation [...] well as pigment loss. Anesthesia risks include AL, pulmonary emboli (blood clots), or even . [...] was dictated, that are not fully corrected. [facility] 11-01-2021 Nurse Note [facility] SIDDH[facility]A [...] need to be taken off. Pt is [id number] and did breast feed. Pt has + [...] of cancer. Pt will sit with the sales office administrator to discuss pricing and scheduling. Pt will undergo bilateral reduction mammoplasty under general anesthesia as outpatient. PAT and MARCELLO discussed. All questions answered to patient's satisfaction. Rahat Steinberg RN November 01, 2021 documented in this encounter [facility] 11-01-2021 History of Present illness Narrative [facility] Siddhartha Warren DO, ARTHUR, FAACS* Name: Dinorah Simpson I see her [...] well as pigment loss. Anesthesia risks include AL, pulmonary emboli (blood clots), or even . [...] to call office or return sooner. Siddhartha Warren, November 01, 2021 This note was generated with voice recognition software and may contain errors, including spelling, grammar, syntax and misrecognition of what was dictated, that are not fully corrected. documented in this encounter [facility] Chief complaint+Reason for v isit Narrative Reason [facility] Visit [facility] [place] [address] Work Phone: Evaluation note* Diagnosis Breast hypertrophy- Primary Hypertrophy of breast documented in [facility] encounter [facility] noteNo assessment [facility] Work Phone: Evaluation note* Diagnosis Preoperative examination- Primary Preoperative examination, unspecified Breast hypertrophy Hypertrophy of breast Lower extremity edema Edema Hot flashes due to menopause Cervicalgia Pain in thoracic spine Mastodynia Dermatitis Contact dermatitis and other eczema, due to unspecified cause Hypertrophy of breast documented in this encounter [facility] Center note* Diagnosis S/P bilateral breast reduction- Primary Other postprocedural status documented in this encounter [facility] note* Diagnosis Onset Date Resolution Status [facility] [place] [address] Work Phone: Evaluation note* Diagnosis S/P bilateral breast reduction- Primary Other postprocedural status documented in this encounter [facility] note* Diagnosis History of bilateral breast reduction surgery- Primary Other postprocedural status documented in this encounter [facility]No reason for referral information availableWGalion [facility] Work Phone: Chief Complaint and Reason for Visit Chief Complaint SCREENING Chief Complaint Admit Date LEFT HAND XRAY CMP CBC June 30 11:00am Parosmia October 12, 2024 11: 07am Chief Complaint Admit Date Parosmia October 12, 2024 11: 07am Chief Complaint Admit Date LEFT BREAST LUMP February 21, 2025 12:4 8pm Chief Complaint Admit Date LEFT BREAST LUMP February 21, 2025 12:4 8pm INT LABS March 01, 2025 7:4 0am Family History No Family History Records Found [...] or prosecute any alcohol or drug abuse patient.[facility] the event this information is protected by the Federal Confidentiality of Alcohol and Drug Abuse Patient Records regulations: The Federal rules restrict any use of the information to criminally investigate or prosecute any alcohol or drug abuse patient.[facility]In the event this information is protected by the Federal Confidentiality of Alcohol and Drug Abuse Patient Records regulations: The Federal rules restrict any use of the information to criminally investigate or prosecute any alcohol or drug abuse patient.[facility] the event this information is protected by the Federal Confidentiality of Alcohol and Drug Abuse Patient Records regulations: The Federal rules restrict any use of the information to criminally investigate or prosecute any alcohol or drug abuse patient.[facility] the event this information is protected by the Federal Confidentiality of Alcohol and Drug Abuse Patient Records regulations: The Federal rules restrict any use of the information to criminally investigate or prosecute any alcohol or drug abuse patient.[facility] the event this information is protected by the Federal Confidentiality of Alcohol and Drug Abuse Patient Records regulations: The Federal rules restrict any use of the information to criminally investigate or prosecute any alcohol or drug abuse patient.[facility] Reason for Visit (unrecogniz ed section and [...] Care Teams (unrecognized sec tion and content) Associate Quality Engineer Relationship Specialty Start Date End Date Siddhartha Pedroza, [address] [place] [address] PCP - General Family Practice 04/08/22 Associate Quality Engineer Relationship Specialty Start Date End Date Siddhartha Pedroza DO [address] [place], [place] [id number] PCP - General Family Medicine 04/08/22 Associate Quality Engineer Relationship Specialty Start Date End Date Siddhartha Pedroza DO [address] [place], [place] [id number] PCP - General Family Medicine 04/08/22 Team Status: Active Member Role Status Dates Dr. Siddhartha Pedroza DO Family Provider Active Dr. Siddhartha Pedroza DO Primary Care Provider Active Team Status: Inactive Member Role Status Dates Dr. Siddhartha Pedroza DO Primary Care Provider, Attendin g Provider Active Associate Quality Engineer Relationship Specialty Start Date End Date Siddhartha Pedroza DO [address] [place] [address] PCP - General Family Medicine 04/08/22 Team [...] December 03, 2024 End: December 03, 2024 BEBETOSHYLA ELLIOTT Referring Provider Active Start: December 03, 2024 End: December 03, 2024 Dr. Siddhartha Pedroza DO Primary Care Provider Active Start: December 03, 2024 End: December 03, 2024 Team Status: Active Member Role/Relationship Status Dates Dr. Siddhartha Pedroza DO Primary Care Provider Active Team Status: Inactive Member Role/Relationship Status Dates BEBETOSHYLA ELLIOTT Attending Provider Active Start: December 03, 2024 End: December 03, 2024 SHYLA TATE Referring Provider Active Start: December 03, 2024 End: December 03, 2024 Dr. Siddhartha Pedroza DO Primary Care Provider Active Start: December 03, 2024 End: December 03, 2024 Team Status: Inactive Member Role/Relationship Status Dates Dr. Siddhartha Pedroza DO Primary Care Provider Active Start: February 21, 2025 End: February 21, 2025 Dr. Charmaine Montaño MD Attending Provider Active Start: February 21, 2025 End: February 21, 2025 Dr. Charmaine Montaño MD Referring Provider Active Start: February 21, 2025 End: February 21, 2025 Team Status: Active Member Role/Relationship Status Dates SHYLA TATE Other Provider Active Start: February 23, 2025 Dr. Siddhartha Pedroza DO Primary Care Provider Active Start: February 23, 2025 Dr. Charmaine Montaño MD Attending Provider Active Start: February 23, 2025 Dr. Charmaine Montaño MD Referring Provider Active Start: February 23, 2025 Team Status: Inactive Member Role/Relationship Status Dates SHYLA TATE Other Provider Active Start: February 23, 2025 End: February 23, 2025 Dr. Siddhartha Pedroza DO Primary Care Provider Active Start: February 23, 2025 End: February 23, 2025 Dr. Charmaine Montaño MD Attending Provider Active Start: February 23, 2025 End: February 23, 2025 Dr. Charmaine Montaño MD Referring Provider Active Start: February 23, 2025 End: February 23, 2025 Team Status: Active Member Role/Relationship Status Dates Dr. Siddhartha Pedroza DO Primary Care Provider Active Start: March 01, 2025 Dr. Siddhartha Pedroza DO Attending Provider Active Start: March 01, 2025 Dr. Siddhartha Pedroza DO Referring Provider Active Start: March 01, 2025 Team Status: Inactive Member Role/Relationship Status Dates Dr. Siddhartha Pedroza DO Primary Care Provider Active Start: March 01, 2025 End: March 01, 2025 Dr. Siddhartha Pedroza DO Attending Provider Active Start: March 01, 2025 End: March 01, 2025 Dr. Siddhartha Pedroza DO Referring Provider Active Start: March 01, 2025 End: March 01, 2025 Team Status: Active Member Role/Relationship Status Dates Dr. Siddhartha Pedroza DO Primary care physician Active Team Status: Inactive Member Role/Relationship Status Dates Dr. Siddhartha Pedroza DO Primary care physician Active Start: February 21, 2025 End: February 21, 2025 Dr. Chramaine Montaño MD Attending physician Activ e Start: February 21, 2025 End: February 21, 2025 Dr. Charmaine Montaño MD Referring Provider Active Start: February 21, 2025 End: February 21, 2025 Team Status: Inactive Member Role/Relationship Status Dates SHYLA TATE Nurse Practitioner Active Start: February 23, 2025 End: February 23, 2025 Dr. Siddhartha Pedroza DO Primary care physician Active Start: February 23, 2025 End: February 23, 2025 Dr. Charmaine Montaño MD Attending physician Activ e Start: February 23, 2025 End: February 23, 2025 Dr. Charmaine Montaño MD Referring Provider Active Start: February 23, 2025 End: February 23, 2025 Team Status: Inactive Member Role/Relationship Status Dates Dr. Siddhartha Pedroza DO Primary care physician Active Start: March 01, 2025 End: March 01, 2025 Dr. Siddhartha Pedroza DO Attending physician Active Start: March 01, 2025 End: March 01, 2025 Dr. Siddhartha Pedroza DO Referring Provider Active Start: March 01, 2025 End: March 01, 2025 Team Status: Inactive Member Role/Relationship Status Dates BEBETO SHYLA Attending physician Active Start: April 08, 2025 End: April 08, 2025 SHYLA TATE Referring Provider Active Start: April 08, 2025 End: April 08, 2025 Dr. Siddhartha Pedroza DO Primary care physician Active Start: April 08, 2025 End: April 08, 2025 INFORMATION SOURCE (unrecogn ized section and content) DATE CREATED AUTHOR 04/28/2022 [facility] DATE CREATED AUTHOR AUTHOR'S ORGANIZ ATION 05/01/2022 [facility] DATE CREATED AUTHOR AUTHOR'S ORGANIZ ATION 04/29/2025 [facility] FOR RECORDS PERTAINING TO PATIENTS WHO ARE [...] BE BASED ON THE PRIMARY CLINICAL RECORDS. [employer] provides no warranty or guarantee of the accuracy or completeness of information in this document.
[2025-06-03 09:17] LABS: Cholesterol 254 mg/dL (<=200); Follicle Stimulating Hormone 12.6 mIU/mL; Low Density Lipoprotein Calc. 178 mg/dL; Triglycerides 129 mg/dL; Very Low Density Lipoprotein 26 mg/dL (5-40); cholesterol:hdl ratio screen 4.82
[2025-06-09 12:09] LABS: Testosterone, % Free 1.44 % (0.50-2.80); Testosterone, Free 1.77 ng/dL (0.10-0.85)
== END | disposition home or self-care (01) ==
LOC: LAB 07:38
PROVIDERS: PCP Family Medicine
DX: N95.1 Menopausal and female climacteric states (principal); E78.5 Hyperlipidemia, unspecified; R73.01 Impaired fasting glucose
CPT/HCPCS: 36415; 80061; 82670; 83001; 83036; 84270; 84402; 84403

== ENCOUNTER → 2025-07-07 | Outpatient (CLI) | payer OTHER, SELFPAY ==
[2025-07-07 11:03] LABS: Color, Urine Yellow (Yellow); Glucose, Dipstick Normal (Normal); Ketone-Dipstick Negative (Negative); Leukocyte Esterase-Dipstick Negative /ul (Negative); Nitrite-Dipstick Positive (Negative); Occult Blood-Urine Negative /ul (Negative); Protein-Dipstick 15 mg/dl (Negative); Specific Gravity, Urine 1.020 (1.002-1.030); Urine Bilirubin Dipstick Negative (Negative)
== END | disposition home or self-care (01) ==
LOC: LAB 08:51
PROVIDERS: PCP Family Medicine; Visit Provider Family Medicine
DX: R82.90 Unspecified abnormal findings in urine (principal)
CPT/HCPCS: 81002; 87077; 87086; 87088; 87186